=== PATIENT | male | born 1950 | race Caucasian/White ===

== ENCOUNTER 2024-01-30 08:16 | Outpatient (AMB) | payer MEDICARE, SELFPAY ==
--- NOTE | 2024-01-30 08:27 | MHC.PC.OV ---
Vital Signs 01/30/24 08:37 Height 5 ft 8.03 in Weight 187 lb BMI 28.4 BP 118/70 Blood Pressure Location Lt brachial Position Sitting Respiration 14 Pulse 83 Pulse Source Pulse Oximeter Temp 98.1 F Temp Source Oral Pulse Oximetry (%) 96 Oxygen Delivery Method Room Air Intake Visit Reasons: est care/ uti Intake Note: New patient visit, burning while urinating Allergies latex [LATEX] Allergy (Intermediate, Verified 01/30/24 08:28) RASH lisinopril [LISINOPRIL] Allergy (Intermediate, Verified 01/30/24 08:28) LEG CRAMPS NSAIDS (Non-Steroidal Anti-Inflamma [NSAIDS (NON-STEROIDAL ANTI-INFLAMMA] Allergy (Intermediate, Verified 01/30/24 08:28) LEG CRAMPS vardenafil [From LEVITRA] Allergy (Intermediate, Verified 01/30/24 08:28) HALLUCINATIONS hydromorphone [Dilaudid] Allergy (Unknown, Verified 01/30/24 08:28) clammy ibuprofen Allergy (Unknown, Verified 01/30/24 08:28) Unknown Latex Gloves Allergy (Unknown, Uncoded 01/30/24 08:28) Unknown Tobacco use date assessed: 01/30/24 Fall risk assessment: No Falls in past year (is unsteady on feet) Last assessed Fall Risk: 01/30/24 Dental Screening Dental Screen Date: 01/30/24 Did you have a dental visit in the last 12 months?: Yes Did you have a dental problem in the last 6 months where you did not have access to dental care?: No Was dental information given to patient?: Patient has dentist HPI HPI Comments History of Present Illness Details This is a 73-year-old male with a past medical history of chronic neutrophilia, hypercholesterolemia, hypertension, coronary artery disease, right lower lobe lung nodule, BPH, CONNER, palpitations, peripheral neuropathy, TIA x2, controlled type 2 diabetes and venous insufficiency presenting to [facility]. He was seen at his last practice only one time 6 months ago before his insurance changed. Prior to that he was followed at [facility] care for [address] Blood. Records transfer pending. He endorses UTI symptoms for 4 days. He complains of urinary frequency, urgency and a mild burning sensation with urination. He had 1 UTI previously. Denies blood in his urine, fevers, chills, back pain, nausea and vomiting. Cardiovascular- Released from routine follow up by Dr. Burgess 3 years ago. Patient says about 5 years ago he was hospitalized for angina at [facility]. He had a total occlusion of 1 of his coronary arteries. They planned on bypass, but it was not amenable to surgery, and they told him collateral veins would form. Patient has stable angina for years. It occurs sporadically with exertion. This has not happened recently. He takes nitroglycerin and symptoms resolve. He takes losartan, Zetia, carvedilol, atorvastatin and baby aspirin. He was also evaluated for palpitations by his technical account representative. Patient had 2 TIAs. The 1st was some 20 years ago, and the other TIA occurred years ago, but he does not remember exactly when. Right lower lobe pulmonary nodule-patient says he was followed with CT scans for many years, and it remained stable. No further imaging was recommended. Quit smoking in 1993. He has chronic neutrophilia, and he was followed by Dr. Rodrigez. He denies fevers, chills, night sweats or unexplained weight loss. He does not see Hematology routinely anymore, but they recommended continuing to check his blood count. Type 2 diabetes-he has peripheral neuropathy. Fasting sugars are 130-140. His last hemoglobin A1c was 6 months ago, and he says it was 6.2%. He has eye exams with Dr. Moran annually. Ocular migraines-evaluated by Dr. Moran. Reports he had a CT scan of the brain which was normal. CONNER-patient says he does not use a CPAP. He tried to use one, and he did not tolerate it. See below PHQ-9 regarding fatigue symptoms. BPH-previously followed by Dr. Yuen. He would like to see a new neurologist. He had symptoms still on tamsulosin. Endorses frequent urination and nocturia. ROS: Constitutional: No unexplained weight loss, fever, chills, fatigue or night sweats. Eyes: No vision changes, blurry vision, double vision, eye pain, eye redness, eye discharge. ENT: No hearing loss, sneezing, congestion, runny nose or sore throat. Respiratory: No shortness of breath, cough or sputum production. Cardiovascular: No chest pain. No palpitations or pedal edema. Gastrointestinal: No anorexia, nausea, vomiting or diarrhea. No abdominal pain or blood in stool. Genitourinary: See HPI Neurologic: No headache, dizziness, syncope Hematologic/Lymphatics: No bleeding or swollen glands. Physical exam: Constitutional: Alert, in no distress. Head: Normocephalic. Eyes: Pupils are equal, round and reactive to light. Extraocular muscles intact. Neck: Supple, Full range of motion. No lymphadenopathy. Respiratory: Clear to auscultation. Cardiovascular: S1 S2 regular. No murmurs. Gastrointestinal: Abdomen soft, non-tender, non-distended. Normal bowel sounds. No palpable masses. Genitourinary: No costovertebral angle tenderness. Neurologic: No focal neurological deficits. Extremities: Warm and well perfused. No clubbing, cyanosis or edema. Psychiatric: Normal mood and affect [facility] Medical History (Updated 01/30/24 @ 14:17 by ERIKA Warren) Ocular migraine Chronic neutrophilia Controlled type 2 diabetes with neuropathy UTI (urinary tract infection) BPH associated with nocturia Venous insufficiency Type 2 diabetes mellitus TIA (transient ischemic attack) Stable angina pectoris Peripheral neuropathy Palpitations Osteoarthritis, hand CONNER (obstructive sleep apnea) Nodule of lower lobe of right lung Murmur Lower urinary tract symptoms HTN (hypertension) Hypercholesteremia Chronic total occlusion of coronary artery Surgical History (Updated 01/30/24 @ 10:56 by ERIKA Warren) History of sinus surgery History of microdiscectomy Status post reverse total shoulder replacement History of colonoscopy Social History (Updated 01/30/24 @ 08:52 by Carole Joshua CMA) Housing: Other ([facility]) Cigarette Packs Per Day: 2 Years Smoked: 30 e-Cigarette/Vaping Use: Never Used service: Yes Current occupational status: retired Cognitive needs: No Hearing needs: No Vision needs: Yes (reading glasses) Questionnaire PHQ-9 Over the last 2 weeks, how often have you been bothered by any of the following problems? 1. Little interest or pleasure in doing things: not at all 2. Feeling down, depressed, or hopeless: not at all 3. Trouble falling or staying asleep, or sleeping too much: nearly every day 4. Feeling tired or having little energy: nearly every day 5. Poor appetite or overeating: not at all 6. Feeling bad about yourself - or that you are a failure or have let yourself or your family down: not at all 7. Trouble concentrating on things, such as reading the newspaper or watching television: not at all 8. Moving or speaking so slowly that other people could have noticed. Or the opposite - being so fidgety or restless that you have been moving around a lot more than usual: not at all 9. Thoughts that you would be better off or of hurting yourself in some way: not at all Total score: 6 Depression Screening Interpretation: Positive Depression Screening Done: Yes 63414 - PHQ-9 Billing: Yes Source: Developed by Drs. Deven Lincoln, Altagracia Quintanilla, Tee Canchola and colleagues, with an educational linus from [employer] Thrive Questionnaire Date Thrive assessed: 01/30/24 I am a: Patient What is your living situation today?: I have a steady place to live Within the past 12 months, did the food you bought not last and you didn't have the money to get more?: Never true Within the past 12 months, did you worry whether your food would run out before you got money to buy more?: Never true Do you have trouble paying for medicines?: No Do you have trouble getting transportation to medical appointments?: No Do you have trouble paying your heating and electricity bill?: No Do you have trouble taking care of your child, family member or friend?: No Do you have trouble with day-to-day activities such as bathing, preparing meals, shopping, managing finances, etc.?: No Are you currently unemployed and looking for a job?: Yes Are you interested in more education?: No Please select the resources that you would like help with: Job search/training Currently or been in a relationship where the following occur: No concerns reported THRIVE Score: 0 AUDIT C Alcohol Use Questionnaire (AUDIT-C) 1. How often do you have a drink containing alcohol?: Monthly or less 2. How many drinks containing alcohol do you have on a typical day when you are drinking?: 1 or 2 3. How often do you have six or more drinks on one occasion?: Never Total Score: 1 NICKI-7 AMB Questionnaire NICKI-7 Date NICKI - 7 assessed: 01/30/24 Feeling nervous, anxious, or on edge: 0 = Not at all Not being able to stop or control worryin = Not at all Worrying too much about different things: 0 = Not at all Trouble relaxin = Not at all Being so restless that it is hard to sit still: 0 = Not at all Becoming easily annoyed or irritable: 0 = Not at all Feeling afraid as if something awful might happen: 0 = Not at all Total NICKI-7 score (0-4 normal; 5-9 mild; 10-14 moderate; 15-21 severe): 0 Source: Developed by Drs. Deven Lincoln, Altagracia Quintanilla, Tee Canchola and colleagues, with an educational linus from [employer] NICKI-7 Assessment Billing NICKI-7 Assessment Tool: NICKI-7 Assessment 39268 Physical exam (Primary Care) Vital Signs: Last Vital Signs Temp 98.1 F 01/30/24 08:37 Pulse 83 01/30/24 08:37 Resp 14 01/30/24 08:37 BP 118/70 01/30/24 08:37 Pulse Ox 96 01/30/24 08:37 Oxygen Delivery Method Room Air 01/30/24 08:37 BMI result Body Mass Index 28.4 Tobacco/Smoking Status: Tobacco use Status Tobacco use date assessed 01/30/24 01/30/24 08:40 e-Cigarette/Vaping Use Never Used 01/30/24 08:52 PHQ-9: PHQ-9 Score PHQ-9: Total score 6 01/30/24 10:58 Depression Screening Interpretation: Positive Thrive Assessment: Date of Thrive Assessment Date Thrive assessed 01/30/24 01/30/24 09:26 Currently or been in a relationship where the following occur: No concerns reported Assessment and Plan Assessment & Plan (1) UTI (urinary tract infection): Code(s): N39.0 - Urinary tract infection, site not specified Qualifiers: Urinary tract infection type: acute cystitis Hematuria presence: without hematuria Qualified Code(s): N30.00 - Acute cystitis without hematuria Plan: Patient could not provide sample, but he will return to the lab and [facility] today to do so. Patient will start Macrobid 1 pill twice daily x7 days. Take with food and recommended yogurt and probiotics. Warning signs warranting ER evaluation reviewed. Given BPH and male with UTI we will refer to Urology for further follow up. (2) BPH associated with nocturia: Code(s): N40.1 - Benign prostatic hyperplasia with lower urinary tract symptoms; R35.1 - Nocturia Plan: Check PSA. Refer to Urology. (3) Controlled type 2 diabetes with neuropathy: Code(s): E11.40 - Type 2 diabetes mellitus with diabetic neuropathy, unspecified Plan: Controlled per patient history. Check labs. Continue current medications. (4) Chronic total occlusion of coronary artery: Code(s): I25.82 - Chronic total occlusion of coronary artery Plan: Records transfer pending. Continue baby aspirin, high-intensity statin therapy, beta blockade. He has good control of diabetes and hypertension. Check lipid profile. (5) Pure hypercholesterolemia: Code(s): E78.00 - Pure hypercholesterolemia, unspecified (6) Essential hypertension: Code(s): I10 - Essential (primary) hypertension (7) Chronic neutrophilia: Code(s): D72.828 - Other elevated white blood cell count Plan: Check CBC. Plan Follow up in 6 months for physical exam. Orders: Orders Comprehensive Met. Panel Today D70.9 - Neutropenia, unspecified, E11.9 - Type 2 diabetes mellitus without complications, E78.5 - Hyperlipidemia, unspecified, R39.15 - Urgency of urination Prostate Specific Antigen Scr Today D70.9 - Neutropenia, unspecified, E11.9 - Type 2 diabetes mellitus without complications, E78.5 - Hyperlipidemia, unspecified, R39.15 - Urgency of urination, Z12.5 - Encounter for screening for malignant neoplasm of prostate Complete Blood Count Auto Diff Today D70.9 - Neutropenia, unspecified, E11.9 - Type 2 diabetes mellitus without complications, E78.5 - Hyperlipidemia, unspecified, R39.15 - Urgency of urination UA w Microscopic Today D70.9 - Neutropenia, unspecified, E11.9 - Type 2 diabetes mellitus without complications, E78.5 - Hyperlipidemia, unspecified, R39.15 - Urgency of urination Lipid Panel Today D70.9 - Neutropenia, unspecified, E11.9 - Type 2 diabetes mellitus without complications, E78.5 - Hyperlipidemia, unspecified, R39.15 - Urgency of urination Hemoglobin A1c Today D70.9 - Neutropenia, unspecified, E11.9 - Type 2 diabetes mellitus without complications, E78.5 - Hyperlipidemia, unspecified, R39.15 - Urgency of urination Urine Culture Today D70.9 - Neutropenia, unspecified, E11.9 - Type 2 diabetes mellitus without complications, E78.5 - Hyperlipidemia, unspecified, R39.15 - Urgency of urination Referrals Urology Referral N39.0 - Urinary tract infection, site not specified, N40.1 - Benign prostatic hyperplasia with lower urinary tract symptoms, R35.1 - Nocturia Medications: New nitrofurantoin monohyd/m-cryst 100 mg (Macrobid) must administer with a meal/food 100 mg PO BID 7 days 14 caps 0RF Coding Level of Care Code New Pt Level 4 (32205) Complex EM visit Add On G2211 Diagnoses Acute cystitis without hematuria N30.00 Urinary tract infection type: acute cystitis Hematuria presence: without hematuria BPH associated with nocturia N40.1; R35.1 Controlled type 2 diabetes with neuropathy E11.40 Chronic total occlusion of coronary artery I25.82 Pure hypercholesterolemia E78.00 Essential hypertension I10 Chronic neutrophilia D72.828 Additional Codes NICKI-7 Assessment Billing - NICKI-7 Assessment Tool: NICKI-7 Assessment 42908 ([id number])
[2024-01-30 08:37] VITALS: BP 118/70; PULSE 83; RESP 14; TEMP 36.7; O2SAT 96; BMI 28.4
== END 2024-01-30 09:11 | disposition home or self-care (01) ==
PROVIDERS: PCP Physician Assistant Medical; Visit Provider Physician Assistant Medical
DX: E11.40 Type 2 diabetes mellitus with diabetic neuropathy, unspecified (principal); N30.00 Acute cystitis without hematuria; N40.1 Benign prostatic hyperplasia with lower urinary tract symptoms; R35.1 Nocturia; I25.82 Chronic total occlusion of coronary artery; E78.00 Pure hypercholesterolemia, unspecified; I10 Essential (primary) hypertension; D72.828 Other elevated white blood cell count
CPT/HCPCS: 99204; G2211

== ENCOUNTER 2024-01-30 09:42 | Outpatient (REF) | payer MEDICARE, SELFPAY ==
[2024-01-30 13:05] LABS: Appearance Urine Clear; Color Urine Yellow; Glucose Urine UA Negative (Negative); Leukocyte Esterase Urine Trace (Negative); Nitrite Urine Negative (Negative); PH 5.5 (5.0-9.0); Specific Gravity - Urine 1.025 (1.005-1.025); UMIC TRIGGER UA YES; Urine Blood Negative (Negative); Urine Ketones Negative (Negative); Urine Protein 30 (1+) mg/dL (Neg-Trace)
[2024-01-30 13:08] LABS: Bacteria Urine None Seen (None Seen); RBC Urine 0-2 /HPF (0-2); Squamous Epithelial Cell Urine 0-2 /HPF (0-2)
== END 2024-01-30 09:43 | disposition home or self-care (01) ==
LOC: HO.HMGCLDS 09:42
PROVIDERS: PCP Physician Assistant Medical; Visit Provider Physician Assistant Medical
DX: E11.9 Type 2 diabetes mellitus without complications (principal); R39.15 Urgency of urination; E78.5 Hyperlipidemia, unspecified; D70.9 Neutropenia, unspecified
CPT/HCPCS: 81001

== ENCOUNTER 2024-01-31 06:23 | Outpatient (REF) | payer MEDICARE, SELFPAY ==
[2024-01-31 10:21] LABS: MANUAL DIFF FLAG NO
[2024-01-31 10:36] LABS: Basophils Absolute Auto 0.1 X10*3/uL (0.0-0.2); Basophils Percent Auto 0.6 % (0-2); Eosinophils Absolute Auto 0.5 X10*3/uL (0.0-0.4); Eosinophils Percent Auto 5.3 % (0-4); Hematocrit 40.6 % (42.0-52.0); Hemoglobin 13.5 g/dl (14.0-18.0); Imm Gran Abs Auto 0.08 X10*3/uL (0.00-0.03); Imm Gran Pct Auto 0.8 % (0.0-0.4); Lymphocytes Absolute Auto 2.1 X10*3/uL (1.2-4.9); Lymphocytes Percent Auto 21.3 % (20-40); Mean Corpuscular HGB Conc 33.3 g/dl (31.0-36.0); Mean Corpuscular Hemoglobin 32.7 pg (27.0-33.0); Mean Corpuscular Volume 98.3 fL (80.0-98.0); Mean Platelet Volume 10.5 fL (9.4-12.4); Monocytes Absolute Auto 1.2 X10*3/uL (0.1-1.2); Monocytes Percent Auto 11.7 % (2-11); Neutrophils Percent Auto 60.3 % (45-73); Platelet Count 290 X10*3/uL (160-400); Red Blood Count 4.13 X10*6/uL (4.60-5.80); Red Cell Distribution Width 11.8 % (11.0-16.0); White Blood Count 9.9 X10*3/uL (4.8-10.8)
[2024-01-31 10:38] LABS: Alanine Aminotransferase 25 U/L (0-40); Albumin Level 3.8 g/dL (3.5-5.0); Alkaline Phosphatase 67 U/L (39-117); Anion Gap 13 (12-20); Aspartate Amino Transferase 21 U/L (5-37); Bilirubin Total 0.3 mg/dL (0.0-1.0); Blood Urea Nitrogen 13 mg/dL (9-16); Calcium 9.8 mg/dL (8.4-10.2); Carbon Dioxide 21 mmol/L (22-29); Chloride 108 mmol/L (96-108); Cholesterol 138 mg/dL (<200); Estimated Glomerular Filt Rate > 60; Glucose Random 157 mg/dL (60-115); HDL Cholesterol 52 mg/dL (>40); LDL Cholesterol Calculated 72 mg/dL (<100); Sodium 137 mmol/L (135-145); Total Protein 7.1 g/dL (6.5-8.0); Triglycerides 70 mg/dL (<150)
[2024-01-31 10:59] LABS: Estimated Average Glucose 120 mg/dL; Hemoglobin A1C 142.0757 umol/L; Hemoglobin A1c % 5.8 % (<6.0)
[2024-01-31 11:06] LABS: Prostate Specific Antigen Scr 14.05 ng/mL (<0.05-4.0)
== END 2024-01-31 06:24 | disposition home or self-care (01) ==
LOC: HO.HMGCLDS 06:23
PROVIDERS: PCP Physician Assistant Medical; Visit Provider Physician Assistant Medical
DX: Z12.5 Encounter for screening for malignant neoplasm of prostate (principal); E11.9 Type 2 diabetes mellitus without complications; R39.15 Urgency of urination; E78.5 Hyperlipidemia, unspecified; D70.9 Neutropenia, unspecified
CPT/HCPCS: 36415; 80053; 80061; 83036; 84153; 85025

== ENCOUNTER 2024-02-06 07:31 | Outpatient (REF) | payer MEDICARE, SELFPAY | END 2024-02-06 07:32 | disposition home or self-care (01) | LOC: HO.HMGCLDS 07:31 | PROVIDERS: PCP Physician Assistant Medical; Visit Provider Physician Assistant Medical | DX: E11.9 Type 2 diabetes mellitus without complications (principal); R39.15 Urgency of urination; E78.5 Hyperlipidemia, unspecified; D70.9 Neutropenia, unspecified | CPT/HCPCS: 87086 ==

== ENCOUNTER 2024-03-18 10:34 | Outpatient (REF) | payer MEDICARE, SELFPAY ==
[2024-03-18 13:22] LABS: MANUAL DIFF FLAG NO
[2024-03-18 13:32] LABS: Basophils Absolute Auto 0.1 X10*3/uL (0.0-0.2); Basophils Percent Auto 0.5 % (0-2); Eosinophils Absolute Auto 0.8 X10*3/uL (0.0-0.4); Eosinophils Percent Auto 7.5 % (0-4); Hemoglobin 13.4 g/dl (14.0-18.0); Imm Gran Abs Auto 0.03 X10*3/uL (0.00-0.03); Imm Gran Pct Auto 0.3 % (0.0-0.4); Lymphocytes Absolute Auto 1.9 X10*3/uL (1.2-4.9); Lymphocytes Percent Auto 16.9 % (20-40); Mean Corpuscular HGB Conc 32.7 g/dl (31.0-36.0); Mean Corpuscular Volume 97.9 fL (80.0-98.0); Mean Platelet Volume 10.4 fL (9.4-12.4); Monocytes Absolute Auto 1.1 X10*3/uL (0.1-1.2); Monocytes Percent Auto 9.9 % (2-11); Neutrophils Absolute Auto 7.2 x10*3/uL (2.0-8.3); Neutrophils Percent Auto 64.9 % (45-73); Platelet Count 290 X10*3/uL (160-400); Red Blood Count 4.19 X10*6/uL (4.60-5.80); Red Cell Distribution Width 12.7 % (11.0-16.0); White Blood Count 11.1 X10*3/uL (4.8-10.8)
[2024-03-18 14:12] LABS: Iron 102 mcg/dL (45-160); Percent Iron Saturation 46 % (15-50); Total Iron Binding Capacity 223 mcg/dL (228-428); Unsaturated Iron Binding 121 ug/dL
[2024-03-18 14:14] LABS: Ferritin 289 ng/mL (20-250)
[2024-03-18 14:23] LABS: Vitamin B12 806 pg/mL (200-900)
== END 2024-03-18 10:35 | disposition home or self-care (01) ==
LOC: HO.HMGCLDS 10:34
PROVIDERS: PCP Physician Assistant Medical; Visit Provider Physician Assistant Medical
DX: D64.9 Anemia, unspecified (principal)
CPT/HCPCS: 36415; 82607; 82728; 82746; 83540; 85025

== ENCOUNTER 2024-04-03 09:50 | Outpatient (REF) | payer MEDICARE, SELFPAY ==
[2024-04-03 14:53] LABS: PSA,Total (Free>4and<10) 1.31 ng/mL (0.00-4.00)
== END 2024-04-03 09:51 | disposition home or self-care (01) ==
LOC: HO.HMGCLDS 09:50
PROVIDERS: PCP Physician Assistant Medical; Visit Provider Urology
DX: R97.20 Elevated prostate specific antigen [PSA] (principal); Z12.5 Encounter for screening for malignant neoplasm of prostate
CPT/HCPCS: 36415; 84153

== ENCOUNTER 2024-05-11 09:40 | Outpatient (AMB) | payer MEDICARE, SELFPAY ==
--- NOTE | 2024-05-11 09:51 | MHC.PC.OV ---
Vital Signs 05/11/24 09:57 Height 5 ft 8.03 in Weight 172 lb 4 oz BMI 26.2 BP 136/78 Blood Pressure Location Rt brachial Position Sitting Pulse 82 Pulse Source Pulse Oximeter Pulse Oximetry (%) 99 Oxygen Delivery Method Room Air Intake Visit Reasons: medications Intake Note: Follow up medication Superintendent Sales Required: No Allergies latex [LATEX] Allergy (Intermediate, Verified 05/11/24 09:52) RASH lisinopril [LISINOPRIL] Allergy (Intermediate, Verified 05/11/24 09:52) LEG CRAMPS NSAIDS (Non-Steroidal Anti-Inflamma [NSAIDS (NON-STEROIDAL ANTI-INFLAMMA] Allergy (Intermediate, Verified 05/11/24 09:52) LEG CRAMPS vardenafil [From LEVITRA] Allergy (Intermediate, Verified 05/11/24 09:52) HALLUCINATIONS hydromorphone [Dilaudid] Allergy (Unknown, Verified 05/11/24 09:52) clammy ibuprofen Allergy (Unknown, Verified 05/11/24 09:52) Unknown Latex Gloves Allergy (Unknown, Uncoded 05/11/24 09:52) Unknown Tobacco use date assessed: 01/30/24 Dental Screening Dental Screen Date: 01/30/24 HPI HPI Comments History of Present Illness Details This is a 73-year-old male with a past medical history of chronic neutrophilia, hypercholesterolemia, hypertension, coronary artery disease, right lower lobe lung nodule, BPH, CONNER, palpitations, peripheral neuropathy, TIA x2, controlled type 2 diabetes and venous insufficiency presenting for follow up. Cardiovascular- Released from routine follow up by Dr. Burgess several years ago. Patient reported that about 5 years ago he was hospitalized for angina at [facility]. He had a total occlusion of 1 of his coronary arteries. They planned on bypass, but it was not amenable to surgery, and they told him collateral veins would form. Patient has stable angina for years. It occurs sporadically with exertion. This has not happened recently. He has a prescription for nitroglycerin, but he has not needed to use it. He takes losartan, Zetia, carvedilol, atorvastatin and baby aspirin. He was also evaluated for palpitations by his optical model maker and tester. Patient had 2 TIAs. The 1st was some 20 years ago, and the other TIA occurred years ago, but he does not remember exactly when. Right lower lobe pulmonary nodule-patient says he was followed with CT scans for many years, and it remained stable. No further imaging was recommended. Quit smoking in 1993. Since our last visit the patient saw Dr. Rodrigez for follow up regarding his abnormal blood count. He denies fevers, chills, night sweats or unexplained weight loss. He will see him again to follow up in 10/08/2024, but he says he was not concerned about the numbers since they were stable. Type 2 diabetes-he has peripheral neuropathy. His last hemoglobin A1c was 5.8%. He takes metformin 1000 mg twice daily. He has eye exams with Dr. Moran annually. BPH, elevated PSA-previously followed by Dr. Yuen. He saw Dr. Dash after a recent UTI. Patient reports that PSA normalized after UTI was treated. Tubular adenoma-he is due for colonoscopy. He has them every 5 years. ROS: Constitutional: No unexplained weight loss, fever, chills, fatigue or night sweats. Eyes: No vision changes, blurry vision, double vision, eye pain, eye redness, eye discharge. ENT: No hearing loss, sneezing, congestion, runny nose or sore throat. Respiratory: No shortness of breath, cough or sputum production. Cardiovascular: No chest pain. No palpitations or pedal edema. Gastrointestinal: No anorexia, nausea, vomiting or diarrhea. No abdominal pain or blood in stool. Genitourinary: No dysuria, hematuria, frequency. Neurologic: No headache, dizziness, syncope Hematologic/Lymphatics: No bleeding or swollen glands. Physical exam: Constitutional: Alert, in no distress. Head: Normocephalic. Eyes: Pupils are equal, round and reactive to light. Extraocular muscles intact. Neck: Supple, Full range of motion. No lymphadenopathy. Respiratory: Clear to auscultation. Cardiovascular: S1 S2 regular. No murmurs. Neurologic: No focal neurological deficits. Extremities: Warm and well perfused. No clubbing, cyanosis or edema. Psychiatric: Normal mood and affect [facility] Medical History (Updated 05/11/24 @ 13:51 by ERIKA Warren) Abnormal CBC Elevated ferritin Anemia Emphysema lung Cholelithiasis Asthma Tubular adenoma of colon Ocular migraine Chronic neutrophilia Controlled type 2 diabetes with neuropathy UTI (urinary tract infection) BPH associated with nocturia Venous insufficiency Type 2 diabetes mellitus TIA (transient ischemic attack) Stable angina pectoris Peripheral neuropathy Palpitations Osteoarthritis, hand CONNER (obstructive sleep apnea) Nodule of lower lobe of right lung Murmur Lower urinary tract symptoms HTN (hypertension) Hypercholesteremia Chronic total occlusion of coronary artery Surgical History (Updated 02/07/24 @ 09:02 by ERIKA Warren) History of bilateral cataract extraction History of sinus surgery History of microdiscectomy Status post reverse total shoulder replacement History of colonoscopy Social History (Updated 01/30/24 @ 08:52 by Carole Joshua CMA) Housing: Other ([place] [facility]) Patient Tobacco Use Status: Never used Tobacco Cigarette Packs Per Day: 2 Years Smoked: 30 e-Cigarette/Vaping Use: Never Used service: Yes Current occupational status: retired Cognitive needs: No Hearing needs: No Vision needs: Yes (reading glasses) Questionnaire PHQ-9 Over the last 2 weeks, how often have you been bothered by any of the following problems? 1. Little interest or pleasure in doing things: not at all 2. Feeling down, depressed, or hopeless: not at all 3. Trouble falling or staying asleep, or sleeping too much: not at all 4. Feeling tired or having little energy: not at all 5. Poor appetite or overeating: not at all 6. Feeling bad about yourself - or that you are a failure or have let yourself or your family down: not at all 7. Trouble concentrating on things, such as reading the newspaper or watching television: not at all 8. Moving or speaking so slowly that other people could have noticed. Or the opposite - being so fidgety or restless that you have been moving around a lot more than usual: not at all 9. Thoughts that you would be better off or of hurting yourself in some way: not at all Total score: 0 Source: Developed by Drs. Deven Lincoln, Altagracia Quintanilla, Tee Canchola and colleagues, with an educational linus from [employer]. Thrive Questionnaire Date Thrive assessed: 05/08/24 I am a: Patient What is your living situation today?: I have a steady place to live Within the past 12 months, did the food you bought not last and you didn't have the money to get more?: Never true Within the past 12 months, did you worry whether your food would run out before you got money to buy more?: Never true Do you have trouble paying for medicines?: No Do you have trouble getting transportation to medical appointments?: No Do you have trouble paying your heating and electricity bill?: No Do you have trouble taking care of your child, family member or friend?: No Do you have trouble with day-to-day activities such as bathing, preparing meals, shopping, managing finances, etc.?: No Are you currently unemployed and looking for a job?: No Are you interested in more education?: No Please select the resources that you would like help with: None Currently or been in a relationship where the following occur: No concerns reported THRIVE Score: 0 AUDIT C Alcohol Use Questionnaire (AUDIT-C) 2. How many drinks containing alcohol do you have on a typical day when you are drinking?: 1 or 2 3. How often do you have six or more drinks on one occasion?: Never Total Score: 0 NICKI-7 AMB Questionnaire NICKI-7 Date NICKI - 7 assessed: 01/30/24 Feeling nervous, anxious, or on edge: 0 = Not at all Not being able to stop or control worryin = Not at all Worrying too much about different things: 0 = Not at all Trouble relaxin = Not at all Being so restless that it is hard to sit still: 0 = Not at all Becoming easily annoyed or irritable: 0 = Not at all Feeling afraid as if something awful might happen: 0 = Not at all Total NICKI-7 score (0-4 normal; 5-9 mild; 10-14 moderate; 15-21 severe): 0 Source: Developed by Drs. Deven Lincoln, Altagracia Quintanilla, Tee Canchola and colleagues, with an educational linus from [employer]. Physical exam (Primary Care) Tobacco/Smoking Status: Tobacco use Status Tobacco use date assessed 01/30/24 05/11/24 09:55 Patient Tobacco Use Status Never used Tobacco 05/11/24 09:55 e-Cigarette/Vaping Use Never Used 05/11/24 09:55 PHQ-9: PHQ-9 Score PHQ-9: Total score 0 05/11/24 09:55 Thrive Assessment: Date of Thrive Assessment Date Thrive assessed 05/08/24 05/11/24 09:55 Currently or been in a relationship where the following occur: No concerns reported Coding Level of Care Code Est Pt Level 4 (97406) Complex EM visit Add On G2211 Diagnoses Abnormal CBC R79.89 Tubular adenoma of colon D12.6 Essential hypertension I10 Pure hypercholesterolemia E78.00 Chronic total occlusion of coronary artery I25.82 BPH associated with nocturia N40.1; R35.1 Assessment & Plan Assessment & Plan (1) Abnormal CBC: Code(s): R79.89 - Other specified abnormal findings of blood chemistry Category: Medical Plan: Patient was evaluated by Dr. Rodrigez , and he will see him back in 09/2024. (2) Tubular adenoma of colon: Comment: Colonoscopy 09/16/19 at [facility]: 2 polyps, repeat colonoscopy in 5 years advised Code(s): D12.6 - Benign neoplasm of colon, unspecified Category: Medical Plan: Refer to gastroenterology since he is due for repeat screening colonoscopy in 2019. (3) Essential hypertension: Code(s): I10 - Essential (primary) hypertension Category: Medical Plan: Patient's blood pressure is suboptimal today. There was an issue with his prescription refills which was bothering him. This was sorted out, and he will send me blood pressure readings in a few weeks. He monitors at home. (4) Pure hypercholesterolemia: Code(s): E78.00 - Pure hypercholesterolemia, unspecified Category: Medical Plan: Continue Zetia and atorvastatin. Recheck fasting lipid profile. Recommended Mediterranean diet. (5) Chronic total occlusion of coronary artery: Code(s): I25.82 - Chronic total occlusion of coronary artery Category: Medical (6) BPH associated with nocturia: Code(s): N40.1 - Benign prostatic hyperplasia with lower urinary tract symptoms; R35.1 - Nocturia Category: Medical Plan: Followed by urology. Plan Follow up in 4 months. Orders: Orders Hemoglobin A1c Today E11.40 - Type 2 diabetes mellitus with diabetic neuropathy, unspecified, E78.00 - Pure hypercholesterolemia, unspecified, I25.82 - Chronic total occlusion of coronary artery Microalbumin, Random (w Creat) Today E11.40 - Type 2 diabetes mellitus with diabetic neuropathy, unspecified, E78.00 - Pure hypercholesterolemia, unspecified Lipid Panel Today E11.40 - Type 2 diabetes mellitus with diabetic neuropathy, unspecified, E78.00 - Pure hypercholesterolemia, unspecified Basic Metabolic Panel Today E11.40 - Type 2 diabetes mellitus with diabetic neuropathy, unspecified, E78.00 - Pure hypercholesterolemia, unspecified Referrals Gastroenterology Referral D12.6 - Benign neoplasm of colon, unspecified Medications: New losartan 100 mg PO DAILY 30 tabs 11RF Changed From carvedilol must administer with a meal/food 25 mg PO BID 90 days 180 tabs 3RF To carvedilol must administer with a meal/food 25 mg PO BID 30 days 60 tabs 11RF
[2024-05-11 09:57] VITALS: BP 136/78; PULSE 82; O2SAT 99; BMI 26.2
== END 2024-05-11 10:24 | disposition home or self-care (01) ==
PROVIDERS: PCP Physician Assistant Medical; Visit Provider Physician Assistant Medical
DX: R79.89 Other specified abnormal findings of blood chemistry (principal); D12.6 Benign neoplasm of colon, unspecified; I10 Essential (primary) hypertension; E78.00 Pure hypercholesterolemia, unspecified; I25.82 Chronic total occlusion of coronary artery; N40.1 Benign prostatic hyperplasia with lower urinary tract symptoms; R35.1 Nocturia

== ENCOUNTER → 2024-05-11 09:40 | Outpatient (BNVA) | payer MEDICARE, SELFPAY | PROVIDERS: PCP Physician Assistant Medical; Visit Provider Physician Assistant Medical | DX: R79.89 Other specified abnormal findings of blood chemistry (principal); I10 Essential (primary) hypertension; E78.00 Pure hypercholesterolemia, unspecified; I25.82 Chronic total occlusion of coronary artery; N40.1 Benign prostatic hyperplasia with lower urinary tract symptoms; R35.1 Nocturia; E11.40 Type 2 diabetes mellitus with diabetic neuropathy, unspecified; I25.10 Atherosclerotic heart disease of native coronary artery without angina pectoris; R91.1 Solitary pulmonary nodule; N40.0 Benign prostatic hyperplasia without lower urinary tract symptoms; Z86.0101 Personal history of adenomatous and serrated colon polyps; Z86.73 Personal history of transient ischemic attack (TIA), and cerebral infarction without residual deficits | CPT/HCPCS: 96127; 99212 ==

== ENCOUNTER 2024-05-19 08:32 | Outpatient (REF) | payer MEDICARE, SELFPAY ==
[2024-05-19 12:15] LABS: Estimated Average Glucose 117 mg/dL; Hemoglobin A1c % 5.7 % (<6.0)
[2024-05-19 12:22] LABS: Anion Gap 13 (12-20); Blood Urea Nitrogen 20 mg/dL (9-16); Calcium 9.1 mg/dL (8.4-10.2); Carbon Dioxide 22 mmol/L (22-29); Chloride 107 mmol/L (96-108); Cholesterol 140 mg/dL (<200); Estimated Glomerular Filt Rate > 60; Glucose Random 130 mg/dL (60-115); HDL Cholesterol 59 mg/dL (>40); LDL Cholesterol Calculated 58 mg/dL (<100); Potassium 4.5 mmol/L (3.3-5.1); Sodium 137 mmol/L (135-145); Triglycerides 118 mg/dL (<150)
[2024-05-19 12:36] LABS: Prostate Specific Antigen Scr 1.17 ng/mL (<0.05-4.0)
[2024-05-19 12:57] LABS: Creatinine Urine 34.79 mg/dL; Microalbum/Creatinine Ratio Ur 25.8 ug/mg cr (<30)
== END 2024-05-19 08:33 | disposition home or self-care (01) ==
LOC: HO.WFDLDS 08:32
PROVIDERS: Visit Provider Physician Assistant Medical
DX: E78.00 Pure hypercholesterolemia, unspecified (principal); E11.40 Type 2 diabetes mellitus with diabetic neuropathy, unspecified; I25.82 Chronic total occlusion of coronary artery; R97.20 Elevated prostate specific antigen [PSA]; Z12.5 Encounter for screening for malignant neoplasm of prostate
CPT/HCPCS: 36415; 80048; 80061; 82043; 82570; 83036; 84153

== ENCOUNTER 2024-08-13 09:03 | Outpatient (REF) | payer MEDICARE, SELFPAY ==
[2024-08-13 10:06] LABS: MANUAL DIFF FLAG NO
[2024-08-13 10:22] LABS: Basophils Absolute Auto 0.1 X10*3/uL (0.0-0.2); Basophils Percent Auto 0.4 % (0-2); Eosinophils Absolute Auto 0.4 X10*3/uL (0.0-0.4); Eosinophils Percent Auto 3.4 % (0-4); Hematocrit 37.4 % (42.0-52.0); Hemoglobin 12.5 g/dl (14.0-18.0); Imm Gran Abs Auto 0.08 X10*3/uL (0.00-0.03); Imm Gran Pct Auto 0.7 % (0.0-0.4); Lymphocytes Absolute Auto 1.7 X10*3/uL (1.2-4.9); Mean Corpuscular HGB Conc 33.4 g/dl (31.0-36.0); Mean Corpuscular Hemoglobin 31.6 pg (27.0-33.0); Mean Corpuscular Volume 94.7 fL (80.0-98.0); Monocytes Absolute Auto 1.3 X10*3/uL (0.1-1.2); Monocytes Percent Auto 11.2 % (2-11); Neutrophils Absolute Auto 7.9 x10*3/uL (2.0-8.3); Neutrophils Percent Auto 69.3 % (45-73); Platelet Count 321 X10*3/uL (160-400); Red Blood Count 3.95 X10*6/uL (4.60-5.80); Red Cell Distribution Width 11.8 % (11.0-16.0); White Blood Count 11.3 X10*3/uL (4.8-10.8)
== END 2024-08-13 09:04 | disposition home or self-care (01) ==
LOC: HO.HMGCLDS 09:03
PROVIDERS: PCP Physician Assistant Medical; Visit Provider Internal Medicine Hematology & Oncology
DX: D72.9 Disorder of white blood cells, unspecified (principal)
CPT/HCPCS: 36415; 85025

== ENCOUNTER 2024-09-10 08:37 | Outpatient (AMB) | payer MEDICARE, SELFPAY ==
--- NOTE | 2024-09-10 08:59 | MHC.PC.OV ---
Vital Signs 09/10/24 09:06 Height 5 ft 8.03 in Weight 165 lb 2 oz BMI 25.1 BP 136/74 Blood Pressure Location Lt brachial Position Sitting Respiration 14 Pulse 86 Pulse Source Pulse Oximeter Pulse Oximetry (%) 99 Oxygen Delivery Method Room Air Intake Visit Reasons: Diabetes follow up Intake Note: Diabetes follow up. Glucose this morning was 112 fasting. Was sick mid- Janurary with a cold. Ended up having swelling in both legs, and body rash. Fell and hit left knee. 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 Allergies latex [LATEX] Allergy (Intermediate, Verified 09/10/24 09:04) RASH lisinopril [LISINOPRIL] Allergy (Intermediate, Verified 09/10/24 09:04) LEG CRAMPS NSAIDS (Non-Steroidal Anti-Inflamma [NSAIDS (NON-STEROIDAL ANTI-INFLAMMA] Allergy (Intermediate, Verified 09/10/24 09:04) LEG CRAMPS vardenafil [From LEVITRA] Allergy (Intermediate, Verified 09/10/24 09:04) HALLUCINATIONS hydromorphone [Dilaudid] Allergy (Unknown, Verified 09/10/24 09:04) clammy ibuprofen Allergy (Unknown, Verified 09/10/24 09:04) Unknown Latex Gloves Allergy (Unknown, Uncoded 09/10/24 09:04) Unknown Tobacco use date assessed: 01/30/24 Fall risk assessment: 1 Fall in past year Last assessed Fall Risk: 09/10/24 Dental Screening Dental Screen Date: 01/30/24 HPI HPI Comments History of Present Illness Details This is a 74-year-old male with a past medical history of chronic neutrophilia, hypercholesterolemia, hypertension, coronary artery disease, right lower lobe lung nodule, BPH, CONNER, palpitations, peripheral neuropathy, TIA x2, controlled type 2 diabetes and venous insufficiency presenting for follow up. Cardiovascular- Released from routine follow up by Dr. Burgess several years ago. Patient reported that about 5 years ago he was hospitalized for angina at [facility]. He had a total occlusion of 1 of his coronary arteries. They planned on bypass, but it was not amenable to surgery, and they told him collateral veins would form. Patient has stable angina for years. Denies recent episodes. He has a prescription for nitroglycerin, but he has not needed to use it. He takes losartan, Zetia, carvedilol, atorvastatin. 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 Patient had 2 TIAs. The 1st was some 20 years ago, and the other TIA occurred years ago, but he does not remember exactly when. Right lower lobe pulmonary nodule-he was followed with CT scans for many years, and it remained stable. No further imaging was recommended. Quit smoking in 1993. Abnormal CBC-followed by Dr. Rodrigez. He had a follow up recently, but Dr. Rodrigez did not have his lab results to review. This appointment has been rescheduled. He denies fevers, chills, night sweats or unexplained weight loss. Type 2 diabetes-he has peripheral neuropathy. He takes metformin 1000 mg twice daily. He has eye exams with Dr. Moran annually. 05/19/2024 hemoglobin A1c 5.7%. BPH, elevated PSA-previously followed by Dr. Yuen. He saw Dr. Dash after UTI last year. Last PSA in April normal. Tubular adenoma-he is due for colonoscopy. He has them every 5 years. This is scheduled on November 13. Patient reports that a month ago he had a presumed viral illness and was coughing. His was also sick at the same time. During the 2 weeks when he was sick both of his lower leg swelled up. Since then his illness resolved. He is no longer coughing. At no point did he have chest pain, shortness of breath or wheezing. His right leg does not appear anymore swollen to him than usual now, but his left leg is still more swollen, and it feels tight by the end of the day. It is better in the morning when he 1st wakes up. It feels tight behind the knee. He also notes that he fell a couple of weeks ago on his knee, but he did not have any head trauma or loss of consciousness, and the knee did not bruise. He has been taking ibuprofen at night which takes the edge off. Denies history of blood clots, recent travel, tobacco use. Denies family history of clotting disorder. Patient declines vaccinations. ROS: Constitutional: No unexplained weight loss, fever, chills, fatigue or night sweats. Eyes: No vision changes, blurry vision, double vision, eye pain, eye redness, eye discharge. ENT: No hearing loss, sneezing, congestion, runny nose or sore throat. Respiratory: No shortness of breath, cough or sputum production. Cardiovascular: No chest pain. No palpitations or pedal edema. Gastrointestinal: No anorexia, nausea, vomiting or diarrhea. No abdominal pain or blood in stool. Genitourinary: No dysuria, hematuria, frequency. Neurologic: No headache, dizziness, syncope Hematologic/Lymphatics: No bleeding or swollen glands. Physical exam: Constitutional: Alert, in no distress. Eyes: Pupils are equal, round and reactive to light. Extraocular muscles intact. Neck: Supple, Full range of motion. No lymphadenopathy. No palpable thyroid masses. Respiratory: Clear to auscultation. Cardiovascular: S1 S2 regular. No murmurs. No carotid bruits. Gastrointestinal: Abdomen soft, non-tender, non-distended. Normal bowel sounds. No palpable masses. Skin: No rashes Extremities: Warm and well perfused. No cyanosis, erythema or warmth of the lower extremities. Lower extremity pulses palpable. Lower extremity sensation intact bilaterally. There is 2+ edema of the left lower leg, and tenderness and fullness in the left medial popliteal space. There is 1+ edema of the right lower extremity. Patient has full range of motion of both knees, and there was no joint warmth or redness or bruising. His gait is mildly antalgic. [facility] Medical History (Updated 09/10/24 @ 09:36 by ERIKA Warren) CAD (coronary artery disease) Left leg swelling Left knee pain Abnormal CBC Elevated ferritin Anemia Emphysema lung Cholelithiasis Asthma Tubular adenoma of colon Ocular migraine Chronic neutrophilia Controlled type 2 diabetes with neuropathy UTI (urinary tract infection) BPH associated with nocturia Venous insufficiency Type 2 diabetes mellitus TIA (transient ischemic attack) Stable angina pectoris Peripheral neuropathy Palpitations Osteoarthritis, hand CONNER (obstructive sleep apnea) Nodule of lower lobe of right lung Murmur Lower urinary tract symptoms HTN (hypertension) Hypercholesteremia Chronic total occlusion of coronary artery Surgical History (Updated 02/07/24 @ 09:02 by ERIKA Warren) History of bilateral cataract extraction History of sinus surgery History of microdiscectomy Status post reverse total shoulder replacement History of colonoscopy Social History (Updated 01/30/24 @ 08:52 by Carole Joshua CMA) [facility]: [facility] Patient Tobacco Use Status: Never used Tobacco Cigarette Packs Per Day: 2 Years Smoked: 30 e-Cigarette/Vaping Use: Never Used service: Yes Current occupational status: retired Cognitive needs: No Hearing needs: No Vision needs: Yes (reading glasses) Questionnaire PHQ-9 Over the last 2 weeks, how often have you been bothered by any of the following problems? 1. Little interest or pleasure in doing things: not at all 2. Feeling down, depressed, or hopeless: not at all 3. Trouble falling or staying asleep, or sleeping too much: several days 4. Feeling tired or having little energy: several days 5. Poor appetite or overeating: not at all 6. Feeling bad about yourself - or that you are a failure or have let yourself or your family down: not at all 7. Trouble concentrating on things, such as reading the newspaper or watching television: not at all 8. Moving or speaking so slowly that other people could have noticed. Or the opposite - being so fidgety or restless that you have been moving around a lot more than usual: more than half the days 9. Thoughts that you would be better off or of hurting yourself in some way: not at all Total score: 4 Source: Developed by Drs. Deven Lincoln, Altagracia Quintanilla, Tee Canchola and colleagues, with an educational linus from [employer]. Thrive Questionnaire Date Thrive assessed: 09/04/24 I am a: Patient What is your living situation today?: I have a steady place to live Within the past 12 months, did the food you bought not last and you didn't have the money to get more?: Never true Within the past 12 months, did you worry whether your food would run out before you got money to buy more?: Never true Do you have trouble paying for medicines?: No Do you have trouble getting transportation to medical appointments?: No Do you have trouble paying your heating and electricity bill?: No Do you have trouble taking care of your child, family member or friend?: No Do you have trouble with day-to-day activities such as bathing, preparing meals, shopping, managing finances, etc.?: I choose not to answer this question Are you currently unemployed and looking for a job?: No Are you interested in more education?: No Please select the resources that you would like help with: None Currently or been in a relationship where the following occur: No concerns reported THRIVE Score: 0 AUDIT C Alcohol Use Questionnaire (AUDIT-C) 1. How often do you have a drink containing alcohol?: Never Total Score: 0 NICKI-7 AMB Questionnaire NICKI-7 Date NICKI - 7 assessed: 01/30/24 Feeling nervous, anxious, or on edge: 0 = Not at all Not being able to stop or control worryin = Not at all Worrying too much about different things: 0 = Not at all Trouble relaxin = Not at all Being so restless that it is hard to sit still: 0 = Not at all Becoming easily annoyed or irritable: 0 = Not at all Feeling afraid as if something awful might happen: 0 = Not at all Total NICKI-7 score (0-4 normal; 5-9 mild; 10-14 moderate; 15-21 severe): 0 Source: Developed by Drs. Deven Lincoln, Altagracia Quintanilla, Tee Canchola and colleagues, with an educational linus from [employer] / [employer]. Physical exam (Primary Care) Vital Signs: Last Vital Signs Pulse 86 09/10/24 09:06 Resp 14 09/10/24 09:06 BP 136/74 09/10/24 09:06 Pulse Ox 99 09/10/24 09:06 Oxygen Delivery Method Room Air 09/10/24 09:06 BMI result Body Mass Index 25.1 Tobacco/Smoking Status: Tobacco use Status Tobacco use date assessed 01/30/24 09/10/24 08:59 Patient Tobacco Use Status Never used Tobacco 09/10/24 08:59 e-Cigarette/Vaping Use Never Used 09/10/24 08:59 PHQ-9: PHQ-9 Score PHQ-9: Total score 4 09/10/24 09:32 Thrive Assessment: Date of Thrive Assessment Date Thrive assessed 09/04/24 09/10/24 08:59 Currently or been in a relationship where the following occur: No concerns reported Coding Level of Care Code Est Pt Level 4 (92025) Complex EM visit Add On G2211 Diagnoses Abnormal CBC R79.89 Tubular adenoma of colon D12.6 Essential hypertension I10 Pure hypercholesterolemia E78.00 Left leg swelling M79.89 Left knee pain M25.562 Controlled type 2 diabetes with neuropathy E11.40 Assessment & Plan Assessment & Plan (1) Abnormal CBC: Code(s): R79.89 - Other specified abnormal findings of blood chemistry Category: Medical Plan: Patient was evaluated by Dr. Rodrigez , and he will see him back to review lab results. (2) Tubular adenoma of colon: Comment: Colonoscopy 09/16/19 at [facility]: 2 polyps, repeat colonoscopy in 5 years advised Code(s): D12.6 - Benign neoplasm of colon, unspecified Category: Medical Plan: Colonoscopy scheduled in 11/08/2024. (3) Essential hypertension: Code(s): I10 - Essential (primary) hypertension Category: Medical Plan: Patient's blood pressure is suboptimal today. He monitors at home, and he will send home readings. (4) Pure hypercholesterolemia: Code(s): E78.00 - Pure hypercholesterolemia, unspecified Category: Medical Plan: Continue Zetia and atorvastatin. Cholesterol levels in 05/10/2024 normal. (5) Left leg swelling: Code(s): M79.89 - Other specified soft tissue disorders Category: Medical Plan: DVT less likely based on clinical history, but it is on the differential. Gomes's cyst also considered given posterior knee tightness and exam. Interestingly symptoms started when he had a viral illness in July. CHF could be exacerbated by viral illness. Lungs are clear today and there is no evidence of acute CHF exacerbation. We will proceed with ultrasound of the left lower extremity and labs and non urgent echocardiogram. Check liver function, renal function, thyroid function. Recommended elevation, low-sodium diet and he can try compression stockings. He has a history of venous insufficiency. (6) Left knee pain: Code(s): M25.562 - Pain in left knee Category: Medical Plan: Check x-ray and ultrasound as above. Follow up to be determined based on results. (7) Controlled type 2 diabetes with neuropathy: Code(s): E11.40 - Type 2 diabetes mellitus with diabetic neuropathy, unspecified Category: Medical Plan: Monitor hemoglobin A1c. Recommended low carb, low sugar diet. Continue metformin. Plan Routine follow up in 3 months. Orders: Orders TSH reflex Free T4 Today E11.40 - Type 2 diabetes mellitus with diabetic neuropathy, unspecified, E78.00 - Pure hypercholesterolemia, unspecified, I10 - Essential (primary) hypertension Complete Blood Count Auto Diff Today E11.40 - Type 2 diabetes mellitus with diabetic neuropathy, unspecified, E78.00 - Pure hypercholesterolemia, unspecified, I10 - Essential (primary) hypertension B Type Natriuretic Peptide Today E11.40 - Type 2 diabetes mellitus with diabetic neuropathy, unspecified, E11.9 - Type 2 diabetes mellitus without complications, E78.00 - Pure hypercholesterolemia, unspecified, I10 - Essential (primary) hypertension venous duplex LE LT Today E11.40 - Type 2 diabetes mellitus with diabetic neuropathy, unspecified, E78.00 - Pure hypercholesterolemia, unspecified, I10 - Essential (primary) hypertension, M79.89 - Other specified soft tissue disorders Comprehensive Met. Panel Today E11.40 - Type 2 diabetes mellitus with diabetic neuropathy, unspecified, E78.00 - Pure hypercholesterolemia, unspecified, I10 - Essential (primary) hypertension Hemoglobin A1c Today E11.40 - Type 2 diabetes mellitus with diabetic neuropathy, unspecified, E11.9 - Type 2 diabetes mellitus without complications, E78.00 - Pure hypercholesterolemia, unspecified, I10 - Essential (primary) hypertension XR knee LT 3V Today E11.40 - Type 2 diabetes mellitus with diabetic neuropathy, unspecified, E78.00 - Pure hypercholesterolemia, unspecified, I10 - Essential (primary) hypertension, M25.562 - Pain in left knee, M79.89 - Other specified soft tissue disorders CA echo transthoracic complete Today M79.89 - Other specified soft tissue disorders
--- OUTSIDE RECORDS SUMMARY | 2024-09-10 09:04 | XMS_ITS | Encounter Summary ---
Author Organization [facility] Address [address] [place] [address] Care Team Providers Care Diamond Mounter Name Role Phone Trista Masters Primary Care Provider Reason for Visit * Reason Comments Follow-up Encounter Details Date Type Department Care Team (Late st Contact Info) Description 08/31/2024 10:15 AM EST Office Visit [facility] Hematology Oncology [address] [place] [address] Fritz Rodrigez MD [address] [place] [phone] Neutrophilia (Primary Dx); Anemia, unspecified type Social History Tobacco Use Types Packs/Day Years Used Date Smoking Tobacco: Former Smokeless Tobacco: Never Tobacco Cessation:Counseling Given: Not Answered Alcohol Use Standard Drinks/Week Comments Yes 0 (1 standard drink = 0.6 oz pur e alcohol) Sex and Gender Information Value Date Recorded Sex Assigned at Not on file Legal Sex Male 12:30 AM EST Gender Identity Not on file Sexual Orientation Not on file documented as of this encounter Last Filed Vital Signs Vital Sign Reading Time Taken Comments Blood Pressure 129/64 08/31/2024 10:27 AM EST Pulse 77 08/31/2024 10:27 AM EST Temperature 36.7 ??C (98 ??F) 08/31/2024 10:27 AM EST Respiratory Rate - - Oxygen Saturation 99% 08/31/2024 10:27 AM EST Inhaled Oxygen Concentration - - Weight 77.6 kg (171 lb) 08/31/2024 10:27 AM EST Height 172.7 cm (5' 8 ) 08/31/2024 10:27 AM EST Body Mass Index 26 08/31/2024 10:27 AM EST documented in this encounter Progress Notes * Fritz Rodrigez MD - 08/31/2024 10:15 AM EST Diagnosis/treatment: Neutrophilia. Interval history: The patient is a 74-year-old former smoker who referred was referred for evaluation of leukocytosisand neutrophilia. A CBC on 11/10/2015 showed an elevated WBC at 12.6 with an elevated neutrophil count at 8.5. A lymphocyte count was normal at 2.9. The patient had pneumonia in early 10/2015 which prec eded the blood draw. He was treated antibiotics and the symptoms resolved. He denies signs or symptoms of infection. He denies fevers or chills. He has infrequent night sweats. He denies cough or sputum. He denies nausea, abdominal pain or diarrhea. He previously denied skin rash. He denies dental infections. He is not taking any recent prednisone on the steroids. The patient initially had weight loss. He lost 20 pounds in the spring of 2014 to the spring. His appetite has gradually declined over the last 2 years. He reports that he is somewhat more careful about his diet given his diabetes. His weight decreased slightly from 189 pounds on 11/28/2015 down to 184 pounds and 06/28/2016. His weight has been stable subsequently. The patient has had a cancer updated cancer screening. He had a colonoscopy in 12/2015 was reportedly unremarkable. PSA was 1.01 11/23/2015. There was an unremarkable urinalysis on 11/23/2015. A chest, abdominal, and pelvic CTs on 12/07/2015 revealed a 1.0 cm right lower lobe nodule. A follow-up chest CT without contrast 06/20/2016 showed stable findings. A follow-up chest CT without contrast on 06/21/2017 showed stable findings. A follow-up CBC on 06/27/2016 showed a WBC at 13.4 with a neutrophil count of 8.7. A follow-up CBC in 12/28/2016 showed a WBC of 12.4 with a neutrophil count of 8.1. A follow-up CBC on 06/27/2017 showed a WBC at 10.8 with a neutrophil count of 6.4. A follow-up CBC on 12/24/2017 showed a WBC at 14.6 with a neutrophil count of 9.6. A follow-up CBC on 12/25/2018 showed a WBC 10.5 with ANC 6.0. The hemoglobin and platelet count were normal. A follow-up CBC on 07/20/2019 showed showed a WBC 12.0 with ANC 7.8. The hemoglobin and platelet count were normal. A follow-up CBC on 01/27/2020 showed a WBC 12.0 with ANC 7.5. The hemoglobin was 13.5 with MCV 98. The platelet count was normal. A follow-up CBC on 07/27/2020 showed a WBC 13.9 with ANC 9.5. The hemoglobin was 12.3 with MCV 98. The platelet count was normal. A follow-up CBC on 01/25/2021 showed a WBC 12.0 with ANC 7.7. The hemoglobin was 14.4 with MCV 100. The platelet count was normal. A follow-up CBC on 09/11/2021 showed a WBC 12.0 with ANC 7.8. The hemoglobin was 14.0 with MCV 98. The platelet count was normal. A follow-up CBC on 03/23/2022 showed WBC 12.1 with ANC 7.9. The hemoglobin was 14.6 with MCV 98. The platelet count was normal. A follow-up CBC on 07/27/2022 showed WBC 14.2 with ANC 10.0. The hemoglobin was 13.6 with MCV 99. Theplatelet count was normal. A follow-up CBC on 08/29/2022 showed WBC 12.9. The hemoglobin was 14.1 with MCV 98. The platelet count was normal. A follow-up CBC on 11/12/2022 showed WBC 9.8 with ANC 6.2. The hemoglobin was 13.9 with MCV 97. The platelet count was normal. A follow-up chest CT without contrast on 06/10/2018 showed stable pulmonary nodules, now out 2 years. A follow-up CBC on 06/04/2023 showed WBC 13.1 with ANC 9.0. A hemoglobin was 13.9 with MCV 97. The platelet count was normal. He had a UTI in early 01/2024. A UA on 01/30/2024 showed 6-10 WBCs and 0-2 RBCs and 1+ protein.A PSA on 01/31/2024 was 14.1. A creatinine on 01/31/2024 was 0.8. A calcium was 9.8. LFTs were normal. A CBC on 03/18/2024 showed WBC 11.1 with ANC 7.2 and ALC 1.9, hemoglobin 13.4 with MCV 98, and platelet count 290,000. A percent transferrin saturation was 46. A ferritin was 289. B12 and folate levels were normal. A CBC on 08/13/2024 showed WBC 11.3 with ANC 7.9 and ALC 1.7, hemoglobin 12.5 with MCV 95, and platelet count 321,000. He reports a pruritic rash on his trunk which started in 03/2019. His PCP prescribed a steroid creamwhich provides partial relief. He is followed by his media intern. He denies signs or symptoms of infection. He denies fevers or chills. He reports continued infrequent night sweats. He reports a stable appetite and weight. Review of systems: The remainder of a 10 point review of systems was unremarkable. Physical examination: HEENT: Sclerae anicteric, normal oropharyngeal membrane. Neck: No lymphadenopathy. Lungs: Clear to auscultation. Heart: No murmurs. Abdomen: Soft, nontender, no organomegaly or masses. Extremities: No edema. Skin: Mildly erythematous, papular rash scattered over the trunk. Neurologic: Normal gait. Assessment/plan: The patient is 74-year-old former smoker who is followed for a neutrophilia since 2016. The neutrophil count has been in the range of high normal to mildly elevated and has not progressed over 9 years. Therefore, CML remains very unlikely. If the neutrophilia progresses, we will order a BCR-ABL PCR study. A CBC on 03/10/2024 showed a mild normocytic anemia. Iron studies and B12 and folate levels were normal. I ordered a broad anemia laboratory screening panel. We will continue to monitor CBCs. We monitored chest CTs over 2 years which showed stable pulmonary nodules. He will not require further CTs. He developed a pruritic papular rash scattered over his trunk in 03/2019. A steroid cream provides partial relief. He is followed by his media intern. A PSA on 01/31/2024 was elevated 14.1. He has follow-up with Urology. 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 A CBC in 02/2024 showed a mild normocytic anemia. Iron eddies and B12 and folate levels were normal. I ordered a broad anemia laboratory screening panel. We will monitor CBCs. documented in this encounter Plan of Treatment Upcoming Encounters Date Type Department Care Team (Late st Contact Info) Description 03/03/2025 9:00 AM EDT Office Visit [facility] Hematology Oncology [address] [place] [phone] Fritz Rodrigez MD [address] [place] [address] Scheduled Orders Name Type Priority Associated Diagnoses Orde r Schedule CBC and differential Lab Routine Neutrophilia Expected: 02/28/2025, Expires: 08/31/2025 Immunoglobulin IgM Lab Routine Anemia, unspecified type Expected: 02/28/2025 (Approximate), Expires: 08/31/2025 Iron and TIBC Lab Routine Anemia, unspecified type Expected: 02/28/2025 (Approximate), Expires: 08/31/2025 [place]-lambda free light chains, quantitative Lab Routine Anemia, unspecified type Expected: 02/28/2025 (Approximate), Expires: 08/31/2025 Lactate dehydrogenase Lab Routine Anemia, unspecified type Expected: 02/28/2025 (Approximate), Expires: 08/31/2025 Protein electrophoresis, serum Lab Routine Anemia, unspecified type Expected: 02/28/2025 (Approximate), Expires: 08/31/2025 Reticulocyte count Lab Routine Anemia, unspecified type Expected: 02/28/2025 (Approximate), Expires: 08/31/2025 Rheumatoid factor Lab Routine Anemia, unspecified type Expected: 02/28/2025 (Approximate), Expires: 08/31/2025 Sedimentation rate Lab Routine Anemia, unspecified type Expected: 02/28/2025 (Approximate), Expires: 08/31/2025 Thyroid stimulating hormone Lab Routine Anemia, unspecified type Expected: 02/28/2025 (Approximate), Expires: 08/31/2025 Vitamin B12 Lab Routine Anemia, unspecified type Expected: 02/28/2025 (Approximate), Expires: 08/31/2025 Comprehensive metabolic panel Lab Routine Anemia, unspecified type Expected: 02/28/2025 (Approximate), Expires: 08/31/2025 Ferritin Lab Routine Anemia, unspecified type Expected: 02/28/2025 (Approximate), Expires: 08/31/2025 Folate Lab Routine Anemia, unspecified type Expected: 02/28/2025 (Approximate), Expires: 08/31/2025 Haptoglobin Lab Routine Anemia, unspecified type Expected: 02/28/2025 (Approximate), Expires: 08/31/2025 Immunoglobulin IgA Lab Routine Anemia, unspecified type Expected: 02/28/2025 (Approximate), Expires: 08/31/2025 Immunoglobulin IgG Lab Routine Anemia, unspecified type Expected: 02/28/2025 (Approximate), Expires: 08/31/2025 ISAIAH IFA with titer and pattern Lab Routine Anemia, unspecified type Expected: 02/28/2025 (Approximate), Expires: 08/31/2025 Immunofixation electrophoresis, IGG, IGA, IGM Lab Routine Anemia, unspecified type Expected: 02/28/2025 (Approximate), Expires: 08/31/2025 documented as of this encounter Visit Diagnoses Diagnosis Neutrophilia- Primary Other specified disease of white blood cells Anemia, unspecified type documented in this encounter Care Teams Diamond Mounter Relationship Specialty Start Date End Date Trista Masters PA [address] [place] [address] PCP - General 04/10/24 documented as of this encounter
--- OUTSIDE RECORDS SUMMARY | 2024-09-10 09:04 | XMS_ITS | Clinical Summary ---
Author Organization [facility] Address [address] [place] [address] Care Team Providers Care Manager Strategic Name Role Phone Trista Masters PA-C Primary Care Provider [phone] Allergies Active Allergy Reactions Criticality Noted Date Comments Beeswax 04/10/2024 Hydromorphone 08/11/2019 Latex 08/11/2019 Vardenafil 08/11/2019 Lisinopril 08/11/2019 Nsaids 08/11/2019 Medications Medication Sig Dispensed Refills Start Date End Date Status tamsulosin (FLOMAX) 0.4 MG CAPS Take 1 capsule (0.4 mg total) by mouth daily. 0 Active carvedilol (COREG) 25 MG tablet Take 1 tablet (25 mg total) by mouth 2 (two) times a day with meals. 0 Active amLODIPine (NORVASC) tablet 10 mg Take 1 tablet (10 mg total) by mouth daily. 0 Active atorvastatin (LIPITOR) tablet 40 mg Take 1 tablet (40 mg total) by mouth daily. 0 Active losartan (COZAAR) 100 MG tablet Take 1 tablet (100 mg total) by mouth daily. 0 Active metFORMIN (GLUCOPHAGE) tablet 1000 mg Take 1 tablet (1,000 mg total) by mouth 2 (two) times a day with meals. 0 Active aspirin EC 81 MG tablet Take 1 tablet (81 mg total) by mouth daily. 0 Active gabapentin (NEURONTIN) 600 MG tablet Take 1 tablet (600 mg total) by mouth 3 (three) times a day. 0 Active nitroglycerin (NITROSTAT) 0.[address] 1 tablet (0.4 mg total) under the tongue every 5 (five) minutes as needed for chest pain. 0 Active ezetimibe (ZETIA) tablet 10 mg Take 1 tablet (10 mg total) by mouth daily. 0 Active vitamin B-12 (CYANOCOBALAMIN) 500 MCG tablet Take 1 tablet (500 mcg total) by mouth daily. 0 Active Active Problems Problem Noted Date Diagnosed Date Neutrophilia 08/12/2019 Social History Tobacco Use Types Packs/Day Years Used Date Smoking Tobacco: Former Smokeless Tobacco: Never Alcohol Use Standard Drinks/Week Comments Yes 0 (1 standard drink = 0.6 oz pur e alcohol) Sex and Gender Information Value Date Recorded Sex Assigned at Not on file Gender Identity Not on file Sexual Orientation Not on file Job Start Date Occupation Industry Not on file Not on file Not on file Last Filed Vital Signs Vital Sign Reading Time Taken Comments Blood Pressure 154/73 04/10/2024 9:34 AM EDT Pulse 68 04/10/2024 9:34 AM EDT Temperature 36.3 ??C (97.4 ??F) 04/10/2024 9:34 AM ED T Respiratory Rate - - Oxygen Saturation 100% 04/10/2024 9:34 AM EDT Inhaled Oxygen Concentration - - Weight 76.2 kg (168 lb) 04/10/2024 9:34 AM EDT Height 169.2 cm (5' 6.6 ) 11/26/2022 9:17 AM EDT Body Mass Index 26.63 11/26/2022 9:17 AM EDT Plan of Treatment Health Maintenance Due Date Last Done Comments Hepatitis C Screening 1950 COVID-19 Vaccine (#1) 1954 Pneumococcal Vaccine (1 of 2 - PCV) 1955 Depression Screening 1961 Preventative Health Evaluation 1967 Colon Cancer Screening (Colonoscopy) 1994 Fall Risk Assessment 2014 Shingrix-Zoster Vaccine (2 o f 2) 07/25/2018 05/30/2018 RSV Adult > 60+ Yrs or (1 - 1-dose 75+ series) 02/13/2024 Influenza Vaccine (#1) 2024 2, 04/14/2018 DTap / Tdap / Td (2 - Td or Tdap) 09/20/2032 09/20/2022 Hepatitis B Vaccines Aged Out No long er eligible based on patient's age to complete this topic RSV Ped < 20 months Aged Out No longe r eligible based on patient's age to complete this topic Care Teams Manager Strategic Relationship Specialty Start Date End Date Trista Masters PA-C PCP - General Medical Services 04/10/24
--- OUTSIDE RECORDS SUMMARY | 2024-09-10 09:04 | XMS_ITS | Clinical Summary ---
Author Organization [facility] Address [address] [place] [address] Phone Care Team Providers Care Mds Manager Name Role Phone Trista Masters Primary Care Provider [phone] Allergies Active Allergy Reactions Criticality Noted Date Comments Beeswax 04/10/2024 Not Specified Hydromorphone Nausea And Vomiting 11/29/2017 Latex 11/29/2017 No reaction documented in transfer records Lisinopril 11/29/2017 No reaction documented in transfer records Nsaids (Non-Steroidal Anti-Inflammatory Drug) 11/29/2017 No reaction documented in transfer records Vardenafil 11/29/2017 No reaction documented in transfer records Medications amLODIPine (NORVASC) 10 mg tablet Take 1 tablet (10 mg total) by mouth daily. 09/13/2023 Active aspirin 81 mg EC tablet Take 1 tablet (81 mg total) by mouth 1 (one) time each day. Active atorvastatin (LIPITOR) 40 mg tablet Take 1 tablet (40 mg total) by mouth daily. Active carvediloL (COREG) 25 mg tablet Take 1 tablet (25 mg total) by mouth 2 (two) times a day with meals. Active ezetimibe (ZETIA) 10 mg tablet Take 1 tablet (10 mg total) by mouth daily. 12/12/2023 Active gabapentin (NEURONTIN) 600 mg tablet Take 1 tablet (600 mg total) by mouth 3 (three) times a day. Active losartan (COZAAR) 100 mg tablet Take 1 tablet (100 mg total) by mouth 1 (one) time each day. Active metFORMIN (GLUCOPHAGE) 1,000 mg tablet Take 1 tablet (1,000 mg total) by mouth 2 (two) times a day with meals. Active nitroglycerin (NITROSTAT) 0.[address] 1 tablet (0.4 mg total) under the tongue every 5 (five) minutes as needed for chest pain. Active tamsulosin (FLOMAX) 0.4 mg 24 hr capsule Take 1 capsule (0.4 mg total) by mouth daily. Active Vitamin B-12 1,000 mcg tablet TAKE 1 TABLET BY MOUTH EVERY DAY 30 tablet 07/20/2024 Active Active Problems Problem Noted Date Diagnosed Date Neutrophilia 11/29/2017 Overview (04/14/2024): Relatively mild and stable over year and a half Encounters Date Type Department Care Team Description 08/31/2024 10:15 AM EST Office Visit [facility] Hematology Oncology [address] [place] [phone] Fritz Rodrigez MD Neutrophilia (Primary Dx); Anemia, unspecified type from Last 3 Months Social History Tobacco Use Types Packs/Day Years [...] on file Sexual Orientation Not on file Obstetrics History Last Filed Vital Signs Vital Sign Reading [...] Mass Index 26 08/31/2024 10:27 AM EST Plan of Treatment Upcoming Encounters Date Type Department Care Team (Late st Contact Info) Description 03/03/2025 9:00 AM EDT Office Visit [facility] Hematology Oncology [address] [place] [phone] Fritz Rodrigez MD [address] [place] [address] Health Maintenance Due Date Last Done Comments Diabetes: Annual GFR (Glomerular Filtration Rate) 1949 Diabetes: Annual Foot Exam 1959 Diabetes: Annual Retina Eye Exam 1959 Pneumococcal Vaccine: 50+ Years (1 of 2 - PCV) 02/13/1968 Zoster Vaccines (2 of 2) 07/25/2018 05/30/2018 Cholesterol Screening (Lipid Panel) 06/30/2022 Colorectal Cancer Screening: Stool Based Tests (FOBT/FIT) 06/30/2022 Depression Screening 06/30/2022 Falls Risk Assessment 06/30/2022 Hepatitis C Screening 06/30/2022 Medicare Annual Wellness Visit 06/30/2022 Social Influencers of Health Screening 06/30/2022 Hypertension/CHF/CAD Annual BMP Blood Test 08/25/2023 Diabetes: Annual Urine Albumin-Creatinine Ratio (uACR) 09/06/2023 Diabetes: Blood Sugar Control Test (HGBA1C) 09/06/2023 RSV Immunization Patients 60+ Years Old (1 - 1-dose 75+ series) 02/13/2024 COVID-19 Vaccine ( - season) 2024 02/08/2022, 08/11/2021, 08/25/2020, Additional history exists Influenza Vaccine (#1) 2024 , 04/14/2018, 04/30/2017 DTaP,Tdap,and Td Vaccines (2 - Td or Tdap) 09/20/2032 09/20/2022 Abdominal Aortic Aneurysm (AAA) Screen Completed 05/01/2023 HIB Vaccines Aged Out No longer eligi ble based on patient's age to complete this topic HPV Vaccines Aged Out No longer eligi ble based on patient's age to complete this topic Hepatitis A Vaccines Aged Out No long er eligible based on patient's age to complete this topic Hepatitis B Vaccines Aged Out No long er eligible based on patient's age to complete this topic IPV Vaccines Aged Out No longer eligi ble based on patient's age to complete this topic MMR Vaccines Aged Out No longer eligi ble based on patient's age to complete this topic Meningococcal ACWY Vaccine Aged Out N o longer eligible based on patient's age to complete this topic Meningococcal B Vacine Aged Out No lo nger eligible based on patient's age to complete this topic RSV Immunization Patients Under 20 months Aged Out No longer eligible based on patient's age to complete this topic Varicella Vaccines Aged Out No longer eligible based on patient's age to complete this topic Procedures Procedure Name Priority Date/Time Associated Diagnosis Comments US ABDOMINAL AORTA REAL TIME SCREEN STUDY AAA Routine 05/01/2023 8:04 AM EDT Type 2 diabetes mellitus without complications (CMS/HCC) Essential (primary) hypertension Other hyperlipidemia 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 History AAA screening. No prior studies are available for comparison. There is no aneurysm of the abdominal aorta. ??Proximal aorta measures 1.9 cm, mid aorta measures 1.7 cm, distal aorta measures 1.5 cm. ??Proximal right common iliac artery measures 0.9 cm. ??Proximal left common iliac artery measures 1 cm. CONCLUSIONS: No evidence of AAA. Procedure Note Marika Daniel MD - 08/27/2023 Ultrasound of the abdominal aorta. History AAA screening. No prior studies are available for comparison. There is no aneurysm of the abdominal aorta. Proximal aorta measures 1.9cm, mid aorta measures 1.7 cm, distal aorta measures 1.5 cm. Proximal right commoniliac artery measures 0.9 cm. Proximal left common iliac artery measures 1 cm. CONCLUSIONS: No evidence of AAA. Danny JAMES IMTerrence PROCEDURES Final R esult from Last 3 Months or Most Recently Relevant to Health Maintenance Insurance [employer] MEDICARE Care Teams Mds Manager Relationship Specialty Start Date End Date Trista Masters PA [address] [place] [address] [phone] PCP - General 04/10/24
[2024-09-10 09:06] VITALS: BP 136/74; PULSE 86; RESP 14; O2SAT 99; BMI 25.1
== END 2024-09-10 09:32 | disposition home or self-care (01) ==
PROVIDERS: PCP Physician Assistant Medical; Visit Provider Physician Assistant Medical
DX: R79.89 Other specified abnormal findings of blood chemistry (principal); D12.6 Benign neoplasm of colon, unspecified; I10 Essential (primary) hypertension; E78.00 Pure hypercholesterolemia, unspecified; M79.89 Other specified soft tissue disorders; M25.562 Pain in left knee; E11.40 Type 2 diabetes mellitus with diabetic neuropathy, unspecified

== ENCOUNTER 2024-09-10 09:35 | Outpatient (REF) | payer MEDICARE, SELFPAY ==
--- OUTSIDE RECORDS SUMMARY | 2024-09-10 10:23 | XMS_ITS | Encounter Summary ---
Author Organization [facility] Address [address] [place] [address] Care Team Providers Care Rabbit Fancier Name Role Phone Trista Masters Primary Care Provider [phone] Reason for Visit * Reason Comments Follow-up Encounter Details Date Type Department Care Team (Late st Contact Info) Description 08/31/2024 10:15 AM EST Office Visit [facility] Hematology Oncology [address] [place] [address] Fritz Rodrigez MD [address] [place] [phone] Neutrophilia (Primary Dx); Anemia, unspecified type Social [...] partial relief. He is followed by his piano instructor. He denies signs or symptoms of infection. [...] partial relief. He is followed by his piano instructor. A PSA on 01/31/2024 was elevated 14.1. [...] Description 03/03/2025 9:00 AM EDT Office Visit [facility] Hematology Oncology [address] [place] [phone] Fritz Rodrigez MD [address] [place] [address] Scheduled Orders Name Type Priority Associated Diagnoses Orde r Schedule CBC and differential Lab Routine Neutrophilia Expected: 02/28/2025, Expires: 08/31/2025 Immunoglobulin IgM Lab Routine Anemia, unspecified type Expected: 02/28/2025 (Approximate), Expires: 08/31/2025 Iron and TIBC Lab Routine Anemia, unspecified type Expected: 02/28/2025 (Approximate), Expires: 08/31/2025 [place]-lambda free light chains, quantitative Lab Routine Anemia, [...] type documented in this encounter Care Teams Rabbit Fancier Relationship Specialty Start Date End Date Trista Masters PA [address] [place] [address] PCP - General 04/10/24 documented as of this encounter
--- OUTSIDE RECORDS SUMMARY | 2024-09-10 10:23 | XMS_ITS | Clinical Summary ---
Author Organization [facility] Address [address] [place] [address] Phone Care Team Providers Care Credit Reference Clerk Name Role Phone Trista Masters Primary Care Provider [phone] Allergies Active Allergy Reactions Criticality Noted Date [...] Description 08/31/2024 10:15 AM EST Office Visit [facility] Hematology Oncology [address] [place] [phone] Fritz Rodrigez MD Neutrophilia (Primary Dx); [...] Description 03/03/2025 9:00 AM EDT Office Visit [facility] Hematology Oncology [address] [place] [phone] Fritz Rodrigez MD [address] [place] [address] Health Maintenance Due Date Last [...] 1 cm. CONCLUSIONS: No evidence of AAA. aDnny JAMES IMTerrence PROCEDURES Final R esult from Last 3 Months or Most Recently Relevant to Health Maintenance Insurance [employer] MED[employer]ARE Care Teams Credit Reference Clerk Relationship Specialty Start Date End Date Trista Masters PA [address] [place] [address] [phone] PCP - General 04/10/24
--- OUTSIDE RECORDS SUMMARY | 2024-09-10 10:24 | XMS_ITS | Clinical Summary ---
Author Organization [facility] Address [address] [place] [address] Care Team Providers Care Director Of Valuation Name Role Phone Trista Masters PA-C Primary Care Provider Allergies Active Allergy Reactions Criticality Noted Date [...] age to complete this topic Care Teams Director Of Valuation Relationship Specialty Start Date End Date Trista Masters PA-C PCP - General Medical Services 04/10/24
[2024-09-10 11:48] LABS: Basophils Absolute Auto 0.1 X10*3/uL (0.0-0.2); Basophils Percent Auto 0.5 % (0-2); Eosinophils Absolute Auto 0.6 X10*3/uL (0.0-0.4); Eosinophils Percent Auto 4.2 % (0-4); Hemoglobin 12.1 g/dl (14.0-18.0); Imm Gran Abs Auto 0.08 X10*3/uL (0.00-0.03); Imm Gran Pct Auto 0.6 % (0.0-0.4); Lymphocytes Absolute Auto 1.7 X10*3/uL (1.2-4.9); Lymphocytes Percent Auto 12.6 % (20-40); MANUAL DIFF FLAG SCAN; Mean Corpuscular HGB Conc 32.7 g/dl (31.0-36.0); Mean Corpuscular Volume 94.9 fL (80.0-98.0); Mean Platelet Volume 10.5 fL (9.4-12.4); Monocytes Absolute Auto 1.7 X10*3/uL (0.1-1.2); Monocytes Percent Auto 12.8 % (2-11); Neutrophils Absolute Auto 9.1 x10*3/uL (2.0-8.3); Neutrophils Percent Auto 69.3 % (45-73); Platelet Count 354 X10*3/uL (160-400); Red Cell Distribution Width 13.1 % (11.0-16.0); SCAN SMEAR FLAG 1; White Blood Count 13.1 X10*3/uL (4.8-10.8)
[2024-09-10 11:56] LABS: B Type Natriuretic Peptide 33 pg/mL (<100)
[2024-09-10 12:01] LABS: Estimated Average Glucose 120 mg/dL; Hemoglobin A1c % 5.8 % (<6.0)
[2024-09-10 12:12] LABS: SLIDE REVIEW VERIFIED
[2024-09-10 12:23] LABS: Alanine Aminotransferase 11 U/L (0-40); Albumin Level 3.6 g/dL (3.5-5.0); Alkaline Phosphatase 74 U/L (39-117); Anion Gap 12 (12-20); Aspartate Amino Transferase 19 U/L (5-37); Bilirubin Total 0.7 mg/dL (0.0-1.0); Blood Urea Nitrogen 15 mg/dL (9-16); Calcium 9.4 mg/dL (8.4-10.2); Carbon Dioxide 21 mmol/L (22-29); Chloride 107 mmol/L (96-108); Estimated Glomerular Filt Rate > 60; Glucose Random 152 mg/dL (60-115); Potassium 4.3 mmol/L (3.3-5.1); Sodium 136 mmol/L (135-145); TSH reflex Free T4 1.03 uIU/mL (0.32-4.0); Total Protein 8.3 g/dL (6.5-8.0)
== END 2024-09-10 09:36 | disposition home or self-care (01) ==
LOC: HO.WFDLDS 09:35
PROVIDERS: Visit Provider Physician Assistant Medical
DX: Z13.89 Encounter for screening for other disorder (principal)
CPT/HCPCS: 36415; 80053; 83036; 83880; 84443; 85025

== ENCOUNTER 2024-09-10 11:16 | Outpatient (REF) | payer MEDICARE, SELFPAY ==
--- NOTE | ~2024-09-10 | XR_ITS ---
EXAMINATION: XR KNEE, LEFT CLINICAL INFORMATION: M25.562 - Pain in left knee COMPARISON: None available. TECHNIQUE: Three views of the left knee. FINDINGS: There is joint space narrowing involving the medial and to a lesser extent lateral compartment. There is sclerosis of the articular surface in the medial tibial plateau and medial femoral condyle. There is chondrocalcinosis of the menisci. No acute cortical disruption or gross malalignment. There is a suprapatellar bursa joint effusion, small to moderate volume. There are vascular calcifications. There is a focal well-corticated calcification in the popliteal region. XR/XR knee LT 3V IMPRESSION: Bicompartmental osteoarthrosis involving mostly the medial compartment. Consider CPPD. Suprapatellar bursa joint effusion. Electronically signed by: Eldon Stoddard MD 09/11/2024 09:26 AM ROMY
--- NOTE | ~2024-09-10 | US_ITS ---
EXAMINATION: US TRIPLEX LOWER EXTREMITY, LEFT CLINICAL INFORMATION: Left leg swelling and pain. COMPARISON: None available. TECHNIQUE: Color-flow triplex imaging with spectral analysis and compression Doppler were performed on the left lower extremity. FINDINGS: Respiratory variation, normal compression and augmented flow are noted throughout the left lower extremity. The visualized common femoral vein, superficial femoral vein, profunda femoral vein, popliteal vein and midcalf peroneal and posterior tibial venous segments show no evidence of deep venous thrombosis. There is a complex appearing Gomes's cyst measuring 5.5 x 1.6 x 1.8 cm. US/US venous duplex LE IMPRESSION: 1. No evidence of deep venous thrombosis involving the left lower extremity. 2. Complex Gomes's cyst measuring 5.5 x 1 6 x 1.8 cm. Electronically signed by: Jarad Jonas MD 09/10/2024 12:44 PM [facility] [place]
--- OUTSIDE RECORDS SUMMARY | 2024-09-10 12:36 | XMS_ITS | Clinical Summary ---
Author Organization [facility] Address [address] [place] [address] Phone Care Team Providers Care Striker Out Name Role Phone Trista Masters Primary Care Provider [phone] Allergies Active Allergy Reactions Criticality Noted Date [...] Description 08/31/2024 10:15 AM EST Office Visit [facility] Hematology Oncology [address] [place] [address] Fritz Rodrigez MD Neutrophilia (Primary Dx); [...] Description 03/03/2025 9:00 AM EDT Office Visit [facility] Hematology Oncology [address] [place] [address] Fritz Rodrigez MD [address] [place] [address] Health Maintenance Due Date Last [...] Maintenance Insurance [employer] MED[employer]ARE Care Teams Striker Out Relationship Specialty Start Date End Date Trista Masters PA [address] [place] [address] [id number] PCP - General 04/10/24
--- OUTSIDE RECORDS SUMMARY | 2024-09-10 12:36 | XMS_ITS | Encounter Summary ---
Author Organization [facility] Address [address] [place] [address] Care Team Providers Care Actuarial Analyst Name Role Phone Trista Masters Primary Care Provider [phone] Reason for Visit * Reason Comments Follow-up Encounter Details Date Type Department Care Team (Late st Contact Info) Description 08/31/2024 10:15 AM EST Office Visit [facility] Hematology Oncology [address] [place] [address] Fritz Rodrigez MD [address] [place] [phone] Neutrophilia (Primary Dx); Anemia, unspecified type Social [...] partial relief. He is followed by his in flight technician. He denies signs or symptoms of infection. [...] partial relief. He is followed by his in flight technician. A PSA on 01/31/2024 was elevated 14.1. [...] Description 03/03/2025 9:00 AM EDT Office Visit [facility] Hematology Oncology [address] [place] [phone] Fritz Rodrigez MD [address] [place] [address] Scheduled Orders Name Type Priority Associated Diagnoses Orde r Schedule CBC and differential Lab Routine Neutrophilia Expected: 02/28/2025, Expires: 08/31/2025 Immunoglobulin IgM Lab Routine Anemia, unspecified type Expected: 02/28/2025 (Approximate), Expires: 08/31/2025 Iron and TIBC Lab Routine Anemia, unspecified type Expected: 02/28/2025 (Approximate), Expires: 08/31/2025 [place]-lambda free light chains, quantitative Lab Routine Anemia, [...] type documented in this encounter Care Teams Actuarial Analyst Relationship Specialty Start Date End Date Trista Masters PA [address] [place] [address] PCP - General 04/10/24 documented as of this encounter
--- OUTSIDE RECORDS SUMMARY | 2024-09-10 12:36 | XMS_ITS | Clinical Summary ---
Author Organization [facility] Address [address] [place] [address] Care Team Providers Care Electrical Maintenance Man Name Role Phone Trista Masters PA-C Primary Care Provider [phone] Allergies Active Allergy Reactions Criticality Noted Date [...] age to complete this topic Care Teams Electrical Maintenance Man Relationship Specialty Start Date End Date Trista Masters PA-C PCP - General Medical Services 04/10/24
== END 2024-09-10 11:17 | disposition home or self-care (01) ==
LOC: HO.US 11:16
PROVIDERS: PCP Physician Assistant Medical; Visit Provider Physician Assistant Medical
DX: M79.89 Other specified soft tissue disorders (principal); I10 Essential (primary) hypertension; E78.00 Pure hypercholesterolemia, unspecified; E11.40 Type 2 diabetes mellitus with diabetic neuropathy, unspecified; R79.89 Other specified abnormal findings of blood chemistry; M25.562 Pain in left knee; Z86.0101 Personal history of adenomatous and serrated colon polyps
CPT/HCPCS: 36415; 73562; 80053; 83036; 83880; 84443; 85025; 93971; 96127; 99212

== ENCOUNTER → 2024-09-10 11:17 | Outpatient (BNV) | payer MEDICARE, SELFPAY | PROVIDERS: PCP Physician Assistant Medical; Visit Provider Radiology Diagnostic Radiology | DX: M17.12 Unilateral primary osteoarthritis, left knee (principal); M25.462 Effusion, left knee | CPT/HCPCS: 73562; 93971 ==

== ENCOUNTER → 2024-09-22 08:40 | Outpatient (REF) | payer MEDICARE, SELFPAY ==
--- NOTE | 2024-09-22 08:44 | CA_ITS ---
Transthoracic Echocardiogram Patient (Last, First, Middle): Ricki Clemons L Gender: Male Date of : 1950 Age: 74 Procedure Date: 09/22/2024 Procedure Type: Transthoracic Echocardiogram Location: OP Height: 172.72 cm Weight: 74.84 kg BSA: 1.88 m2 Heart Rate: 70 bpm BP: 132 / 72 mmHg Patrol Police Sergeant: SB Referring MD: Trista JAMES Apartment Assistant Manager: Varun Sims MD Symptoms: M79.89 - Other specified soft tissue disorders. CAD, Angina, HTN, Leg swell Study Quality: Adequate ECG Rhythm: Sinus Conclusions: - 1. Normal LV ejection fraction 55-60% with impaired relaxation filling pattern with underlying regional wall motion abnormality consistent with coronary artery disease 2. Normal cardiac valvular Dopplers 3. Normal RV systolic pressure 4. No gross pericardial effusion Findings Left Ventricle Normal left ventricular size, thickness, and systolic function. The visually estimated ejection fraction is between 55-60%. Spectral Doppler is indicative of an impaired relaxation filling pattern. E/E prime ratio is between 8 and 15 consistent with indeterminate filling pressures. Wall Motion Rest Echo Findings The inferoseptal wall, the basal inferior, and mid inferior segments are hypokinetic. All other scored wall segments showed normal motion. Right Ventricle Normal right ventricular cavity size and systolic function. Atria Both atria are normal in size. There is no evidence of interatrial shunt. Aortic Valve There is mild calcification of the aortic valve. There is moderate thickening of the aortic valve. There is no aortic valve stenosis. There is no aortic valve regurgitation. Mitral Valve Normal mitral valve structure and function. There is mild mitral annular calcification. There is trace mitral valve regurgitation. There is no mitral valve stenosis. Pulmonic Valve The pulmonic valve was not well visualized. Tricuspid Valve Normal tricuspid valve structure. There is mild tricuspid valve regurgitation. The right ventricular systolic pressure is normal. The right ventricular systolic pressure is 26 mmHg. Normal right atrial pressure. There is no evidence of pulmonary hypertension. Great Vessels All visible segments of the aorta are normal in size. The pulmonary artery was not well visualized. There is no dilatation of the ascending aorta measuring 3.40 cm. Venous The inferior vena cava is normal in size and collapses greater than 50% with inspiration. Pericardium/Pleural There is no evidence of pericardial effusion. Prior Study Comparison No prior study available for comparison. Measurements 2D Linear Measurements IVSd: 1.02 0.6-0.9/0.6-1.0 cm LVIDd: 4.76 3.9-5.3/4.2-5.9 cm LVIDd Index: 2.53 2.4-3.2/2.2-3.1 cm/m2 LVIDs: 3.33 2.0-3.6 cm LVPWd: 0.98 0.7-1.1 cm Ao Root: 3.10 2.1-3.5 cm LA Diam: 3.50 2.7-3.8/3.0-4.0 cm LAIDs Index: 1.86 1.5-2.3 cm/m2 LV Mass: 208.40 67-162/88-224 g LV Mass Index: 110.85 43-95/49-115 g/m2 LVOT Diam: 2.20 3.0+(-)1.3 cm 2D Systolic Function EF 4C: 49.50 >55% EF 2C: 56.90 >55% EF BiP: 55.00 >55% Mitral Valve MV Pk E: 0.93 MV PK A: 0.93 MV Decel Time: 199.00 E/A: 1.00 E'Lateral: 8.27 E'Medial: 8.38 E/E' Med: 11.10 E/E' Lat: 11.30 PHT: 58.00 MVA PHT: 3.79 Decel Custer: 4.69 Aortic Valve AoV Pk Casey: 1.80 AoV Mn Casey: 1.12 AoV VTI: 0.31 AoV Pk Grad: 13.00 Aov Mn Grad: 6.00 YE Cont.VTI: 2.70 LVOT LVOT Pk Casey: 1.06 LVOT Mn Casey: 0.70 LVOT VTI: 0.22 LVOT Pk Grad: 4.00 LVOT Mn Grad: 2.00 LVOT Diam: 2.20 LVOT Area: 3.80 Diastolic Function MV Pk E: 0.93 MV Pk A: 0.93 E/A: 1.00 E'Medial: 8.38 E/E' Med: 11.10 E' Laterial: 8.27 E/E' Lat: 11.30 Right Ventricle TAPSE (mm): 22.30 TVS' Casey: 14.30 Tricuspid Valve TR Pk Casey: 2.38 TR Pk Grad: 23.00 RA Press: 3.00 RVSP: 26.00 Great Vessels Aorta Ao Root-2D: 3.10 2.0-3.7 cm Sinus of Valsalva: 3.10 2.0-3.5 cm Ao Asc: 3.40 2.1-3.4 cm Pulmonary Valve PV Pk Casey: 0.96 Peak PV Grad: 4.00 Updated in Other Vendor System with Status of Final Varun Sims MD electronically signed on 09/23/2024 11:36:25 AM with status of Final
--- OUTSIDE RECORDS SUMMARY | 2024-09-22 09:17 | XMS_ITS | Clinical Summary ---
Author Organization [facility] Address [address] [place] [address] Care Team Providers Care Child Development Specialist Name Role Phone Trista Masters PA-C Primary Care Provider [phone] Allergies Active Allergy Reactions Criticality Noted Date [...] age to complete this topic Care Teams Child Development Specialist Relationship Specialty Start Date End Date Trista Masters PA-C PCP - General Medical Services 04/10/24
--- OUTSIDE RECORDS SUMMARY | 2024-09-22 09:17 | XMS_ITS | Encounter Summary ---
Author Organization [facility] Address [address] [place] [address] Care Team Providers Care Edge Finisher Name Role Phone Trista Masters Primary Care Provider [phone] Reason for Visit * Reason Comments Follow-up Encounter Details Date Type Department Care Team (Late st Contact Info) Description 08/31/2024 10:15 AM EST Office Visit [facility] Hematology Oncology [address] [place] [address] Fritz Rodrigez MD [address] [place] [phone] Neutrophilia (Primary Dx); Anemia, unspecified type Social [...] partial relief. He is followed by his skilled nursing facilities professional. He denies signs or symptoms of infection. [...] partial relief. He is followed by his skilled nursing facilities professional. A PSA on 01/31/2024 was elevated 14.1. [...] Description 03/03/2025 9:00 AM EDT Office Visit [facility] Hematology Oncology [address] [place] [phone] Fritz Rodrigez MD [address] [place] [address] Scheduled Orders Name Type Priority Associated Diagnoses Orde r Schedule CBC and differential Lab Routine Neutrophilia Expected: 02/28/2025, Expires: 08/31/2025 Immunoglobulin IgM Lab Routine Anemia, unspecified type Expected: 02/28/2025 (Approximate), Expires: 08/31/2025 Iron and TIBC Lab Routine Anemia, unspecified type Expected: 02/28/2025 (Approximate), Expires: 08/31/2025 [place]-lambda free light chains, quantitative Lab Routine Anemia, [...] type documented in this encounter Care Teams Edge Finisher Relationship Specialty Start Date End Date Trista Masters PA [address] [place] [address] PCP - General 04/10/24 documented as of this encounter
--- OUTSIDE RECORDS SUMMARY | 2024-09-22 09:17 | XMS_ITS | Clinical Summary ---
Author Organization [facility] Address [address] [place] [address] Phone Care Team Providers Care Meat Team Lead Name Role Phone Trista Masters Primary Care Provider [phone] Allergies Active Allergy Reactions Criticality Noted Date [...] Visit [facility] Hematology Oncology [address] [place] [address] Fritz Rodrigez MD Neutrophilia (Primary Dx); [...] Visit [facility] Hematology Oncology [address] [place] [address] Fritz Rodrigez MD [address] [place] [address] Health Maintenance Due Date Last [...] history exists Influenza Vaccine (#1) 2024 , 03/30/2019, 04/14/2018, Additional history exists DTaP,Tdap,and Td Vaccines (2 - Td or [...] cm. CONCLUSIONS: No evidence of AAA. Danny YUAN PROCEDURES Final R esult from Last 3 Months or Most Recently Relevant to Health Maintenance Insurance [employer] MED[employer]ARE Care Teams Meat Team Lead Relationship Specialty Start Date End Date Trista Masters PA [address] [place] [id number] PCP - General 04/10/24
== END ==
LOC: HO.CARD 08:40
PROVIDERS: PCP Physician Assistant Medical; Visit Provider Physician Assistant Medical
DX: R60.0 Localized edema (principal)
CPT/HCPCS: 93306

== ENCOUNTER → 2024-09-22 08:44 | Outpatient (BNV) | payer MEDICARE, SELFPAY | PROVIDERS: PCP Physician Assistant Medical; Visit Provider Internal Medicine Cardiovascular Disease | DX: I25.10 Atherosclerotic heart disease of native coronary artery without angina pectoris (principal); I35.8 Other nonrheumatic aortic valve disorders; I36.1 Nonrheumatic tricuspid (valve) insufficiency | CPT/HCPCS: 93306 ==

== ENCOUNTER 2024-11-03 08:31 | Outpatient (AMB) | payer MEDICARE, SELFPAY ==
--- OUTSIDE RECORDS SUMMARY | 2024-11-03 08:47 | XMS_ITS | Clinical Summary ---
Author Organization [facility] Address [address] [place] [address] Phone Care Team Providers Care Sales Enablement Manager Name Role Phone Trista Masters Primary Care Provider [phone] Allergies Active Allergy Reactions Criticality Noted Date [...] Description 08/31/2024 10:15 AM EST Office Visit [facility] Hematology Oncology [address] [place] [phone] Fritz Rodrigez MD Neutrophilia (Primary Dx); [...] Description 03/03/2025 9:00 AM EDT Office Visit [facility] Hematology Oncology [address] [place] [phone] Fritz Rodrigez MD [address] [place] [address] Health Maintenance Due Date Last [...] Sugar Control Test (HGBA1C) 09/06/2023 RSV Immunization Adult Patients (1 - 1-dose 75+ series) 02/13/2024 COVID-19 Vaccine ( - season) 2024 02/08/2022, 08/11/2021, 08/25/2020, Additional history exists Influenza Vaccine (Season Ended) 2025 05/07/2022, 03/30/2019, 04/14/2018, Additional history exists DTaP,Tdap,and Td [...] age to complete this topic Meningococcal B Vaccine Aged Out No l onger eligible based on patient's age to complete [...] EDT Type 2 diabetes mellitus without complications (CMS/HCC V24, CMS/[facility] V28) Essential (primary) hypertension Other hyperlipidemia Type 2 diabetes mellitus with diabetic polyneuropathy (CMS/HCC V24, CMS/[facility] V28) Pain in left hip Personal history of [...] 1 cm. CONCLUSIONS: No evidence of AAA. us Danny YUAN PROCEDURES Final R esult from Last 3 Months or Most Recently Relevant to Health Maintenance Insurance [employer] MED[employer] Care Teams Sales Enablement Manager Relationship Specialty Start Date End Date Trista Masters PA [address] [place] [id number] PCP - General 04/10/24
--- OUTSIDE RECORDS SUMMARY | 2024-11-03 08:47 | XMS_ITS | Clinical Summary ---
Author Organization [facility] Address [address] [place] [address] Care Team Providers Care Lens Polisher Hand Name Role Phone Trista Masters PA-C Primary [...] age to complete this topic Care Teams Lens Polisher Hand Relationship Specialty Start Date End Date Trista Masters PA-C PCP - General Medical Services 04/10/24
--- NOTE | 2024-11-03 09:03 | MHC.OFFVIS ---
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 Patient reports he feel and hit his knee. He states that his pain gets worse at the end of the day and at night. His pain is through out the left knee and it goes to the back of his knee. Patient states his pain is worse when he is walking, bending, going up and down the stairs. He has tried icing, Ibuprofen, and topical creams with no relief. Allergies latex [LATEX] Allergy (Intermediate, Verified 11/03/24 09:07) RASH lisinopril [LISINOPRIL] Allergy (Intermediate, Verified 11/03/24 09:07) LEG CRAMPS NSAIDS (Non-Steroidal Anti-Inflamma [NSAIDS (NON-STEROIDAL ANTI-INFLAMMA] Allergy (Intermediate, Verified 11/03/24 09:07) LEG CRAMPS vardenafil [From LEVITRA] Allergy (Intermediate, Verified 11/03/24 09:07) HALLUCINATIONS hydromorphone [Dilaudid] Allergy (Unknown, Verified 11/03/24 09:07) clammy ibuprofen Allergy (Unknown, Verified 11/03/24 09:07) Unknown Latex Gloves Allergy (Unknown, Uncoded 09/10/24 09:04) Unknown bee products Allergy (Uncoded 11/03/24 09:07) Rash 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 Clemons is a 74 yo male who presents to the office toa for evaluation of left knee pain. He reports that he fell in August landing on the left knee. He uses a walker to assist with am ulation but occasionally develops bilateral lower leg edema from CHF thaqt makes it difficult to ambulate. This is what caused him to fall in August. HE reports that his knee pain was getting better but certain motions cause a significant increase in pain. He understands that he has arthritis in the knee and is looking to see what treatment opotions may be available to him. [facility] Medical History (Updated 11/03/24 @ 09:29 by Shawna Dorado PA-C) Abnormal echocardiogram Osteoarthritis of left knee Bursitis of left knee Synovial cyst of popliteal space [Gomes], left knee CAD (coronary artery disease) Left leg swelling Left knee pain Abnormal CBC Elevated ferritin Anemia Emphysema lung Cholelithiasis Asthma Tubular adenoma of colon Ocular migraine Chronic neutrophilia Controlled type 2 diabetes with neuropathy UTI (urinary tract infection) BPH associated with nocturia Venous insufficiency Type 2 diabetes mellitus TIA (transient ischemic attack) Stable angina pectoris Peripheral neuropathy Palpitations Osteoarthritis, hand CONNER (obstructive sleep apnea) Nodule of lower lobe of right lung Murmur Lower urinary tract symptoms HTN (hypertension) Hypercholesteremia Chronic total occlusion of coronary artery Surgical History (Updated 02/07/24 @ 09:02 by ERIKA Warren) History of bilateral cataract extraction History of sinus surgery History of microdiscectomy Status post reverse total shoulder replacement History of colonoscopy Social History (Updated 11/03/24 @ 09:09 by Kelvin Whipple) Housing: Other ([facility]) Alcohol intake: current Alcohol intake frequency: holidays/special occasions only Patient Tobacco Use Status: Never used Tobacco Cigarette Packs Per Day: 2 Years Smoked: 30 e-Cigarette/Vaping Use: Never Used service: Yes Current occupational status: retired Cognitive needs: No Hearing needs: No Vision needs: Yes (reading glasses) Review of Systems Const All systems reviewed & are unremarkable except as noted in HPI and below Physical Exam Vital Signs: BMI result Body Mass Index 24.5 Const General: cooperative, healthy appearing and no acute distress Resp Effort & Inspection: normal respiratory effort and able to speak in complete sentences Cardio Rate: regular rate Peripheral pulses: Peripheral pulses 2+ throughout Skin Lesions: no lesions Rashes: no rashes Extrem Other: Left knee ROM 0-110. Crepitus felt with ROM. NVI. Office Procedures AMB Joint Injection/Aspiration Joint Injection/Aspiration Primary Site: left knee Prep: site was prepped using aseptic technique, ethochloride spray was applied and injection warnings given Injected: 40 mg of, DepoMedrol, with 8 mL of (2% plain lido ) and in the joint Approach Used: anterolateral Procedure: The patient tolerated the procedure well, but had some pain with the injection and there was some relief with the local anesthesia Coding 97946 - Large joint Procedure code (CPT) selection complete Assessment & Plan Assessment & Plan (1) Osteoarthritis of left knee: Code(s): M17.12 - Unilateral primary osteoarthritis, left knee Category: Medical (2) Diabetes: Code(s): E11.9 - Type 2 diabetes mellitus without complications Category: Medical Plan Mr. Clemons is a 74 yo male who presents to the office toa for evaluation of left knee pain. He reports that he fell in August landing on the left knee. He uses a walker to assist with am ulation but occasionally develops bilateral lower leg edema from CHF thaqt makes it difficult to ambulate. This is what caused him to fall in August. HE reports that his knee pain was getting better but certain motions cause a significant increase in pain. He understands that he has arthritis in the knee and is looking to see what treatment opotions may be available to him. The patient was offered a cortisone injection in the left knee with 40 mg of DepoMedrol. The patient was explained the risks, benefits, and alternatives to receiving this injection. After receiving consent for the injection, the patient had the procedure done while in the office today. The patient tolerated the procedure well with no complications. Due to the patient?s history of diabetes, they were instructed to monitor their blood glucose level. The patient was informed that they could see a rise in their numbers and if the numbers became too high, they were instructed to call their PCP. The patient was also informed that they could have facial flushing as a side effect of the injection, but this will pass. Follow-up will be p.r.n., or sooner if needed X-rays of the left knee which were obtained while in the office today as well as additional views obtained prior to today's visit were reviewed by me, Shawna Dorado PA-C, revealed left knee osteoarthritis. Orders: Orders XR knee standing BI Today M25.569 - Pain in unspecified knee Coding Level of Care Code New Pt Level 4 (23654) Diagnoses Osteoarthritis of left knee M17.12 Diabetes E11.9 CPT Codes Coding - 89400 Large joint: 35860 - Large joint ([id number])
[2024-11-03 09:09] VITALS: BMI 24.5
== END 2024-11-03 09:33 | disposition home or self-care (01) ==
LOC: HO.HOS 08:32
PROVIDERS: PCP Physician Assistant Medical; Visit Provider Physician Assistant
DX: M17.12 Unilateral primary osteoarthritis, left knee (principal); E11.9 Type 2 diabetes mellitus without complications
CPT/HCPCS: 20610; 99204

== ENCOUNTER → 2024-11-03 08:37 | Outpatient (BNV) | payer MEDICARE, SELFPAY | PROVIDERS: Visit Provider Radiology Diagnostic Radiology | DX: M17.0 Bilateral primary osteoarthritis of knee (principal) | CPT/HCPCS: 73565 ==

== ENCOUNTER 2024-11-03 11:40 | Outpatient (REF) | payer MEDICARE, SELFPAY ==
--- NOTE | ~2024-11-03 | XR_ITS ---
CLINICAL HISTORY: M25.569 - Pain in unspecified knee Radiograph of the bilateral knees, single AP view Comparison: CR/ND/SR - XR KNEE LT 3V - 09/10/24 12:24 EST Findings: There is no fracture or dislocation. Moderate bilateral medial tibiofemoral compartment joint space narrowing. Mild bilateral lateral tibiofemoral compartment joint space narrowing. No osteophytosis. There is bilateral chondrocalcinosis. Bone mineralization is normal. Vascular calcifications. No soft tissue swelling. Impression: [id number] bilateral degenerative change. Chondrocalcinosis may indicate CPPD. This document has been electronically signed by: Peggy Welch MD on 11/04/2024 14:45:26
--- OUTSIDE RECORDS SUMMARY | 2024-11-04 14:10 | XMS_ITS | Clinical Summary ---
Author Organization [facility] Address [address] [place] [address] Phone Care Team Providers Care Mica Inspector Name Role Phone Trista Masters Primary Care Provider [phone] Allergies Active Allergy Reactions Criticality Noted Date [...] Description 08/31/2024 10:15 AM EST Office Visit [facility] Hematology Oncology [address] [place] [phone] Fritz Rodrigez MD Neutrophilia (Primary Dx); [...] Description 03/03/2025 9:00 AM EDT Office Visit [facility] Hematology Oncology [address] [place] [phone] Fritz Rodrigez MD [address] [place] [address] Health Maintenance Due Date Last [...] 2 diabetes mellitus without complications (CMS/HCC V24, CMS/[facility] V28) Essential (primary) hypertension Other hyperlipidemia Type 2 diabetes mellitus with diabetic polyneuropathy (CMS/HCC V24, CMS/[facility] V28) Pain in left hip Personal history [...] Maintenance Insurance [employer] MED[employer] Care Teams Mica Inspector Relationship Specialty Start Date End Date Trista Masters PA [address] [place] [id number] PCP - General 04/10/24
--- OUTSIDE RECORDS SUMMARY | 2024-11-04 14:10 | XMS_ITS | Clinical Summary ---
Author Organization [facility] Address [address] [place] [address] Care Team Providers Care Contact Center Professional Name Role Phone Trista Masters PA-C Primary [...] age to complete this topic Care Teams Contact Center Professional Relationship Specialty Start Date End Date Trista Masters PA-C PCP - General Medical Services 04/10/24
== END 2024-11-03 11:41 | disposition home or self-care (01) ==
LOC: HO.HOSX 11:40
PROVIDERS: Visit Provider Physician Assistant
DX: M25.562 Pain in left knee (principal); M17.0 Bilateral primary osteoarthritis of knee; M11.262 Other chondrocalcinosis, left knee; M11.261 Other chondrocalcinosis, right knee; E11.9 Type 2 diabetes mellitus without complications; R60.0 Localized edema; I50.9 Heart failure, unspecified
CPT/HCPCS: 20610; 73565; 99202; J1010; J2003

== ENCOUNTER 2024-11-13 08:48 | Outpatient (AMB) | payer MEDICARE, SELFPAY ==
[2024-11-13 08:51] VITALS: BP 126/60; PULSE 80; O2SAT 100; BMI 24.5
--- NOTE | 2024-11-13 08:51 | MHC.OFFVIS ---
Vital Signs 11/13/24 08:51 Height 5 ft 8 in Weight 161 lb BMI 24.5 BP 126/60 Blood Pressure Location Rt brachial Position Sitting Pulse 80 Pulse Source Pulse Oximeter Pulse Oximetry (%) 100 Oxygen Delivery Method Room Air Intake Visit Reasons: Colonoscopy screening Intake Note: NEW PATIENT for recall screening (2019 LC). Hx of polypectomy Chief Complaint; Pt denies any GI sx at this time. Pt due to have initial visit with [facility] (Ramana) in December 2024 for clearance prior to colo. Optical Instrument Repairer Required: No Accompanied by: Self / Same As Patient Allergies latex [LATEX] Allergy (Intermediate, Verified 11/13/24 08:51) RASH lisinopril [LISINOPRIL] Allergy (Intermediate, Verified 11/13/24 08:51) LEG CRAMPS NSAIDS (Non-Steroidal Anti-Inflamma [NSAIDS (NON-STEROIDAL ANTI-INFLAMMA] Allergy (Intermediate, Verified 11/13/24 08:51) LEG CRAMPS vardenafil [From LEVITRA] Allergy (Intermediate, Verified 11/13/24 08:51) HALLUCINATIONS hydromorphone [Dilaudid] Allergy (Unknown, Verified 11/13/24 08:51) clammy ibuprofen Allergy (Unknown, Verified 11/13/24 08:51) Unknown Latex Gloves Allergy (Unknown, Uncoded 11/13/24 08:51) Unknown bee products Allergy (Uncoded 11/13/24 08:51) Rash HPI HPI Colonoscopy screening: Details: 74 year old? male with past medical history of hypercholesteremia, hypertension, CAD, right lower lobe lung nodule BPH, CONNER, palpitation, peripheral neuropathy, chronic neutrophilia, TIA x2, diabetes, venous insufficiency is here today for pre colonoscopy screening.? Patient was sent to us by his PCP.? Last colonoscopy was in 2019, tubular adenoma found, 5 year follow-up recommended.? Patient denies any gastrointestinal symptoms in the past or at present.? Denies family history CRC.? Denies history of difficulty with sedation or anesthesia in the past.? Negative for history of sleep apnea.? Patient reports he has had extensive cardiac history and has been under care of stamping die maker [facility].? No longer is following up with them. Has a new appointment for consultation with Dr. Boles on December 23. Patient reports occasional shortness of breath with or without exertion as well as bilateral lower extremity swelling R>L. No history of infectious? diseases like hepatitis A, B, C, HIV or tuberculosis.? Patient is on low-dose aspirin [facility] Medical History Abnormal echocardiogram Osteoarthritis of left knee Bursitis of left knee Synovial cyst of popliteal space [Gomes], left knee CAD (coronary artery disease) Left leg swelling Left knee pain Abnormal CBC Elevated ferritin Anemia Emphysema lung Cholelithiasis Asthma Tubular adenoma of colon Ocular migraine Chronic neutrophilia Controlled type 2 diabetes with neuropathy UTI (urinary tract infection) BPH associated with nocturia Venous insufficiency Type 2 diabetes mellitus TIA (transient ischemic attack) Stable angina pectoris Peripheral neuropathy Palpitations Osteoarthritis, hand CONNER (obstructive sleep apnea) Nodule of lower lobe of right lung Murmur Lower urinary tract symptoms HTN (hypertension) Hypercholesteremia Chronic total occlusion of coronary artery Surgical History History of bilateral cataract extraction History of sinus surgery History of microdiscectomy Status post reverse total shoulder replacement History of colonoscopy Social History Housing: Other (mobile home [facility] community) Alcohol intake: current Alcohol intake frequency: holidays/special occasions only Patient Tobacco Use Status: Never used Tobacco Cigarette Packs Per Day: 2 Years Smoked: 30 e-Cigarette/Vaping Use: Never Used service: Yes Current occupational status: retired Cognitive needs: No Hearing needs: No Vision needs: Yes (reading glasses) Review of Systems Const Denies weight gain and Denies weight loss ENT Reports no additional complaints, Denies dysphagia and Denies odynophagia Card Reports no additional complaints Resp Reports no additional complaints GI Denies abdominal pain, Denies belching, Denies melena, Denies bloating, Denies change in bowel habits, Denies dysphagia, Denies excessive flatus, Denies dyspepsia, Denies heartburn, Denies diarrhea, Denies loose stools, Denies nausea, Denies odynophagia and Denies vomiting Reports no additional complaints Musc Reports no additional complaints Neuro Reports no additional complaints Psych Reports no additional complaints Endo Reports no additional complaints Physical Exam Const General: healthy appearing, no acute distress and well developed Nutritional Appearance: well nourished Orientation/consciousness: patient oriented x3 Resp Effort & Inspection: normal respiratory effort, able to speak in complete sentences, no tracheal deviation and symmetric chest movement Auscultation: clear to auscultation bilaterally Cardio Rate: regular rate GI Inspection: Yes normal to inspection and No distended Palpation (GI): Soft to palpation, not firm, nontender and No hepatosplenomegaly present Auscultation: normal bowel sounds General: Yes no CVA tenderness Back/Spine/Pelvis Back: no CVA tenderness Skin General skin exam: elasticity normal, turgor normal and dry skin Neuro General: patient oriented x3 Psych Appearance: grossly normal Mental Status: mental status grossly normal Assessment & Plan Assessment & Plan (1) Screen for colon cancer: Code(s): Z12.11 - Encounter for screening for malignant neoplasm of colon Plan Patient denies any GI. Reports occasional shortness of breath with or without exertion, denies any chest pain. Reports leg swelling R>L. Patient has appointment with Dr. Boles on December 23. Message sent to railroad police officer to add clearance to his appointment. ? Denies any issues with anesthesia in the past.? Denies any history of sleep apnea.? No history infectious diseases in the past or present.? Patient is on low-dose aspirin.? No family history of colon cancer.? Patient denies melena, hematochezia, unintentional weight loss or ribbon like stools.? Discussed at length the pre-procedure,? prep, diet & medications as well as what to expect prior, during and after the procedure.?? Stressed the importance of good bowel prep.? Recommended the use of Vaseline or Calmoseptine OTC & baby wipes with bowel movements to promote comfort.? ?Patient verbalizes understanding and agrees to plan of care.? He was given the opportunity to ask questions and all questions answered.? We will see him after the procedure.? Medications: New bisacodyl (Dulcolax (bisacodyl)) take 4 tabs at noon the day before your colonoscopy 20 mg (4 x 5 mg) PO ONCE 1 day 4 tabs 0RF Z12.11 - Encounter for screening for malignant neoplasm of colon polyethylene glycol 3350 (Miralax) As directed by gastroenterology department at [facility] 238 grams PO ONCE 238 grams 0RF Z12.11 - Encounter for screening for malignant neoplasm of colon Coding Level of Care Code New Pt Level 3 (32422) Diagnoses Screen for colon cancer Z12.11 Time Spent (min) 40 Comment 30 minutes spent with patient and additional 10 minutes spent reviewing his records
--- OUTSIDE RECORDS SUMMARY | 2024-11-13 08:54 | XMS_ITS | Clinical Summary ---
Author Organization [facility] Address [address] [place] [address] Care Team Providers Care Full Stack Net Developer Name Role Phone Trista Masters PA-C Primary [...] age to complete this topic Care Teams Full Stack Net Developer Relationship Specialty Start Date End Date Trista Masters PA-C PCP - General Medical Services 04/10/24
--- OUTSIDE RECORDS SUMMARY | 2024-11-13 08:54 | XMS_ITS | Clinical Summary ---
Author Organization [facility] Address [address] [place] [address] Phone Care Team Providers Care Diagnostic Imaging Manager Name Role Phone Trista Masters Primary Care Provider [phone] Allergies Active Allergy Reactions Criticality Noted Date [...] Description 08/31/2024 10:15 AM EST Office Visit [facility] Hematology Oncology [address] [place] [id number] Fritz Rodrigez MD Neutrophilia (Primary Dx); [...] Description 03/03/2025 9:00 AM EDT Office Visit [facility] Hematology Oncology [address] [place] [phone] Fritz Rodrigez MD [address] [place] [phone] Health Maintenance Due Date Last [...] 2 diabetes mellitus without complications (CMS/HCC V24, CMS/[facility] V28) Essential (primary) hypertension Other hyperlipidemia Type 2 diabetes mellitus with diabetic polyneuropathy (CMS/HCC V24, CMS/[facility] V28) Pain in left hip Personal history [...] Maintenance Insurance [employer] Care Teams Diagnostic Imaging Manager Relationship Specialty Start Date End Date Trista Masters PA [address] [place] [id number] PCP - General 04/10/24
== END 2024-11-13 09:20 | disposition home or self-care (01) ==
LOC: HO.HGI 08:49
PROVIDERS: PCP Physician Assistant Medical; Visit Provider Nurse Practitioner Family
DX: Z01.818 Encounter for other preprocedural examination (principal); Z12.11 Encounter for screening for malignant neoplasm of colon; Z86.0101 Personal history of adenomatous and serrated colon polyps
CPT/HCPCS: 99024

== ENCOUNTER → 2024-11-13 08:48 | Outpatient (BNVA) | payer MEDICARE, SELFPAY | PROVIDERS: PCP Physician Assistant Medical; Visit Provider Nurse Practitioner Family | DX: Z01.818 Encounter for other preprocedural examination (principal) | CPT/HCPCS: 99212 ==

== ENCOUNTER 2024-11-19 14:29 | Outpatient (AMB) | payer MEDICARE, SELFPAY ==
--- NOTE | 2024-11-19 14:58 | MHC.PC.OV ---
Vital Signs 11/19/24 15:04 Height 5 ft 8 in Weight 156 lb 8 oz BMI 23.8 BP 138/68 Blood Pressure Location Rt brachial Position Sitting Respiration 14 Pulse 76 Pulse Source Pulse Oximeter Temp 98.6 F Temp Source Temporal Artery Scan Pulse Oximetry (%) 97 Oxygen Delivery Method Room Air Intake Visit Reasons: Annual PE/ Concerns - see comments Intake Note: Ricki presents in the office today for his annual physical. Allergies latex [LATEX] Allergy (Intermediate, Verified 11/19/24 15:00) RASH lisinopril [LISINOPRIL] Allergy (Intermediate, Verified 11/19/24 15:00) LEG CRAMPS NSAIDS (Non-Steroidal Anti-Inflamma [NSAIDS (NON-STEROIDAL ANTI-INFLAMMA] Allergy (Intermediate, Verified 11/19/24 15:00) LEG CRAMPS vardenafil [From LEVITRA] Allergy (Intermediate, Verified 11/19/24 15:00) HALLUCINATIONS hydromorphone [Dilaudid] Allergy (Unknown, Verified 11/19/24 15:00) clammy ibuprofen Allergy (Unknown, Verified 11/19/24 15:00) Unknown Latex Gloves Allergy (Unknown, Uncoded 11/13/24 08:51) Unknown bee products Allergy (Uncoded 11/13/24 08:51) Rash Tobacco use date assessed: 11/19/24 Fall risk assessment: No Falls in past year Last assessed Fall Risk: 11/19/24 Dental Screening Dental Screen Date: 11/19/24 Did you have a dental visit in the last 12 months?: Yes Did you have a dental problem in the last 6 months where you did not have access to dental care?: No Was dental information given to patient?: Patient has dentist HPI HPI Comments History of Present Illness Details This is a 74-year-old male with a past medical history of chronic neutrophilia, hypercholesterolemia, hypertension, coronary artery disease, right lower lobe lung nodule, BPH, CONNER, palpitations, peripheral neuropathy, TIA x2, controlled type 2 diabetes and venous insufficiency presenting for a physical. Cardiovascular- Released from routine follow up by Dr. Burgess several years ago. Patient reported that about 5 years ago he was hospitalized for angina at [facility]. He had a total occlusion of 1 of his coronary arteries. They planned on bypass, but it was not amenable to surgery, and they told him collateral veins would form. Patient has stable angina for years in continually denies recent episodes. He has a prescription for nitroglycerin, but he has not needed to use it. He takes losartan, Zetia, carvedilol, atorvastatin and baby aspirin. He was also evaluated for palpitations by his retread mold operator. Patient had 2 TIAs. The 1st was some 20 years ago, and the other TIA occurred years ago, but he does not remember exactly when. The patient endorses episodes of dizziness associated with shortness of breath when he is exerting himself for the last few months. This happens when he is working around his house and lifting a lot of things and moving around. When he sits down the symptoms resolve. He has an appointment scheduled with Cardiology at [facility] because his retread mold operator at [facility] no longer accept his insurance. The appointment is on December 23. Patient denies chest pain or palpitations or chest heaviness associated with the symptoms. The patient had an echocardiogram on 09/22/2024 which showed LVEF of 55-60% with impaired relaxation filling pattern with regional wall motion abnormalities consistent with coronary artery disease and moderate thickening of the aortic valve with no stenosis or regurgitation. There was mild tricuspid regurgitation. Patient underwent venous duplex ultrasound of the left lower extremity in August of 2024 when he reported left leg swelling and pain. There was no DVT but he did have a complex Gomes's cyst. Subsequently saw orthopedics and was diagnosed with a left knee mild meniscal tear. He had a cortisone injection a few weeks ago and the swelling in the left leg went down and his knee pain is much better. He is concerned because his right lower leg has been swollen for the last few months at least. There is no redness or pain associated with it. He was concerned this is related to the echocardiogram findings. Patient has venous insufficiency but does not see vascular. The swelling improves when he sleeps at night and worsens over the course of the day. Right lower lobe pulmonary nodule-he was followed with CT scans for many years, and it remained stable. No further imaging was recommended. Quit smoking in 1993. Abnormal CBC-He has a follow up scheduled with his telecom assistant Dr. Rodrigez. He had a CBC drawn 09/10/2024 which showed leukocytosis and mild anemia which had worsened a little since July of this year. His lymphocyte count was normal. Platelet count also normal. Patient endorses unintentional weight loss over the past few months of 10 lb. Type 2 diabetes-he has peripheral neuropathy. He takes metformin 1000 mg twice daily. He has eye exams with Dr. Moran annually. Hemoglobin A1c 5.8%. BPH, elevated PSA-previously followed by Dr. Yuen. He saw Dr. Dash after UTI last year. Last PSA in April normal. Tubular adenoma-he was referred for colonoscopy, and it was scheduled in October, but he is rescheduling it. Patient declines vaccinations. ROS: Constitutional: +unintentional weight loss, no fever, chills, fatigue or night sweats. Eyes: No vision changes, blurry vision, double vision, eye pain, eye redness, eye discharge. ENT: No hearing loss, sneezing, congestion, runny nose or sore throat. Respiratory: No cough, wheezing, hemoptysis. +dyspnea on exertion. Cardiovascular: No chest pain, chest pressure or chest discomfort. No palpitations. Gastrointestinal: No anorexia, nausea, vomiting or diarrhea. No abdominal pain or blood in stool. Genitourinary: No dysuria, hematuria, urinary frequency. Neurologic: No headache, syncope, unilateral weakness, ataxia, numbness or tingling in the extremities. Musculoskeletal: See HPI Hematologic/Lymphatics: No bleeding or bruising. No painful lymph nodes. Skin: No rash or itching. Endocrine: No cold or heat intolerance. No polyuria or polydipsia. Psychiatric: No depression or anxiety. No SI/HI. Physical exam: Constitutional: Alert, in no distress. Head: Normocephalic. Eyes: Pupils are equal, round and reactive to light. Extraocular muscles intact. Ear, Nose and Throat: Canals clear. TMs normal. Normal nasal mucosa. No nasal discharge. No oral lesions. Neck: Supple, Full range of motion. No lymphadenopathy. No palpable thyroid masses. Respiratory: Clear to auscultation. Cardiovascular: S1 S2 regular. No murmurs. No carotid bruits. Gastrointestinal: Abdomen soft, non-tender, non-distended. Normal bowel sounds. No palpable masses. Neurologic: No focal neurological deficits. Symmetric patellar reflexes. Moves all extremities spontaneously. Sensation intact bilaterally. Skin: No rashes Musculoskeletal: No gross deformities. Extremities: Warm and well perfused. No clubbing or cyanosis. No erythema. Intact peripheral pulses of the upper and lower extremities. Calves nontender. Patient has 1+ edema of bilateral lower extremities, but the right calf circumference is enlarged compared to the left. Psychiatric: Normal mood and affect [facility] Medical History (Updated 11/19/24 @ 16:35 by ERIKA Warren) Routine physical examination Right leg swelling PARIS (dyspnea on exertion) Abnormal echocardiogram Osteoarthritis of left knee Bursitis of left knee Synovial cyst of popliteal space [Gomes], left knee CAD (coronary artery disease) Left leg swelling Left knee pain Abnormal CBC Elevated ferritin Anemia Emphysema lung Cholelithiasis Asthma Tubular adenoma of colon Ocular migraine Chronic neutrophilia Controlled type 2 diabetes with neuropathy UTI (urinary tract infection) BPH associated with nocturia Venous insufficiency Type 2 diabetes mellitus TIA (transient ischemic attack) Stable angina pectoris Peripheral neuropathy Palpitations Osteoarthritis, hand CONNER (obstructive sleep apnea) Nodule of lower lobe of right lung Murmur Lower urinary tract symptoms HTN (hypertension) Hypercholesteremia Chronic total occlusion of coronary artery Surgical History History of bilateral cataract extraction History of sinus surgery History of microdiscectomy Status post reverse total shoulder replacement History of colonoscopy Social History (Updated 11/19/24 @ 15:02 by Alise Almeida MA) Housing: Other (mobile [facility]) Alcohol intake: current Alcohol intake frequency: holidays/special occasions only Comment: Socially Patient Tobacco Use Status: Former Tobacco user Cigarette Packs Per Day: 2 Years Smoked: 30 e-Cigarette/Vaping Use: Never Used Second Hand Smoke Exposure: No service: Yes Current occupational status: retired Current occupational exposures/hazards: No Cognitive needs: No Hearing needs: No Vision needs: Yes (reading glasses) Questionnaire Thrive Questionnaire Date Thrive assessed: 11/19/24 I am a: Patient What is your living situation today?: I have a steady place to live Within the past 12 months, did the food you bought not last and you didn't have the money to get more?: Never true Within the past 12 months, did you worry whether your food would run out before you got money to buy more?: Never true Do you have trouble paying for medicines?: No Do you have trouble getting transportation to medical appointments?: No Do you have trouble paying your heating and electricity bill?: No Do you have trouble taking care of your child, family member or friend?: No Do you have trouble with day-to-day activities such as bathing, preparing meals, shopping, managing finances, etc.?: I choose not to answer this question Are you currently unemployed and looking for a job?: No Are you interested in more education?: No Please select the resources that you would like help with: None Currently or been in a relationship where the following occur: No concerns reported THRIVE Score: 0 AUDIT C Alcohol Use Questionnaire (AUDIT-C) 1. How often do you have a drink containing alcohol?: Monthly or less 2. How many drinks containing alcohol do you have on a typical day when you are drinking?: 1 or 2 3. How often do you have six or more drinks on one occasion?: Never Total Score: 1 Score Reviewed/Action Taken: No NICKI-7 AMB Questionnaire NICKI-7 Date NICKI - 7 assessed: 01/30/24 Source: Developed by Drs. Deven Lincoln, Altagracia Quintanilla, Tee Canchola and colleagues, with an educational linus from [email or web address]. Physical exam (Primary Care) Vital Signs: Last Vital Signs Temp 98.6 F 11/19/24 15:04 Pulse 76 11/19/24 15:04 Resp 14 11/19/24 15:04 BP 138/68 11/19/24 15:04 Pulse Ox 97 11/19/24 15:04 Oxygen Delivery Method Room Air 11/19/24 15:04 BMI result Body Mass Index 23.8 Tobacco/Smoking Status: Tobacco use Status Tobacco use date assessed 11/19/24 11/19/24 15:04 Patient Tobacco Use Status Former Tobacco user 11/19/24 15:04 e-Cigarette/Vaping Use Never Used 11/19/24 15:04 Thrive Assessment: Date of Thrive Assessment Date Thrive assessed 11/19/24 11/19/24 15:04 Currently or been in a relationship where the following occur: No concerns reported Office Procedures EKG Details: EKG shows normal sinus rhythm with a ventricular rate of 65 beats per minute [id number], Complete Coding Level of Care Code Est Pt Level 4 (28559) Est Pt Prev Care >65y(36912) Diagnoses Right leg swelling M79.89 Controlled type 2 diabetes with neuropathy E11.40 Pure hypercholesterolemia E78.00 Essential hypertension I10 CAD (coronary artery disease) I25.10 Routine physical examination Z00.00 CPT Codes EKG - CPT: 16677-[id number], Complete ([id number]) Assessment & Plan Assessment & Plan (1) Right leg swelling: Code(s): M79.89 - Other specified soft tissue disorders Category: Medical (2) Controlled type 2 diabetes with neuropathy: Code(s): E11.40 - Type 2 diabetes mellitus with diabetic neuropathy, unspecified Category: Medical (3) Pure hypercholesterolemia: Code(s): E78.00 - Pure hypercholesterolemia, unspecified Category: Medical (4) Essential hypertension: Code(s): I10 - Essential (primary) hypertension Category: Medical (5) CAD (coronary artery disease): Code(s): I25.10 - Atherosclerotic heart disease of beaver coronary artery without angina pectoris Category: Medical (6) Routine physical examination: Code(s): Z00.00 - Encounter for general adult medical examination without abnormal findings Category: Medical Plan: Patient is seen today for a routine physical. As part of this visit we reviewed the following issues, which are considered and essential part of preventative health in this age group: - Screening for colon cancer - Discussed Prostate cancer screening - Blood pressure screening - Cholesterol screening - Nutritional and exercise counseling - Counseling of injury prevention including fire prevention, smoke alarms and seat belt usage - Screening for depression - Education about skin cancer - Recommendations about immunizations -declines - Recommendation of an eye exam Plan Patient will be scheduled for a stat venous duplex ultrasound of the right lower extremity to rule out DVT. Symptoms could be due to Gomes's cyst or venous insufficiency. I will refer to vascular surgery if ultrasound is negative. Continue to elevate the leg. Warning signs warranting ER evaluation reviewed. Patient has dizziness and dyspnea on exertion for the last few months. He is not hypoxic. He has no chest pain. PE less likely at this time. EKG is normal but he has a known history of coronary artery disease an upcoming appointment with Cardiology in a month. Patient had recent echocardiogram with wall motion abnormalities consistent with coronary artery disease. He will proceed with pharmacologic stress test as he can not exercise on a treadmill due to his knee. Advised patient to go to the emergency room if he develops chest pain, worsening symptoms or dizziness or PARIS that does not resolve at rest. He also has a history of anemia and leukocytosis. Worsening anemia may also cause dyspnea on exertion and dizziness. Check labs today. He has a history of smoking. Chest x-ray ordered for evaluation of PARIS. Consider PFTs if above workup is negative. Follow up scheduled which may be changed depending on test results. Orders: Orders AMB EKG-In Office Today R06.09 - Other forms of dyspnea Complete Blood Count Auto Diff Today R06.09 - Other forms of dyspnea CA stress test Today R94.31 - Abnormal electrocardiogram [ECG] [EKG] NM cardiolite stress test Today I25.10 - Atherosclerotic heart disease of beaver coronary artery without angina pectoris, R06.09 - Other forms of dyspnea US venous duplex LE RT Today M79.89 - Other specified soft tissue disorders XR chest 2V Today R06.09 - Other forms of dyspnea TSH reflex Free T4 Today R06.09 - Other forms of dyspnea Comprehensive Met. Panel Today R06.09 - Other forms of dyspnea IRON PROFILE Today R06.09 - Other forms of dyspnea Ferritin Today R06.09 - Other forms of dyspnea
[2024-11-19 15:04] VITALS: BP 138/68; PULSE 76; RESP 14; TEMP 37; O2SAT 97; BMI 23.8
--- OUTSIDE RECORDS SUMMARY | 2024-11-19 16:35 | XMS_ITS | Clinical Summary ---
Author Organization [facility] Address [address] [place] [address] Phone Care Team Providers Care Drying Room Supervisor Name Role Phone Trista Masters Primary Care Provider [phone] Allergies Active Allergy Reactions Criticality Noted Date [...] Description 08/31/2024 10:15 AM EST Office Visit [facility] Hematology Oncology [address] [place] [phone] Fritz Rodrigez MD Neutrophilia (Primary Dx); [...] Description 03/03/2025 9:00 AM EDT Office Visit [facility] Hematology Oncology [address] [place] [phone] Fritz Rodrigez MD [address] [place] [address] Health Maintenance Due Date Last [...] 2 diabetes mellitus without complications (CMS/HCC V24, CMS/[facility] V28) Essential (primary) hypertension Other hyperlipidemia Type 2 diabetes mellitus with diabetic polyneuropathy (CMS/HCC V24, CMS/[facility] V28) Pain in left hip Personal [...] Maintenance Insurance [employer] MEDICARE Care Teams Drying Room Supervisor Relationship Specialty Start Date End Date Trista Masters PA [address] [place] [address] PCP - General 04/10/24
--- OUTSIDE RECORDS SUMMARY | 2024-11-19 16:35 | XMS_ITS | Clinical Summary ---
Author Organization [facility] Address [address] [place] [address] Care Team Providers Care Forge Press Operator Name Role Phone Trista Masters PA-C Primary [...] age to complete this topic Care Teams Forge Press Operator Relationship Specialty Start Date End Date Trista Masters PA-C PCP - General Medical Services 04/10/24
== END 2024-11-19 16:08 | disposition home or self-care (01) ==
LOC: HO.HMCFM 14:29
PROVIDERS: PCP Physician Assistant Medical; Visit Provider Physician Assistant Medical
DX: M79.89 Other specified soft tissue disorders (principal); E11.40 Type 2 diabetes mellitus with diabetic neuropathy, unspecified; E78.00 Pure hypercholesterolemia, unspecified; I10 Essential (primary) hypertension; I25.10 Atherosclerotic heart disease of native coronary artery without angina pectoris; Z00.00 Encounter for general adult medical examination without abnormal findings

== ENCOUNTER → 2024-11-19 14:29 | Outpatient (BNVA) | payer MEDICARE, SELFPAY | PROVIDERS: PCP Physician Assistant Medical; Visit Provider Physician Assistant Medical | DX: Z00.01 Encounter for general adult medical examination with abnormal findings (principal); M79.89 Other specified soft tissue disorders; E11.40 Type 2 diabetes mellitus with diabetic neuropathy, unspecified; E78.00 Pure hypercholesterolemia, unspecified; I10 Essential (primary) hypertension; I25.10 Atherosclerotic heart disease of native coronary artery without angina pectoris; R06.09 Other forms of dyspnea | CPT/HCPCS: 93005; 99212; 99397 ==

== ENCOUNTER 2024-11-20 08:09 | Outpatient (REF) | payer MEDICARE, SELFPAY ==
--- NOTE | ~2024-11-20 | XR_ITS ---
EXAMINATION: XR CHEST CLINICAL INFORMATION: R06.09 - Other forms of dyspnea COMPARISON: None available. TECHNIQUE: 2 views of the chest were obtained. FINDINGS: Mild prominence of the interstitial markings in the right and to a lesser extent left pulmonary perihilum. No pleural effusion. No pneumothorax. No hyperinflation. Cardiomediastinal silhouette size is normal. Calcified plaque thoracic aortic arch. Multilevel syndesmophyte formation and marginal osteophyte formation with endplate sclerosis and preservation of the intervertebral disc height, thoracolumbar spine. Metallic prosthesis with a glenoid and humeral component right shoulder. XR/XR chest 2V IMPRESSION: Mild interstitial lung edema in the correct clinical settings. Superimposed acute small airway inflammatory process cannot be excluded. Electronically signed by: Eldon Stoddard MD 11/20/2024 10:10 AM EDT
--- OUTSIDE RECORDS SUMMARY | 2024-11-20 08:16 | XMS_ITS | Clinical Summary ---
Author Organization [facility] Address [address] [place] [address] Phone Care Team Providers Care Acting Teacher Name Role Phone Trista Masters Primary Care Provider [phone] Allergies Active Allergy Reactions Criticality Noted Date [...] Description 08/31/2024 10:15 AM EST Office Visit [facility] Hematology Oncology [address] [place] [phone] Fritz Rodrigez MD Neutrophilia (Primary Dx); [...] Description 03/03/2025 9:00 AM EDT Office Visit [facility] Hematology Oncology [address] [place] [phone] Fritz Rodrigez MD [address] [place] [address] Health Maintenance Due Date Last [...] 2 diabetes mellitus without complications (CMS/HCC V24, CMS/[facility] V28) Essential (primary) hypertension Other hyperlipidemia Type 2 diabetes mellitus with diabetic polyneuropathy (CMS/HCC V24, [facility] V28) Pain in left hip [...] Maintenance Insurance [employer] MED[employer]ARE Care Teams Acting Teacher Relationship Specialty Start Date End Date Trista Masters PA [address] [place] [id number] PCP - General 04/10/24
--- OUTSIDE RECORDS SUMMARY | 2024-11-20 08:16 | XMS_ITS | Clinical Summary ---
Author Organization [facility] Address [address] [place] [address] Care Team Providers Care Bridge Manager Name Role Phone Trista Masters PA-C Primary Care Provider [phone] Allergies Active Allergy Reactions Criticality Noted Date [...] age to complete this topic Care Teams Bridge Manager Relationship Specialty Start Date End Date Trista Masters PA-C PCP - General Medical Services 04/10/24
[2024-11-20 10:08] LABS: MANUAL DIFF FLAG NO
[2024-11-20 10:12] LABS: Basophils Absolute Auto 0.1 X10*3/uL (0.0-0.2); Basophils Percent Auto 0.5 % (0-2); Eosinophils Absolute Auto 0.4 X10*3/uL (0.0-0.4); Eosinophils Percent Auto 3.7 % (0-4); Hematocrit 31.6 % (42.0-52.0); Hemoglobin 9.8 g/dl (14.0-18.0); Imm Gran Abs Auto 0.05 X10*3/uL (0.00-0.03); Imm Gran Pct Auto 0.5 % (0.0-0.4); Lymphocytes Absolute Auto 1.7 X10*3/uL (1.2-4.9); Lymphocytes Percent Auto 16.4 % (20-40); Mean Corpuscular Hemoglobin 28.8 pg (27.0-33.0); Mean Corpuscular Volume 92.9 fL (80.0-98.0); Mean Platelet Volume 9.6 fL (9.4-12.4); Monocytes Absolute Auto 0.9 X10*3/uL (0.1-1.2); Monocytes Percent Auto 8.9 % (2-11); Neutrophils Absolute Auto 7.1 x10*3/uL (2.0-8.3); Platelet Count 424 X10*3/uL (160-400); Red Cell Distribution Width 14.1 % (11.0-16.0); White Blood Count 10.2 X10*3/uL (4.8-10.8)
[2024-11-20 10:57] LABS: Alanine Aminotransferase < 6 U/L (0-40); Albumin Level 3.4 g/dL (3.5-5.0); Alkaline Phosphatase 67 U/L (39-117); Anion Gap 13 (12-20); Aspartate Amino Transferase 21 U/L (5-37); Bilirubin Total 0.3 mg/dL (0.0-1.0); Blood Urea Nitrogen 12 mg/dL (9-16); Calcium 8.8 mg/dL (8.4-10.2); Carbon Dioxide 21 mmol/L (22-29); Chloride 109 mmol/L (96-108); Estimated Glomerular Filt Rate > 60; Ferritin 543 ng/mL (20-250); Glucose Random 124 mg/dL (60-115); Iron 33 mcg/dL (45-160); Percent Iron Saturation 20 % (15-50); Potassium 4.2 mmol/L (3.3-5.1); Sodium 139 mmol/L (135-145); TSH reflex Free T4 1.24 uIU/mL (0.32-4.0); Total Iron Binding Capacity 166 mcg/dL (228-428); Total Protein 7.3 g/dL (6.5-8.0); Unsaturated Iron Binding 133 ug/dL
== END 2024-11-20 08:10 | disposition home or self-care (01) ==
LOC: HO.HMGCX 08:09
PROVIDERS: PCP Physician Assistant Medical; Visit Provider Physician Assistant Medical
DX: Z13.89 Encounter for screening for other disorder (principal)
CPT/HCPCS: 36415; 71046; 80053; 82728; 83540; 84443; 85025

== ENCOUNTER → 2024-11-20 08:41 | Outpatient (BNV) | payer MEDICARE, SELFPAY | PROVIDERS: PCP Physician Assistant Medical; Visit Provider Radiology Diagnostic Radiology | DX: R22.41 Localized swelling, mass and lump, right lower limb (principal); R06.09 Other forms of dyspnea | CPT/HCPCS: 71046; 93971 ==

== ENCOUNTER 2024-11-20 12:52 | Outpatient (REF) | payer MEDICARE, SELFPAY ==
--- NOTE | ~2024-11-20 | US_ITS ---
EXAMINATION: US TRIPLEX LOWER EXTREMITY, RIGHT CLINICAL INFORMATION: Swelling, right lower extremity. COMPARISON: None available. TECHNIQUE: Color-flow triplex imaging with spectral analysis and compression Doppler were performed on the right lower extremity. FINDINGS: Respiratory variation, normal compression and augmented flow are noted throughout the interrogated common femoral vein, superficial femoral vein, profunda femoral vein, popliteal vein and midcalf peroneal and posterior tibial venous segments . There is no Gomes's cyst. US/US venous duplex LE RT IMPRESSION: No acute deep venous thrombosis involving the right lower extremity. Negative for DVT. Electronically signed by: Eldon Stoddard MD 11/20/2024 02:02 PM EDT
--- OUTSIDE RECORDS SUMMARY | 2024-11-20 13:15 | XMS_ITS | Clinical Summary ---
Author Organization [facility] Address [address] [place] [address] Phone Care Team Providers Care Banking Services Officer Name Role Phone Trista Masters Primary Care Provider [phone] Allergies Active Allergy Reactions Criticality Noted Date [...] Description 08/31/2024 10:15 AM EST Office Visit [facility] Hematology Oncology [address] [place] [phone] Fritz Rodrigez MD Neutrophilia (Primary Dx); [...] Description 03/03/2025 9:00 AM EDT Office Visit [facility] Hematology Oncology [address] [place] [phone] Fritz Rodrigez MD [address] [place] [phone] Health Maintenance Due Date Last [...] 2 diabetes mellitus without complications (CMS/HCC V24, CMS/[facility] V28) Essential (primary) hypertension Other hyperlipidemia Type 2 diabetes mellitus with diabetic polyneuropathy (CMS/HCC V24, CMS/[facility] V28) Pain in left hip Personal history [...] Maintenance Insurance [employer] MED[employer] Care Teams Banking Services Officer Relationship Specialty Start Date End Date Trista Masters PA [address] [place] [id number] PCP - General 04/10/24
--- OUTSIDE RECORDS SUMMARY | 2024-11-20 13:15 | XMS_ITS | Clinical Summary ---
Author Organization [facility] Address [address] [place] [address] Care Team Providers Care Jet Operator Name Role Phone Trista Masters PA-C Primary Care Provider [phone] Allergies Active Allergy Reactions Criticality Noted Date [...] age to complete this topic Care Teams Jet Operator Relationship Specialty Start Date End Date Trista Masters PA-C PCP - General Medical Services 04/10/24
== END 2024-11-20 12:53 | disposition home or self-care (01) ==
LOC: HO.US 12:52
PROVIDERS: PCP Physician Assistant Medical; Visit Provider Physician Assistant Medical
DX: R60.0 Localized edema (principal)
CPT/HCPCS: 36415; 71046; 80053; 82728; 83540; 84443; 85025; 93971

== ENCOUNTER → 2024-12-08 08:14 | Outpatient (REF) | payer MEDICARE, SELFPAY ==
--- NOTE | ~2024-12-08 | NM_ITS ---
Lexiscan Myocardial perfusion study Indication: Coronary artery disease Technique: The patient was brought in for a Lexiscan perfusion study on 12/08/2024 and was injected 0.4 mg of Lexiscan intravenously. Within a minute of this injection 25 mCi of sestamibi was given intravenously. Images were obtained using the SPECT gamma camera interlaced with the gating device. Images were obtained in supine position. Resting perfusion study was performed on 12/09/2024. Patient was administered 25 mCi of sestamibi intravenously at rest. Images were then obtained in supine position. Total DLP 102 mGy-cm. Images were processed with the software and compared side to side in short axis, horizontal long axis and vertical long axis views. Findings: Raw aquisition reviewed. Arms by the patient's side. The stress perfusion study showed diminished tracer uptake in the basal part of inferior and inferolateral wall. There is improvement with CT attenuation correction suggestive of diaphragmatic attenuation artifact. The gated study shows normal LV systolic function with calculated LVEF of 63%. LV cavity is normal in size. The gated study shows normal wall thickening and contraction of segments. Resting study shows diminished tracer uptake in the basal part of inferior wall. There is improvement with CT attenuation correction suggestive of diaphragmatic attenuation artifact. Gating at rest reveals normal wall motion with ejection fraction at 70%. The findings are consistent with fixed basal inferior defect could be from diaphragmatic attenuation artifact. NM/NM cardiolite stress test Impression: 1. Myocardial perfusion imaging study shows fixed basal inferior defect could be related to diaphragmatic attenuation artifact. No clear evidence of ischemia. 2. Gated LVEF is 63% during stress and 70% during rest. 3. Transient ischemic dilatation not present. EKG component of the test reported separately. Electronically signed by: Handy Echavarria MD 12/09/2024 12:18 PM EDT
--- NOTE | 2024-12-08 08:16 | CA_ITS ---
Acquisition Time: 2024-12-08 08:27:54 Total Exercise Time: 00:02:00 Test Indications: ABN EKG Medications: SEE H&P Protocol: LEXISCAN Max HR: 126 BPM 86% of Pred: 145 BPM Max BP: 136/62 mmHG Max Work Load: 1.0 METS Pharmacological stress test with Lexiscan while pt marches in the chair, with reports of palpitations, nausea and abdominal discomfort, with isolated PVCs, with normotensive response to injection. Nondiagnostic EKG for ischemia. In recovery, pt treated with IVP Aminophylline 75 mg to reverse Lexiscan after which pt feeling back to baseline. Nuclear images pending. Test reviewed with Dr. Boles. Referred By: Trista Masters Electronically Signed By: Ranjit Ortega
--- OUTSIDE RECORDS SUMMARY | 2024-12-08 08:21 | XMS_ITS | Clinical Summary ---
Author Organization [facility] Address [address] [place] [address] Phone Care Team Providers Care Railway Signal Technician Name Role Phone Trista Masters Primary Care Provider [phone] Allergies Active Allergy Reactions Criticality Noted Date [...] and stable over year and a half Social History Tobacco Use Types Packs/Day Years [...] 03/03/2025 9:00 AM EDT Office Visit [facility] Hematology Oncology [address] [place] [address] Fritz Rodrigez MD [address] [place] [address] Health Maintenance Due Date Last [...] 1-dose 75+ series) 02/13/2024 COVID-19 Vaccine ( season) 2024 02/08/2022, 08/11/2021, 08/25/2020, Additional history [...] EDT Type 2 diabetes mellitus without complications ([facility] V24, [facility] V28) Essential (primary) hypertension Other hyperlipidemia Type 2 diabetes mellitus with diabetic polyneuropathy (CMS/[facility] V24, [facility] V28) Pain in left hip Personal [...] CONCLUSIONS: No evidence of AAA. Danny JAMES IMG US PROCEDURES Final R esult from Last 3 Months or Most Recently Relevant to Health Maintenance Insurance [employer] MED[employer]ARE Care Teams Railway Signal Technician Relationship Specialty Start Date End Date Trista Masters PA [address] [place] [address] [place] [id number] PCP - General 04/10/24
--- OUTSIDE RECORDS SUMMARY | 2024-12-08 08:21 | XMS_ITS | Clinical Summary ---
Author Organization [facility] Address [address] [place] [address] Care Team Providers Care Bar Catcher Name Role Phone Trista Masters PA-C Primary [...] age to complete this topic Care Teams Bar Catcher Relationship Specialty Start Date End Date Trista Masters PA-C PCP - General Medical Services 04/10/24
== END ==
LOC: HO.CARD 08:14
PROVIDERS: PCP Physician Assistant Medical; Visit Provider Physician Assistant Medical
DX: R06.09 Other forms of dyspnea (principal); I25.10 Atherosclerotic heart disease of native coronary artery without angina pectoris; R94.31 Abnormal electrocardiogram [ECG] [EKG]
CPT/HCPCS: 78452; 93017; A9500; J0280; J2785

== ENCOUNTER → 2024-12-08 08:16 | Outpatient (BNV) | payer MEDICARE, SELFPAY | PROVIDERS: PCP Physician Assistant Medical | DX: I49.3 Ventricular premature depolarization (principal) | CPT/HCPCS: 78452; 93016; 93018 ==

== ENCOUNTER 2024-12-23 13:23 | Outpatient (AMB) | payer MEDICARE, SELFPAY ==
--- NOTE | 2024-12-23 13:30 | MHC.OFFVIS ---
Vital Signs 12/23/24 13:34 Height 5 ft 8 in Weight 149 lb 7.574 oz BMI 22.7 BP 100/66 Blood Pressure Location Lt brachial Position Sitting Pulse 80 Pulse Source Monitor Intake Visit Reasons: IMMUNOLOGY SPECIALIST/ Trista Kelleye/abn finding echo/ preop colon Intake Note: Bladder Trimmer/ABN echo/ preop colonoscopy Cover Inspector Required: No Accompanied by: Self / Same As Patient Allergies latex [LATEX] Allergy (Intermediate, Verified 11/19/24 15:00) RASH lisinopril [LISINOPRIL] Allergy (Intermediate, Verified 11/19/24 15:00) LEG CRAMPS NSAIDS (Non-Steroidal Anti-Inflamma [NSAIDS (NON-STEROIDAL ANTI-INFLAMMA] Allergy (Intermediate, Verified 11/19/24 15:00) LEG CRAMPS vardenafil [From LEVITRA] Allergy (Intermediate, Verified 11/19/24 15:00) HALLUCINATIONS hydromorphone [Dilaudid] Allergy (Unknown, Verified 11/19/24 15:00) clammy ibuprofen Allergy (Unknown, Verified 11/19/24 15:00) Unknown Latex Gloves Allergy (Unknown, Uncoded 11/13/24 08:51) Unknown bee products Allergy (Uncoded 11/13/24 08:51) Rash Medication List - Last Reconciled 12/23/24 by Gadiel Boles MD amlodipine 10 mg PO DAILY aspirin (Adult Low Dose Aspirin) 81 mg PO DAILY atorvastatin 40 mg PO DAILY bisacodyl (Dulcolax (bisacodyl)) 20 mg (4 x 5 mg) PO ONCE 1 day carvedilol 25 mg PO BID 30 days cyanocobalamin (vitamin B-12) (Vitamin B-12) 1,000 mcg PO DAILY ezetimibe 10 mg PO DAILY ferrous sulfate 325 mg PO DAILY furosemide 20 mg PO QAM lorazepam 1 mg PO DAILY PRN losartan 100 mg PO DAILY metformin 1,000 mg PO BID nitroglycerin 0.4 mg sublingual Q5M PRN polyethylene glycol 3350 (Miralax) 238 grams PO ONCE HPI Comments Details: Pleasant 74 year gentleman with history of coronary artery disease, diabetes, history of leukocytosis, peripheral neuropathy and hypertension who is referred to us for abnormal stress test. It appears since July 2024 he has been losing weight and getting weak. He said he had a fall and had a meniscal tear on the left side. He also had lower extremity edema for which he was started on diuretics by his primary care physician. He is saying that he gets short of breath and sweaty at times. He was due to get a colonoscopy because he previously had polyps removed. He follows with hematology at [facility] and is due to see them in 1 month. I reviewed his angiogram done on 09/21/2005 at [facility]. He did not have any significant left main disease and had mild left circumflex and LAD stenosis. 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 It appears he went to lay he clinic where by his recollection again no one could engage this right coronary artery and he had a coronary CTA performed in 2005. He brought the report with him and coronary CTA report showed diffuse disease in the right coronary artery with severe stenosis. There was discussion about coronary artery bypass surgery but after coronary CTA report it was decided to medically manage him. He is also noticed to be anemic and is denying any blood loss. He has been feeling weak and his blood pressure is low. He is on multiple medications currently. [facility] Medical History (Updated 11/19/24 @ 16:35 by ERIKA Warren) Routine physical examination Right leg swelling PARIS (dyspnea on exertion) Abnormal echocardiogram Osteoarthritis of left knee Bursitis of left knee Synovial cyst of popliteal space [Gomes], left knee CAD (coronary artery disease) Left leg swelling Left knee pain Abnormal CBC Elevated ferritin Anemia Emphysema lung Cholelithiasis Asthma Tubular adenoma of colon Ocular migraine Chronic neutrophilia Controlled type 2 diabetes with neuropathy UTI (urinary tract infection) BPH associated with nocturia Venous insufficiency Type 2 diabetes mellitus TIA (transient ischemic attack) Stable angina pectoris Peripheral neuropathy Palpitations Osteoarthritis, hand CONNER (obstructive sleep apnea) Nodule of lower lobe of right lung Murmur Lower urinary tract symptoms HTN (hypertension) Hypercholesteremia Chronic total occlusion of coronary artery Surgical History History of bilateral cataract extraction History of sinus surgery History of microdiscectomy Status post reverse total shoulder replacement History of colonoscopy Social History Housing: Other (mobile home detention community) Alcohol intake: current Alcohol intake frequency: holidays/special occasions only Comment: Socially Patient Tobacco Use Status: Former Tobacco user Cigarette Packs Per Day: 2 Years Smoked: 30 e-Cigarette/Vaping Use: Never Used Second Hand Smoke Exposure: No service: Yes Current occupational status: retired Current occupational exposures/hazards: No Cognitive needs: No Hearing needs: No Vision needs: Yes (reading glasses) Review of Systems Const Denies chills, Denies fatigue, Denies fever(s), Denies frequent falls, Denies weakness, Denies weight gain and Denies weight loss ENT Denies dizziness Card Denies chest pain, Denies leg edema, Denies lightheadedness, Denies palpitations, Denies dyspnea, Denies dyspnea on exertion and Denies orthopnea Resp Denies cough, Denies dyspnea and Denies dyspnea on exertion GI Denies bloating and Denies change in bowel habits Musc Denies muscle weakness, Denies numbness and Denies tingling Neuro Denies dizziness, Denies frequent falls, Denies numbness, Denies tingling and Denies weakness Endo Denies fatigue and Denies palpitations Physical Exam Vital Signs: Last Vital Signs Pulse 80 12/23/24 13:34 BP 100/66 12/23/24 13:34 BMI result Body Mass Index 22.7 GENERAL APPEARANCE: in no acute distress, pleasant. NECK: no carotid bruit, no jugular venous distention. SKIN: no suspicious lesions, warm and dry. HEART: no murmurs, regular rate and rhythm. LUNGS: clear to auscultation bilaterally. ABDOMEN: soft, nontender. EXTREMITIES: no edema lower extremities. Left hand is mildly edematous. PERIPHERAL PULSES: equal. NEUROLOGIC: No gross deficits, AAO X 3 Office Procedures EKG Details: Sinus rhythm 80 beats per minute, normal axis, inferior T-wave inversions, premature ventricular complexes, QTC 426 milliseconds. [id number], Complete Assessment & Plan Assessment & Plan (1) PARIS (dyspnea on exertion): Code(s): R06.09 - Other forms of dyspnea Category: Medical (2) Abnormal echocardiogram: Code(s): R93.1 - Abnormal findings on diagnostic imaging of heart and coronary circulation Category: Medical Plan Very pleasant 74 year gentleman who is here for 1st office visit. He has known history of coronary disease and in 2005 he underwent angiography because he was getting anginal symptoms. At that time right coronary artery could not be engaged due to anomalous origin. He subsequently had assessment done at [facility] where again angiography was tried but vessel could not be engaged. A decision was made to do surgery on him and he underwent coronary CTA which revealed diffuse severe disease in run coronary artery and he was advised that he should just be medically treated. He had workup done recently because he has been getting dizziness, shortness of breath, sweating, weight loss which is unintentional and significant weakness. He has fallen a few times and also had a meniscal tear in the left leg. He was also developing lower extremity edema and was on diuretics. Echocardiography has shown inferior wall motion abnormality and nuclear perfusion imaging is showing inferior perfusion defect. He is in need of colonoscopy and I think he can proceed with intermediate risk for colonoscopy. I have explained to him that his symptoms are quite concerning especially weight loss and sweats. I have advised him to see his oncologist at [facility]. I think we need more information before we proceed with any ischemic assessment. Thank you for allowing me to participate in the care of your patient. Please feel free to contact me if you have any questions. Coding Level of Care Code New Pt Level 5 (47831) Diagnoses PARIS (dyspnea on exertion) R06.09 Abnormal echocardiogram R93.1 CPT Codes EKG - CPT: 79533-[id number], Complete ([id number])
[2024-12-23 13:34] VITALS: BP 100/66; PULSE 80; BMI 22.7
--- OUTSIDE RECORDS SUMMARY | 2024-12-23 13:37 | XMS_ITS | Encounter Summary ---
Author Organization [facility] Address [address] [place] [address] Care Team Providers Care Maintenance Analyst Name Role Phone Jaylen Blood Primary Care Provider Mejia Palmer MD Primary Care Provider Encounter Details Date Type Department Care Team Description 06/27/2018 [facility]AN Medical Records [address] [place] [address] Abstract, Provider Social History Tobacco Use Types Packs/Day Years Used Date Smoking Tobacco: Former Cigarettes 30 Smokeless Tobacco: Never Alcohol Use Standard Drinks/Week Comments Yes 0 (1 standard drink = 0.6 oz pur e alcohol) occasional wine Sex Assigned at Date Recorded Not on file Job Start Date Occupation Industry Not on file Not on file Not on file documented as of this encounter Plan of Treatment Not on file documented as of this encounter Visit Diagnoses Not on filedocumented in this encounter Care Teams Maintenance Analyst Relationship Specialty Start Date End Date Jaylen Blood PCP - General Internal Medicine 11/06/17 11/27/22 Mejia Armas MD [address] [place] [id number] PCP - General Internal Medicine 11/28/22 documented as of this encounter
== END 2024-12-23 14:38 | disposition home or self-care (01) ==
PROVIDERS: PCP Physician Assistant Medical; Visit Provider Internal Medicine Cardiovascular Disease
DX: R06.09 Other forms of dyspnea (principal); R94.39 Abnormal result of other cardiovascular function study; I49.3 Ventricular premature depolarization
CPT/HCPCS: 93010; 99204

== ENCOUNTER → 2024-12-23 13:23 | Outpatient (BNVA) | payer MEDICARE, SELFPAY | PROVIDERS: PCP Physician Assistant Medical; Visit Provider Internal Medicine Cardiovascular Disease | DX: R06.09 Other forms of dyspnea (principal); R93.1 Abnormal findings on diagnostic imaging of heart and coronary circulation; R94.31 Abnormal electrocardiogram [ECG] [EKG]; I51.7 Cardiomegaly; I49.3 Ventricular premature depolarization | CPT/HCPCS: 93005; 99202 ==

== ENCOUNTER 2024-12-24 08:42 | Outpatient (AMB) | payer MEDICARE, SELFPAY ==
--- NOTE | 2024-12-24 08:52 | A.OFFPC_ITS ---
Vital Signs 12/24/24 08:59 Height 5 ft 8 in Weight 150 lb BMI 22.8 BP 114/58 L Blood Pressure Location Lt brachial Position Sitting Pulse 98 Pulse Source Pulse Oximeter Temp 98.2 F Temp Source Temporal Artery Scan Pulse Oximetry (%) 98 Oxygen Delivery Method Room Air Intake Visit Reasons: [place] - see comments Intake Note: Ricki presents in the office today for a follow up to his [facility]. Allergies latex [LATEX] Allergy (Intermediate, Verified 12/24/24 08:55) RASH lisinopril [LISINOPRIL] Allergy (Intermediate, Verified 12/24/24 08:55) LEG CRAMPS NSAIDS (Non-Steroidal Anti-Inflamma [NSAIDS (NON-STEROIDAL ANTI-INFLAMMA] Allergy (Intermediate, Verified 12/24/24 08:55) LEG CRAMPS vardenafil [From LEVITRA] Allergy (Intermediate, Verified 12/24/24 08:55) HALLUCINATIONS hydromorphone [Dilaudid] Allergy (Unknown, Verified 12/24/24 08:55) clammy ibuprofen Allergy (Unknown, Verified 12/24/24 08:55) Unknown Latex Gloves Allergy (Unknown, Uncoded 12/24/24 08:55) Unknown bee products Allergy (Uncoded 12/24/24 08:55) Rash Tobacco use date assessed: 12/24/24 Dental Screening Dental Screen Date: 12/24/24 Did you have a dental visit in the last 12 months?: Yes Did you have a dental problem in the last 6 months where you did not have access to dental care?: No Was dental information given to patient?: Patient has dentist HPI HPI Comments History of Present Illness Details This is a 74-year-old male with a past medical history of chronic neutrophilia, hypercholesterolemia, hypertension, coronary artery disease, right lower lobe lung nodule, BPH, CONNER, palpitations, peripheral neuropathy, TIA x2, controlled type 2 diabetes and venous insufficiency presenting for follow up. Cardiovascular- Seen by Dr. Boles yesterday and per notes can proceed with colonoscopy with intermediate risk. Patient has known coronary artery disease in 2005 underwent angiography due to anginal symptoms. He underwent coronary CTA in the past which revealed diffuse severe disease in the right coronary artery, and medical treatment was advised. Echocardiogram recently showed inferior wall motion abnormality and nuclear perfusion imaging showed inferior perfusion defect. Further evaluation with Gastroenterology and Oncology due to anemia, weight loss, fatigue and night sweats was recommended prior to further ischemic assessment. Patient reports that he was instructed to hold amlodipine for 2 days and then started at 5 mg. His blood pressures have been running low as he has lost weight. Some blood pressures in the 80s over 40s. Feels fatigued and lightheaded. He did not take amlodipine today, and blood pressure is 114/58. Patient had 2 TIAs. The 1st was some 20 years ago, and the other TIA occurred years ago, but he does not remember exactly when. I saw the patient for a physical exam 4 weeks ago. He reported episodes of dizziness and shortness of breath with exertion during the last few months. CBC drawn 09/10/2024 showed leukocytosis and mild anemia which had worsened since July of 2024. Lymphocyte count and platelets were normal. He also reported unintentional weight loss of about 10 lb. He is followed by Dr. Rodrigez at [facility] for history of abnormal CBC these. Patient reports his normal rate is around 170-175 lb, and he has 150 lb now. Patient says his appetite is normal and he is eating the same way he always has. He endorses fatigue as well as the aforementioned symptoms. He denies any blood loss. CBC was repeated on 11/20/2024 which showed no leukocytosis, worsening of anemia with hemoglobin 9.8 and hematocrit 31.6, elevated platelets at 424,000. Patient's ferritin was also elevated at 543. Iron low at 33. He was started on ferrous sulfate 325 mg daily. He is taking this. He has had swelling in his lower legs. Ultrasounds negative for DVT. He had fallen a few times and saw orthopedics and had a left mild meniscal tear treated with cortisone injection. He has a history of venous insufficiency. He reports swelling improves over the course of the night and worsens during the day. As part of his workup he had a chest x-ray on 11/20/2024 which demonstrated mild interstitial lung edema. He was then started on furosemide 20 mg a day. Right lower lobe pulmonary nodule-he was followed with CT scans for many years, and it remained stable. No further imaging was recommended. Quit smoking in 1993. Type 2 diabetes-he has peripheral neuropathy. He takes metformin 1000 mg twice daily. He has eye exams with Dr. Dean annually. Hemoglobin A1c 5.8%. BPH, elevated PSA-previously followed by Dr. Yuen. He saw Dr. Dash after UTI last year. Last PSA in April normal. Tubular adenoma-he saw Gastroenterology in October, and colonoscopy is ordered, but patient wants to see Oncology 1st before scheduling this test. Patient declines vaccinations. ROS: Constitutional: +unintentional weight loss, , +fatigue, +night sweats. No fever or chills. Eyes: No vision changes, blurry vision, double vision, eye pain, eye redness, eye discharge. ENT: No hearing loss, sneezing, congestion, runny nose or sore throat. Respiratory: No cough, wheezing, hemoptysis. +dyspnea on exertion. Cardiovascular: No chest pain, chest pressure or chest discomfort. No palpitations. Gastrointestinal: No anorexia, nausea, vomiting or diarrhea. No abdominal pain or blood in stool. Denies early satiety. Genitourinary: No dysuria, hematuria, urinary frequency. Neurologic: No headache, syncope, unilateral weakness, ataxia, numbness or tingling in the extremities. Hematologic/Lymphatics: No bleeding or bruising. No painful lymph nodes. Skin: No rash or itching. Endocrine: No cold or heat intolerance. No polyuria or polydipsia. Psychiatric: Denies depression. +anxiety about his thumbs. Physical exam: Constitutional: Alert, in no distress. Eyes: Pupils are equal, round and reactive to light. Extraocular muscles intact. Neck: Supple, Full range of motion. No lymphadenopathy. No palpable thyroid masses. Respiratory: Clear to auscultation. Cardiovascular: S1 S2 regular. No murmurs. Gastrointestinal: Abdomen soft, non-tender, non-distended. Normal bowel sounds. No palpable masses. Neurologic: No focal neurological deficits. Lymph nodes: No cervical, supraclavicular or axillary adenopathy detected on exam. Skin: No rashes Extremities: Warm and well perfused. No clubbing or cyanosis. Intact peripheral pulses. Mild edema of the left hand and the lower extremities. Psychiatric: Normal mood and affect [facility] Medical History (Updated 12/25/24 @ 14:42 by ERIKA Warren) Abnormal CBC Extremity edema Night sweats Weight loss Routine physical examination Right leg swelling [place] (dyspnea on exertion) Abnormal echocardiogram Osteoarthritis of left knee Bursitis of left knee Synovial cyst of popliteal space [Gomes], left knee CAD (coronary artery disease) Left leg swelling Left knee pain Abnormal CBC Elevated ferritin Anemia Emphysema lung Cholelithiasis Asthma Tubular adenoma of colon Ocular migraine Chronic neutrophilia Controlled type 2 diabetes with neuropathy UTI (urinary tract infection) BPH associated with nocturia Venous insufficiency Type 2 diabetes mellitus TIA (transient ischemic attack) Stable angina pectoris Peripheral neuropathy Palpitations Osteoarthritis, hand CONNER (obstructive sleep apnea) Nodule of lower lobe of right lung Murmur Lower urinary tract symptoms HTN (hypertension) Hypercholesteremia Chronic total occlusion of coronary artery Surgical History History of bilateral cataract extraction History of sinus surgery History of microdiscectomy Status post reverse total shoulder replacement History of colonoscopy Social History (Updated 12/24/24 @ 08:59 by Alise Almeida MA) Housing: [facility] ([facility]) Alcohol intake: current Alcohol intake frequency: holidays/special occasions only Comment: Socially Patient Tobacco Use Status: Former Tobacco user Cigarette Packs Per Day: 2 Years Smoked: 30 e-Cigarette/Vaping Use: Never Used Second Hand Smoke Exposure: No service: Yes Current occupational status: retired Current occupational exposures/hazards: No Cognitive needs: No Hearing needs: No Vision needs: Yes (reading glasses) Questionnaire Thrive Questionnaire Date Thrive assessed: 09/04/24 I am a: Patient What is your living situation today?: I have a steady place to live Within the past 12 months, did the food you bought not last and you didn't have the money to get more?: Never true Within the past 12 months, did you worry whether your food would run out before you got money to buy more?: Never true Do you have trouble paying for medicines?: No Do you have trouble getting transportation to medical appointments?: No Do you have trouble paying your heating and electricity bill?: No Do you have trouble taking care of your child, family member or friend?: No Do you have trouble with day-to-day activities such as bathing, preparing meals, shopping, managing finances, etc.?: I choose not to answer this question Are you currently unemployed and looking for a job?: No Are you interested in more education?: No Please select the resources that you would like help with: None Currently or been in a relationship where the following occur: No concerns reported THRIVE Score: 0 NICKI-7 AMB Questionnaire NICKI-7 Date NICKI - 7 assessed: 01/30/24 Source: Developed by Drs. Deven Lincoln, Altagracia Quintanilla, Tee Canchola and colleagues, with an educational linus from [employer]. Physical exam (Primary Care) Vital Signs: Last Vital Signs Temp 98.2 F 12/24/24 08:59 Pulse 98 12/24/24 08:59 BP 114/58 L 12/24/24 08:59 Pulse Ox 98 12/24/24 08:59 Oxygen Delivery Method Room Air 12/24/24 08:59 BMI result Body Mass Index 22.8 Tobacco/Smoking Status: Tobacco use Status Tobacco use date assessed 12/24/24 12/24/24 09:01 Patient Tobacco Use Status Former Tobacco user 12/24/24 08:59 e-Cigarette/Vaping Use Never Used 12/24/24 08:59 Thrive Assessment: Date of Thrive Assessment Date Thrive assessed 09/04/24 12/24/24 08:53 Currently or been in a relationship where the following occur: No concerns reported Coding Level of Care Code Est Pt Level 5 (67179) Complex EM visit Add On G2211 Diagnoses Weight loss R63.4 Night sweats R61 Extremity edema R60.0 Abnormal CBC R79.89 CAD (coronary artery disease) I25.10 Elevated ferritin R79.89 Anemia D64.9 Tubular adenoma of colon D12.6 Controlled type 2 diabetes with neuropathy E11.40 Essential hypertension I10 Time Spent (min) 47 Comment Direct patient care, chart review, care coordination, completing documentation Assessment & Plan Assessment & Plan (1) Weight loss: Code(s): R63.4 - Abnormal weight loss Category: Medical (2) Night sweats: Code(s): R61 - Generalized hyperhidrosis Category: Medical (3) Extremity edema: Code(s): R60.0 - Localized edema Category: Medical (4) Abnormal CBC: Code(s): R79.89 - Other specified abnormal findings of blood chemistry Category: Medical (5) CAD (coronary artery disease): Code(s): I25.10 - Atherosclerotic heart disease of [place] coronary artery without angina pectoris Category: Medical (6) Elevated ferritin: Code(s): R79.89 - Other specified abnormal findings of blood chemistry Category: Medical (7) Anemia: Code(s): D64.9 - Anemia, unspecified Category: Medical (8) Tubular adenoma of colon: Comment: Colonoscopy 09/16/19 at [facility]: 2 polyps, repeat colonoscopy in 5 years advised Code(s): D12.6 - Benign neoplasm of colon, unspecified Category: Medical (9) Controlled type 2 diabetes with neuropathy: Code(s): E11.40 - Type 2 diabetes mellitus with diabetic neuropathy, unspecified Category: Medical (10) Essential hypertension: Code(s): I10 - Essential (primary) hypertension Category: Medical Plan In summary this is a 74-year-old male with a past medical history of abnormal CBC is, known coronary artery disease, controlled type 2 diabetes, hyperlipidemia, hypertension, tubular adenoma of the colon with concerning sympt oms including weight loss, night sweats, fatigue, extremity edema. I contacted Dr. Rodrigez's office today, and they are going to contact the patient directly to schedule an urgent appointment. His symptoms are concerning for underlying malignancy. Also advised patient he needs to have the colonoscopy done due to anemia, and he is overdue to his history of polyps. Patient says he will follow up with Gastroenterology to schedule this once he speaks with Dr. Rodrigez. We will recheck labs today since starting ferrous sulfate. Continue supplement. Diabetes is well-controlled. Remain off amlodipine. If blood pressure is greater than 130/80 at home he will restart amlodipine at 5 mg daily. Schedule follow up in 4-6 weeks here. Orders: Orders Vitamin B12 and Folate 12/24/24 D64.9 - Anemia, unspecified Complete Blood Count Auto Diff 12/24/24 D64.9 - Anemia, unspecified Ferritin 12/24/24 D64.9 - Anemia, unspecified IRON PROFILE 12/24/24 D64.9 - Anemia, unspecified Pathologist Review - CBC 12/24/24 D64.9 - Anemia, unspecified
[2024-12-24 08:59] VITALS: BP 114/58; PULSE 98; TEMP 36.8; O2SAT 98; BMI 22.8
== END 2024-12-24 09:29 | disposition home or self-care (01) ==
LOC: HO.HMCFM 08:43
PROVIDERS: PCP Physician Assistant Medical; Visit Provider Physician Assistant Medical
DX: R63.4 Abnormal weight loss (principal); R61 Generalized hyperhidrosis; R60.0 Localized edema; R79.89 Other specified abnormal findings of blood chemistry; I25.10 Atherosclerotic heart disease of native coronary artery without angina pectoris; D64.9 Anemia, unspecified; D12.6 Benign neoplasm of colon, unspecified; E11.40 Type 2 diabetes mellitus with diabetic neuropathy, unspecified; I10 Essential (primary) hypertension

== ENCOUNTER → 2024-12-24 08:42 | Outpatient (BNVA) | payer MEDICARE, SELFPAY | PROVIDERS: PCP Physician Assistant Medical; Visit Provider Physician Assistant Medical | DX: Z13.89 Encounter for screening for other disorder (principal) | CPT/HCPCS: 99212 ==

== ENCOUNTER 2024-12-24 09:33 | Outpatient (REF) | payer MEDICARE, SELFPAY ==
[2024-12-24 11:28] LABS: MANUAL DIFF FLAG NO
[2024-12-24 11:51] LABS: Basophils Absolute Auto 0.1 X10*3/uL (0.0-0.2); Basophils Percent Auto 0.6 % (0-2); Eosinophils Absolute Auto 0.4 X10*3/uL (0.0-0.4); Eosinophils Percent Auto 3.3 % (0-4); Hematocrit 31.2 % (42.0-52.0); Imm Gran Abs Auto 0.06 X10*3/uL (0.00-0.03); Imm Gran Pct Auto 0.5 % (0.0-0.4); Lymphocytes Absolute Auto 1.6 X10*3/uL (1.2-4.9); Lymphocytes Percent Auto 14.3 % (20-40); Mean Corpuscular HGB Conc 32.1 g/dl (31.0-36.0); Mean Corpuscular Hemoglobin 28.7 pg (27.0-33.0); Mean Corpuscular Volume 89.4 fL (80.0-98.0); Mean Platelet Volume 10.2 fL (9.4-12.4); Monocytes Percent Auto 9.2 % (2-11); Neutrophils Percent Auto 72.1 % (45-73); Platelet Count 442 X10*3/uL (160-400); Red Blood Count 3.49 X10*6/uL (4.60-5.80); Red Cell Distribution Width 14.6 % (11.0-16.0)
[2024-12-24 12:22] LABS: Iron 58 mcg/dL (45-160); Percent Iron Saturation 36 % (15-50); Total Iron Binding Capacity 163 mcg/dL (228-428); Unsaturated Iron Binding 105 ug/dL
[2024-12-24 12:38] LABS: Ferritin 1026 ng/mL (20-250)
[2024-12-24 12:46] LABS: Folate 4.6 ng/mL (> or = 4.0); Vitamin B12 689 pg/mL (200-900)
== END 2024-12-24 09:34 | disposition home or self-care (01) ==
LOC: HO.WFDLDS 09:33
PROVIDERS: Visit Provider Physician Assistant Medical
DX: D64.9 Anemia, unspecified (principal); E78.00 Pure hypercholesterolemia, unspecified; I10 Essential (primary) hypertension; I25.10 Atherosclerotic heart disease of native coronary artery without angina pectoris; R91.1 Solitary pulmonary nodule; N40.0 Benign prostatic hyperplasia without lower urinary tract symptoms; G47.33 Obstructive sleep apnea (adult) (pediatric); E11.40 Type 2 diabetes mellitus with diabetic neuropathy, unspecified; R63.4 Abnormal weight loss; R61 Generalized hyperhidrosis; R60.0 Localized edema; R79.89 Other specified abnormal findings of blood chemistry; D12.6 Benign neoplasm of colon, unspecified; Z86.73 Personal history of transient ischemic attack (TIA), and cerebral infarction without residual deficits
CPT/HCPCS: 82607; 82728; 82746; 83540; 85025; 99212

== ENCOUNTER 2025-02-01 10:13 | Outpatient (AMB) | payer MEDICARE, SELFPAY ==
--- NOTE | 2025-02-01 10:26 | MHC.PC.OV ---
Vital Signs 02/01/25 10:31 Height 5 ft 8 in Weight 148 lb 8 oz BMI 22.6 BP 116/60 Blood Pressure Location Rt brachial Position Sitting Pulse 81 Pulse Source Pulse Oximeter Temp 97.2 F Pulse Oximetry (%) 98 Oxygen Delivery Method Room Air Intake Visit Reasons: anemia and weight loss Intake Note: Ricki presents in the office today to follow up to his weight loss and anemia. Patient needs refill of nitroglycerine. Allergies latex (LATEX) Allergy (Intermediate, Verified 02/01/25 10:28) RASH lisinopril (LISINOPRIL) Allergy (Intermediate, Verified 02/01/25 10:28) LEG CRAMPS NSAIDS (Non-Steroidal Anti-Inflamma (NSAIDS (NON-STEROIDAL ANTI-INFLAMMA) Allergy (Intermediate, Verified 02/01/25 10:28) LEG CRAMPS vardenafil (From LEVITRA) Allergy (Intermediate, Verified 02/01/25 10:28) HALLUCINATIONS hydromorphone (Dilaudid) Allergy (Unknown, Verified 02/01/25 10:28) clammy ibuprofen Allergy (Unknown, Verified 02/01/25 10:28) Unknown Latex Gloves Allergy (Unknown, Uncoded 02/01/25 10:28) Unknown bee products Allergy (Uncoded 02/01/25 10:28) Rash Medication List - Last Reconciled 02/01/25 by ERIKA Warren amlodipine 2.5 mg PO DAILY aspirin (Adult Low Dose Aspirin) 81 mg PO DAILY atorvastatin 40 mg PO DAILY bisacodyl (Dulcolax (bisacodyl)) 20 mg (4 x 5 mg) PO ONCE 1 day carvedilol 25 mg PO BID 30 days cyanocobalamin (vitamin B-12) (Vitamin B-12) 1,000 mcg PO DAILY ezetimibe 10 mg PO DAILY ferrous sulfate 325 mg PO DAILY losartan 100 mg PO DAILY metformin 1,000 mg PO .once daily nitroglycerin 0.4 mg sublingual Q5M PRN polyethylene glycol 3350 (Miralax) 238 grams PO ONCE Tobacco use date assessed: 02/01/25 Dental Screening Dental Screen Date: 02/01/25 Did you have a dental visit in the last 12 months?: Yes Did you have a dental problem in the last 6 months where you did not have access to dental care?: No Was dental information given to patient?: Patient has dentist HPI HPI Comments History of Present Illness Details This is a 74-year-old male with a past medical history of chronic neutrophilia, anemia, weight loss, hypercholesterolemia, hypertension, coronary artery disease, right lower lobe lung nodule, BPH, CONNER, palpitations, peripheral neuropathy, TIA x2, controlled type 2 diabetes and venous insufficiency presenting for follow up. Cardiovascular- Seen by Dr. Boles in December and per notes can proceed with colonoscopy with intermediate risk, but the patient has not reached out to gastroenterology yet. Patient has known coronary artery disease in 2005 underwent angiography due to anginal symptoms. He underwent coronary CTA in the past which revealed diffuse severe disease in the right coronary artery, and medical treatment was advised. Echocardiogram recently showed inferior wall motion abnormality and nuclear perfusion imaging showed inferior perfusion defect. Further evaluation with Gastroenterology and Oncology due to anemia, weight loss, fatigue and night sweats was recommended prior to further ischemic assessment. Hypotension and lightheadedness resolved since decreasing his dose of amlodipine. Lower extremity edema has been a little better in the mornings but worsens over the course of the day. Patient had 2 TIAs. The 1st was some 20 years ago, and the other TIA occurred years ago, but he does not remember exactly when. I saw him for a physical exam in November. He reported episodes of dizziness and shortness of breath with exertion during the last few months. CBC drawn 09/10/2024 showed leukocytosis and mild anemia which had worsened since July of 2024. Lymphocyte count and platelets were normal. He also reported unintentional weight loss of about 10 lb. He is followed by Dr. Rodrigez at [facility] for history of abnormal CBC. Patient reports his normal rate is around 170-175 lb. He went as low as 144 lb, and today he has 148 lb. Patient says his appetite is normal and he is eating the same way he always has. He denies blood loss. CBC was repeated on 11/20/2024 which showed no leukocytosis, worsening of anemia with hemoglobin 9.8 and hematocrit 31.6, elevated platelets at 424,000. Patient's ferritin was also elevated at 543. Iron low at 33. He has had swelling in his lower legs. Ultrasounds negative for DVT. He had fallen a few times and saw orthopedics and had a left mild meniscal tear treated with cortisone injection. He has a history of venous insufficiency. As part of his workup he had a chest x-ray on 11/20/2024 which demonstrated mild interstitial lung edema. He was on furosemide 20 mg, and he completed the course of the medication. Right lower lobe pulmonary nodule-he was followed with CT scans for many years, and it remained stable. No further imaging was recommended. Quit smoking in 1993. Type 2 diabetes-he has peripheral neuropathy. He takes metformin 1000 mg twice daily. He has eye exams with Dr. Moran annually. Hemoglobin A1c 5.8%. His blood sugars have been in the 80s and 90s, and he wonders if he can decrease the dose of metformin. BPH, elevated PSA-previously followed by Dr. Yuen. He saw Dr. Dash after UTI last year. Last PSA in April normal. Tubular adenoma-he saw Gastroenterology in October, and colonoscopy is ordered. He was referred urgently back to Heme-Onc, and he was seen at [facility] and had a negative bone marrow biopsy. He also had a CT of the chest/abdomen/pelvis which demonstrated an 8 mm right lower lobe lung nodule as well as other smaller lung nodules, fatty liver disease and gallstones. He denies postprandial nausea, vomiting or abdominal pain. He denies blood in his stools. He has a list of some of his leak recent labs done by Hematology Sed rate 75 Albumin 2.6 Glucose 123 Ferritin 554 Haptoglobin 358 IgA 491 He continues to have swelling in his left hand and wrist. He says this is a recurrent issue that he saw orthopedics for 5 years ago. He was placed on a course of prednisone when he saw Hematology recently, and it temporarily completely alleviated the hand swelling. His daughter has lupus. No other known family history of autoimmune disease. He has an appointment tomorrow and in 1 week with Heme-Onc. ROS: Constitutional: +unintentional weight loss, + fatigue, denies night sweats. No fever or chills. Eyes: No vision changes, blurry vision, double vision, eye pain, eye redness, eye discharge. ENT: No hearing loss, sneezing, congestion, runny nose or sore throat. Respiratory: No cough, wheezing, hemoptysis. +dyspnea on exertion. Cardiovascular: No chest pain, chest pressure or chest discomfort. No palpitations. Gastrointestinal: No anorexia, nausea, vomiting or diarrhea. No abdominal pain or blood in stool. Denies early satiety. Genitourinary: No dysuria, hematuria, urinary frequency. Neurologic: No headache, syncope, unilateral weakness, ataxia, numbness or tingling in the extremities. Hematologic/Lymphatics: No bleeding or bruising. No painful lymph nodes. Skin: No rash or itching. Endocrine: No cold or heat intolerance. No polyuria or polydipsia. Psychiatric: Denies depression. +anxiety Physical exam: Constitutional: Alert, in no distress. Eyes: Pupils are equal, round and reactive to light. Extraocular muscles intact. Neck: Supple, Full range of motion. No lymphadenopathy. No palpable thyroid masses. Respiratory: Clear to auscultation. Cardiovascular: S1 S2 regular. No murmurs. Gastrointestinal: Abdomen soft, non-tender, non-distended. Normal bowel sounds. No palpable masses. Neurologic: No focal neurological deficits. Lymph nodes: No cervical, supraclavicular or axillary adenopathy detected on exam. Skin: No rashes Musculoskeletal: Tenderness and swelling of the left 1st carpometacarpal joint and wrist and back of the hand Extremities: Warm and well perfused. No clubbing or cyanosis. Intact peripheral pulses. 1+ edema of the bilateral lower extremities. Psychiatric: Normal mood and affect [facility] Medical History (Updated 02/01/25 @ 17:27 by ERIKA Warren) Multiple lung nodules Left hand pain Left wrist pain Swelling of left hand Abnormal CBC Extremity edema Night sweats Weight loss Routine physical examination Right leg swelling [place]IS (dyspnea on exertion) Abnormal echocardiogram Osteoarthritis of left knee Bursitis of left knee Synovial cyst of popliteal space [Gomes], left knee CAD (coronary artery disease) Left leg swelling Left knee pain Abnormal CBC Elevated ferritin Anemia Emphysema lung Cholelithiasis Asthma Tubular adenoma of colon Ocular migraine Chronic neutrophilia Controlled type 2 diabetes with neuropathy UTI (urinary tract infection) BPH associated with nocturia Venous insufficiency Type 2 diabetes mellitus TIA (transient ischemic attack) Stable angina pectoris Peripheral neuropathy Palpitations Osteoarthritis, hand CONNER (obstructive sleep apnea) Nodule of lower lobe of right lung Murmur Lower urinary tract symptoms HTN (hypertension) Hypercholesteremia Chronic total occlusion of coronary artery Surgical History History of bilateral cataract extraction History of sinus surgery History of microdiscectomy Status post reverse total shoulder replacement History of colonoscopy Social History (Updated 02/01/25 @ 10:31 by Alise Almeida MA) Housing: Other (mobile home [facility]) Alcohol intake: current Alcohol intake frequency: holidays/special occasions only Comment: Socially Patient Tobacco Use Status: Former Tobacco user Cigarette Packs Per Day: 2 Years Smoked: 30 e-Cigarette/Vaping Use: Never Used Second Hand Smoke Exposure: No service: Yes Current occupational status: retired Current occupational exposures/hazards: No Cognitive needs: No Hearing needs: No Vision needs: Yes (reading glasses) Questionnaire Thrive Questionnaire Date Thrive assessed: 09/04/24 I am a: Patient What is your living situation today?: I have a steady place to live Within the past 12 months, did the food you bought not last and you didn't have the money to get more?: Never true Within the past 12 months, did you worry whether your food would run out before you got money to buy more?: Never true Do you have trouble paying for medicines?: No Do you have trouble getting transportation to medical appointments?: No Do you have trouble paying your heating and electricity bill?: No Do you have trouble taking care of your child, family member or friend?: No Do you have trouble with day-to-day activities such as bathing, preparing meals, shopping, managing finances, etc.?: I choose not to answer this question Are you currently unemployed and looking for a job?: No Are you interested in more education?: No Please select the resources that you would like help with: None Currently or been in a relationship where the following occur: No concerns reported THRIVE Score: 0 NICKI-7 AMB Questionnaire NICKI-7 Date NICKI - 7 assessed: 01/30/24 Source: Developed by Drs. Deven Lincoln, Altagracia Quintanilla, Tee Canchola and colleagues, with an educational linus from [employer]. Physical exam (Primary Care) Vital Signs: Last Vital Signs Temp 97.2 F 02/01/25 10:31 Pulse 81 02/01/25 10:31 BP 116/60 02/01/25 10:31 Pulse Ox 98 02/01/25 10:31 Oxygen Delivery Method Room Air 02/01/25 10:31 BMI result Body Mass Index 22.6 Tobacco/Smoking Status: Tobacco use Status Tobacco use date assessed 02/01/25 02/01/25 10:36 Patient Tobacco Use Status Former Tobacco user 02/01/25 10:31 e-Cigarette/Vaping Use Never Used 02/01/25 10:31 Thrive Assessment: Date of Thrive Assessment Date Thrive assessed 09/04/24 02/01/25 10:28 Currently or been in a relationship where the following occur: No concerns reported Coding Level of Care Code Est Pt Level 5 (13111) Complex EM visit Add On G2211 Diagnoses Weight loss R63.4 Extremity edema R60.0 Abnormal CBC R79.89 CAD (coronary artery disease) I25.10 Elevated ferritin R79.89 Anemia D64.9 Tubular adenoma of colon D12.6 Controlled type 2 diabetes with neuropathy E11.40 Essential hypertension I10 Left wrist pain M25.532 Left hand pain M79.642 Time Spent (min) 46 Comment Chart review, direct patient care, completing documentation Assessment & Plan Assessment & Plan (1) Weight loss: Code(s): R63.4 - Abnormal weight loss Category: Medical (2) Extremity edema: Code(s): R60.0 - Localized edema Category: Medical (3) Abnormal CBC: Code(s): R79.89 - Other specified abnormal findings of blood chemistry Category: Medical (4) CAD (coronary artery disease): Code(s): I25.10 - Atherosclerotic heart disease of [place] coronary artery without angina pectoris Category: Medical (5) Elevated ferritin: Code(s): R79.89 - Other specified abnormal findings of blood chemistry Category: Medical (6) Anemia: Code(s): D64.9 - Anemia, unspecified Category: Medical (7) Tubular adenoma of colon: Comment: Colonoscopy 09/16/19 at [facility]: 2 polyps, repeat colonoscopy in 5 years advised Code(s): D12.6 - Benign neoplasm of colon, unspecified Category: Medical (8) Controlled type 2 diabetes with neuropathy: Code(s): E11.40 - Type 2 diabetes mellitus with diabetic neuropathy, unspecified Category: Medical (9) Essential hypertension: Code(s): I10 - Essential (primary) hypertension Category: Medical (10) Left wrist pain: Code(s): M25.532 - Pain in left wrist Category: Medical (11) Left hand pain: Code(s): M79.642 - Pain in left hand Category: Medical Plan In summary this is a 74-year-old male with a past medical history of abnormal CBC, known coronary artery disease, controlled type 2 diabetes, hyperlipidemia, hypertension, tubular adenoma of the colon with concerning symptoms including weight loss, fatigue and anemia as well as extremity edema. He underwent bone marrow biopsy and CT of the chest/abdomen and pelvis with no findings to explain his symptoms. He has gallstones, but he is not symptomatic. He defers referral to General surgery at this time given his other medical issues currently. We reviewed risk of cholecystitis. Patient recalls his pulmonary nodule was 7 mm in the past, and it was [address] scan. I will refer him to pulmonology for further management. I will reach out to his contract agent about scheduling the colonoscopy. He has a follow up with Heme-Onc tomorrow. Prednisone alleviated the symptoms in his left hand and wrist. He said energy was also improved with the medicine. He may have an underlying autoimmune disorder. Check x-rays and labs and refer to Rheumatology pending results. I will also order testing for tick-borne illnesses given the constellation of symptoms. Type 2 diabetes-he can reduce the dose of metformin to a 1000 mg once daily. Continue current medications for hypertension. Follow up in 6 weeks. Orders: Orders ISAIAH Reflex Titer and Pattern Today M79.89 - Other specified soft tissue disorders, R63.4 - Abnormal weight loss Rheumatoid Factor Today M79.89 - Other specified soft tissue disorders, R63.4 - Abnormal weight loss C Reactive Protein Today M79.89 - Other specified soft tissue disorders, R63.4 - Abnormal weight loss Tick-borne Disease Molecular Today M79.89 - Other specified soft tissue disorders, R63.4 - Abnormal weight loss XR wrist LT min 3V 02/01/25 M25.532 - Pain in left wrist, M79.642 - Pain in left hand XR hand LT min 3V Today M79.642 - Pain in left hand Erythrocyte Sedimentation Rate Today M79.89 - Other specified soft tissue disorders, R63.4 - Abnormal weight loss Lyme IgG/IgM w/reflex to WB Today M79.89 - Other specified soft tissue disorders, R63.4 - Abnormal weight loss Referrals Pulmonology Referral R91.8 - Other nonspecific abnormal finding of lung field
[2025-02-01 10:31] VITALS: BP 116/60; PULSE 81; TEMP 36.2; O2SAT 98; BMI 22.6
--- OUTSIDE RECORDS SUMMARY | 2025-02-01 10:58 | XMS_ITS | Clinical Summary ---
Author Organization [facility] Address [address] [place] [address] Care Team Providers Care Barrow Worker Name Role Phone Trista Masters PA-C Primary [...] 68 04/10/2024 9:34 AM EDT Temperature 36.3 C (97.4 F) 04/10/2024 9:34 AM EDT Respiratory Rate - - Oxygen Saturation 100% [...] 1-dose 75+ series) 02/13/2024 Influenza Vaccine (#1) 2025 2, 04/14/2018 DTap / Tdap / Td (2 - Td or Tdap) 09/20/2032 09/20/2022 Hepatitis B Vaccines Aged Out No long er eligible based on patient's age to complete this topic RSV Ped < 20 months Aged Out No longe r eligible based on patient's age to complete this topic Care Teams Barrow Worker Relationship Specialty Start Date End Date Trista Masters PA-C PCP - General Medical Services 04/10/24
== END 2025-02-01 11:09 | disposition home or self-care (01) ==
LOC: HO.HMCFM 10:15
PROVIDERS: PCP Physician Assistant Medical; Visit Provider Physician Assistant Medical
DX: E11.40 Type 2 diabetes mellitus with diabetic neuropathy, unspecified (principal); R63.4 Abnormal weight loss; R60.0 Localized edema; R79.89 Other specified abnormal findings of blood chemistry; I25.10 Atherosclerotic heart disease of native coronary artery without angina pectoris; D64.9 Anemia, unspecified; D12.6 Benign neoplasm of colon, unspecified; I10 Essential (primary) hypertension; M25.532 Pain in left wrist; M79.642 Pain in left hand

== ENCOUNTER → 2025-02-01 10:13 | Outpatient (BNVA) | payer MEDICARE, SELFPAY | PROVIDERS: PCP Physician Assistant Medical; Visit Provider Physician Assistant Medical | DX: R63.4 Abnormal weight loss (principal); Z68.22 Body mass index [BMI] 22.0-22.9, adult; R60.0 Localized edema; R79.89 Other specified abnormal findings of blood chemistry; I25.10 Atherosclerotic heart disease of native coronary artery without angina pectoris; D64.9 Anemia, unspecified; E11.40 Type 2 diabetes mellitus with diabetic neuropathy, unspecified; I10 Essential (primary) hypertension; M25.532 Pain in left wrist; M79.642 Pain in left hand; Z86.73 Personal history of transient ischemic attack (TIA), and cerebral infarction without residual deficits; Z86.0101 Personal history of adenomatous and serrated colon polyps | CPT/HCPCS: 99212 ==

== ENCOUNTER 2025-02-02 10:32 | Outpatient (REF) | payer MEDICARE, SELFPAY ==
--- NOTE | ~2025-02-02 | XR_ITS ---
EXAMINATION: XR HAND, LEFT CLINICAL INFORMATION: M79.642 - Pain in left hand COMPARISON: None available. TECHNIQUE: PA, lateral, and oblique views of the left hand. FINDINGS: Joint space narrowing with associated minimal subchondral cyst formation involving the proximal and distal interphalangeal joints of the digits. Sclerosis along the articular surface and subchondral cyst formation with the marginal osteophyte formation at the first carpal metacarpal joint. Osteopenia versus osteoporosis. No acute fracture or dislocation XR/XR hand LT min 3V IMPRESSION: Osteoarthrosis, left hand. Electronically signed by: Eldon Stoddard MD 02/02/2025 10:56 AM EDT
--- OUTSIDE RECORDS SUMMARY | 2025-02-02 11:47 | XMS_ITS | Encounter Summary ---
Author Organization [facility] Address [address] [place] [address] Care Team Providers Care Camera Engineer Name Role Phone Jaylen Blood Primary Care Provider Mejia Palmer MD Primary Care Provider Encounter Details Date Type Department Care Team Description 06/27/2018 [facility] Medical Records [address] [place] [address] Abstract, Provider Social History Tobacco Use Types [...] on filedocumented in this encounter Care Teams Camera Engineer Relationship Specialty Start Date End Date Jaylen Blood PCP - General Internal Medicine 11/06/17 11/27/22 Mejia Armas MD [address] [place] [id number] PCP - General Internal Medicine 11/28/22 documented as of this encounter
--- OUTSIDE RECORDS SUMMARY | 2025-02-02 11:47 | XMS_ITS | Clinical Summary ---
Author Organization [facility] Address [address] [place] [address] Care Team Providers Care Teradata Developer Name Role Phone Trista Masters PA-C Primary Care Provider [phone] Allergies Active Allergy Reactions Criticality Noted Date [...] age to complete this topic Care Teams Teradata Developer Relationship Specialty Start Date End Date Trista Masters PA-C PCP - General Medical Services 04/10/24
[2025-02-03 21:23] LABS: A. Phagocytphilium DNA,RT-PCR NOT DETECTED (NOT DETECTED); Babesia Microti DNA, RT-PCR NOT DETECTED (NOT DETECTED); Borrelia Miyamotoi,DNA RT-PCR NOT DETECTED (NOT DETECTED); E.Chaffeensis DNA RT-PCR NOT DETECTED (NOT DETECTED); Lyme(Borrelia ssp)DNA RT-PCR NOT DETECTED (NOT DETECTED)
[2025-02-04 18:28] LABS: Lyme Abs Screen <0.90 index
[2025-02-04 20:59] LABS: Anti Nuclear Antibody Screen NEGATIVE (NEGATIVE)
== END 2025-02-02 10:33 | disposition home or self-care (01) ==
LOC: HO.HMGCX 10:32
PROVIDERS: PCP Physician Assistant Medical; Visit Provider Physician Assistant Medical
DX: R63.4 Abnormal weight loss (principal); M79.89 Other specified soft tissue disorders; M79.642 Pain in left hand
CPT/HCPCS: 36415; 73130; 85652; 86038; 86140; 86431; 86617; 86618; 87468; 87469; 87478; 87484; 87798

== ENCOUNTER → 2025-02-02 10:36 | Outpatient (BNV) | payer MEDICARE, SELFPAY | PROVIDERS: PCP Physician Assistant Medical; Visit Provider Radiology Diagnostic Radiology | DX: M19.042 Primary osteoarthritis, left hand (principal) | CPT/HCPCS: 73130 ==

== ENCOUNTER 2025-02-12 13:18 | Outpatient (AMB) | payer MEDICARE, SELFPAY ==
--- NOTE | 2025-02-12 13:20 | A.OFFVIS_ITS ---
Vital Signs 02/12/25 13:29 Height 5 ft 8 in Weight 150 lb BMI 22.8 BP 156/74 H Blood Pressure Location Rt brachial Position Sitting Pulse 76 Pulse Source Pulse Oximeter Pulse Oximetry (%) 97 Oxygen Delivery Method Room Air Intake Visit Reasons: Pt wt loss, abnormal levels Intake Note: Est pt for mgmt of abn labs. Rediscuss colo. CC; Pt denies any changes since last visit. Weight has been stable / slightly improved since last visit. Security Systems Engineer Required: No Accompanied by: Self / Same As Patient Allergies latex (LATEX) Allergy (Intermediate, Verified 02/12/25 13:20) RASH lisinopril (LISINOPRIL) Allergy (Intermediate, Verified 02/12/25 13:20) LEG CRAMPS NSAIDS (Non-Steroidal Anti-Inflamma (NSAIDS (NON-STEROIDAL ANTI-INFLAMMA) Allergy (Intermediate, Verified 02/12/25 13:20) LEG CRAMPS vardenafil (From LEVITRA) Allergy (Intermediate, Verified 02/12/25 13:20) HALLUCINATIONS hydromorphone (Dilaudid) Allergy (Unknown, Verified 02/12/25 13:20) clammy ibuprofen Allergy (Unknown, Verified 02/12/25 13:20) Unknown Latex Gloves Allergy (Unknown, Uncoded 02/12/25 13:20) Unknown bee products Allergy (Uncoded 02/12/25 13:20) Rash HPI HPI Pt wt loss, abnormal levels: Details: LAST VISIT: Screen for colon cancer Plan Patient denies any GI. Reports occasional shortness of breath with or without exertion, denies any chest pain. Reports leg swelling R>L. Patient has appointment with Dr. Boles on December 23. Message sent to chief marketing officer to add clearance to his appointment. ? Denies any issues with anesthesia in the past.? Denies any history of sleep apnea.? No history infectious diseases in the past or present.? Patient is on low-dose aspirin.? No family history of colon cancer.? Patient denies melena, hematochezia, unintentional weight loss or ribbon like stools.? Discussed at length the pre-procedure,? prep, diet & medications as well as what to expect prior, during and after the procedure.?? Stressed the importance of good bowel prep.? Recommended the use of Vaseline or Calmoseptine OTC & baby wipes with bowel movements to promote comfort.? ?Patient verbalizes understanding and agrees to plan of care.? He was given the opportunity to ask questions and all questions answered.? We will see him after the procedure.? New bisacodyl (Dulcolax (bisacodyl)) take 4 tabs at noon the day before your colonoscopy 20 mg (4 x 5 mg) PO ONCE 1 day 4 tabs 0RF Z12.11 polyethylene glycol 3350 (Miralax) As directed by gastroenterology department at [facility] 238 grams PO ONCE 238 grams 0RF Z12.11 TODAY'S VISIT Patient is here today for follow-up. Patient will be scheduled for colonoscopy. Message sent to Surgical schedules to bulk procedure per patient. Patient reports weight loss for about couple months. Currently patient is starting to gain his weight back. Seen lease administration supervisor in December and okay for patient to proceed with colonoscopy. Patient denies any GI concerning symptoms. Denies any change since last visit in October. See above HPI note. [facility] Medical History (Updated 02/12/25 @ 20:28 by Pauly Ellis, [facility]) Elevated sed rate Elevated C-reactive protein (CRP) Multiple lung nodules Left hand pain Left wrist pain Swelling of left hand Abnormal CBC Extremity edema Night sweats Weight loss Routine physical examination Right leg swelling [place] (dyspnea on exertion) Abnormal echocardiogram Osteoarthritis of left knee Bursitis of left knee Synovial cyst of popliteal space [Gomes], left knee CAD (coronary artery disease) Left leg swelling Left knee pain Abnormal CBC Elevated ferritin Anemia Emphysema lung Cholelithiasis Asthma Tubular adenoma of colon Ocular migraine Chronic neutrophilia Controlled type 2 diabetes with neuropathy UTI (urinary tract infection) BPH associated with nocturia Venous insufficiency Type 2 diabetes mellitus TIA (transient ischemic attack) Stable angina pectoris Peripheral neuropathy Palpitations Osteoarthritis, hand [place] (obstructive sleep apnea) Nodule of lower lobe of right lung Murmur Lower urinary tract symptoms HTN (hypertension) Hypercholesteremia Chronic total occlusion of coronary artery Surgical History (Updated 02/12/25 @ 13:25 by YARA Rosario) History of bone marrow biopsy History of bilateral cataract extraction History of sinus surgery History of microdiscectomy Status post reverse total shoulder replacement History of colonoscopy Social History Housing: Other (mobile home [facility]) Alcohol intake: current Alcohol intake frequency: holidays/special occasions only Comment: Socially Patient Tobacco Use Status: Former Tobacco user Cigarette Packs Per Day: 2 Years Smoked: 30 e-Cigarette/Vaping Use: Never Used Second Hand Smoke Exposure: No service: Yes Current occupational status: retired Current occupational exposures/hazards: No Cognitive needs: No Hearing needs: No Vision needs: Yes (reading glasses) Review of Systems Const Denies weight gain and Denies weight loss ENT Reports no additional complaints, Denies dysphagia and Denies odynophagia Card Reports no additional complaints Resp Reports no additional complaints GI Denies abdominal pain, Denies belching, Denies melena, Denies bloating, Denies change in bowel habits, Denies dysphagia, Denies excessive flatus, Denies dyspepsia, Denies heartburn, Denies diarrhea, Denies loose stools, Denies nausea, Denies odynophagia and Denies vomiting Reports no additional complaints Musc Reports no additional complaints Neuro Reports no additional complaints Psych Reports no additional complaints Endo Reports no additional complaints Physical Exam Vital Signs: Last Vital Signs Pulse 76 02/12/25 13:29 BP 156/74 H 02/12/25 13:29 Pulse Ox 97 02/12/25 13:29 Oxygen Delivery Method Room Air 02/12/25 13:29 BMI result Body Mass Index 22.8 Const General: healthy appearing, no acute distress and well developed Nutritional Appearance: well nourished Orientation/consciousness: patient oriented x3 Resp Effort & Inspection: normal respiratory effort, able to speak in complete sentences, no tracheal deviation and symmetric chest movement Auscultation: clear to auscultation bilaterally Cardio Rate: regular rate GI Inspection: Yes normal to inspection and No distended Palpation (GI): Soft to palpation, not firm, nontender and No hepatosplenomegaly present Auscultation: normal bowel sounds General: Yes no CVA tenderness Back/Spine/Pelvis Back: no CVA tenderness Skin General skin exam: elasticity normal, turgor normal and dry skin Neuro General: patient oriented x3 Psych Appearance: grossly normal Mental Status: mental status grossly normal Assessment & Plan Assessment & Plan (1) Tubular adenoma of colon: Code(s): D12.6 - Benign neoplasm of colon, unspecified Category: Medical (2) Encounter for screening for malignant neoplasm of colon: Code(s): Z12.11 - Encounter for screening for malignant neoplasm of colon Plan Message sent to outpatient scheduler to book colonoscopy for him. What to expect before, during and after procedure discussed with patient. Stressed the importance of good bowel prep and clear liquid diet day before procedure. Patient denies any cardiac or respiratory symptoms. I will see patient after the procedure. He will call us if he will have any GI concerning symptoms. He is agreeable to plan of care and verbalizes understanding of instructions. He was given the opportunity to ask questions and all questions answered. Thank you for allowing me to participate in his care Coding Level of Care Code Est Pt Level 3 (74135) Diagnoses Tubular adenoma of colon D12.6 Encounter for screening for malignant neoplasm of colon Z12.11 Time Spent (min) 25 Comment 15 minutes spent with patient and additional 10 minutes spent reviewing his records
--- OUTSIDE RECORDS SUMMARY | 2025-02-12 13:20 | XMS_ITS | Clinical Summary ---
Author Organization [facility] Address [address] [place] [address] Phone Care Team Providers Care Compugraph Operator Name Role Phone Trista Masters Primary Care Provider [phone] Allergies Active Allergy Reactions Criticality Noted Date Comments Beeswax 04/10/2024 Not Specified Hydromorphone Nausea And Vomiting 11/29/2017 Latex 11/29/2017 No reaction documented in transfer records Lisinopril 11/29/2017 No reaction documented in transfer records Nsaids (Non-Steroidal Anti-Inflammatory Drug) 11/29/2017 No reaction documented in transfer records Vardenafil 11/29/2017 No reaction documented in transfer records Medications amLODIPine (NORVASC) 10 mg tablet 5 mg. Take 1 tablet (10 mg total) by mouth daily. 4 Active aspirin 81 mg EC tablet Take [...] tablet (10 mg total) by mouth daily. 4 Active gabapentin (NEURONTIN) 600 mg tablet Take 1 tablet (600 mg total) by mouth 3 (three) times a day. Active losartan (COZAAR) 100 mg tablet Take 1 tablet (100 mg total) by mouth 1 (one) time each day. Active metFORMIN (GLUCOPHAGE) 1,000 mg tablet Take 0.5 tablets (500 mg total) by mouth 2 (two) times [...] TABLET BY MOUTH EVERY DAY 30 tablet 4 Active furosemide (LASIX) 20 mg tablet Take 1 tablet (20 mg total) by mouth 1 (one) time each day in the morning. 5 Active ferrous sulfate 325 mg (65 mg elemental iron) tablet Take 1 tablet (325 mg total) by mouth 1 (one) time each day. 5 Active LORazepam (ATIVAN) 1 mg tablet TAKE 1 TABLET BY MOUTH DAILY NEEDED FOR CLAUSTROPHOBIA 5 Active folic acid (FOLVITE) 1 mg tablet Take 1 tablet (1 mg total) by mouth 1 (one) time each day. 90 each 5 026 Active Active Problems Problem Noted Date Diagnosed Date Neutrophilia 11/29/2017 Overview (04/14/2024): Relatively mild and stable over year and a half Encounters Date Type Department Care Team Description 02/02/2025 9:30 AM EDT Office Visit [facility] Hematology Oncology [address] [place] [address] Marika Hargrove PA Anemia, unspecified type (Primary Dx); Fatigue, unspecified type; Neutrophilia; Elevated erythrocyte sedimentation rate; Edema of left upper arm 01/21/2025 8:34 AM EDT - 01/21/2025 11:59 PM EDT Hospital Encounter [facility] CT Scan [address] [place] [address] Anemia, unspecified type; Fatigue, unspecified type; Weight loss Discharge Disposition: Home or Self Care 01/18/2025 8:51 AM EDT - 01/18/2025 11:59 PM EDT Hospital Encounter [facility] Interventional Radiology [address] [place] [address] Anemia, unspecified type; Fatigue, unspecified type; Weight loss Discharge Disposition: Home or Self Care 12/29/2024 Telephone [facility] Hematology Oncology [address] [place] [address] [place] [address] CAP/ Bone marrow biopsy appt 12/28/2024 12:40 PM EDT - 12/28/2024 11:59 PM EDT Hospital Encounter [facility] Ultrasound [address] [place] [address] Edema of left upper arm; Wrist pain, acute, left Discharge Disposition: Home or Self Care 12/28/2024 9:00 AM EDT Office Visit [facility] Hematology Oncology [address] [place] [phone] Marika Hargrove PA Anemia, unspecified type (Primary Dx); Fatigue, unspecified type; Weight loss; Edema of left upper arm; Wrist pain, acute, left 12/24/2024 Telephone [facility] Hematology Oncology [address] [place] [phone] Fritz Rodrigez MD from Last 3 Months Social History Tobacco [...] Sign Reading Time Taken Comments Blood Pressure 124/74 02/02/2025 9:23 AM EDT Pulse 91 02/02/2025 9:23 AM EDT Temperature 36.9 C (98.5 F) 02/02/2025 9:23 AM EDT Respiratory Rate 13 01/18/2025 11:04 AM EDT Oxygen Saturation 100% 02/02/2025 9:23 AM EDT Inhaled Oxygen Concentration - - Weight 67.6 kg (149 lb) 02/02/2025 9:23 AM EDT Height 172.7 cm (5' 8 ) 01/18/2025 9:02 AM EDT Body Mass Index 22.66 01/18/2025 9:02 AM EDT Plan of Treatment Upcoming Encounters Date Type Department Care Team (Late st Contact Info) Description 05/03/2025 9:15 AM EDT Office Visit [facility] Hematology Oncology [address] [place] [address] Fritz Rodrigez MD [address] [place] [address] Health Maintenance Due Date Last Done Comments Diabetes: Annual Foot Exam 1959 Diabetes: Annual Retina Eye Exam 1960 Pneumococcal Vaccine: 50+ Years (1 of 2 - PCV) 02/13/1968 Zoster Vaccines (2 of 2) 07/25/2018 05/30/2018 Cholesterol Screening (Lipid Panel) 06/30/2022 Colorectal Cancer Screening: Stool Based Tests (FOBT/FIT) 06/30/2022 Falls Risk Assessment 06/30/2022 Hepatitis C Screening 06/30/2022 Medicare Annual Wellness Visit 06/30/2022 Social Influencers of Health Screening 06/30/2022 Diabetes: Annual Urine Albumin-Creatinine Ratio (uACR) 09/06/2023 Diabetes: Blood Sugar Control Test (HGBA1C) 09/06/2023 RSV Immunization Adult Patients (1 - 1-dose 75+ series) 02/13/2024 COVID-19 Vaccine ( - season) 2024 02/08/2022, 08/11/2021, 08/25/2020, Additional history exists Depression Screening 07/22/2024 Influenza Vaccine (#1) 2025 2, 03/30/2019, 04/14/2018, Additional history exists Diabetes: Annual GFR (Glomerular Filtration Rate) 12/25/2025 12/25/2024 Hypertension/CHF/CAD Annual BMP Blood Test 12/25/2025 12/25/2024 DTaP,Tdap,and Td Vaccines (2 - Td or [...] Procedure Name Priority Date/Time Associated Diagnosis Comments CT CHEST/ABDOMEN/PELVIS W CONTRAST Routine 01/21/2025 8:49 AM EDT Anemia, unspecified type Fatigue, unspecified type Weight loss IR BX AND ASP BONE MARROW Routine 01/18/2025 11:05 AM EDT Anemia, unspecified type Fatigue, unspecified type Weight loss BONE MARROW EXAM Routine 01/18/2025 11:0 0 AM EDT Anemia, unspecified type Fatigue, unspecified type Weight loss FLOW CYTOMETRY Routine 01/18/2025 11:00 AM EDT Anemia, unspecified type Fatigue, unspecified type Weight loss CYTOGENETICS MISCELLANEOUS Routine 01/18/2025 11:00 AM EDT Anemia, unspecified type Fatigue, unspecified type Weight loss VAS US DUPLEX UPPER EXT VENOUS LEFT STAT 12/28/2024 1:29 PM EDT Edema of left upper arm Wrist pain, acute, left IA PROTEIN ELECTROPHORETIC FRACTIONATION & QUANTITATION SERUM Routine 12/25/2024 8:31 AM EDT Anemia, unspecified type IA IMMUNOFIXATION ELECTROPHORESIS SERUM Routine 12/25/2024 8:31 AM EDT Anemia, unspecified type PROTEIN, TOTAL Routine 12/25/2024 8:31 AM EDT Anemia, unspecified type IMMUNOGLOBULINS IGG, IGA, IGM Routine 12/25/2024 8:31 AM EDT Anemia, unspecified type IMMUNOFIXATION ELECTROPHORESIS Routine 12/25/2024 8:31 AM EDT Anemia, unspecified type CBC WITH AUTO DIFFERENTIAL Routine 12/25/2024 8:31 AM EDT Neutrophilia IMMUNOFIXATION ELECTROPHORESIS Routine 12/25/2024 8:31 AM EDT Anemia, unspecified type ISAIAH IFA WITH TITER AND PATTERN Routine 12/25/2024 8:31 AM EDT Anemia, unspecified type HAPTOGLOBIN Routine 12/25/2024 8:31 AM EDT Anemia, unspecified type FOLATE Routine 12/25/2024 8:31 AM EDT Anemia, unspecified type FERRITIN Routine 12/25/2024 8:31 AM EDT Anemia, unspecified type COMPREHENSIVE METABOLIC PANEL Routine 12/25/2024 8:31 AM EDT Anemia, unspecified type VITAMIN B12 Routine 12/25/2024 8:31 AM EDT Anemia, unspecified type THYROID STIMULATING HORMONE Routine 12/25/2024 8:31 AM EDT Anemia, unspecified type SEDIMENTATION RATE Routine 12/25/2024 8: 31 AM EDT Anemia, unspecified type RHEUMATOID FACTOR Routine 12/25/2024 8:3 1 AM EDT Anemia, unspecified type RETICULOCYTE COUNT Routine 12/25/2024 8: 31 AM EDT Anemia, unspecified type PROTEIN ELECTROPHORESIS, SERUM Routine 12/25/2024 8:31 AM EDT Anemia, unspecified type LACTATE DEHYDROGENASE Routine 12/25/2024 8:31 AM EDT Anemia, unspecified type KAPPA-LAMBDA QUANTITATIVE FREE LIGHT CHAINS Routine 12/25/2024 8:31 AM EDT Anemia, unspecified type IRON AND TIBC Routine 12/25/2024 8:31 AM EDT Anemia, unspecified type CBC AND DIFFERENTIAL Routine 12/25/2024 8:31 AM EDT Neutrophilia US ABDOMINAL AORTA REAL TIME SCREEN STUDY AAA Routine 05/01/2023 8:04 AM EDT Type 2 diabetes mellitus without complications (CMS/HCC V24, CMS/HCC V28) Essential (primary) hypertension Other hyperlipidemia Type 2 diabetes mellitus with diabetic polyneuropathy (CMS/HCC V24, CMS/HCC V28) Pain in left hip Personal history of transient ischemic attack (TIA), 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 Mild centrilobular emphysema. Numerous small upper lung zone predominant pulmonary nodules. The largest is an 8 mm right lower lobe nodule which should be followed. 2. Mild hepatic steatosis. 3. Cholelithiasis. -------- FINAL REPORT -------- Dictated By: Leonardo Smith Dictated Date: 01/21/2025 12:42 ET Assigned Physician: Leonardo Smith Reviewed and Electronically Signed By: Leonardo Smith Signed Date: 01/21/2025 14:03 ET Workstation ID: [id number] Transcribed By: Self Edit Transcribed Date: 01/21/2025 13:51 ET Narrative 01/21/2025 2:03 PM EDT PROCEDURE: CT of the chest, abdomen, and pelvis with intravenous contrast. HISTORY: fatigue, weight loss, worsening anemia. COMPARISON: None. TECHNIQUE: Contrast-enhanced CT of the chest, abdomen, and pelvis with coronal and sagittal reformats. IV contrast dose: 90 mL ISOVUE-370. Dose length product: 772 mGy-cm. FINDINGS: Lungs/pleura: Airways are clear and normal in caliber. Mild centrilobular emphysema. Irregular 8 mm nodule in the lateral right lower lobe, series 3 image 131. There are numerous additional small bilateral pulmonary nodules measuring 2 mm or less, within upper lung zone predominance. No pleural effusion or pneumothorax. Mediastinum/lizzy: No mass or adenopathy. Thoracic vasculature: Moderate atherosclerotic calcifications of the great vessels. Normal caliber pulmonary arteries. No central pulmonary embolism. Cardiac: Severe coronary artery calcification. Chest wall: No mass or adenopathy. Liver: Mild steatosis. No focal lesion. Portal veins are patent. Biliary: Several calcified stones in the gallbladder neck. No biliary ductal dilatation. Pancreas: Normal. Spleen: Normal. Adrenal glands: Normal. Kidneys: Small low-attenuation cortical lesions, probably cysts, some too small for definitive characterization. Small areas of bilateral cortical scarring. Normal appearance of the ureters. Retroperitoneum: No mass or adenopathy. Abdominal vasculature: Extensive atherosclerotic calcifications. Bowel/mesentery: No obstruction or adenopathy. No mass or ascites. Mild sigmoid diverticulosis. Normal appendix. Abdominal wall: Normal. Pelvic nodes: There is a mildly prominent but not pathologically enlarged node along the anterior right external iliac chain (series 4, image 224), measuring 9 mm short axis. Pelvic organs: The urinary bladder is not well evaluated secondary to underdistention. Moderately enlarged prostate gland. Bones: Moderate degenerative changes left shoulder. Right glenohumeral arthroplasty. Multilevel degenerative changes of the spine. 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 Fusion of the L5-S1 endplates. Procedure Note Leonardo Smith MD - 01/21/2025 PROCEDURE: CT of the chest, abdomen, and pelvis with intravenouscontrast. HISTORY: fatigue, weight loss, worsening anemia. COMPARISON: None. TECHNIQUE: Contrast-enhanced CT of the chest, abdomen, and pelvis withcoronal and sagittal reformats. IV contrast dose: 90 mL ISOVUE-370. Dose length product: 772 mGy-cm. FINDINGS: Lungs/pleura: Airways are clear and normal in caliber. Mild centrilobularemphysema. Irregular 8 mm nodule in the lateral right lower lobe, series3 image 131. There are numerous additional small bilateral pulmonarynodules measuring 2 mm or less, within upper lung zone predominance. Nopleural effusion or pneumothorax. Mediastinum/lizzy: No mass or adenopathy. Thoracic vasculature: Moderate atherosclerotic calcifications of the greatvessels. Normal caliber pulmonary arteries. No central pulmonaryembolism. Cardiac: Severe coronary artery calcification. Chest wall: No mass or adenopathy. Liver: Mild steatosis. No focal lesion. Portal veins are patent. Biliary: Several calcified stones in the gallbladder neck. No biliaryductal dilatation. Pancreas: Normal. Spleen: Normal. Adrenal glands: Normal. Kidneys: Small low-attenuation cortical lesions, probably cysts, some toosmall for definitive characterization. Small areas of bilateral corticalscarring. Normal appearance of the ureters. Retroperitoneum: No mass or adenopathy. Abdominal vasculature: Extensive atherosclerotic calcifications. Bowel/mesentery: No obstruction or adenopathy. No mass or ascites. Mildsigmoid diverticulosis. Normal appendix. Abdominal wall: Normal. Pelvic nodes: There is a mildly prominent but not pathologically enlargednode along the anterior right external iliac chain (series 4, image 224),measuring 9 mm short axis. Pelvic organs: The urinary bladder is not well evaluated secondary tounderdistention. Moderately enlarged prostate gland. Bones: Moderate degenerative changes left shoulder. Right glenohumeralarthroplasty. Multilevel degenerative changes of the spine. Findings ofDISH in the thoracic region. Fusion of the L5-S1 endplates. IMPRESSION: 1. Mild centrilobular emphysema. Numerous small upper lung zonepredominant pulmonary nodules. The largest is an 8 mm right lower lobenodule which should be followed. 2. Mild hepatic steatosis. 3. Cholelithiasis. -------- FINAL REPORT -------- Dictated By: Leonardo Smith Dictated Date: 01/21/2025 12:42 ET Assigned Physician: Leonardo Smith Reviewed and Electronically Signed By: Leonardo Smith Signed Date: 01/21/2025 14:03 ET Workstation ID: [id number] Transcribed By: Self Edit Transcribed Date: 01/21/2025 13:51 ET Marika JAMES IM CT PROCEDURES Final Resul t * IR Bx and Asp Bone Marrow (01/18/2025 11:05 AM EDT) Anatomical Region Laterality Modality Interventional R adiology 01/18/2025 12:2 5 PM EDT Impressions 01/18/2025 12:[address]-guided bone marrow core biopsy as well as bone marrow aspiration biopsy. -------- FINAL REPORT -------- Dictated By: Liban Nelson Dictated Date: 01/18/2025 12:25 ET Assigned Physician: Liban Nelson Reviewed and Electronically Signed By: Liban Nelson Signed Date: 01/18/2025 12:30 ET Workstation ID: [id number] Transcribed By: Self Edit Transcribed Date: 01/18/2025 12:27 ET Narrative 01/18/2025 12:30 PM EDT INDICATION: Neutrophilia, anemia PROCEDURE: Consent obtained for CT guided bone marrow biopsy under conscious sedation. prior relevant studies: none MEDICATIONS: Local anesthesia: 5 cc of 1% buffered lidocaine administered subcutaneously. 5 cc of 0.25% bupivacaine administered along the periosteum. Sedation: Moderate intravenous sedation was initiated and maintained for 30 minutes while the patient was independently monitored by the radiology nurse under the supervision of the interventional radiologist. A total of 2 mg of Versed and 75 mcg of fentanyl administered during the procedure. Scanner: Parature [address] Dose reduction technique: AEC (automated exposure control) Dose: total exam DLP 160 mGY per cm TECHNIQUE: Patient placed prone on the CT table and multiple axial images obtained through the pelvis. Appropriate area of the skin was marked, draped and prepped using maximum sterile barrier. Moderate sedation initiated followed by administration of local anesthetic. Under CT fluoroscopic guidance a 11-gauge coaxial needle was advanced into the posterior iliac bone. Bone marrow core biopsy performed followed by bone marrow aspiration. FINDINGS: Initial limited CT images of the pelvis demonstrate adequate percutaneous access into the posterior right iliac bone. Images obtained during localization and needle positioning demonstrate coaxial needle positioned within the posterior iliac bone. SPECIMENS: Core sample placed within formalin. Bone marrow aspirate samples placed while within green and purple top tubes. Procedure Note Liban Nelson MD - 01/18/2025 INDICATION: Neutrophilia, anemia PROCEDURE: Consent obtained for CT guided bone marrow biopsy underconscious sedation. prior relevant studies: none MEDICATIONS: Local anesthesia: 5 cc of 1% buffered lidocaine administeredsubcutaneously. 5 cc of 0.25% bupivacaine administered along theperiosteum. Sedation: Moderate intravenous sedation was initiated and maintained for30 minutes while the patient was independently monitored by the radiologynurse under the supervision of the interventional radiologist. A total of2 mg of Versed and 75 mcg of fentanyl administered during the procedure. Scanner: Parature [address] Dose reduction technique: AEC (automated exposure control) Dose: total exam DLP 160 mGY per cm TECHNIQUE: Patient placed prone on the CT table and multiple axial imagesobtained through the pelvis. Appropriate area of the skin was marked,draped and prepped using maximum sterile barrier. Moderate sedationinitiated followed by administration of local anesthetic. Under CTfluoroscopic guidance a 11-gauge coaxial needle was advanced into theposterior iliac bone. Bone marrow core biopsy performed followed by bonemarrow aspiration. FINDINGS: Initial limited CT images of the pelvis demonstrate adequatepercutaneous access into the posterior right iliac bone. Images obtained during localization and needle positioning demonstratecoaxial needle positioned within the posterior iliac bone. SPECIMENS: Core sample placed within formalin. Bone marrow aspiratesamples placed while within green and purple top tubes. IMPRESSION: CT-guided bone marrow core biopsy as well as bone marrow aspirationbiopsy. -------- FINAL REPORT -------- Dictated By: Liban Nelson Dictated Date: 01/18/2025 12:25 ET Assigned Physician: Liban Nelson Reviewed and Electronically Signed By: Liban Nelson Signed Date: 01/18/2025 12:30 ET Workstation ID: [id number] Transcribed By: Self Edit Transcribed Date: 01/18/2025 12:27 ET us Marika JAMES IMG IR PROCEDURES Final Resul t * Cytogentic Miscellaneous (01/18/2025 11:00 AM EDT) Scan Result See Scanned Result 01/28/2025 11:16 AM EDT EXTERNAL LAB (NON-INTERFAC ED) Bone Marrow Specimen from bone marrow obtained by aspiration / Unknown 01/18/2025 11:00 AM EDT 01/18/2025 11:31 AM EDT Liban Nelson MD LAB CYTOGENETICS ORDERABLES Fin al Result EXTERNAL LAB (NON-INTERFACED) * Flow cytometry (01/18/2025 11:00 AM EDT) Flow Cytometry Interpretation Bone marrow, Flow cytometry: - No monotypic B cell population identified. - Most of the lymphocytes are CD3-positive T cells including CD4-positive and CD8-positive subsets without diagnostic phenotypic aberrancy. - There is no increase in the proportion of PN79-ubsmzmnz blasts (1.4%). Note: The flow cytometry findings do not support a diagnosis of a B-cell or a T-cell lymphoproliferative disorder. CD34 positive blasts are not increased. Correlation with morphologic findings in the accompanying bone marrow aspirate and biopsy specimen ([id number]) is recommended. Please note that myeloid disorders cannot be reliably excluded by flow cytometry. SPECIMEN: Bone Marrow VIABILITY: 97.3 TOTAL CELL YIELD: 79.9 x106/mL IMMUNOPHENOTYPIC FINDINGS: Lymphocytes are 14.0% of total. - T cells are 10.6% of total (75.9% of cells in lymphocyte gate) with no aberrant phenotype, CD4:CD8= 4.0. - B cells are 2.0% of total (14.1% of cells in lymphocyte gate) and are polytypic (kappa:lambda ratio = 1 point yeah I think it is just are). The B cells show no significant expression of CD5, CD10, or CD38 and show no overexpression of CD200. - Plasma cells are 0.3 of total and are phenotypically unremarkable. - Granulocytes are 76.1% of total and show generally soap tender immunophenotypic maturation. - Monocytic cells are 6.9% of total and show generally soap tender immunophenotypic maturation. - CD45 dim cells are 2.3% of total. CD34+ Blasts are not increased (1.4%). The blasts show expression of myeloid-associated antigens CD33 (variable) and CD117 along with CD38, CD45 (moderate), and HLA-DR. The blasts appear to show partial weak expression of CD13, but no significant expression of CD7, CD14, CD15, CD16, CD56 or CD123. A minute population of OH32-yikgnegl cells with expression of CD10 and CD19 along with light scatter properties suggestive of hematogones is also noted. Antibodies (27 markers): CD2, CD3, CD4, CD5, CD7, CD8, CD10, CD11b, CD13, CD14, CD15, CD16, CD19, CD20, CD33, CD34, CD38, CD45, CD56, CD64, CD117, CD123, CD200, HLA-DR, [place], Lambda, TCR??. 01/21/2025 11:44 AM T [facility] Disclaimer This test was developed and its performance characteristics determined by [facility]. It has not been cleared or approved by U.S. Food and Drug Administration. The FDA does not require this test to go through premarket FDA review. This test is used for clinical purposes. It should not be regarded as investigational or for research. This laboratory is certified under Clinical Laboratory Improvement Amendments of 1988 (CLIA) as qualified to perform high complexity clinical laboratory testing. 01/21/2025 11:44 AM T [facility] Bone Marrow Specimen from bone marrow obtained by aspiration / Unknown 01/18/2025 11:00 AM EDT 01/18/2025 12:52 PM EDT us Liban Nelson MD LAB BLOOD ORDERABLES Final Resu lt [facility] [address] [place] [address], [place] [phone] * Bone marrow exam (01/18/2025 11:00 AM EDT) Addendum This case was [place] t o [facility], [address] [place], (CLIA #[id number]) for Oncology Chromosome Analysis studies. Their diagnosis is as follows: Cytogenetics Oncology Chromosome Analysis Karyotype: 46,XY[20] Interpretation: NORMAL MALE KARYOTYPE Cytogenetic analysis shows a normal male karyotype in all cells analyzed. Comments: Standard cytogenetic analysis may not detect subtle submicroscopic rearrangements and may not include metaphases from abnormal cell populations with low mitotic rates or present in low levels. Test Detail: Metaphases Counted: 20 Metaphases Analyzed: 20 Metaphases Karyotyped: 2 Culture Type: 24EB, 48EB Banding Technique: GTG Banding Resolution: 400 Electronic Signature BRIANDA Miller (CC), [facility] Electronic Signature Michell Philip M.D., Pathologist Report Date: 01/26/2025 11:36:58 AM ET (Full report on file) 9:31 AM EDT [facility] Addendum electronically signed by Anthony Hernández MD on 01/27/2025 at 9:31 AM Final Diagnosis Bone Marrow, aspiration, core biopsy, and clot: - Normocellular bone marrow for patient age (estimated at 40% overall cellularity) with maturing myeloid and erythroid precursors, a normal myeloid:erythroid ratio, occasional abnormal megakaryocytes and 1.4% blasts in a 500-cell aspirate differential. - No marrow infiltrative process is identified. Note: This is an essentially normocellular bone marrow with trilineage hematopoiesis that includes occasional abnormal megakaryocytes (estimated to account for less than 10% of the megakaryocytes). Flow cytometry shows no monotypic B cell population, no aberrant T cell population and no increase in KK25-oqtwnofh blasts. Reticulin staining shows scant reticulin-stained fibers (MF0-MF1). A definitive morphologic cause for this patient's normocytic anemia and mild thrombocytosis is not identified. Although occasional abnormal megakaryocytes are noted, the morphologic findings are not considered diagnostic of a myelodysplastic or myeloproliferative neoplasm. Other possible causes of anemia (medication/toxin effects, infection (not identified in this specimen), immune-mediated causes, or other etiologies) and thrombocytosis should be considered. Karyotype is pending, addendum to follow. CBC (12/25/2024): WBC 8.7 k/uL, Hemoglobin 9.4 g/dL, Hematocrit 29.9%, MCV 91.4 fL, RDW 14.4%, Platelets 408 k/uL. Differential: Neutrophils: 70.0%, Lymphs: 16.7%, Monos: 9.8%, Eos: 2.9%, Basos: 0.3%, Immature granulocytes: 0.3%. Bone marrow aspirate smear (Dent stain): Specimen quality: Adequate for evaluation (scattered cellular marrow particles with adequate staining) Myeloid:Erythroid ratio: 2.1 (normal). Myeloid maturation: A complete range of myeloid maturation is present. Erythroid maturation: A complete range of generally soap tender erythroid maturation is present. Rare binucleated erythroid precursors are noted. Megakaryocyte number and morphology: Megakaryocytes appear adequate in number. Occasional micromegakaryocytes and rare multinucleated megakaryocytes are present. Iron stain: Abundant storage iron is present (5+/6). Pathologic ring sideroblasts are not identified. 500 cell Differential count of aspirate: 1.4% Blasts 0.6% Promyelocytes 15.6% Myelocytes/metamyeloc ytes 36.4% Neutrophils/bands 2.2% Monocytes 3.8% Eosinophils 0.0% Basophils 10.6% Lymphocytes 2.0% Plasma cells 27.2% Erythroid precursors Microscopic finding of bone marrow biopsy and clot (H and E, PAS): Specimen quality: -Core: Adequate for evaluation (17 mm of intact marrow space present for evaluation). -Clot: Not received. Cellularity: Approximately 40% cellular (normocellular for patient age). Myeloid maturation: A complete range of myeloid maturation is present. No aggregates of immature-appearing mononuclear cells identified. Erythroid maturation: Maturing erythroid precursors are present, including few small erythroid islands. Megakaryocyte number and maturation: Megakaryocytes are present in adequate numbers. Rare small clusters of megakaryocytes are present. Occasional small megakaryocytes are noted. Plasma cells: Plasma cells are present but no expansile aggregates of plasma cells are seen. Lymphocytes: No discrete lymphoid aggregates are identified. Reticulin stain: Scant reticulin-stained fibers are present (MF0-MF1). Other findings: PAS Stain highlights megakaryocytes. Flow Cytometry - No monotypic B cell population identified. - Most of the lymphocytes are CD3-positive T cells including CD4-positive and CD8-positive subsets without diagnostic phenotypic aberrancy. - There is no increase in the proportion of DK38-fjiitaxy blasts (1.4%). Note: The flow cytometry findings do not support a diagnosis of a B-cell or a T-cell lymphoproliferative disorder. CD34 positive blasts are not increased. Please note that myeloid disorders cannot be reliably excluded by flow cytometry. SPECIMEN: Bone Marrow VIABILITY: 97.3 TOTAL CELL YIELD: 79.9 x106/mL IMMUNOPHENOTYPIC FINDINGS: Lymphocytes are 14.0% of total. - T cells are 10.6% of total (75.9% of cells in lymphocyte gate) with no aberrant phenotype, CD4:CD8= 4.0. - B cells are 2.0% of total (14.1% of cells in lymphocyte gate) and are polytypic (kappa:lambda ratio = 1 point yeah I think it is just are). The B cells show no significant expression of CD5, CD10, or CD38 and show no overexpression of CD200. - Plasma cells are 0.3 of total and are phenotypically unremarkable. - Granulocytes are 76.1% of total and show generally soap tender immunophenotypic maturation. - Monocytic cells are 6.9% of total and show generally soap tender immunophenotypic maturation. - CD45 dim cells are 2.3% of total. CD34+ Blasts are not increased (1.4%). The blasts show expression of myeloid-associated antigens CD33 (variable) and CD117 along with CD38, CD45 (moderate), and HLA-DR. The blasts appear to show partial weak expression of CD13, but no significant expression of CD7, CD14, CD15, CD16, CD56 or CD123. A minute population of PV16-upehgpqc cells with expression of CD10 and CD19 along with light scatter properties suggestive of hematogones is also noted. Antibodies (27 markers): CD2, CD3, CD4, CD5, CD7, CD8, CD10, CD11b, CD13, CD14, CD15, CD16, CD19, CD20, CD33, CD34, CD38, CD45, CD56, CD64, CD117, CD123, CD200, HLA-DR, [place], Lambda, TCR??. This test was developed and its performance characteristics determined by [facility]. It has not been cleared or approved by U.S. Food and Drug Administration. The FDA does not require this test to go through premarket FDA review. This test is used for clinical purposes. It should not be regarded as investigational or for research. This laboratory is certified under the Clinical Laboratory Improvement Amendments of 1988 (CLIA) as qualified to perform high complexity clinical laboratory testing. Additional Testing (Addendum to follow): Conventional karyotype All special stains were performed with appropriate controls. 9:31 AM [facility] Comment The findings were discussed with ERIKA Castro by Christianne Hernández MD on 01/21/2025. 9:31 AM [facility] Gross Description A. Bone Marrow Aspirate, : Labeled with the patient's name and information are two green top tubes and two purple top tubes. Eight slides are prepared. One slide subsequently is stained for iron. Two slides are stained with Dent's giemsa. One of the purple top tubes, containing 3 mL of bone marrow aspirate, is submitted in toto to [facility] in [place], [place], for flow cytometric studies. The remaining purple top tube and both green top tubes, containing 2.5 mL and 6.5 ml of bone marrow aspirate, respectively, are submitted to [facility], [place], [place], for cytogenetic studies. B. Bone Marrow Biopsy, : Labeled bone marrow biopsy . Received in formalin is a 1.3 x 0.2 cm hard, lima-red, core of bone, which is submitted in toto in one cassette following decalcification in Immunocal, one piece, x2. Please note: No clot is received with the specimen. TYRONE 9:31 AM EDT [facility] Disclaimer Unless otherwise specified, all tissue is 10% NB formalin fixed and paraffin embedded. NOTE: The immunohistochemical tests and in situ hybridization tests were developed and their performance characteristics were determined by [facility]. They have not been cleared or approved by the U.S. Food and Drug Administration. The FDA has determined that such clearance or approval is not necessary. These tests are used for clinical purposes. They should not be regarded as investigational or for research. This laboratory is certified under the Clinical Laboratory Improvement Amendments of 1988 (CLIA) as qualified to perform high complexity clinical laboratory testing. (controls appropriate) 9:31 AM EDT [facility] Bone Marrow Specimen from bone marrow obtained by aspiration / Unknown 01/18/2025 11:00 AM EDT 01/18/2025 11:19 AM EDT Bone marrow specimen (specimen) Specimen from bone marrow obtained by biopsy / Unknown 01/18/2025 11:00 AM EDT 01/18/2025 11:19 AM EDT Liban Nelson MD LAB PATHOLOGY ORDERABLES Edited Result - Final [facility]) [facility] [address] [place] [address], * Vascular US duplex upper extremity venous left (12/28/2024 1:29 PM EDT) Anatomical Region Laterality Modality Vascular, Abdomen Ultrasound 12/28/2024 1:31 PM EDT Impressions 12/28/2024 1:35 PM EDT No evidence for DVT within the left upper extremity. -------- FINAL REPORT -------- Dictated By: Mary Anne Banks Dictated Date: 12/28/2024 13:31 ET Assigned Physician: Mary Anne Banks Reviewed and Electronically Signed By: Mary Anne Banks Signed Date: 12/28/2024 13:35 ET Workstation ID: [id number] Transcribed By: Self Edit Transcribed Date: 12/28/2024 13:32 ET Narrative 12/28/2024 1:35 PM EDT STUDY: VAS US DUPLEX UPPER EXT VENOUS LEFT COMPARISON: None INDICATION: left arm edema; left wrist pain EPISODE: Not applicable TECHNIQUE: Multiple sonographic images of the left upper extremity were obtained with and without color flow interrogation and spectral duplex waveform analysis. FINDINGS: On the left, the visualized internal jugular vein demonstrates color flow, normal phasic waveforms, and compressibility. The visualized subclavian vein demonstrates color flow and phasic waveforms. Color flow is demonstrated within the visualized axillary vein. The brachial veins demonstrates color flow, phasic waveforms and compressibility. The visualized basilic and cephalic veins demonstrate color flow and normal compressibility. Procedure Note Mary Anne Banks MD - 12/28/2024 STUDY: VAS US DUPLEX UPPER EXT VENOUS LEFT COMPARISON: None INDICATION: left arm edema; left wrist pain EPISODE: Not applicable TECHNIQUE: Multiple sonographic images of the left upper extremity wereobtained with and without color flow interrogation and spectral duplexwaveform analysis. FINDINGS: On the left, the visualized internal jugular vein demonstrates color flow,normal phasic waveforms, and compressibility. The visualized subclavianvein demonstrates color flow and phasic waveforms. Color flow isdemonstrated within the visualized axillary vein. The brachial veinsdemonstrates color flow, phasic waveforms and compressibility. Thevisualized basilic and cephalic veins demonstrate color flow and normalcompressibility. IMPRESSION: No evidence for DVT within the left upper extremity. -------- FINAL REPORT -------- Dictated By: Mary Anne Banks Dictated Date: 12/28/2024 13:31 ET Assigned Physician: Mary Anne Banks Reviewed and Electronically Signed By: Mary Anne Banks Signed Date: 12/28/2024 13:35 ET Workstation ID: [id number] Transcribed By: Self Edit Transcribed Date: 12/28/2024 13:32 ET us Marika JAMES CV VASCULAR PROCEDURES Final Result * Pathologist Review Immunofixation (12/25/2024 8:31 AM EDT) Pathologist Interpretation Pao Simmons MD 12/28/2024 2:23 PM EDT [facility] Blood Venous blood specimen / Unknown Venipuncture / Unknown 12/25/2024 8:31 AM EDT 12/25/2024 11:27 AM EDT Fritz Rodrigez MD LAB BLOOD ORDERABLES Final Result Performing Organization Address City/[facility]/ZIP Co de Phone Number [facility] [address] [place] [address], [place] [phone] * PATHOLOGIST REVIEW PROTEIN ELECTROPHORESIS (12/25/2024 8:31 AM EDT) Pathologist Interpretation Pao Simmons MD 12/29/2024 2:01 PM EDT [facility] Blood Venous blood specimen / Unknown Venipuncture / Unknown 12/25/2024 8:31 AM EDT 12/25/2024 11:27 AM EDT us Fritz Rodrigez MD LAB BLOOD ORDERABLES Final Result Performing Organization Address [facility]/ZIP Co de Phone Number [facility] [address] [place] [address], [place] [phone] * (ABNORMAL) [place]-lambda free light chains, quantitative (12/25/2024 8:31 AM EDT) [place] Free Light Chain 7.81(H) 0.33 - 1.94 mg/dL 12/28/2024 3:49 PM EDT [facility] Lambda Free Light Chain 4.66(H) 0.57 - 2.63 mg/dL 12/28/2024 3:49 PM EDT [facility] [place]/Lambda FLC Ratio 1.68(H) 0.26 - 1.65 12/28/2024 3:49 PM EDT [facility] Comment: Test performed at [facility], [address] , [place] [address] Evelyne Cheney MD, PhD - Purchase Order Checker Blood Venous blood specimen / Unknown Venipuncture / Unknown 12/25/2024 8:31 AM EDT 12/25/2024 11:27 AM EDT Fritz Rodrigez MD LAB BLOOD ORDERABLES Final Result [facility] [address] [place] [address] * ISAIAH IFA with titer and pattern (12/25/2024 8:31 AM EDT) Pathologist [facility] ISAIAH Negative Negative 12/28/2024 12:55 PM EDT [facility] Blood Venous blood specimen / Unknown Venipuncture / Unknown 12/25/2024 8:31 AM EDT 12/25/2024 11:27 AM EDT Fritz Rodrigez MD LAB BLOOD ORDERABLES Final Result [facility] [address] [place] [address], * (ABNORMAL) CBC auto differential (12/25/2024 8:31 AM EDT) [facility] WBC 8.7 4.8 - 10.8 K/mcL LAB HEMETOLOGY METHOD 12/25/2024 11:36 AM EDT [facility] RBC 3.30(L) 4.50 - 5.50 M/[facility] LAB HEMETOLOGY METHOD 12/25/2024 11:36 AM EDT [facility] Hemoglobin 9.4(L) 13.5 - 17.5 g/dL LAB HEMETOLOGY METHOD 12/25/2024 11:36 AM EDT [facility] Hematocrit 29.9(L) 42.0 - 54.0 % LAB HEMETOLOGY METHOD 12/25/2024 11:36 AM EDT [facility] MCV 91.4 79.0 - 98.0 [place] LAB HEMETOLOGY METHOD 12/25/2024 11:36 AM [facility] MCH 28.7 27.0 - 32.0 pcg LAB HEMETOLOGY METHOD 12/25/2024 11:36 AM [facility] MCHC 31.4(L) 32.0 - 37.0 g/dL LAB HEMETOLOGY METHOD 12/25/2024 11:36 AM [facility] RDW 14.4 11.0 - 15.0 % LAB HEMETOLOGY METHOD 12/25/2024 11:36 AM [facility] Platelets 408(H) 130 - 400 K/mcL LAB HEMETOLOGY METHOD 12/25/2024 11:36 AM [facility] MPV 9.8 7.0 - 11.0 FL LAB HEMETOLOGY METHOD 12/25/2024 11:36 AM [facility] NRBC 0.0 <1.0 % LAB HEMETOLOGY METHOD 12/25/2024 11:36 AM [facility] NRBC Absolute 0.00 <0.10 K/mcL LAB HEMETOLOGY METHOD 12/25/2024 11:36 AM [facility] Neutrophils Relative 70.0 % LAB HEMETOLOGY METHOD 12/25/2024 11:36 AM [facility] Lymphocytes Relative 16.7 % LAB HEMETOLOGY METHOD 12/25/2024 11:36 AM [facility] Monocytes Relative 9.8 % LAB HEMETOLOGY METHOD 12/25/2024 11:36 AM [facility] Eosinophils Relative 2.9 % LAB HEMETOLOGY METHOD 12/25/2024 11:36 AM [facility] Basophils Relative 0.3 % LAB HEMETOLOGY METHOD 12/25/2024 11:36 AM EDT [facility] Immature Granulocytes Relative 0.3 % LAB HEMETOLOGY METHOD 12/25/2024 11:36 AM EDT [facility] Neutrophils Absolute 6.09 1.50 - 7.00 K/mcL LAB HEMETOLOGY METHOD 12/25/2024 11:36 AM EDT [facility] Lymphocytes Absolute 1.45 1.00 - 5.00 K/mcL LAB HEMETOLOGY METHOD 12/25/2024 11:36 AM EDT [facility] Monocytes Absolute 0.85 0.20 - 1.00 K/mcL LAB HEMETOLOGY METHOD 12/25/2024 11:36 AM EDT [facility] Eosinophils Absolute 0.25 0.00 - 0.50 K/mcL LAB HEMETOLOGY METHOD 12/25/2024 11:36 AM [facility] Basophils Absolute 0.03 0.00 - 0.20 K/mcL LAB HEMETOLOGY METHOD 12/25[facility]24 [facility] Immature Granulocytes Absolute 0.03 0.00 - 0.03 K/mcL LAB HEMETOLOGY METHOD 12/25/2024 11:36 AM [facility] Blood Venous blood specimen / Unknown Venipuncture / Unknown 12/25/2024 8:31 AM EDT 12/25/2024 11:26 AM EDT Fritz Rodrigez MD LAB BLOOD ORDERABLES Final Result [facility] [address] [place] [address], * (ABNORMAL) Iron and TIBC (12/25/2024 8:31 AM EDT) [facility] Signature Iron 65 50 - 160 mcg/dL LAB CHEMISTRY METHOD 12/25/2024 12:52 PM EDT [facility] TIBC 196(L) 250 - 450 mcg/dL LAB CHEMISTRY METHOD 12/25/2024 12:52 PM EDT [facility] Iron Saturation 33 20 - 50 % LAB CHEMISTRY METHOD 12/25/2024 12:52 PM EDT [facility] Blood Venous blood specimen / Unknown Venipuncture / Unknown 12/25/2024 8:31 AM EDT 12/25/2024 11:27 AM EDT Fritz Rodrigez MD LAB BLOOD ORDERABLES Final Result Performing Organization Address [facility]/ZIP Co de Phone Number [facility] [address] [place] [address], [place] [phone] * (ABNORMAL) Sedimentation rate (12/25/2024 8:31 AM EDT) Sed Rate 75(H) 0 - 20 mm/hr LAB HEMETOLOGY METHOD 12/25/2024 11:44 AM EDT [facility] Blood Venous blood specimen / Unknown Venipuncture / Unknown 12/25/2024 8:31 AM EDT 12/25/2024 11:26 AM EDT Fritz Rodrigez MD LAB BLOOD ORDERABLES Final Result Performing Organization Address [facility]/ZIP Co de Phone Number [facility] [address] [place] [address], [place] [phone] * (ABNORMAL) Reticulocyte count (12/25/2024 8:31 AM EDT) Retic Ct Abs 0.040 0.030 - 0.090 M/mcL LAB HEMETOLOGY METHOD 12/25/2024 11:36 AM EDT [facility] Retic Ct Pct 1.1 0.7 - 1.7 % LAB HEMETOLOGY METHOD 12/25/2024 11:36 AM EDT [facility] Immature Retic Fract 12.5 2.3 - 15.9 % LAB HEMETOLOGY METHOD 12/25/2024 11:36 AM EDT [facility] Reticulocyte Hemoglobin 27.7(L) >29.0 pcg LAB HEMETOLOGY METHOD 12/25/2024 11:36 AM EDT [facility] Blood Venous blood specimen / Unknown Venipuncture / Unknown 12/25/2024 8:31 AM EDT 12/25/2024 11:26 AM EDT Fritz Rodrigez MD LAB BLOOD ORDERABLES Final Result Performing Organization Address City/[facility]/ZIP Co de Phone Number [facility] [address] [place] [address], [place] [phone] * Rheumatoid factor (12/25/2024 8:31 AM EDT) Rheumatoid Factor <10.0 <15.0 I Unit/mL LAB CHEMISTRY METHOD 12/25/2024 12:52 PM EDT [facility] Blood Venous blood specimen / Unknown Venipuncture / Unknown 12/25/2024 8:31 AM EDT 12/25/2024 11:27 AM EDT Fritz Rodrigez MD LAB BLOOD ORDERABLES Final Result [facility] [address] [place] [address], [place] [phone] * Immunofixation electrophoresis serum (12/25/2024 8:31 AM EDT) Immunofixation Result, Serum No monoclonal immunoglobulins detected. LAB CHEMISTRY METHOD 12/28/2024 2:23 PM EDT [facility] Blood Venous blood specimen / Unknown Venipuncture / Unknown 12/25/2024 8:31 AM EDT 12/25/2024 11:27 AM EDT Fritz Rodrigez MD LAB BLOOD ORDERABLES Final Result Performing Organization Address [facility]/ZIP Co de Phone Number [facility] [address] [place] [address], [place] [phone] * (ABNORMAL) Immunoglobulins IgG, IgA, IgM (12/25/2024 8:31 AM EDT) Total IgG 1,500 549 - 1,584 mg/dL LAB CHEMISTRY METHOD 12/25/2024 1:09 PM EDT [facility] IgA 491(H) 61 - 348 mg/dL LAB CHEMISTRY METHOD 12/25/2024 1:09 PM EDT [facility] IgM 113 23 - 259 mg/dL LAB CHEMISTRY METHOD 12/25/2024 1:09 PM EDT [facility] Blood Venous blood specimen / Unknown Venipuncture / Unknown 12/25/2024 8:31 AM EDT 12/25/2024 11:27 AM EDT us Fritz Rodrigez MD LAB BLOOD ORDERABLES Final Result Performing Organization Address [facility] Co de Phone Number [facility] [address] [place] [address], [place] [phone] * Thyroid stimulating hormone (12/25/2024 8:31 AM EDT) TSH 1.02 0.40 - 4.00 mcIU/mL LAB CHEMISTRY METHOD 12/25/2024 1:41 PM EDT [facility] Blood Venous blood specimen / Unknown Venipuncture / Unknown 12/25/2024 8:31 AM EDT 12/25/2024 11:27 AM EDT us Fritz Rodrigez MD LAB BLOOD ORDERABLES Final Result Performing Organization Address City/[facility]/ZIP Co de Phone Number [facility] [address] [place] [address], [place] [phone] * (ABNORMAL) Protein electrophoresis, serum (12/25/2024 8:31 AM EDT) Total Protein 7.0 6.0 - 8.0 g/dL LAB CHEMISTRY METHOD 12/29/2024 2:01 PM EDT [facility] Albumin, Serum 2.6(L) 2.9 - 4.1 g/dL LAB CHEMISTRY METHOD 12/29/2024 2:01 PM EDT [facility] Alpha 1 Globulin (g/dL) 0.4 0.1 - 0.5 g/dL LAB CHEMISTRY METHOD 12/29/2024 2:01 PM EDT [facility] Alpha 2 Globulin (g/dL) 1.3 0.7 - 1.5 g/dL LAB CHEMISTRY METHOD 12/29/2024 2:01 PM [facility] Beta (g/dL) 0.9 0.7 - 1.5 g/dL LAB CHEMISTRY METHOD 12/29/2024 2:01 PM EDT [facility] Gamma Globulin (g/dL) 1.8 0.7 - 1.9 g/dL LAB CHEMISTRY METHOD 12/29/2024 2:01 PM [facility] SPEP Interpretation No M-Willi seen. Hypoalbuminem ia, suggestive of malnutrition, decreased hepatic synthesis or renal/GI loss LAB CHEMISTRY METHOD 12/29/2024 2:01 PM T [facility] Blood Venous blood specimen / Unknown Venipuncture / Unknown 12/25/2024 8:31 AM EDT 12/25/2024 11:27 AM EDT Fritz Rodrigez MD LAB BLOOD ORDERABLES Final Result [facility] [address] [place] [address], [place] [phone] * Protein, total (12/25/2024 8:31 AM EDT) [facility] Total Protein 7.1 6.0 - 8.0 g/dL LAB CHEMISTRY METHOD 12/25/2024 12:35 PM EDT [facility] Blood Venous blood specimen / Unknown Venipuncture / Unknown 12/25/2024 8:31 AM EDT 12/25/2024 11:27 AM EDT us Fritz Rodrigez MD LAB BLOOD ORDERABLES Final Result Performing Organization Address [facility]/ZIP Co de Phone Number [facility] [address] [place] [address], [place] [phone] * Lactate dehydrogenase (12/25/2024 8:31 AM EDT) [facility] LDH 124 120 - 246 unit/L LAB CHEMISTRY METHOD 12/25/2024 12:52 PM EDT [facility] Blood Venous blood specimen / Unknown Venipuncture / Unknown 12/25/2024 8:31 AM EDT 12/25/2024 11:27 AM EDT us Fritz Rodrigez MD LAB BLOOD ORDERABLES Final Result Performing Organization Address [facility] Co de Phone Number [facility] [address] [place] [address], [place] [phone] * (ABNORMAL) Haptoglobin (12/25/2024 8:31 AM EDT) [facility] Haptoglobin 358(H) 16 - 200 mg/dL LAB CHEMISTRY METHOD 12/25/2024 12:52 PM EDT [facility] Blood Venous blood specimen / Unknown Venipuncture / Unknown 12/25/2024 8:31 AM EDT 12/25/2024 11:27 AM EDT us Fritz Rodrigez MD LAB BLOOD ORDERABLES Final Result Performing Organization Address City/[facility]/ZIP Co de Phone Number [facility] [address] [place] [address], [place] [phone] * Folate (12/25/2024 8:31 AM EDT) Pathologist [facility] Folate 5.2 2.8 - 17.0 ng/ml LAB CHEMISTRY METHOD 12/25/2024 12:52 PM EDT [facility] Blood Venous blood specimen / Unknown Venipuncture / Unknown 12/25/2024 8:31 AM EDT 12/25/2024 11:27 AM EDT Fritz Rodrigez MD LAB BLOOD ORDERABLES Final Result [facility] [address] [place] [address], [place] [phone] * (ABNORMAL) Ferritin (12/25/2024 8:31 AM EDT) Pathologist [facility] Ferritin 554(H) 26 - 388 ng/mL LAB CHEMISTRY METHOD 12/25/2024 12:52 PM EDT [facility] Blood Venous blood specimen / Unknown Venipuncture / Unknown 12/25/2024 8:31 AM EDT 12/25/2024 11:27 AM EDT Fritz Rodrigez MD LAB BLOOD ORDERABLES Final Result [facility] [address] [place] [address], [place] [phone] * Vitamin B12 (12/25/2024 8:31 AM EDT) Pathologist [facility] Vitamin B-12 493 250 - 900 pcg/mL LAB CHEMISTRY METHOD 12/25/2024 12:52 PM EDT [facility] Blood Venous blood specimen / Unknown Venipuncture / Unknown 12/25/2024 8:31 AM EDT 12/25/2024 11:27 AM EDT us Fritz Rodrigez MD LAB BLOOD ORDERABLES Final Result [facility] [address] [place] [address], * (ABNORMAL) Comprehensive metabolic panel (12/25/2024 8:31 AM EDT) Sodium 142 133 - 145 mmol/L LAB CHEMISTRY METHOD 12/25/2024 12:52 PM [facility] Potassium 3.6 3.5 - 5.5 mmol/L LAB CHEMISTRY METHOD 12/25/2024 12:52 PM [facility] Chloride 109 96 - 110 mmol/L LAB CHEMISTRY METHOD 12/25/2024 12:52 PM [facility] CO2 21 21 - 32 mmol/L LAB CHEMISTRY METHOD 12/25/2024 12:52 PM [facility] Anion Gap 12(H) 3 - 11 LAB CHEMISTRY METHOD 12/25/2024 12:52 PM [facility] Glucose 123(H) 70 - 100 mg/dL LAB CHEMISTRY METHOD 12/25/2024 12:52 PM [facility] BUN 14 5 - 25 mg/dL LAB CHEMISTRY METHOD 12/25/2024 12:52 PM [facility] Creatinine 0.95 0.70 - 1.30 mg/dL LAB CHEMISTRY METHOD 12/25/2024 12:52 PM [facility] eGFR 83 >=60 mL/min/1. 73m2 LAB CHEMISTRY METHOD 12/25/2024 12:52 PM [facility] Comment:Calculation based on the Chronic Kidney Disease Epidemiology Collaboration (CKD-EPI) equation refit without adjustment for race. BUN/Creatinine Ratio 14.7 LAB CHEMISTRY METHOD 12/25/2024 12:52 PM [facility] Calcium 8.1(L) 8.5 - 10.5 mg/dL LAB CHEMISTRY METHOD 12/25/2024 12:52 PM EDT [facility] AST (SGOT) 11 10 - 42 unit/L LAB CHEMISTRY METHOD 12/25/2024 12:52 PM EDT [facility] ALT (SGPT) 13 10 - 60 unit/L LAB CHEMISTRY METHOD 12/25/2024 12:52 PM EDT [facility] Alkaline Phosphatase 79 42 - 121 unit/L LAB CHEMISTRY METHOD 12/25/2024 12:52 PM EDT [facility] Total Protein 6.9 6.0 - 8.0 g/dL LAB CHEMISTRY METHOD 12/25/2024 12:52 PM EDT [facility] Albumin 2.6(L) 3.2 - 5.0 g/dL LAB CHEMISTRY METHOD 12/25/2024 12:52 PM [facility] Total Bilirubin 0.4 0.0 - 1.4 mg/dL LAB CHEMISTRY METHOD 12/25/2024 12:52 PM EDT [facility] Blood Venous blood specimen / Unknown Venipuncture / Unknown 12/25/2024 8:31 AM EDT 12/25/2024 11:27 AM EDT us Fritz Rodrigez MD LAB BLOOD ORDERABLES Final Result [facility] [address] [place] [address], * US ABDOMINAL AORTA REAL TIME SCREEN STUDY AAA (05/01/2023 8:04 AM EDT) Anatomical Region Laterality Modality Ultrasound 04/17/2023 10:2 8 AM EDT Narrative 05/01/2023 9:25 AM EDT Ultrasound of the abdominal aorta. History AAA screening. No prior studies are available for comparison. There is no aneurysm of the abdominal aorta. Proximal aorta measures 1.9 cm, mid aorta measures 1.7 cm, distal aorta measures 1.5 cm. Proximal right common iliac artery measures 0.9 cm. Proximal left common [...] CONCLUSIONS: No evidence of AAA. us Danny JAMES Terrence US PROCEDURES Final R esult from Last 3 Months or Most Recently Relevant to Health Maintenance Insurance [employer]ARE Care Teams Compugraph Operator Relationship Specialty Start Date End Date Trista Masters PA [address] [place] [id number] PCP - General 04/10/24
--- OUTSIDE RECORDS SUMMARY | 2025-02-12 13:20 | XMS_ITS | Clinical Summary ---
Author Organization [facility] Address [address] [place] [address] Care Team Providers Care Psychologist Clinical Name Role Phone Trista Masters PA-C Primary [...] age to complete this topic Care Teams Psychologist Clinical Relationship Specialty Start Date End Date Trista Masters PA-C PCP - General Medical Services 04/10/24
[2025-02-12 13:29] VITALS: BP 156/74; PULSE 76; O2SAT 97; BMI 22.8
== END 2025-02-12 13:52 | disposition home or self-care (01) ==
LOC: HO.HGI 13:18
PROVIDERS: PCP Physician Assistant Medical; Visit Provider Nurse Practitioner Family
DX: D12.6 Benign neoplasm of colon, unspecified (principal); Z12.11 Encounter for screening for malignant neoplasm of colon
CPT/HCPCS: 99024

== ENCOUNTER → 2025-02-12 13:18 | Outpatient (BNVA) | payer MEDICARE, SELFPAY | PROVIDERS: PCP Physician Assistant Medical; Visit Provider Nurse Practitioner Family | DX: D12.6 Benign neoplasm of colon, unspecified (principal); Z12.11 Encounter for screening for malignant neoplasm of colon | CPT/HCPCS: 99212 ==

== ENCOUNTER 2025-02-25 09:44 | Outpatient (AMB) | payer MEDICARE, SELFPAY ==
--- NOTE | 2025-02-25 09:48 | A.OFFVIS_ITS ---
Vital Signs 02/25/25 10:00 Height 5 ft 8 in Weight 153 lb 7.068 oz BMI 23.3 BP 162/80 H Blood Pressure Location Rt brachial Position Sitting Pulse 74 Pulse Source Pulse Oximeter Pulse Oximetry (%) 99 Oxygen Delivery Method Room Air Intake Visit Reasons: Abnormal lab/MD Approved Intake Note: Patient presents for Abnormal lab. Patient c/o of LT hand/wrist pain and swelling. Patient stated these he has had these symptoms since last July. Patient is taking Ibuprofen and it works temporary. Allergies latex (LATEX) Allergy (Intermediate, Verified 02/12/25 13:20) RASH lisinopril (LISINOPRIL) Allergy (Intermediate, Verified 02/12/25 13:20) LEG CRAMPS NSAIDS (Non-Steroidal Anti-Inflamma (NSAIDS (NON-STEROIDAL ANTI-INFLAMMA) Allerg y (Intermediate, Verified 02/12/25 13:20) LEG CRAMPS vardenafil (From LEVITRA) Allergy (Intermediate, Verified 02/12/25 13:20) HALLUCINATIONS hydromorphone (Dilaudid) Allergy (Unknown, Verified 02/12/25 13:20) clammy ibuprofen Allergy (Unknown, Verified 02/12/25 13:20) Unknown Latex Gloves Allergy (Unknown, Uncoded 02/12/25 13:20) Unknown bee products Allergy (Uncoded 02/12/25 13:20) Rash Medication List - Last Reconciled 02/25/25 by Elle Solorzano MD amlodipine 2.5 mg PO DAILY aspirin (Adult Low Dose Aspirin) 81 mg PO DAILY atorvastatin 40 mg PO DAILY carvedilol 25 mg PO BID 30 days cyanocobalamin (vitamin B-12) (Vitamin B-12) 1,000 mcg PO DAILY ezetimibe 10 mg PO DAILY losartan 100 mg PO DAILY metformin 1,000 mg PO .once daily nitroglycerin 0.4 mg sublingual Q5M PRN HPI Comments Details: Patient is a 75 y.o. male with hypertension, asthma, hyperlipidemia complicated by coronary artery disease, diabetes, polyarticular OA (bilateral knees, left shoulder and hands), and history of right shoulder replacement after traumatic dislocation here today for evaluation of left hand swelling Patient was in his normal state of health until July when he had sudden onset of bilateral lower extremity swelling right worse than left. He was subsequently evaluated by Cardiology, had echocardiogram, ECG and other evaluations which were normal. He was subsequently sent to Hematology due to weight loss, night sweats. Hematology evaluation including bone marrow biopsy and flow cytometry for unremarkable. He had CT scan of his chest abdomen and pelvis which showed a pulmonary nodule for which she is going to follow up with pulmonology for. During this time he also developed left hand and arm swelling associated with pain. Denies rashes, Raynaud's, headaches, difficulty swallowing, difficulty breathing, lymphadenopathy, alopecia No family history of any autoimmune disease [facility] Medical History (Updated 02/12/25 @ 20:28 by Pauly Ellis, [facility]) Elevated sed rate Elevated C-reactive protein (CRP) Multiple lung nodules Left hand pain Left wrist pain Swelling of left hand Abnormal CBC Extremity edema Night sweats Weight loss Routine physical examination Right leg swelling PARIS (dyspnea on exertion) Abnormal echocardiogram Osteoarthritis of left knee Bursitis of left knee Synovial cyst of popliteal space [Gomes], left knee CAD (coronary artery disease) Left leg swelling Left knee pain Abnormal CBC Elevated ferritin Anemia Emphysema lung Cholelithiasis Asthma Tubular adenoma of colon Ocular migraine Chronic neutrophilia Controlled type 2 diabetes with neuropathy UTI (urinary tract infection) BPH associated with nocturia Venous insufficiency Type 2 diabetes mellitus TIA (transient ischemic attack) Stable angina pectoris Peripheral neuropathy Palpitations Osteoarthritis, hand CONNER (obstructive sleep apnea) Nodule of lower lobe of right lung Murmur Lower urinary tract symptoms HTN (hypertension) Hypercholesteremia Chronic total occlusion of coronary artery Surgical History History of bone marrow biopsy History of bilateral cataract extraction History of sinus surgery History of microdiscectomy Status post reverse total shoulder replacement History of colonoscopy Social History Housing: Other (mobile home [facility]) Alcohol intake: current Alcohol intake frequency: holidays/special occasions only Comment: Socially Patient Tobacco Use Status: Former Tobacco user Cigarette Packs Per Day: 2 Years Smoked: 30 e-Cigarette/Vaping Use: Never Used Second Hand Smoke Exposure: No service: Yes Current occupational status: retired Current occupational exposures/hazards: No Cognitive needs: No Hearing needs: No Vision needs: Yes (reading glasses) Review of Systems Const Details: Review of Systems Constitutional: Denies fever ENT: Denies vision changes, eye pain or eye redness, dental caries, dry mouth GI: Denies nausea, vomiting, diarrhea, abdominal pain, change in BM Pulm: Denies SOB, PARIS, hemoptysis, wheezing Cards: Denies chest pain, palpitations Skin: Denies Raynaud's, rash, nail changes, photosensitivity, PUBLIC RELATIONS ASSISTANT: Denies headaches, weakness, paresthesias, recurrent falls MSK: as per HPI All other systems reviewed and are unremarkable except noted above Physical Exam Exam Exam: Vital signs reviewed Physical Examination CONSTITUITIONAL Patient alert and cooperative. Well appearing and in no apparent painful distress HEENT Conjunctiva and sclera clear. No lymphadenopathy. CHEST/RESPIRATORY SYSTEM Normal respiratory effort and able to speak in complete sentences. Clear to auscultation bilaterally. No crackles, rales, rhonchi, wheezes heard. CARDIAC SYSTEM Regular rate and rhythm. S1 and S2 heard no murmurs. Radial pulses intact bilaterally MSK Hands * Right Hand: Able to make a fist. No swelling or tenderness to palpation of these joints. * Left Hand: Able to make a fist. No swelling or tenderness to palpation of these joints. * Herbedens nodes noted bilaterally and squarring of bilateral CMC Wrists * Right Wrist: Full ROM. 70 degrees of wrist flexion, 80 degrees of wrist extension. No swelling or TTP * Left Wrist: Full ROM. 70 degrees of wrist flexion, 80 degrees of wrist extension. No swelling or TTP Elbows * Right Elbow: Full ROM. No swelling or TTP. No TTP of the medial and lateral epicondyles * Left Elbow: Full ROM. No swelling or TTP. No TTP of the medial and lateral epicondyles Shoulders * Right shoulder: Decreased ROM. No swelling noted. No TTP of the AC joint, subacromial bursa or posterior shoulder * Left shoulder: Decreased ROM. No swelling noted. No TTP of the AC joint, subacromial bursa or posterior shoulder Knees * Right knee: Full ROM. No swelling noted. No TTP of the knee joint lie or pes anserine bursa * Left knee: Full ROM. No swelling noted. No TTP of the knee joint lie or pes anserine bursa. Ankles * Right ankle: Good ankle dorsiflexion and plantar flexion. Mild swelling noted. No TTP of the ankle joint * Left ankle: Good ankle dorsiflexion and plantar flexion. No swelling. No TTP of the ankle joint Feet * Right foot: Negative squeeze test * Left foot: Negative squeeze test Tender points? * No tenderness to palpation of the bilateral trapezius, supraspinatus, anterior costochondral junctions, bilateral suboccipital muscle insertions SKIN No rashes Vital Signs: Last Vital Signs Pulse 74 02/25/25 10:00 BP 162/80 H 02/25/25 10:00 Pulse Ox 99 02/25/25 10:00 Oxygen Delivery Method Room Air 02/25/25 10:00 BMI result Body Mass Index 23.3 Results Reviewed Results Reviewed: Laboratory Tests 11/20/24 12/24/24 02/02/25 08:15 09:35 10:36 WBC 11.0 H RBC 3.49 L Hgb 10.0 L Hct 31.2 L Plt Count 442 H ESR 101 H Sodium 139 Potassium 4.2 Chloride 109 H Carbon Dioxide 21 L BUN 12 Creatinine 0.71 AST 21 ALT < 6 C-Reactive Protein 6.20 H Laboratory Tests 02/02/25 10:36 Rheumatoid Factor < 13.0 ISAIAH Screen NEGATIVE XR Hand 01/2025 FINDINGS: Joint space narrowing with associated minimal subchondral cyst formation involving the proximal and distal interphalangeal joints of the digits. Sclerosis along the articular surface and subchondral cyst formation with the marginal osteophyte formation at the first carpal metacarpal joint. Osteopenia versus osteoporosis. No acute fracture or dislocation IMPRESSION: Osteoarthrosis, left hand. Flow cytometry from [facility] January 18, 2025 Bone marrow, flow cytometry: - no monotypic B-cell population identified - most of the lymphocytes are CD3 positive T-cells including CD4 positive and CD8 positive substance without diagnostic phenotypic aberrancy - there was no increase in the proportion of CD 34 positive blasts cells (1.4%) Note: The flow cytometry findings do not support a diagnosis of a B-cell or T- cell lymphoproliferative disorder. CD34 positive blasts cells are not increased. Immunophenotypic findings: Lymphocytes are 14% of total - T-cells are 10.6% of total with no aberrant phenotype, CD4: CD8 = 4.0 - B-cells are 2% of total (14.1% of cells in lymphocytic gait) and are polytypic. The B-cell show no significant expression of CD5, CD10 or CD 38 and show no expression of CD 200 - plasma cells are 0.3 of the total and are phenotypically unremarkable - granulocytes are 76.1% of total than showed generally funeral planner immunophenotypic maturation -CD4 45 themselves were 2.3% of total. CD 34 positive blasts are not increased. The blasts show expression of myeloid associated antigens CD33 and CD117 along with CD 38, CD 45 and HLA-DR. The blasts appear to show partial mucus personal CD 13 but no significant expression of CD7, CD14, CD15, CD16, CD56 or CD 123. A minute population of CD 34 positive cells with expression of CD10 and CD19 along with life scattered properties suggestive of hematogenes is also noted. 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 Symptoms are concerning for an underlying autoimmune disease especially in the setting of an elevated ESR and CRP. Definitely concerned about large vessel vasculitis which can present like this. Given that he mainly has constitutional symptoms there is no obvious artery to biopsy and so the next step would be to do a PET-CT scan to locate and confirm the diagnosis. Plan - PET CT Scan - LAbs today: CBC, CRP, ESR, CRP, ferritin, cytokine panel 13 Plan I spent 60 minutes reviewing the record and labs, taking a history, examining the patient, discussing the treatment plan, ordering diagnostic work up and documenting in the medical record Orders: Orders Rheumatoid Factor Today M31.6 - Other giant cell arteritis Cyclic Citrullinated Peptide Today M31.6 - Other giant cell arteritis Ferritin Today M31.6 - Other giant cell arteritis Complete Blood Count Auto Diff Today M31.6 - Other giant cell arteritis C Reactive Protein Today M31.6 - Other giant cell arteritis Erythrocyte Sedimentation Rate Today M31.6 - Other giant cell arteritis Creatine Kinase Total Today M31.6 - Other giant cell arteritis Other Ref Test - Misc Today M31.6 - Other giant cell arteritis PET CT fusion skull to thigh Today M31.6 - Other giant cell arteritis Immunoglobulin G Subclasses Today M31.6 - Other giant cell arteritis Immunoglobulins,IgG IgA IgM Today M31.6 - Other giant cell arteritis ANCA Vasculitides Today M31.6 - Other giant cell arteritis Comprehensive Met. Panel Today M31.6 - Other giant cell arteritis Coding Level of Care Code New Pt Level 5 (32862) Complex EM visit Add On G2211 Diagnoses Large vessel vasculitis M31.6
[2025-02-25 10:00] VITALS: BP 162/80; PULSE 74; O2SAT 99; BMI 23.3
--- OUTSIDE RECORDS SUMMARY | 2025-02-25 10:13 | XMS_ITS | Clinical Summary ---
Author Organization [facility] Address [address] [place] [address] Phone Care Team Providers Care Twist Maker Name Role Phone Trista Masters Primary Care Provider [phone] Allergies Active Allergy Reactions Criticality Noted Date [...] Description 02/02/2025 9:30 AM EDT Office Visit [facility] Hematology Oncology [address] [place] [address] Marika Hargrove PA Anemia, unspecified type (Primary Dx); Fatigue, unspecified type; Neutrophilia; Elevated erythrocyte sedimentation rate; Edema of left upper arm 01/21/2025 8:34 AM EDT - 01/21/2025 11:59 PM EDT Hospital Encounter [facility] CT Scan [address] [place] [address] Anemia, unspecified type; Fatigue, unspecified type; Weight loss Discharge Disposition: Home or Self Care 01/18/2025 8:51 AM EDT - 01/18/2025 11:59 PM EDT Hospital Encounter [facility] Interventional Radiology [address] [place] [address] Anemia, unspecified type; Fatigue, unspecified type; Weight loss Discharge Disposition: Home or Self Care 12/29/2024 Telephone [facility] Hematology Oncology [address] [place] [address] CAP/ Bone marrow biopsy appt 12/28/2024 12:40 PM EDT - 12/28/2024 11:59 PM EDT Hospital Encounter [facility] Ultrasound [address] [place] [address] Edema of left upper arm; Wrist pain, acute, left Discharge Disposition: Home or Self Care 12/28/2024 9:00 AM EDT Office Visit [facility] Hematology Oncology [address] [place] [phone] Marika Hargrove PA Anemia, unspecified type (Primary Dx); Fatigue, unspecified type; Weight loss; Edema of left upper arm; Wrist pain, acute, left 12/24/2024 Telephone [facility] Hematology Oncology [address] [place] [phone] Fritz Rodrigez MD from Last 3 Months [...] Description 05/03/2025 9:15 AM EDT Office Visit [facility] Hematology Oncology [address] [place] [address] Fritz Rodrigez MD [address] [place] [address] Health Maintenance Due Date Last [...] (2 - Td or Tdap) 09/20/2032 09/20/2022 HIB Vaccines Aged Out No longer eligi [...] left upper arm Wrist pain, acute, left [place] PROTEIN ELECTROPHORETIC FRACTIONATION & QUANTITATION SERUM Routine 12/25/2024 8:31 AM EDT Anemia, unspecified type [place] IMMUNOFIXATION ELECTROPHORESIS SERUM Routine 12/25/2024 8:31 AM [...] DIFFERENTIAL Routine 12/25/2024 8:31 AM EDT Neutrophilia from Last 3 Months Results * CT Chest/Abdomen/Pelvis w Contrast (01/21/2025 [...] Signed Date: 01/21/2025 14:03 ET Workstation ID: [id number] Transcribed By: Self Edit Transcribed Date: 01/21/2025 [...] Signed Date: 01/21/2025 14:03 ET Workstation ID: [id number] Transcribed By: Self Edit Transcribed Date: 01/21/2025 13:51 ET Marika JAMES IMG CT PROCEDURES Final Resul t * IR [...] Signed Date: 01/18/2025 12:30 ET Workstation ID: [id number] Transcribed By: Self Edit Transcribed Date: 01/18/2025 [...] of fentanyl administered during the procedure. Scanner: [employer] [address] Dose reduction technique: AEC [...] of fentanyl administered during the procedure. Scanner: [employer] [address] Dose reduction technique: AEC [...] Signed Date: 01/18/2025 12:30 ET Workstation ID: [id number] Transcribed By: Self Edit Transcribed Date: 01/18/2025 12:27 ET Marika JAMES IMG IR PROCEDURES Final Resul t * Cytogentic Miscellaneous (01/18/2025 11:00 AM EDT) Scan Result See Scanned Result 01/28/2025 11:16 AM EDT EXTERNAL LAB (NON-INTERFAC ED) Bone Marrow Specimen from bone marrow obtained by aspiration / Unknown 01/18/2025 11:00 AM EDT 01/18/2025 11:31 AM EDT us Liban Nelson MD LAB CYTOGENETICS ORDERABLES Fin al Result EXTERNAL LAB (NON-INTERFACED) * Flow cytometry (01/18/2025 11:00 AM EDT) Flow Cytometry Interpretation Bone marrow, Flow cytometry: - No monotypic B cell population identified. - Most of the lymphocytes are CD3-positive T cells including CD4-positive and CD8-positive subsets without diagnostic phenotypic aberrancy. - There is no increase in the proportion of JN87-nsxunlfx blasts (1.4%). Note: The flow cytometry findings do not support a diagnosis of a B-cell or a T-cell lymphoproliferative disorder. CD34 positive blasts are not increased. Correlation with morphologic findings in the accompanying bone marrow aspirate and biopsy specimen ([id number]) is recommended. Please note that myeloid disorders [...] are 76.1% of total and show generally silver cleaner immunophenotypic maturation. - Monocytic cells are 6.9% of total and show generally silver cleaner immunophenotypic maturation. - CD45 dim cells are 2.3% of total. CD34+ Blasts are not increased (1.4%). The blasts show expression of myeloid-associated antigens CD33 (variable) and CD117 along with CD38, CD45 (moderate), and HLA-DR. The blasts appear to show partial weak expression of CD13, but no significant expression of CD7, CD14, CD15, CD16, CD56 or CD123. A minute population of JQ14-splucaln cells with expression of CD10 and CD19 along with light scatter properties suggestive of hematogones is also noted. Antibodies (27 markers): CD2, CD3, CD4, CD5, CD7, CD8, CD10, CD11b, CD13, CD14, CD15, CD16, CD19, CD20, CD33, CD34, CD38, CD45, CD56, CD64, CD117, CD123, CD200, HLA-DR, Salix, Lambda, TCR??. 01/21/2025 11:44 AM EDT [facility] Disclaimer This test was developed and [...] complexity clinical laboratory testing. 01/21/2025 11:44 AM EDT [facility] Bone Marrow Specimen from bone marrow obtained by aspiration / Unknown 01/18/2025 11:00 AM EDT 01/18/2025 12:52 PM EDT us Liban Nelson MD LAB BLOOD ORDERABLES Final Resu lt [facility] [address] [place] [address], [place] [phone] * Bone marrow exam (01/18/2025 11:00 AM EDT) Addendum This case was sent t o [facility], [address] [place], [place], (CLIA #[id number]) for Oncology Chromosome Analysis studies. Their diagnosis [...] Resolution: 400 Electronic Signature BRIANDA Miller (CC), FAC - [facility] Electronic Signature Michell Philip M.D., Pathologist Report Date: 01/26/2025 11:36:58 AM ET (Full report on file) 9:31 AM EDT [facility] ([facility]) [facility] Addendum electronically signed by Anthony Hernández [...] T cell population and no increase in DG63-gifpwxci blasts. Reticulin staining shows scant reticulin-stained fibers [...] Erythroid maturation: A complete range of generally silver cleaner erythroid maturation is present. Rare binucleated erythroid [...] is no increase in the proportion of ZI98-wzyddggb blasts (1.4%). Note: The flow cytometry findings [...] are 76.1% of total and show generally silver cleaner immunophenotypic maturation. - Monocytic cells are 6.9% of total and show generally silver cleaner immunophenotypic maturation. - CD45 dim cells are 2.3% of total. CD34+ Blasts are not increased (1.4%). The blasts show expression of myeloid-associated antigens CD33 (variable) and CD117 along with CD38, CD45 (moderate), and HLA-DR. The blasts appear to show partial weak expression of CD13, but no significant expression of CD7, CD14, CD15, CD16, CD56 or CD123. A minute population of OC03-zpencdui cells with expression of CD10 and CD19 along with light scatter properties suggestive of hematogones is also noted. Antibodies (27 markers): CD2, CD3, CD4, CD5, CD7, CD8, CD10, CD11b, CD13, CD14, CD15, CD16, CD19, CD20, CD33, CD34, CD38, CD45, CD56, CD64, CD117, CD123, CD200, HLA-DR, Salix, Lambda, TCR??. This test was developed and its performance characteristics determined by [facility]. It has not been cleared or approved by U.S. Food and Drug Administration. The FDA does not require this test to go through [facility] FDA review. This test is used for clinical purposes. It should not be regarded as investigational or for research. This laboratory is certified under the Clinical Laboratory Improvement Amendments of 1988 (CLIA) as qualified to perform high complexity clinical laboratory testing. Additional Testing (Addendum to follow): Conventional karyotype All special stains were performed with appropriate controls. 9:31 AM EDT [facility] Comment The findings were discussed with ERIKA Castro by Christianne Hernández MD on 01/21/2025. 9:31 AM EDT [facility] Gross Description A. Bone Marrow Aspirate, : Labeled with the patient's name and information are two green top tubes and two purple top tubes. Eight slides are prepared. One slide subsequently is stained for iron. Two slides are stained with Dent's giemsa. One of the purple top tubes, containing 3 mL of bone marrow aspirate, is submitted in toto to [facility] in [place], [place], for flow cytometric studies. The remaining purple top tube and both green top tubes, containing 2.5 mL and 6.5 ml of bone marrow aspirate, respectively, are submitted to [facility], [place], [place], for cytogenetic studies. B. Bone Marrow Biopsy, : Labeled bone marrow biopsy . Received in formalin is a 1.3 x 0.2 cm hard, lima-red, core of bone, which is submitted in toto in one cassette following decalcification in Immunocal, one piece, x2. Please note: No clot is received with the specimen. TYRONE 9:31 AM EDT [facility] Disclaimer Unless otherwise specified, all tissue is 10% NB formalin fixed and paraffin embedded. NOTE: The immunohistochemical tests and in situ hybridization tests were developed and their performance characteristics were determined by [facility]. They have not been cleared [...] laboratory testing. (controls appropriate) 9:31 AM EDT [facility] ([facility]) [facility] Bone Marrow Specimen from bone marrow obtained by aspiration / Unknown 01/18/2025 11:00 AM EDT 01/18/2025 11:19 AM EDT Bone marrow specimen (specimen) Specimen from bone marrow obtained by biopsy / Unknown 01/18/2025 11:00 AM EDT 01/18/2025 11:19 AM EDT us Liban Nelson MD LAB PATHOLOGY ORDERABLES Edited Result - Final [facility] ([facility]) [facility] [address] [place] [address], [place] [phone] * Vascular US duplex upper extremity venous [...] Signed Date: 12/28/2024 13:35 ET Workstation ID: [id number] Transcribed By: Self Edit Transcribed Date: 12/28/2024 [...] Signed Date: 12/28/2024 13:35 ET Workstation ID: [id number] Transcribed By: Self Edit Transcribed Date: 12/28/2024 13:32 ET Marika JAMSE CV VASCULAR PROCEDURES Final Result * Pathologist Review Immunofixation (12/25/2024 8:31 AM EDT) Pathologist Interpretation Pao Simmons MD 12/28/2024 2:23 PM EDT [facility] Blood Venous blood specimen / Unknown Venipuncture / Unknown 12/25/2024 8:31 AM EDT 12/25/2024 11:27 AM EDT Fritz Rodrigez MD LAB BLOOD ORDERABLES Final Result [facility]) [facility] [address] [place] [address], [place] [phone] * PATHOLOGIST REVIEW PROTEIN ELECTROPHORESIS (12/25/2024 8:31 AM EDT) Pathologist Interpretation Pao Simmons MD 12/29/2024 2:01 PM EDT [facility] Blood Venous blood specimen / Unknown Venipuncture / Unknown 12/25/2024 8:31 AM EDT 12/25/2024 11:27 AM EDT Fritz Rodrigez MD LAB BLOOD ORDERABLES Final Result [facility] [address] [place] [address], [place] [phone] * (ABNORMAL) Salix-lambda free light chains, quantitative (12/25/2024 8:31 AM EDT) Pathologist [facility] Salix Free Light Chain 7.81(H) 0.33 - 1.94 mg/dL 12/28/2024 3:49 PM EDT [facility] Lambda Free Light Chain 4.66(H) 0.57 - 2.63 mg/dL 12/28/2024 3:49 PM EDT [facility] Salix/Lambda FLC Ratio 1.68(H) 0.26 - 1.65 12/28/2024 3:49 PM EDT [facility] Comment: Test performed at [facility], [address], [place] [address] Evelyne Cheney MD, PhD - [employer] Blood Venous blood specimen / Unknown Venipuncture / Unknown 12/25/2024 8:31 AM EDT 12/25/2024 11:27 AM EDT Fritz Rodrigez MD LAB BLOOD ORDERABLES Final Result [facility] [address] [place] [address] * ISAIAH IFA with titer and pattern (12/25/2024 8:31 AM EDT) Pathologist [facility] ISAIAH Negative Negative 12/28/2024 12:55 PM EDT [facility] Blood Venous blood specimen / Unknown Venipuncture / Unknown 12/25/2024 8:31 AM EDT 12/25/2024 11:27 AM EDT Fritz Rodrigez MD LAB BLOOD ORDERABLES Final Result [facility] [address] [place] [address], * (ABNORMAL) CBC auto differential (12/25/2024 8:31 AM EDT) [facility] WBC 8.7 4.8 - 10.8 K/mcL LAB HEMETOLOGY METHOD 12/25/2024 11:36 AM EDT [facility] RBC 3.30(L) 4.50 - 5.50 M/mcL LAB HEMETOLOGY METHOD 12/25/2024 11:36 AM EDT [facility] Hemoglobin 9.4(L) 13.5 - 17.5 g/dL LAB HEMETOLOGY METHOD 12/25/2024 11:[facility] Hematocrit 29.9(L) 42.0 - 54.0 % LAB HEMETOLOGY METHOD 12/25/2024 11:36 AM [facility] MCV 91.4 79.0 - 98.0 [place] LAB HEMETOLOGY METHOD 12/25/2024 11:36 AM EDT [facility] MCH 28.7 27.0 - 32.0 pcg LAB HEMETOLOGY METHOD 12/25/2024 11:36 [facility] MCHC 31.4(L) 32.0 - 37.0 g/dL LAB HEMETOLOGY METHOD 12/25/2024 11:36 AM [facility] RDW 14.4 11.0 - 15.0 % LAB HEMETOLOGY METHOD 12/25/2024 11:36 AM [facility] Platelets 408(H) 130 - 400 K/mcL LAB HEMETOLOGY METHOD 12/25/2024 11:36 AM [facility] MPV 9.8 7.0 - 11.0 [place] LAB HEMETOLOGY METHOD 12/25/2024 11:36 AM [facility] NRBC 0.0 <1.0 % LAB HEMETOLOGY METHOD 12/25/2024 11:36 AM [facility] NRBC Absolute 0.00 <0.10 K/mcL LAB HEMETOLOGY METHOD 12/25/2024 11:36 AM [facility] Neutrophils Relative 70.0 % LAB HEMETOLOGY METHOD 12/25/2024 11:36 AM [facility] Lymphocytes Relative 16.7 % LAB HEMETOLOGY METHOD 12/25/2024 11:36 AM [facility] Monocytes Relative 9.8 % LAB HEMETOLOGY METHOD 12/25/2024 11:36 AM [facility] Eosinophils Relative 2.9 % LAB HEMETOLOGY METHOD 12/25/2024 11:36 AM [facility] Basophils Relative 0.3 % LAB HEMETOLOGY METHOD 12/25/2024 11:36 AM [facility] Immature Granulocytes Relative 0.3 % LAB HEMETOLOGY METHOD 12/25/2024 11:36 AM [facility] Neutrophils Absolute 6.09 1.50 - 7.00 K/mcL LAB HEMETOLOGY METHOD 12/25/2024 11:36 AM [facility] Lymphocytes Absolute 1.45 1.00 - 5.00 K/mcL LAB HEMETOLOGY METHOD 12/25/2024 11:36 AM [facility] Monocytes Absolute 0.85 0.20 - 1.00 K/mcL LAB HEMETOLOGY METHOD 12/25/2024 11:36 AM EDT [facility] Eosinophils Absolute 0.25 0.00 - 0.50 K/[facility] LAB HEMETOLOGY METHOD 12/25/2024 11:36 AM EDT [facility] Basophils Absolute 0.03 0.00 - 0.20 K/[facility] LAB HEMETOLOGY METHOD 12/25/2024 11:36 AM EDT [facility] Immature Granulocytes Absolute 0.03 0.00 - 0.03 K/[facility] LAB HEMETOLOGY METHOD 12/25/2024 11:36 AM EDT [facility] Blood Venous blood specimen / Unknown Venipuncture / Unknown 12/25/2024 8:31 AM EDT 12/25/2024 11:26 AM EDT Fritz Rodrigez MD LAB BLOOD ORDERABLES Final Result Performing Organization Address City/[facility]/ZIP Co de Phone Number [facility] [address] [place] [address], [place] [phone] * (ABNORMAL) Iron and TIBC (12/25/2024 8:31 AM EDT) Iron 65 50 - 160 mcg/dL LAB CHEMISTRY METHOD 12/25/2024 12:52 PM EDT [facility] TIBC 196(L) 250 - 450 mcg/dL LAB CHEMISTRY METHOD 12/25/2024 12:52 PM EDT [facility] Iron Saturation 33 20 - 50 % LAB CHEMISTRY METHOD 12/25/2024 12:52 PM EDT [facility] Blood Venous blood specimen / Unknown Venipuncture / Unknown 12/25/2024 8:31 AM EDT 12/25/2024 11:27 AM EDT Fritz Rodrigez MD LAB BLOOD ORDERABLES Final Result [facility] [address] [place] [address], [place] [phone] * (ABNORMAL) Sedimentation rate (12/25/2024 8:31 AM EDT) [facility] Sed Rate 75(H) 0 - 20 mm/hr LAB HEMETOLOGY METHOD 12/25/2024 11:44 AM EDT [facility] Blood Venous blood specimen / Unknown Venipuncture / Unknown 12/25/2024 8:31 AM EDT 12/25/2024 11:26 AM EDT Fritz Rodrigez MD LAB BLOOD ORDERABLES Final Result Performing Organization Address [facility]/ZIP Co de Phone Number [facility] [address] [place] [address], [place] [phone] * (ABNORMAL) Reticulocyte count (12/25/2024 8:31 AM EDT) [facility] Retic Ct Abs 0.040 0.030 - 0.090 M/mcL LAB HEMETOLOGY METHOD 12/25/2024 11:36 AM EDT [facility] Retic Ct Pct 1.1 0.7 - 1.7 % LAB HEMETOLOGY METHOD 12/25/2024 11:36 AM EDT [facility] Immature Retic Fract 12.5 2.3 - 15.9 % LAB HEMETOLOGY METHOD 12/25/2024 11:36 AM EDT [facility] Reticulocyte Hemoglobin 27.7(L) >29.0 pcg LAB HEMETOLOGY METHOD 12/25/2024 11:36 AM EDT [facility] Blood Venous blood specimen / Unknown Venipuncture / Unknown 12/25/2024 8:31 AM EDT 12/25/2024 11:26 AM EDT Fritz Rodrigez MD LAB BLOOD ORDERABLES Final Result [facility] [address] [place] [address], * Rheumatoid factor (12/25/2024 8:31 AM EDT) [facility] Rheumatoid Factor <10.0 <15.0 I Unit/mL LAB CHEMISTRY METHOD 12/25/2024 12:52 PM EDT [facility] Blood Venous blood specimen / Unknown Venipuncture / Unknown 12/25/2024 8:31 AM EDT 12/25/2024 11:27 AM EDT Fritz Rodrigez MD LAB BLOOD ORDERABLES Final Result Performing Organization Address [facility] de Phone Number [facility] [address] [place] [address], * Immunofixation electrophoresis serum (12/25/2024 8:31 AM EDT) [facility] Immunofixation Result, Serum No monoclonal immunoglobulins detected. LAB CHEMISTRY METHOD 12/28/2024 2:23 PM EDT [facility] Blood Venous blood specimen / Unknown Venipuncture / Unknown 12/25/2024 8:31 AM EDT 12/25/2024 11:27 AM EDT Fritz Rodrigez MD LAB BLOOD ORDERABLES Final Result Performing Organization Address [facility] Co de Phone Number [facility] [address] [place] [address], [place] [phone] * (ABNORMAL) Immunoglobulins IgG, IgA, IgM (12/25/2024 8:31 AM EDT) [facility] Total IgG 1,500 549 - 1,584 mg/dL LAB CHEMISTRY METHOD 12/25/2024 1:09 PM EDT [facility] IgA 491(H) 61 - 348 mg/dL LAB CHEMISTRY METHOD 12/25/2024 1:09 PM EDT [facility] IgM 113 23 - 259 mg/dL LAB CHEMISTRY METHOD 12/25/2024 1:09 PM EDT [facility] Blood Venous blood specimen / Unknown Venipuncture / Unknown 12/25/2024 8:31 AM EDT 12/25/2024 11:27 AM EDT Fritz Rodrigez MD LAB BLOOD ORDERABLES Final Result [facility] [address] [place] [address], [place] [phone] * Thyroid stimulating hormone (12/25/2024 8:31 AM EDT) Pathologist [facility] TSH 1.02 0.40 - 4.00 mcIU/mL LAB CHEMISTRY METHOD 12/25/2024 1:41 PM EDT [facility] Blood Venous blood specimen / Unknown Venipuncture / Unknown 12/25/2024 8:31 AM EDT 12/25/2024 11:27 AM EDT Fritz Rodrigez MD LAB BLOOD ORDERABLES Final Result Performing Organization Address [facility]/ZIP Co de Phone Number [facility] [address] [place] [address], [place] [phone] * (ABNORMAL) Protein electrophoresis, serum (12/25/2024 8:31 AM EDT) Total Protein 7.0 6.0 - 8.0 g/dL LAB CHEMISTRY METHOD 12/29/2024 2:01 PM EDT [facility] Albumin, Serum 2.6(L) 2.9 - 4.1 g/dL LAB CHEMISTRY METHOD 12/29/2024 2:01 PM EDT [facility] Alpha 1 Globulin (g/dL) 0.4 0.1 - 0.5 g/dL LAB CHEMISTRY METHOD 12/29/2024 2:01 PM EDT [facility] Alpha 2 Globulin (g/dL) 1.3 0.7 - 1.5 g/dL LAB CHEMISTRY METHOD 12/29/2024 2:01 PM EDT [facility] Beta (g/dL) 0.9 0.7 - 1.5 g/dL LAB CHEMISTRY METHOD 12/29/2024 2:01 PM EDT [facility] Gamma Globulin (g/dL) 1.8 0.7 - 1.9 g/dL LAB CHEMISTRY METHOD 12/29/2024 2:01 PM EDT [facility] SPEP Interpretation No M-Willi seen. Hypoalbuminem ia, suggestive of malnutrition, decreased hepatic synthesis or renal/GI loss LAB CHEMISTRY METHOD 12/29/2024 2:01 PM EDT [facility] Blood Venous blood specimen / Unknown Venipuncture / Unknown 12/25/2024 8:31 AM EDT 12/25/2024 11:27 AM EDT us Fritz Rodrigez MD LAB BLOOD ORDERABLES Final Result [facility] [address] [place] [address], [place] [phone] * Protein, total (12/25/2024 8:31 AM EDT) Total Protein 7.1 6.0 - 8.0 g/dL LAB CHEMISTRY METHOD 12/25/2024 12:35 PM EDT [facility] Blood Venous blood specimen / Unknown Venipuncture / Unknown 12/25/2024 8:31 AM EDT 12/25/2024 11:27 AM EDT us Fritz Rodrigez MD LAB BLOOD ORDERABLES Final Result [facility] [address] [place] [address], * Lactate dehydrogenase (12/25/2024 8:31 AM EDT) LDH 124 120 - 246 unit/L LAB CHEMISTRY METHOD 12/25/2024 12:52 PM EDT [facility] Blood Venous blood specimen / Unknown Venipuncture / Unknown 12/25/2024 8:31 AM EDT 12/25/2024 11:27 AM EDT Fritz Rodrigez MD LAB BLOOD ORDERABLES Final Result [facility] [address] [place] [address], [place] [phone] * (ABNORMAL) Haptoglobin (12/25/2024 8:31 AM EDT) Haptoglobin 358(H) 16 - 200 mg/dL LAB CHEMISTRY METHOD 12/25/2024 12:52 PM EDT [facility] Blood Venous blood specimen / Unknown Venipuncture / Unknown 12/25/2024 8:31 AM EDT 12/25/2024 11:27 AM EDT Fritz Rodrigez MD LAB BLOOD ORDERABLES Final Result [facility] [address] [place] [address], [place] [phone] * Folate (12/25/2024 8:31 AM EDT) Folate 5.2 2.8 - 17.0 ng/ml LAB CHEMISTRY METHOD 12/25/2024 12:52 PM EDT [facility] Blood Venous blood specimen / Unknown Venipuncture / Unknown 12/25/2024 8:31 AM EDT 12/25/2024 11:27 AM EDT Fritz Rodrigez MD LAB BLOOD ORDERABLES Final Result Performing Organization Address [facility] Co de Phone Number [facility] [address] [place] [address], [place] [phone] * (ABNORMAL) Ferritin (12/25/2024 8:31 AM EDT) Pathologist [facility] Ferritin 554(H) 26 - 388 ng/mL LAB CHEMISTRY METHOD 12/25/2024 12:52 PM EDT [facility] Blood Venous blood specimen / Unknown Venipuncture / Unknown 12/25/2024 8:31 AM EDT 12/25/2024 11:27 AM EDT Fritz Rodrigez MD LAB BLOOD ORDERABLES Final Result Performing Organization Address [facility] de Phone Number [facility] [address] [place] [address], [place] [phone] * Vitamin B12 (12/25/2024 8:31 AM EDT) Pathologist [facility] Vitamin B-12 493 250 - 900 pcg/mL LAB CHEMISTRY METHOD 12/25/2024 12:52 PM EDT [facility] Blood Venous blood specimen / Unknown Venipuncture / Unknown 12/25/2024 8:31 AM EDT 12/25/2024 11:27 AM EDT us Fritz Rodrigez MD LAB BLOOD ORDERABLES Final Result Performing Organization Address [facility]/ZIP Co de Phone Number [facility] [address] [place] [address], [place] [phone] * (ABNORMAL) Comprehensive metabolic panel (12/25/2024 8:31 AM EDT) Pathologist [facility] Sodium 142 133 - 145 mmol/L LAB CHEMISTRY METHOD 12/25/2024 12:52 PM EDT [facility] Potassium 3.6 3.5 - 5.5 mmol/L LAB CHEMISTRY METHOD 12/25/2024 12:52 PM [facility] Chloride 109 96 - 110 mmol/L LAB CHEMISTRY METHOD 12/25/2024 12:52 PM [facility] CO2 21 21 - 32 mmol/L LAB CHEMISTRY METHOD 12/25/2024 12:52 PM [facility] Anion Gap 12(H) 3 - 11 LAB CHEMISTRY METHOD 12/25/2024 12:52 PM [facility] Glucose 123(H) 70 - 100 mg/dL LAB CHEMISTRY METHOD 12/25/2024 12:52 PM [facility] BUN 14 5 - 25 mg/dL LAB CHEMISTRY METHOD 12/25/2024 12:52 PM [facility] Creatinine 0.95 0.70 - 1.30 mg/dL LAB CHEMISTRY METHOD 12/25/2024 12:52 PM [facility] eGFR 83 >=60 mL/min/1. 73m2 LAB CHEMISTRY METHOD 12/25/2024 12:52 PM [facility] Comment:Calculation based on the Chronic Kidney Disease Epidemiology Collaboration (CKD-EPI) equation refit without adjustment for race. BUN/Creatinine Ratio 14.7 LAB CHEMISTRY METHOD 12/25/2024 12:52 PM [facility] Calcium 8.1(L) 8.5 - 10.5 mg/dL LAB CHEMISTRY METHOD 12/25/2024 12:52 PM [facility] AST (SGOT) 11 10 - 42 unit/L LAB CHEMISTRY METHOD 12/25/2024 12:52 PM [facility] ALT (SGPT) 13 10 - 60 unit/L LAB CHEMISTRY METHOD 12/25/2024 12:52 PM [facility] Alkaline Phosphatase 79 42 - 121 unit/L LAB CHEMISTRY METHOD 12/25/2024 12:52 PM [facility] Total Protein 6.9 6.0 - 8.0 g/dL LAB CHEMISTRY METHOD 12/25/2024 12:52 PM EDT [facility] Albumin 2.6(L) 3.2 - 5.0 g/dL LAB CHEMISTRY METHOD 12/25/2024 12:52 PM EDT [facility] Total Bilirubin 0.4 0.0 - 1.4 mg/dL LAB CHEMISTRY METHOD 12/25/2024 12:52 PM EDT [facility] Blood Venous blood specimen / Unknown Venipuncture / Unknown 12/25/2024 8:31 AM EDT 12/25/2024 11:27 AM EDT us Fritz Rodrigez MD LAB BLOOD ORDERABLES Final Result [facility] [address] [place] [address], from Last 3 Months Insurance [employer] [phone] Care Teams Twist Maker Relationship Specialty Start Date End Date Trista Masters PA [address] [place] [id number] PCP - General 04/10/24
--- OUTSIDE RECORDS SUMMARY | 2025-02-25 10:14 | XMS_ITS | Clinical Summary ---
Author Organization [facility] Address [address] [place] [address] Care Team Providers Care Jet Wiper Name Role Phone Trista Masters PA-C Primary Care Provider [phone] Allergies Active Allergy Reactions Criticality Noted Date [...] Depression Screening 1961 Preventative Health Evaluation 1967 Fall Risk Assessment 2014 Shingrix-Zoster Vaccine (2 [...] to complete this topic Care Teams Jet Wiper Relationship Specialty Start Date End Date Trista Mastres PA-C PCP - General Medical Services 04/10/24
== END 2025-02-25 10:47 | disposition home or self-care (01) ==
LOC: HO.RHES 09:45
PROVIDERS: PCP Physician Assistant Medical; Visit Provider Student in an Organized Health Care Education/Training Program
DX: M31.6 Other giant cell arteritis (principal)
CPT/HCPCS: 99205; G2211

== ENCOUNTER → 2025-02-25 09:44 | Outpatient (BNVA) | payer MEDICARE, SELFPAY | PROVIDERS: PCP Physician Assistant Medical; Visit Provider Student in an Organized Health Care Education/Training Program | DX: M31.6 Other giant cell arteritis (principal) | CPT/HCPCS: 99202 ==

== ENCOUNTER 2025-02-26 11:09 | Outpatient (REF) | payer MEDICARE, SELFPAY ==
--- OUTSIDE RECORDS SUMMARY | 2025-02-26 11:15 | XMS_ITS | Encounter Summary ---
Author Organization [facility] Address [address] [place] [address] Care Team Providers Care Instructor Private Name Role Phone Jaylen Blood Primary Care Provider Mejia Palmer MD Primary Care Provider Encounter Details Date Type Department Care Team Description 06/27/2018 SCAN Medical Records [address] [place] [address] Abstract, Provider Social History Tobacco Use Types [...] on filedocumented in this encounter Care Teams Instructor Private Relationship Specialty Start Date End Date Jaylen Blood PCP - General Internal Medicine 11/06/17 11/27/22 Mejia Armas MD [address] [place] [id number] PCP - General Internal Medicine 11/28/22 documented as of this encounter
--- OUTSIDE RECORDS SUMMARY | 2025-02-26 11:15 | XMS_ITS | Clinical Summary ---
Author Organization [facility] Address [address] [place] [address] Phone Care Team Providers Care Production Intern Name Role Phone Trista Masters Primary Care Provider [phone] Allergies Active Allergy Reactions Criticality Noted Date [...] Description 02/02/2025 9:30 AM EDT Office Visit [facility] Hematology Oncology [address] [place] [address] Marika Hargrove PA Anemia, unspecified type (Primary Dx); Fatigue, unspecified type; Neutrophilia; Elevated erythrocyte sedimentation rate; Edema of left upper arm 01/21/2025 8:34 AM EDT - 01/21/2025 11:59 PM EDT Hospital Encounter [facility] CT Scan [address] [place] [address] Anemia, unspecified type; Fatigue, unspecified type; Weight loss Discharge Disposition: Home or Self Care 01/18/2025 8:51 AM EDT - 01/18/2025 11:59 PM EDT Hospital Encounter [facility] Interventional Radiology [address] [place] [address] Anemia, unspecified type; Fatigue, unspecified type; Weight loss Discharge Disposition: Home or Self Care 12/29/2024 Telephone [facility] Hematology Oncology [address] [place] [address] CAP/ Bone marrow biopsy appt 12/28/2024 12:40 PM EDT - 12/28/2024 11:59 PM EDT Hospital Encounter [facility] Ultrasound [address] [place] [address] Edema of left upper arm; Wrist pain, acute, left Discharge Disposition: Home or Self Care 12/28/2024 9:00 AM EDT Office Visit [facility] Hematology Oncology [address] [place] [phone] Marika Hargrove PA Anemia, unspecified type (Primary Dx); Fatigue, unspecified type; Weight loss; Edema of left upper arm; Wrist pain, acute, left 12/24/2024 Telephone [facility] Hematology Oncology [address] [place] [phone] Fritz Rodrigez MD from Last 3 Months [...] Description 05/03/2025 9:15 AM EDT Office Visit [facility] Hematology Oncology [address] [place] [address] Fritz Rodrigez MD [address] [place] [address] Health Maintenance Due Date Last [...] left upper arm Wrist pain, acute, left MD PROTEIN ELECTROPHORETIC FRACTIONATION & QUANTITATION SERUM Routine 12/25/2024 8:31 AM EDT Anemia, unspecified type MD IMMUNOFIXATION ELECTROPHORESIS SERUM Routine 12/25/2024 8:31 AM [...] Signed Date: 01/21/2025 14:03 ET Workstation ID: [id number] Transcribed By: Self Edit Transcribed Date: 01/21/2025 [...] Signed Date: 01/21/2025 14:03 ET Workstation ID: [id number] Transcribed By: Self Edit Transcribed Date: 01/21/2025 [...] Signed Date: 01/18/2025 12:30 ET Workstation ID: [id number] Transcribed By: Self Edit Transcribed Date: 01/18/2025 [...] of fentanyl administered during the procedure. Scanner: Silk [address] Dose reduction technique: AEC [...] of fentanyl administered during the procedure. Scanner: Silk [address] Dose reduction technique: AEC [...] Signed Date: 01/18/2025 12:30 ET Workstation ID: [id number] Transcribed By: Self Edit Transcribed Date: 01/18/2025 [...] is no increase in the proportion of VV59-esoumdqf blasts (1.4%). Note: The flow cytometry findings do not support a diagnosis of a B-cell or a T-cell lymphoproliferative disorder. CD34 positive blasts are not increased. Correlation with morphologic findings in the accompanying bone marrow aspirate and biopsy specimen ([id number]) is recommended. Please note that myeloid disorders [...] are 76.1% of total and show generally contract graphic designer immunophenotypic maturation. - Monocytic cells are 6.9% of total and show generally contract graphic designer immunophenotypic maturation. - CD45 dim cells are 2.3% of total. CD34+ Blasts are not increased (1.4%). The blasts show expression of myeloid-associated antigens CD33 (variable) and CD117 along with CD38, CD45 (moderate), and HLA-DR. The blasts appear to show partial weak expression of CD13, but no significant expression of CD7, CD14, CD15, CD16, CD56 or CD123. A minute population of UZ40-apentgmz cells with expression of CD10 and CD19 along with light scatter properties suggestive of hematogones is also noted. Antibodies (27 markers): CD2, CD3, CD4, CD5, CD7, CD8, CD10, CD11b, CD13, CD14, CD15, CD16, CD19, CD20, CD33, CD34, CD38, CD45, CD56, CD64, CD117, CD123, CD200, HLA-DR, Grubbs, Lambda, TCR??. 01/21/2025 11:44 AM EDT [facility] Disclaimer This test was developed [...] clinical laboratory testing. 01/21/2025 11:44 AM EDT [facility] Bone Marrow Specimen from bone marrow obtained by aspiration / Unknown 01/18/2025 11:00 AM EDT 01/18/2025 12:52 PM EDT us Liban Nelson MD LAB BLOOD ORDERABLES Final Resu lt [facility] [address] [place] [address], [place] [phone] * Bone marrow exam (01/18/2025 11:00 AM EDT) Addendum This case was sent t o [employer], [address] [place], [place], (CLIA #[id number]) for Oncology Chromosome Analysis studies. Their diagnosis [...] Electronic Signature BRIANDA Miller (CC), FAC - [facility] Electronic Signature Michell Philip M.D., Pathologist Report Date: 01/26/2025 11:36:58 AM ET (Full report on file) 9:31 AM EDT [facility] Addendum electronically signed by Anthony [...] T cell population and no increase in UY43-gsreqwgt blasts. Reticulin staining shows scant reticulin-stained fibers [...] Erythroid maturation: A complete range of generally contract graphic designer erythroid maturation is present. Rare binucleated erythroid [...] is no increase in the proportion of WS62-zrezqisv blasts (1.4%). Note: The flow cytometry findings [...] are 76.1% of total and show generally contract graphic designer immunophenotypic maturation. - Monocytic cells are 6.9% of total and show generally contract graphic designer immunophenotypic maturation. - CD45 dim cells are 2.3% of total. CD34+ Blasts are not increased (1.4%). The blasts show expression of myeloid-associated antigens CD33 (variable) and CD117 along with CD38, CD45 (moderate), and HLA-DR. The blasts appear to show partial weak expression of CD13, but no significant expression of CD7, CD14, CD15, CD16, CD56 or CD123. A minute population of JA55-usmxilvy cells with expression of CD10 and CD19 along with light scatter properties suggestive of hematogones is also noted. Antibodies (27 markers): CD2, CD3, CD4, CD5, CD7, CD8, CD10, CD11b, CD13, CD14, CD15, CD16, CD19, CD20, CD33, CD34, CD38, CD45, CD56, CD64, CD117, CD123, CD200, HLA-DR, Grubbs, Lambda, TCR??. This test was developed and its performance characteristics determined by [facility]. It has not been cleared or approved by U.S. Food and Drug Administration. The FDA does not require this test to go through [facility] FDA review. This test is used for clinical purposes. It should not be regarded as investigational or for research. This laboratory is certified under the Clinical Laboratory Improvement Amendments of 1988 (CLIA) as qualified to perform high complexity clinical laboratory testing. Additional Testing (Addendum to follow): Conventional karyotype All special stains were performed with appropriate controls. 9:31 AM EDT [facility] Comment The findings were discussed with ERIKA Castro by Christianne Hernández MD on 01/21/2025. 9:31 AM EDT [facility] Gross Description A. Bone Marrow Aspirate, : Labeled with the patient's name and information are two green top tubes and two purple top tubes. Eight slides are prepared. One slide subsequently is stained for iron. Two slides are stained with Dent's giemsa. One of the purple top tubes, containing 3 mL of bone marrow aspirate, is submitted in toto to [facility] in [place], [place], for flow cytometric studies. The remaining purple top tube and both green top tubes, containing 2.5 mL and 6.5 ml of bone marrow aspirate, respectively, are submitted to [facility], [place], [place], for cytogenetic studies. B. Bone Marrow Biopsy, : Labeled bone marrow biopsy . Received in formalin is a 1.3 x 0.2 cm hard, lima-red, core of bone, which is submitted in toto in one cassette following decalcification in Immunocal, one piece, x2. Please note: No clot is received with the specimen. TYRONE 9:31 AM EDT [facility] Disclaimer Unless otherwise specified, all tissue is 10% NB formalin fixed and paraffin embedded. NOTE: The immunohistochemical tests and in situ hybridization tests were developed and their performance characteristics were determined by [facility]. They have not been cleared [...] laboratory testing. (controls appropriate) 9:31 AM EDT [facility] Bone Marrow Specimen from bone marrow obtained by aspiration / Unknown 01/18/2025 11:00 AM EDT 01/18/2025 11:19 AM EDT Bone marrow specimen (specimen) Specimen from bone marrow obtained by biopsy / Unknown 01/18/2025 11:00 AM EDT 01/18/2025 11:19 AM EDT us Liban Nelson MD LAB PATHOLOGY ORDERABLES Edited Result - Final [facility] [address] [place] [address], [place] [phone] * Vascular US duplex upper extremity venous [...] Signed Date: 12/28/2024 13:35 ET Workstation ID: [id number] Transcribed By: Self Edit Transcribed Date: 12/28/2024 [...] Signed Date: 12/28/2024 13:35 ET Workstation ID: [id number] Transcribed By: Self Edit Transcribed Date: 12/28/2024 13:32 ET Marika JAMES CV VASCULAR PROCEDURES Final Result * Pathologist Review Immunofixation (12/25/2024 8:31 AM EDT) Pathologist Interpretation Pao Simmons MD 12/28/2024 2:23 PM EDT [facility] Blood Venous blood specimen / Unknown Venipuncture / Unknown 12/25/2024 8:31 AM EDT 12/25/2024 11:27 AM EDT Fritz Rodrigez MD LAB BLOOD ORDERABLES Final Result [facility] [address] [place] [address], [place] [phone] * PATHOLOGIST REVIEW PROTEIN ELECTROPHORESIS (12/25/2024 8:31 AM EDT) Pathologist Interpretation Pao Simmons MD 12/29/2024 2:01 PM EDT [facility] Blood Venous blood specimen / Unknown Venipuncture / Unknown 12/25/2024 8:31 AM EDT 12/25/2024 11:27 AM EDT Fritz Rodrigez MD LAB BLOOD ORDERABLES Final Result [facility] [address] [place] [address], [place] [phone] * (ABNORMAL) Grubbs-lambda free light chains, quantitative (12/25/2024 8:31 AM EDT) Pathologist [facility] Grubbs Free Light Chain 7.81(H) 0.33 - 1.94 mg/dL 12/28/2024 3:49 PM EDT [facility] Lambda Free Light Chain 4.66(H) 0.57 - 2.63 mg/dL 12/28/2024 3:49 PM EDT [facility] Grubbs/Lambda FLC Ratio 1.68(H) 0.26 - 1.65 12/28/2024 3:49 PM EDT [facility] Comment: Test performed at [facility], [address], [place] [address] Evelyne Cheney MD, PhD - Senior Gis Analyst Blood Venous blood specimen / Unknown Venipuncture / Unknown 12/25/2024 8:31 AM EDT 12/25/2024 11:27 AM EDT Fritz Rodrigez MD LAB BLOOD ORDERABLES Final Result [facility] [address] [place] [address] * ISAIAH IFA with titer and pattern (12/25/2024 8:31 AM EDT) Pathologist [facility] ISAIAH Negative Negative 12/28/2024 12:55 PM EDT [facility] Blood Venous blood specimen / Unknown Venipuncture / Unknown 12/25/2024 8:31 AM EDT 12/25/2024 11:27 AM EDT Fritz Rodrigez MD LAB BLOOD ORDERABLES Final Result [facility] [address] [place] [address], * (ABNORMAL) CBC auto differential (12/25/2024 8:31 AM EDT) [facility] WBC 8.7 4.8 - 10.8 K/mcL LAB HEMETOLOGY METHOD 12/25/2024 11:36 AM EDT [facility] RBC 3.30(L) 4.50 - 5.50 M/mcL LAB HEMETOLOGY METHOD 12/25/2024 11:36 AM EDT [facility] Hemoglobin 9.4(L) 13.5 - 17.5 g/dL LAB HEMETOLOGY METHOD [facility] Hematocrit 29.9(L) 42.0 - 54.0 % LAB HEMETOLOGY METHOD 12/25/2024 11:[facility] MCV 91.4 79.0 - 98.0 [place] LAB HEMETOLOGY METHOD 12/25/2024 11:36 AM EDT [facility] MCH 28.7 27.0 - 32.0 pcg LAB HEMETOLOGY METHOD 12/25/2024 11:[facility] MCHC 31.4(L) 32.0 - 37.0 g/dL LAB HEMETOLOGY METHOD 12/25/2024 11:[facility] RDW 14.4 11.0 - 15.0 % LAB HEMETOLOGY METHOD 12/25/2024 11:36 AM [facility] Platelets 408(H) 130 - 400 K/mcL LAB HEMETOLOGY METHOD 12/25/2024 11:36 AM [facility] MPV 9.8 7.0 - 11.0 [place] LAB HEMETOLOGY METHOD 12/25/2024 11:36 AM [facility] NRBC 0.0 <1.0 % LAB HEMETOLOGY METHOD 12/25/2024 11:36 AM [facility] NRBC Absolute 0.00 <0.10 K/mcL LAB HEMETOLOGY METHOD 12/25/2024 11:36 AM [facility] Neutrophils Relative 70.0 % LAB HEMETOLOGY METHOD 12/25/2024 11:36 AM [facility] Lymphocytes Relative 16.7 % LAB HEMETOLOGY METHOD 12/25/2024 11:36 AM [facility] Monocytes Relative 9.8 % LAB HEMETOLOGY METHOD 12/25/2024 11:36 AM [facility] Eosinophils Relative 2.9 % LAB HEMETOLOGY METHOD 12/25/2024 11:36 AM [facility] Basophils Relative 0.3 % LAB HEMETOLOGY METHOD 12/25/2024 11:36 AM [facility] Immature Granulocytes Relative 0.3 % LAB HEMETOLOGY METHOD 12/25/2024 11:36 AM [facility] Neutrophils Absolute 6.09 1.50 - 7.00 K/mcL LAB HEMETOLOGY METHOD 12/25/2024 11:36 AM [facility] Lymphocytes Absolute 1.45 1.00 - 5.00 K/mcL LAB HEMETOLOGY METHOD 12/25/2024 11:36 AM [facility] Monocytes Absolute 0.85 0.20 - 1.00 K/mcL LAB HEMETOLOGY METHOD 12/25/2024 11:36 AM EDT [facility] Eosinophils Absolute 0.25 0.00 - 0.50 K/[facility] LAB HEMETOLOGY METHOD 12/25/2024 11:36 AM EDT [facility] Basophils Absolute 0.03 0.00 - 0.20 K/[facility] HEMETOLOGY METHOD 12/25/2024 11:36 AM EDT [facility] Immature Granulocytes Absolute 0.03 0.00 - 0.03 K/[facility] HEMETOLOGY METHOD 12/25/2024 11:36 AM EDT [facility] Blood Venous blood specimen / Unknown Venipuncture / Unknown 12/25/2024 8:31 AM EDT 12/25/2024 11:26 AM EDT Fritz Rodrigez MD LAB BLOOD ORDERABLES Final Result Performing Organization Address City/[facility] [address]/ZIP Co de Phone Number [facility] [address] [place] [address], [place] [phone] * (ABNORMAL) Iron and TIBC (12/25/2024 8:31 AM EDT) Iron 65 50 - 160 mcg/dL LAB CHEMISTRY METHOD 12/25/2024 12:52 PM EDT [facility] TIBC 196(L) 250 - 450 mcg/dL LAB CHEMISTRY METHOD 12/25/2024 12:52 PM EDT [facility] Iron Saturation 33 20 - 50 % LAB CHEMISTRY METHOD 12/25/2024 12:52 PM EDT [facility] Blood Venous blood specimen / Unknown Venipuncture / Unknown 12/25/2024 8:31 AM EDT 12/25/2024 11:27 AM EDT Fritz Rodrigez MD LAB BLOOD ORDERABLES Final Result [facility] [address] [place] [address], [place] [phone] * (ABNORMAL) Sedimentation rate (12/25/2024 8:31 AM EDT) [facility] Sed Rate 75(H) 0 - 20 mm/hr LAB HEMETOLOGY METHOD 12/25/2024 11:44 AM EDT [facility] Blood Venous blood specimen / Unknown Venipuncture / Unknown 12/25/2024 8:31 AM EDT 12/25/2024 11:26 AM EDT Fritz Rodrigez MD LAB BLOOD ORDERABLES Final Result Performing Organization Address [facility] [address]/ZIP Co de Phone Number [facility] [address] [place] [address], [place] [phone] * (ABNORMAL) Reticulocyte count (12/25/2024 8:31 AM EDT) [facility] Retic Ct Abs 0.040 0.030 - 0.090 M/mcL LAB HEMETOLOGY METHOD 12/25/2024 11:36 AM EDT [facility] Retic Ct Pct 1.1 0.7 - 1.7 % LAB HEMETOLOGY METHOD 12/25/2024 11:36 AM EDT [facility] Immature Retic Fract 12.5 2.3 - 15.9 % LAB HEMETOLOGY METHOD 12/25/2024 11:36 AM EDT [facility] Reticulocyte Hemoglobin 27.7(L) >29.0 pcg LAB HEMETOLOGY METHOD 12/25/2024 11:36 AM EDT [facility] Blood Venous blood specimen / Unknown Venipuncture / Unknown 12/25/2024 8:31 AM EDT 12/25/2024 11:26 AM EDT Fritz Rodrigez MD LAB BLOOD ORDERABLES Final Result [facility] [address] [place] [address], * Rheumatoid factor (12/25/2024 8:31 AM EDT) [facility] Rheumatoid Factor <10.0 <15.0 I Unit/mL LAB CHEMISTRY METHOD 12/25/2024 12:52 PM EDT [facility] Blood Venous blood specimen / Unknown Venipuncture / Unknown 12/25/2024 8:31 AM EDT 12/25/2024 11:27 AM EDT Fritz Rodrigez MD LAB BLOOD ORDERABLES Final Result Performing Organization Address [facility] de Phone Number [facility] [address] [place] [address], * Immunofixation electrophoresis serum (12/25/2024 8:31 AM EDT) [facility] Immunofixation Result, Serum No monoclonal immunoglobulins detected. LAB CHEMISTRY METHOD 12/28/2024 2:23 PM EDT [facility] Blood Venous blood specimen / Unknown Venipuncture / Unknown 12/25/2024 8:31 AM EDT 12/25/2024 11:27 AM EDT Fritz Rodrigez MD LAB BLOOD ORDERABLES Final Result Performing Organization Address [facility] [address] [facility] Co de Phone Number [facility] [address] [place] [address], [place] [phone] * (ABNORMAL) Immunoglobulins IgG, IgA, IgM (12/25/2024 8:31 AM EDT) [facility] Total IgG 1,500 549 - 1,584 mg/dL LAB CHEMISTRY METHOD 12/25/2024 1:09 PM EDT [facility] IgA 491(H) 61 - 348 mg/dL LAB CHEMISTRY METHOD 12/25/2024 1:09 PM EDT [facility] IgM 113 23 - 259 mg/dL LAB CHEMISTRY METHOD 12/25/2024 1:09 PM EDT [facility] Blood Venous blood specimen / Unknown Venipuncture / Unknown 12/25/2024 8:31 AM EDT 12/25/2024 11:27 AM EDT Fritz Rodrigez MD LAB BLOOD ORDERABLES Final Result [facility] [address] [place] [address], [place] [phone] * Thyroid stimulating hormone (12/25/2024 8:31 AM EDT) Pathologist [facility] TSH 1.02 0.40 - 4.00 mcIU/mL LAB CHEMISTRY METHOD 12/25/2024 1:41 PM EDT [facility] Blood Venous blood specimen / Unknown Venipuncture / Unknown 12/25/2024 8:31 AM EDT 12/25/2024 11:27 AM EDT Fritz Rodrigez MD LAB BLOOD ORDERABLES Final Result Performing Organization Address [facility] [address]/ZIP Co de Phone Number [facility] [address] [place] [address], [place] [phone] * (ABNORMAL) Protein electrophoresis, serum (12/25/2024 8:31 AM EDT) Total Protein 7.0 6.0 - 8.0 g/dL LAB CHEMISTRY METHOD 12/29/2024 2:01 PM EDT [facility] Albumin, Serum 2.6(L) 2.9 - 4.1 g/dL LAB CHEMISTRY METHOD 12/29/2024 2:01 PM EDT [facility] Alpha 1 Globulin (g/dL) 0.4 0.1 - 0.5 g/dL LAB CHEMISTRY METHOD 12/29/2024 2:01 PM EDT [facility] Alpha 2 Globulin (g/dL) 1.3 0.7 - 1.5 g/dL LAB CHEMISTRY METHOD 12/29/2024 2:01 PM EDT [facility] Beta (g/dL) 0.9 0.7 - 1.5 g/dL LAB CHEMISTRY METHOD 12/29/2024 2:01 PM EDT [facility] Gamma Globulin (g/dL) 1.8 0.7 - 1.9 g/dL LAB CHEMISTRY METHOD 12/29/2024 2:01 PM EDT [facility] SPEP Interpretation No M-Willi seen. Hypoalbuminem ia, suggestive of malnutrition, decreased hepatic synthesis or renal/GI loss LAB CHEMISTRY METHOD 12/29/2024 2:01 PM EDT [facility] Blood Venous blood specimen / Unknown Venipuncture / Unknown 12/25/2024 8:31 AM EDT 12/25/2024 11:27 AM EDT us Fritz Rodrigez MD LAB BLOOD ORDERABLES Final Result [facility] [address] [place] [address], [place] [phone] * Protein, total (12/25/2024 8:31 AM EDT) Total Protein 7.1 6.0 - 8.0 g/dL LAB CHEMISTRY METHOD 12/25/2024 12:35 PM EDT [facility] Blood Venous blood specimen / Unknown Venipuncture / Unknown 12/25/2024 8:31 AM EDT 12/25/2024 11:27 AM EDT us Fritz Rodrigez MD LAB BLOOD ORDERABLES Final Result [facility] [address] [place] [address], * Lactate dehydrogenase (12/25/2024 8:31 AM EDT) LDH 124 120 - 246 unit/L LAB CHEMISTRY METHOD 12/25/2024 12:52 PM EDT [facility] Blood Venous blood specimen / Unknown Venipuncture / Unknown 12/25/2024 8:31 AM EDT 12/25/2024 11:27 AM EDT Fritz Rodrigez MD LAB BLOOD ORDERABLES Final Result [facility] [address] [place] [address], [place] [phone] * (ABNORMAL) Haptoglobin (12/25/2024 8:31 AM EDT) Haptoglobin 358(H) 16 - 200 mg/dL LAB CHEMISTRY METHOD 12/25/2024 12:52 PM EDT [facility] Blood Venous blood specimen / Unknown Venipuncture / Unknown 12/25/2024 8:31 AM EDT 12/25/2024 11:27 AM EDT Fritz Rodrigez MD LAB BLOOD ORDERABLES Final Result [facility] [address] [place] [address], [place] [phone] * Folate (12/25/2024 8:31 AM EDT) Folate 5.2 2.8 - 17.0 ng/ml LAB CHEMISTRY METHOD 12/25/2024 12:52 PM EDT [facility] Blood Venous blood specimen / Unknown Venipuncture / Unknown 12/25/2024 8:31 AM EDT 12/25/2024 11:27 AM EDT Fritz Rodrigez MD LAB BLOOD ORDERABLES Final Result Performing Organization Address [facility] [address] [facility] Co de Phone Number [facility] [address] [place] [address], [place] [phone] * (ABNORMAL) Ferritin (12/25/2024 8:31 AM EDT) Pathologist [facility] Ferritin 554(H) 26 - 388 ng/mL LAB CHEMISTRY METHOD 12/25/2024 12:52 PM EDT [facility] Blood Venous blood specimen / Unknown Venipuncture / Unknown 12/25/2024 8:31 AM EDT 12/25/2024 11:27 AM EDT Fritz Rodrigez MD LAB BLOOD ORDERABLES Final Result Performing Organization Address [facility] de Phone Number [facility] [address] [place] [address], [place] [phone] * Vitamin B12 (12/25/2024 8:31 AM EDT) Pathologist [facility] Vitamin B-12 493 250 - 900 pcg/mL LAB CHEMISTRY METHOD 12/25/2024 12:52 PM EDT [facility] Blood Venous blood specimen / Unknown Venipuncture / Unknown 12/25/2024 8:31 AM EDT 12/25/2024 11:27 AM EDT us Fritz Rodrigez MD LAB BLOOD ORDERABLES Final Result Performing Organization Address [facility] [address] [facility]/ZIP Co de Phone Number [facility] [address] [place] [address], [place] [phone] * (ABNORMAL) Comprehensive metabolic panel (12/25/2024 8:31 AM EDT) Pathologist [facility] Sodium 142 133 - 145 mmol/L LAB CHEMISTRY METHOD 12/25/2024 12:52 PM EDT [facility] Potassium 3.6 3.5 - 5.5 mmol/L LAB CHEMISTRY METHOD 12/25/2024 12:52 PM [facility] Chloride 109 96 - 110 mmol/L LAB CHEMISTRY METHOD 12/25/2024 12:52 PM [facility] CO2 21 21 - 32 mmol/L LAB CHEMISTRY METHOD 12/25/2024 12:52 PM [facility] Anion Gap 12(H) 3 - 11 LAB CHEMISTRY METHOD 12/25/2024 12:52 PM [facility] Glucose 123(H) 70 - 100 mg/dL LAB CHEMISTRY METHOD 12/25/2024 12:52 PM [facility] BUN 14 5 - 25 mg/dL LAB CHEMISTRY METHOD 12/25/2024 12:52 PM [facility] Creatinine 0.95 0.70 - 1.30 mg/dL LAB CHEMISTRY METHOD 12/25/2024 12:52 PM [facility] eGFR 83 >=60 mL/min/1. 73m2 LAB CHEMISTRY METHOD 12/25/2024 12:52 PM [facility] Comment:Calculation based on the Chronic Kidney Disease Epidemiology Collaboration (CKD-EPI) equation refit without adjustment for race. BUN/Creatinine Ratio 14.7 LAB CHEMISTRY METHOD 12/25/2024 12:52 PM [facility] Calcium 8.1(L) 8.5 - 10.5 mg/dL LAB CHEMISTRY METHOD 12/25/2024 12:52 PM [facility] AST (SGOT) 11 10 - 42 unit/L LAB CHEMISTRY METHOD 12/25/2024 12:52 PM [facility] ALT (SGPT) 13 10 - 60 unit/L LAB CHEMISTRY METHOD 12/25/2024 12:52 PM [facility] Alkaline Phosphatase 79 42 - 121 unit/L LAB CHEMISTRY METHOD 12/25/2024 12:52 PM [facility] Total Protein 6.9 6.0 - 8.0 g/dL LAB CHEMISTRY METHOD 12/25/2024 12:52 PM EDT [facility] Albumin 2.6(L) 3.2 - 5.0 g/dL LAB CHEMISTRY METHOD 12/25/2024 12:52 PM EDT [facility] Total Bilirubin 0.4 0.0 - 1.4 mg/dL LAB CHEMISTRY METHOD 12/25/2024 12:52 PM EDT [facility] Blood Venous blood specimen / Unknown Venipuncture / Unknown 12/25/2024 8:31 AM EDT 12/25/2024 11:27 AM EDT us Fritz Rodrigez MD LAB BLOOD ORDERABLES Final Result [facility] [address] [place] [address], from Last 3 Months Insurance [employer] MEDICARE Care Teams Production Intern Relationship Specialty Start Date End Date Trista Masters PA [address] [place] [id number] PCP - General 04/10/24
--- OUTSIDE RECORDS SUMMARY | 2025-02-26 11:15 | XMS_ITS | Clinical Summary ---
Author Organization [facility] Address [address] [place] [address] Care Team Providers Care Skin Carver Name Role Phone Trista Masters PA-C Primary [...] age to complete this topic Care Teams Skin Carver Relationship Specialty Start Date End Date Trista Masters PA-C PCP - General Medical Services 04/10/24
[2025-02-26 12:09] LABS: MANUAL DIFF FLAG NO
[2025-02-26 13:29] LABS: Hematocrit 34.7 % (42.0-52.0); Hemoglobin 11.1 g/dl (14.0-18.0); Imm Gran Abs Auto 0.04 X10*3/uL (0.00-0.03); Imm Gran Pct Auto 0.4 % (0.0-0.4); Lymphocytes Absolute Auto 1.9 X10*3/uL (1.2-4.9); Mean Corpuscular HGB Conc 32.0 g/dl (31.0-36.0); Mean Corpuscular Hemoglobin 29.6 pg (27.0-33.0); Mean Corpuscular Volume 92.5 fL (80.0-98.0); NRBC Abs Auto 0.000 X10*3/uL (0.0-0.012); NRBC Pct Auto 0.0 /100WBC (0.0-0.2); Platelet Count 327 X10*3/uL (160-400); Red Blood Count 3.75 X10*6/uL (4.60-5.80); White Blood Count 9.6 X10*3/uL (4.8-10.8)
[2025-02-26 13:58] LABS: Alanine Aminotransferase 9 U/L (0-40); Albumin Level 3.9 g/dL (3.5-5.0); Alkaline Phosphatase 91 U/L (39-117); Anion Gap 12 (12-20); Aspartate Amino Transferase 20 U/L (5-37); Blood Urea Nitrogen 14 mg/dL (9-16); Calcium 8.9 mg/dL (8.4-10.2); Carbon Dioxide 23 mmol/L (22-29); Chloride 108 mmol/L (96-108); Estimated Glomerular Filt Rate > 60; Potassium 3.9 mmol/L (3.3-5.1); Sodium 139 mmol/L (135-145); Total Protein 7.5 g/dL (6.5-8.0)
[2025-02-26 14:07] LABS: Ferritin 375 ng/mL (20-250)
[2025-03-02 13:33] LABS: Immunoglobulin G Subclass 1 507 mg/dL (382-929); Immunoglobulin G Subclass 2 539 mg/dL (241-700); Immunoglobulin G Subclass 3 58 mg/dL (22-178); Immunoglobulin G Subclass 4 158.4 mg/dL (4-86); Immunoglobulin G Total 1218 mg/dL (600-1540)
[2025-03-02 21:19] LABS: Proteinase 3 PR3 Antibodies <1.0 AI
== END 2025-02-26 11:10 | disposition home or self-care (01) ==
LOC: HO.HMGCLDS 11:09
PROVIDERS: PCP Physician Assistant Medical; Visit Provider Student in an Organized Health Care Education/Training Program
DX: R91.8 Other nonspecific abnormal finding of lung field (principal); R06.09 Other forms of dyspnea; M31.6 Other giant cell arteritis
CPT/HCPCS: 80053; 82550; 82728; 82784; 85025; 85652; 86021; 86140; 86200; 86431; 99202

== ENCOUNTER 2025-02-26 15:09 | Outpatient (AMB) | payer MEDICARE, SELFPAY ==
--- NOTE | 2025-02-26 15:30 | MHC.OFFVIS ---
Vital Signs 02/26/25 15:31 Height 5 ft 8 in Weight 153 lb 2 oz BMI 23.3 BP 158/84 H Blood Pressure Location Rt brachial Position Sitting Pulse 70 Pulse Source Pulse Oximeter Pulse Oximetry (%) 99 Oxygen Delivery Method Room Air Intake Visit Reasons: abnormal finding of lung field Allergies latex (LATEX) Allergy (Intermediate, Verified 02/26/25 15:33) RASH lisinopril (LISINOPRIL) Allergy (Intermediate, Verified 02/26/25 15:33) LEG CRAMPS NSAIDS (Non-Steroidal Anti-Inflamma (NSAIDS (NON-STEROIDAL ANTI-INFLAMMA) Allergy (Intermediate, Verified 02/26/25 15:33) LEG CRAMPS vardenafil (From LEVITRA) Allergy (Intermediate, Verified 02/26/25 15:33) HALLUCINATIONS hydromorphone (Dilaudid) Allergy (Unknown, Verified 02/26/25 15:33) clammy ibuprofen Allergy (Unknown, Verified 02/26/25 15:33) Unknown Latex Gloves Allergy (Unknown, Uncoded 02/26/25 15:33) Unknown bee products Allergy (Uncoded 02/26/25 15:33) Rash HPI HPI abnormal finding of lung field: Details: Ricki is a pleasant 75 year old male, former 60+ pack year smoker, quit 30 years ago with underlying chronic neutrophilia, anemia, weight loss, hypercholesterolemia, hypertension, coronary artery disease, right lower lobe lung nodule, BPH, CONNER, palpitations, peripheral neuropathy, TIA x2, controlled type 2 diabetes and venous insufficiency. He was referred by PCP after recent imaging revealed [address] Chest performed at [facility] 01/2025 revealed emphysematous changes as well as multiple <2mm pulmonary nodules, predominantly of upper lobes and a RLL 8 mm nodule. He notes prior imaging through [facility] where he was followed for pulmonary nodules without any significant changes during that time. He reports intermittent dyspnea otherwise denies any respiratory symptoms and is not interested in further evaluation of dyspnea at this time. 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 Question of prior asthma diagnosis. He denies recurrent respiratory infections. He denies any pertinent family history. 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 There is also a question of some type of blood disorder under the care of oncology/hemetology through [facility]. [facility] Medical History (Updated 02/12/25 @ 20:28 by NILS PrietoP-) Elevated sed rate Elevated C-reactive protein (CRP) Multiple lung nodules Left hand pain Left wrist pain Swelling of left hand Abnormal CBC Extremity edema Night sweats Weight loss Routine physical examination Right leg swelling PARIS (dyspnea on exertion) Abnormal echocardiogram Osteoarthritis of left knee Bursitis of left knee Synovial cyst of popliteal space [Gomes], left knee CAD (coronary artery disease) Left leg swelling Left knee pain Abnormal CBC Elevated ferritin Anemia Emphysema lung Cholelithiasis Asthma Tubular adenoma of colon Ocular migraine Chronic neutrophilia Controlled type 2 diabetes with neuropathy UTI (urinary tract infection) BPH associated with nocturia Venous insufficiency Type 2 diabetes mellitus TIA (transient ischemic attack) Stable angina pectoris Peripheral neuropathy Palpitations Osteoarthritis, hand CONNER (obstructive sleep apnea) Nodule of lower lobe of right lung Murmur Lower urinary tract symptoms HTN (hypertension) Hypercholesteremia Chronic total occlusion of coronary artery Surgical History (Reviewed 02/25/25 @ 10:00 by Hodan Renee [facility]) History of bone marrow biopsy History of bilateral cataract extraction History of sinus surgery History of microdiscectomy Status post reverse total shoulder replacement History of colonoscopy Social History Housing: Other (mobile home prison community) Alcohol intake: current Alcohol intake frequency: holidays/special occasions only Comment: Socially Patient Tobacco Use Status: Former Tobacco user Cigarette Packs Per Day: 2 Years Smoked: 30 e-Cigarette/Vaping Use: Never Used Second Hand Smoke Exposure: No service: Yes Current occupational status: retired Current occupational exposures/hazards: No Cognitive needs: No Hearing needs: No Vision needs: Yes (reading glasses) Review of Systems Const Denies chills, Denies excessive sweating, Denies fever(s) and Denies headache(s) Eyes Denies dry eyes, Denies irritation and Denies itchy eyes ENT Reports Normal hearing present, Denies headache(s), Denies nasal congestion, Denies nasal discharge, Denies post nasal drip and Denies sore throat Card Denies chest pain, Denies chest pain at rest, Denies chest pain with activity, Denies claudication, Denies orthopnea and Denies paroxysmal nocturnal dyspnea Resp Denies chest congestion, Denies cough, Denies excessive phlegm production, Denies pain on inspiration, Denies pain with cough, Denies stridor and Denies wheezing Musc Denies myalgias Neuro Reports Normal hearing present and Denies headache(s) Endo Denies excessive sweating Ander/Lymph Denies lymphadenopathy Aller/Immun Denies itchy eyes, Denies seasonal rhinorrhea and Denies wheezing Physical Exam Vital Signs: Last Vital Signs Pulse 70 02/26/25 15:31 BP 158/84 H 02/26/25 15:31 Pulse Ox 99 02/26/25 15:31 Oxygen Delivery Method Room Air 02/26/25 15:31 BMI result Body Mass Index 23.3 Const General: cooperative, healthy appearing, comfortable, no acute distress, well developed and alert Orientation/consciousness: patient oriented x3 Limitations: no limitations HEENT Head: Yes normal to inspection, Yes normocephalic and Yes atraumatic Ears: hearing grossly normal bilaterally and external ears normal Eyes General: appearance normal, both eyes and all related structures Eyelids: Yes eyelids normal Sclerae: sclerae normal EOM: EOMs intact bilaterally Neck Neck: Yes normal visual inspection and Yes no lymphadenopathy Lymphatic: no lymphadenopathy noted Chest Chest palpation & inspection: normal inspection of the chest Resp Effort & Inspection: normal respiratory effort, able to speak in complete sentences, no audible wheezes, no cough, no stridor, not tachypneic, no tripod positioning and no use of accessory muscles Auscultation: clear to auscultation bilaterally Cardio Jugular venous distension: no JVD Rate: regular rate Rhythm: regular rhythm Skin Other: warm, dry General skin exam: no rashes or lesions noted Neuro General: patient oriented x3 Cranial nerves: Yes Normal hearing present Cognition (Neuro): normal cognition Gait exam (Neuro): Normal gait present Extrem General: Yes normal to inspection, Yes capillary refill normal, Yes no clubbing, cyanosis or edema and Yes no pedal edema Psych Appearance: grossly normal and well kempt Speech and movement: Normal speech and movement present and Clear speech present Affect: normal affect Attitude: cooperative Thought process: Normal thought process present Thought content: Normal thought content present Insight: Good insight present (Psych) Judgement: Good judgement present (Psych) Assessment & Plan Assessment & Plan (1) Multiple lung nodules: Code(s): R91.8 - Other nonspecific abnormal finding of lung field Category: Medical (2) PARIS (dyspnea on exertion): Code(s): R06.09 - Other forms of dyspnea Category: Medical Plan Patient presents after chest CT at [facility] revealed 8 mm pulmonary nodule of RLL. Patient reports known history of pulmonary nodules. Will attempt to obtain images from recent CT as well as prior through [facility]. If unable to obtain will repeat in 3 months to assess stability. Patient with question of prior asthma diagnosis and reports intermittent dyspnea on exertion. Discussed further evaluation with PFT however he would like to hold off at this time. He is aware to call if symptoms are persistent or worsen. All questions were answered and patient is in agreement of plan. Will follow up in 3 months or sooner if needed. Coding Level of Care Code New Pt Level 3 (97008) Diagnoses Multiple lung nodules R91.8 PARIS (dyspnea on exertion) R06.09
[2025-02-26 15:31] VITALS: BP 158/84; PULSE 70; O2SAT 99; BMI 23.3
== END 2025-02-26 16:26 | disposition home or self-care (01) ==
LOC: HO.HPSW 15:11
PROVIDERS: PCP Physician Assistant Medical; Referring Provider Physician Assistant Medical; Visit Provider Nurse Practitioner Family
DX: R91.8 Other nonspecific abnormal finding of lung field (principal); R06.09 Other forms of dyspnea
CPT/HCPCS: 99203

== ENCOUNTER 2025-03-29 09:42 | Outpatient (AMB) | payer MEDICARE, SELFPAY ==
--- OUTSIDE RECORDS SUMMARY | 2025-03-23 07:29 | XMS_ITS | Encounter Summary ---
Author Organization [facility] Address [address] [place] [address] Care Team Providers Care Business Continuity Consultant Name Role Phone Trista Masters Primary Care Provider [phone] Reason for Referral * Imaging (Routine) - Pending Review Specialty Diagnoses / Procedures Referred By Vanessa t Referred To Contact Radiology Diagnoses Other giant cell arteritis (CMS/HCC V24, CMS/HCC V28) Procedures PET CT Skull to Mid Thigh Initial Elle Solorzano MD [address] [place] [id number] Phone: tel: fax: [facility] Referral ID Status Reason Start Date Expiration Date V isits Requested Visits Authorized [id number] Pending Review 03/19/2025 03/19/2026 1 1 Reason for Visit * Imaging (Routine) - Pending Review Specialty Diagnoses / Procedures Referred By Vanessa antonio Referred To Contact Radiology Diagnoses Other giant cell arteritis (CMS/HCC V24, CMS/HCC V28) Procedures PET CT Skull to Mid Thigh Initial Elle Solorzano MD [address] [place] [address] Phone: tel: fax: [facility] Referral ID Status Reason Start Date Expiration Date V isits Requested Visits Authorized [id number] Pending Review 03/19/2025 03/19/2026 1 1 Encounter Details Date Type Department Care Team (Latest Contact Info) Description 03/23/2025 7:29 AM EDT Hospital Encounter [facility] PET Scan [address] [place] [phone] Other giant cell arteritis ([facility] V24, [facility] V28) Social History Tobacco Use Types Packs/Day Years [...] as of this encounter Plan of Treatment Upcoming Encounters Date Type Department Care Team (Late st Contact Info) Description 05/03/2025 9:15 AM EDT Office Visit [facility] Hematology Oncology [address] [place] [phone] Fritz Rodrigez MD [address] [place] [address] documented as of this encounter Procedures Procedure Name Priority Date/Time Associated Diagnosis Comments PET CT SKULL TO MID THIGH INITIAL Routine 03/23/2025 9:17 AM EDT Other giant cell arteritis ([facility] V24, [facility] V28) documented in this encounter Results * PET CT Skull to Mid Thigh Initial (03/23/2025 9:17 AM EDT) Anatomical Region Laterality Modality Body Radiographic Nette ging 03/24/2025 3:48 PM EDT Impressions 03/24/2025 3:54 PM EDT No pattern of activity to suggest giant cell arteritis. Pattern of musculoskeletal activity suspicious for polymyalgia rheumatica. -------- FINAL REPORT -------- Dictated By: Liban Nelson Dictated Date: 03/24/2025 15:48 ET Assigned Physician: Liban Nelson Reviewed and Electronically Signed By: Liban Nelson Signed Date: 03/24/2025 15:54 ET Workstation ID: [id number] Transcribed By: Self Edit Transcribed Date: 03/24/2025 15:48 ET Narrative 03/24/2025 3:54 PM EDT INDICATION: Giant cell arteritis, initial treatment strategy Prior relevant studies: CT scan of the chest, abdomen and pelvis from January 21, 2025. Radiopharmaceutical: 12.0 mCi of F-18 FDG IV. Blood glucose: 86 mg/dl. PROCEDURE: Routine body FDG PET-CT imaging was performed from the skull base to the mid thighs and reconstructed in axial, coronal, and sagittal planes at the computer workstation with fused data from both the PET imaging study and attenuation correction CT. The CT portion of the examination was done strictly for attenuation correction and is not a true diagnostic CT examination. CTDI: 8.14 mGy FINDINGS: VASCULAR: No abnormal activity noted along the vascular system (subclavian and axillary arteries, extracranial carotid arteries, aorta, iliac and femoral vessels). Liver SUV max 3 Supra aortic SUV max 2.5 Aortic SUV max of 2.8 just below the renal arteries. Iliac SUV max of 2.5 on the right and left HEAD AND NECK: Focal activity associated with small nodule within the deep aspect of the left parotid gland with SUV max of 4.5. THORAX: No abnormal FDG activity. ABDOMEN/PELVIS: No abnormal FDG activity. MUSCULOSKELETAL: Increased activity noted within both shoulders, left supraclavicular joint, both hips, left ischial tuberosity as well as both knees with SUV max of 5.3 within the right shoulder and 7.1 in the right knee. This distribution is suspicious for polymyalgia rheumatica. Procedure Note Liban Nelson MD - 03/24/2025 INDICATION: Giant cell arteritis, initial treatment strategy Prior relevant studies: CT scan of the chest, abdomen and pelvis from 2024. Radiopharmaceutical: 12.0 mCi of F-18 FDG IV. Blood glucose: 86 mg/dl. PROCEDURE: Routine body FDG PET-CT imaging was performed from the skullbase to the mid thighs and reconstructed in axial, coronal, and sagittalplanes at the computer workstation with fused data from both the PETimaging study and attenuation correction CT. The CT portion of theexamination was done strictly for attenuation correction and is not a truediagnostic CT examination. CTDI: 8.14 mGy FINDINGS: VASCULAR: No abnormal activity noted along the vascular system (subclavianand axillary arteries, extracranial carotid arteries, aorta, iliac andfemoral vessels). Liver SUV max 3 Supra aortic SUV max 2.5 Aortic SUV max of 2.8 just below the renal arteries. Iliac SUV max of 2.5 on the right and left HEAD AND NECK: Focal activity associated with small nodule within the deepaspect of the left parotid gland with SUV max of 4.5. THORAX: No abnormal FDG activity. ABDOMEN/PELVIS: No abnormal FDG activity. MUSCULOSKELETAL: Increased activity noted within both shoulders, leftsupraclavicular joint, both hips, left ischial tuberosity as well as bothknees with SUV max of 5.3 within the right shoulder and 7.1 in the rightknee. This distribution is suspicious for polymyalgia rheumatica. IMPRESSION: No pattern of activity to suggest giant cell arteritis. Pattern of musculoskeletal activity suspicious for polymyalgiarheumatica. -------- FINAL REPORT -------- Dictated By: Liban Nelson Dictated Date: 03/24/2025 15:48 ET Assigned Physician: Liban Nelson Reviewed and Electronically Signed By: Liban Nelson Signed Date: 03/24/2025 15:54 ET Workstation ID: [id number] Transcribed By: Self Edit Transcribed Date: 03/24/2025 15:48 ET us Elle Solorzano MD IM NM PROCEDURES Final Result documented in this encounter Visit Diagnoses Diagnosis Other giant cell arteritis ([facility]/HCC V24, [facility]/HCC V28) documented in this encounter Administered Medications Inactive Administered Medications - up to 3 most recent administrations Medication Order MAR Action Action Date Dose Rate Site F-18 FDG pet diag radio-isotope injection 12 millicurie 12 millicurie, intravenous, Once in imaging, Starting on Sat03/23/25 at 0815, For 1 dose Given 03/23/2025 8:10 AM EDT 12 millicuries documented in this encounter Orders Medications Ordered That Travis ht Not Have Been Administered Count Last Ordered Date First Ordered Date F-18 FDG pet diag radio-isot ope injection 12 millicurie 1 03/23/2025 documented in this encounter Care Teams Business Continuity Consultant Relationship Specialty Start Date End Date Trista Masters PA [address] [place] [address] PCP - General 04/10/24 documented as of this encounter
--- NOTE | 2025-03-29 10:01 | MHC.PC.OV ---
Vital Signs 03/29/25 10:09 Height 5 ft 8 in Weight 156 lb 8 oz BMI 23.8 BP 138/82 Blood Pressure Location Lt brachial Position Sitting Pulse 69 Pulse Source Pulse Oximeter Temp 97.2 F Temp Source Temporal Artery Scan Pulse Oximetry (%) 98 Oxygen Delivery Method Room Air Intake Visit Reasons: 30 minute weight loss, swelling Intake Note: Ricki presents in the office today for weight loss and swelling. Allergies latex (LATEX) Allergy (Intermediate, Verified 03/29/25 10:07) RASH lisinopril (LISINOPRIL) Allergy (Intermediate, Verified 03/29/25 10:07) LEG CRAMPS NSAIDS (Non-Steroidal Anti-Inflamma (NSAIDS (NON-STEROIDAL ANTI-INFLAMMA) Allergy (Intermediate, Verified 03/29/25 10:07) LEG CRAMPS vardenafil (From LEVITRA) Allergy (Intermediate, Verified 03/29/25 10:07) HALLUCINATIONS hydromorphone (Dilaudid) Allergy (Unknown, Verified 03/29/25 10:07) clammy ibuprofen Allergy (Unknown, Verified 03/29/25 10:07) Unknown Latex Gloves Allergy (Unknown, Uncoded 03/29/25 10:07) Unknown bee products Allergy (Uncoded 03/29/25 10:07) Rash Tobacco use date assessed: 03/29/25 Dental Screening Dental Screen Date: 03/29/25 Did you have a dental visit in the last 12 months?: No Did you have a dental problem in the last 6 months where you did not have access to dental care?: No Was dental information given to patient?: Patient has dentist HPI HPI Comments History of Present Illness Details This is a 74-year-old male with a past medical history of chronic neutrophilia, anemia, weight loss, hypercholesterolemia, hypertension, coronary artery disease, right lower lobe lung nodule, BPH, CONNER, palpitations, peripheral neuropathy, TIA x2, controlled type 2 diabetes and venous insufficiency presenting for follow up. Type 2 diabetes with peripheral neuropathy- The patient was brought to the emergency room on 03/18/2025 after he had a syncopal episode at home due to severe hypoglycemia. He was found to have a blood glucose of 31. He was given dextrose via EMS and POC improved to 151. Symptoms resolved after treatment. White blood cell count 11.2 Red blood cell count 4.12 Hemoglobin 12.5 Hematocrit 38.9 Platelet count want to 43 Creatinine 0.81 GFR 91 Alk-phos 79 AST 36 ALT 19 Hemoglobin A1c is 5% today down from 5.8%. He stopped taking metformin after the episode of hypoglycemia. He did not have any other episodes prior to this. He had felt sweaty and tired prior to trying to stand up when he passed out. He has a follow up with Rheumatology on Saturday. He had a PET-CT which showed a possible nodule in the left parotid gland and potential evidence of an inflammatory disorder like polymyalgia rheumatica. Patient states overall he is doing a bit better. Energy is better as well as his joint pains except for his left hand and wrist. He has gained some weight back. Cardiovascular- Seen by Dr. Boles in December and per notes can proceed with colonoscopy with intermediate risk. Colonoscopy is pending scheduling. 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 Patient has known coronary artery disease in 2005 underwent angiography due to anginal symptoms. He underwent coronary CTA in the past which revealed diffuse severe disease in the right coronary artery, and medical treatment was advised. Echocardiogram recently showed inferior wall motion abnormality and nuclear perfusion imaging showed inferior perfusion defect. Further evaluation with Gastroenterology and Oncology due to anemia, weight loss, fatigue and night sweats was recommended prior to further ischemic assessment. Hypotension and lightheadedness resolved since decreasing his dose of amlodipine. Patient had 2 TIAs. The 1st was some 20 years ago, and the other TIA occurred years ago, but he does not remember exactly when. I saw him for a physical exam in November. He reported episodes of dizziness and shortness of breath with exertion during the last few months. CBC drawn 09/10/2024 showed leukocytosis and mild anemia which had worsened since July of 2024. Lymphocyte count and platelets were normal. He also reported unintentional weight loss of about 10 lb. He is followed by Dr. Rodrigez at [facility] for history of abnormal CBC. CBC was repeated on 11/20/2024 which showed no leukocytosis, worsening of anemia with hemoglobin 9.8 and hematocrit 31.6, elevated platelets at 424,000. Patient's ferritin was also elevated at 543. Iron low at 33. Patient saw Hematology and had a negative bone marrow biopsy as well as a CT of the chest/abdomen and pelvis which did not show evidence of malignancy. Right lower lobe pulmonary nodule-he is seeing [facility] [place] now. He quit smoking in 1993. He was followed by pulmonology in the past, and he reports it remained stable. BPH, elevated PSA-previously followed by Dr. Yuen. He saw Dr. Dash after UTI last year. Last PSA in April normal. Tubular adenoma-colonoscopy is pending. Denies abdominal pain, nausea, vomiting, blood in stools. ROS: Constitutional: Denies fevers, chills and night sweats. Interval weight gain. Fatigue has improved. Eyes: No vision changes, blurry vision, double vision, eye pain, eye redness, eye discharge. ENT: No hearing loss, sneezing, congestion, runny nose or sore throat. Respiratory: No cough, wheezing, hemoptysis. +dyspnea on exertion. Cardiovascular: No chest pain, chest pressure or chest discomfort. No palpitations. Gastrointestinal: No anorexia, nausea, vomiting or diarrhea. No abdominal pain or blood in stool. Denies early satiety. Genitourinary: No dysuria, hematuria, urinary frequency. Neurologic: No headache, seizures, unilateral weakness, ataxia, numbness or tingling in the extremities. Hematologic/Lymphatics: No bleeding or bruising. No painful lymph nodes. Skin: No rash or itching. Endocrine: No cold or heat intolerance. No polyuria or polydipsia. Physical exam: Constitutional: Alert, in no distress. Eyes: Pupils are equal, round and reactive to light. Extraocular muscles intact. Neck: Supple, Full range of motion. No lymphadenopathy. No palpable masses. Respiratory: Clear to auscultation. Cardiovascular: S1 S2 regular. No murmurs. Gastrointestinal: Abdomen soft, non-tender, non-distended. Normal bowel sounds. No palpable masses. Neurologic: No focal neurological deficits. Lymph nodes: Grossly normal Skin: No rashes Extremities: Warm and well perfused. No clubbing or cyanosis. Intact peripheral pulses. 1+ edema of the bilateral lower extremities. Psychiatric: Normal mood and affect [facility] Medical History (Updated 03/29/25 @ 13:39 by ERIKA Warren) Hypoglycemia Lesion of parotid gland Elevated sed rate Elevated C-reactive protein (CRP) Multiple lung nodules Left hand pain Left wrist pain Swelling of left hand Abnormal CBC Extremity edema Night sweats Weight loss Routine physical examination Right leg swelling [place] (dyspnea on exertion) Abnormal echocardiogram Osteoarthritis of left knee Bursitis of left knee Synovial cyst of popliteal space [Gomes], left knee CAD (coronary artery disease) Left leg swelling Left knee pain Abnormal CBC Elevated ferritin Anemia Emphysema lung Cholelithiasis Asthma Tubular adenoma of colon Ocular migraine Chronic neutrophilia Controlled type 2 diabetes with neuropathy UTI (urinary tract infection) BPH associated with nocturia Venous insufficiency Type 2 diabetes mellitus TIA (transient ischemic attack) Stable angina pectoris Peripheral neuropathy Palpitations Osteoarthritis, hand CONNER (obstructive sleep apnea) Nodule of lower lobe of right lung Murmur Lower urinary tract symptoms HTN (hypertension) Hypercholesteremia Chronic total occlusion of coronary artery Surgical History History of bone marrow biopsy History of bilateral cataract extraction History of sinus surgery History of microdiscectomy Status post reverse total shoulder replacement History of colonoscopy Social History (Updated 03/29/25 @ 10:08 by Alise Almeida MA) Housing: Other (mobile home [facility]) Alcohol intake: current Alcohol intake frequency: holidays/special occasions only Comment: Socially Patient Tobacco Use Status: Former Tobacco user Cigarette Packs Per Day: 2 Years Smoked: 30 e-Cigarette/Vaping Use: Never Used Second Hand Smoke Exposure: No service: Yes Current occupational status: retired Current occupational exposures/hazards: No Cognitive needs: No Hearing needs: No Vision needs: Yes (reading glasses) Questionnaire Thrive Questionnaire Date Thrive assessed: 09/04/24 I am a: Patient What is your living situation today?: I have a steady place to live Within the past 12 months, did the food you bought not last and you didn't have the money to get more?: Never true Within the past 12 months, did you worry whether your food would run out before you got money to buy more?: Never true Do you have trouble paying for medicines?: No Do you have trouble getting transportation to medical appointments?: No Do you have trouble paying your heating and electricity bill?: No Do you have trouble taking care of your child, family member or friend?: No Do you have trouble with day-to-day activities such as bathing, preparing meals, shopping, managing finances, etc.?: I choose not to answer this question Are you currently unemployed and looking for a job?: No Are you interested in more education?: No Please select the resources that you would like help with: None Currently or been in a relationship where the following occur: No concerns reported THRIVE Score: 0 NICKI-7 AMB Questionnaire NICKI-7 Date NICKI - 7 assessed: 01/30/24 Source: Developed by Drs. Deven Lincoln, Altagracia Quintanilla, Tee Canchola and colleagues, with an educational linus from [employer]. Physical exam (Primary Care) Vital Signs: Last Vital Signs Temp 97.2 F 03/29/25 10:09 Pulse 69 03/29/25 10:09 BP 138/82 03/29/25 10:09 Pulse Ox 98 03/29/25 10:09 Oxygen Delivery Method Room Air 03/29/25 10:09 BMI result Body Mass Index 23.8 Tobacco/Smoking Status: Tobacco use Status Tobacco use date assessed 03/29/25 03/29/25 10:11 Patient Tobacco Use Status Former Tobacco user 03/29/25 10:08 e-Cigarette/Vaping Use Never Used 03/29/25 10:08 Thrive Assessment: Date of Thrive Assessment Date Thrive assessed 09/04/24 03/29/25 10:02 Currently or been in a relationship where the following occur: No concerns reported Results AMB Hemoglobin A1c AMB Hemoglobin A1c 5.0 % Last Edit by Alise Almeida MA on 03/29/25 10:23 Results Reviewed Results Reviewed: Laboratory Last Values Hgb A1c (Clinic) 5.0 % (4.0-6.0) 03/29/25 10:14 Coding Level of Care Code Est Pt Level 5 (06778) Complex EM visit Add On G2211 Diagnoses Controlled type 2 diabetes with neuropathy E11.40 Lesion of parotid gland K11.9 Essential hypertension I10 Abnormal echocardiogram R93.1 CAD (coronary artery disease) I25.10 Tubular adenoma of colon D12.6 Anemia D64.9 Left wrist pain M25.532 Abnormal CBC R79.89 Hypoglycemia E16.2 Time Spent (min) 50 Comment Chart review, direct patient care, completing documentation Assessment & Plan Assessment & Plan (1) Controlled type 2 diabetes with neuropathy: Code(s): E11.40 - Type 2 diabetes mellitus with diabetic neuropathy, unspecified Category: Medical (2) Lesion of parotid gland: Code(s): K11.9 - Disease of salivary gland, unspecified Category: Medical (3) Essential hypertension: Code(s): I10 - Essential (primary) hypertension Category: Medical (4) Abnormal echocardiogram: Code(s): R93.1 - Abnormal findings on diagnostic imaging of heart and coronary circulation Category: Medical (5) CAD (coronary artery disease): Code(s): I25.10 - Atherosclerotic heart disease of [place] coronary artery without angina pectoris Category: Medical (6) Tubular adenoma of colon: Code(s): D12.6 - Benign neoplasm of colon, unspecified Category: Medical (7) Anemia: Code(s): D64.9 - Anemia, unspecified Category: Medical (8) Left wrist pain: Code(s): M25.532 - Pain in left wrist Category: Medical (9) Abnormal CBC: Code(s): R79.89 - Other specified abnormal findings of blood chemistry Category: Medical (10) Hypoglycemia: Code(s): E16.2 - Hypoglycemia, unspecified Category: Medical Plan In summary this is a 75-year-old male with a past medical history of an abnormal CBC, known coronary artery disease, controlled type 2 diabetes, hyperlipidemia, hypertension, tubular adenoma of the colon who presented with symptoms of weight loss, fatigue, extremity swelling, joint pains and anemia. Inflammatory markers were elevated. He has undergone evaluation with Heme-Onc and had a recent PET-CT with no evidence of malignancy. He had a negative bone marrow biopsy. He will follow up with Gastroenterology for a colonoscopy. He will follow up with Cardiology to discuss further ischemic evaluation. He has an appointment with rheumatology to review the results of his PET-CT which is suggestive of an inflammatory autoimmune disorder. He has been feeling better recently. I will refer him to ENT for evaluation of the left parotid gland lesion which may be a cyst or nodule. He is following with [facility] pulmonology regarding the pulmonary nodule that he reports was stable for years. He will remain off diabetic medications. Currently diabetes is in remission. If he has any further episodes of hypoglycemia he was instructed to call for endocrinology consult. Reviewed treatment of hypoglycemia with the patient. I sent glucose tablets and Baqsimi prescriptions to his pharmacy as a precaution. He declines a continuous glucose monitor. Follow up in 8 weeks. Orders: Orders AMB Hemoglobin A1c Today E11.40 - Type 2 diabetes mellitus with diabetic neuropathy, unspecified Referrals Ear/Nose/Throat Referral K11.9 - Disease of salivary gland, unspecified Medications: New glucose (Dex4 Glucose) 16 grams (4 x 4 gram) PO Q15M PRN 10 tabs 3RF hypoglycemia glucagon 3 mg/actuation (Baqsimi) 3 mg (one actuation) into a single nostril; if no response, may repeat in 15 minutes using a new intranasal device. 3 mg intranasal ONCE 2 ea 0RF
[2025-03-29 10:09] VITALS: BP 138/82; PULSE 69; TEMP 36.2; O2SAT 98; BMI 23.8
--- OUTSIDE RECORDS SUMMARY | 2025-03-29 11:06 | XMS_ITS | Clinical Summary ---
Author Organization [facility] Address [address] [place] [address] Phone Care Team Providers Care Fruit Room Hand Name Role Phone Trista Masters Primary Care Provider [phone] Allergies Active Allergy Reactions Criticality Noted Date [...] Encounters Date Type Department Care Team Description 03/23/2025 7:29 AM EDT Hospital Encounter [facility] PET Scan [address] [place] [address] Other giant cell arteritis (CMS/HCC V24, CMS/HCC V28) 02/02/2025 9:30 AM EDT Office Visit [facility] Hematology Oncology [address] [place] [id number] Marika Hargrove PA Anemia, unspecified type (Primary Dx); Fatigue, unspecified type; Neutrophilia; Elevated erythrocyte sedimentation rate; Edema of left upper arm 01/21/2025 8:34 AM EDT - 01/21/2025 11:59 PM EDT Hospital Encounter [facility] CT Scan [address] [place] [address] Anemia, unspecified type; Fatigue, unspecified type; Weight loss Discharge Disposition: Home or Self Care 01/18/2025 8:51 AM EDT - 01/18/2025 11:59 PM EDT Hospital Encounter [facility] Interventional Radiology [address] [place] [address] Anemia, unspecified type; Fatigue, unspecified type; Weight loss Discharge Disposition: Home or Self Care 12/29/2024 Telephone [facility] Hematology Oncology [address] [place] [address] Ivana Barnes MA 12/28/2024 12:40 PM EDT - 12/28/2024 11:59 PM EDT Hospital Encounter [facility] Ultrasound [address] [place] [address] Edema of left upper arm; Wrist pain, acute, left Discharge Disposition: Home or Self Care 12/28/2024 9:00 AM EDT Office Visit [facility] Hematology Oncology [address] [place] [address] Marika Hargrove PA Anemia, unspecified type (Primary Dx); Fatigue, unspecified type; Weight loss; Edema of left upper arm; Wrist pain, acute, left from Last 3 Months Social History Tobacco [...] Description 05/03/2025 9:15 AM EDT Office Visit [facility] Hematology Oncology [address] [place] [address] Fritz Rodrigez MD [address] [place] [address] Health Maintenance Due Date Last [...] Patients (1 - 1-dose 75+ series) 02/13/2024 Depression Screening 07/22/2024 COVID-19 Vaccine ( season) 2025 02/08/2022, 08/11/2021, 08/25/2020, Additional history exists Influenza Vaccine (#1) 2025 2, 05/12/2020, 03/30/2019, Additional history exists Diabetes: Annual GFR (Glomerular [...] 9:17 AM EDT Other giant cell arteritis ([facility] V24, [facility] V28) CT CHEST/ABDOMEN/PELVIS W CONTRAST Routine 01/21/2025 8:49 [...] left upper arm Wrist pain, acute, left COMPREHENSIVE METABOLIC PANEL Routine 12/25/2024 8:31 AM EDT Anemia, unspecified type from Last 3 Months or Most Recently Relevant to Health Maintenance Results * PET CT Skull to Mid [...] Signed Date: 03/24/2025 15:54 ET Workstation ID: [id number] Transcribed By: Self Edit Transcribed Date: 03/24/2025 [...] Signed Date: 03/24/2025 15:54 ET Workstation ID: [id number] Transcribed By: Self Edit Transcribed Date: 03/24/2025 15:48 ET Elle Solorzano MD IMG NM PROCEDURES Final Result * CT Chest/Abdomen/Pelvis w Contrast (01/21/2025 8:49 [...] Signed Date: 01/21/2025 14:03 ET Workstation ID: [id number] Transcribed By: Self Edit Transcribed Date: 01/21/2025 [...] Signed Date: 01/21/2025 14:03 ET Workstation ID: [id number] Transcribed By: Self Edit Transcribed Date: 01/21/2025 [...] Signed Date: 01/18/2025 12:30 ET Workstation ID: [id number] Transcribed By: Self Edit Transcribed Date: 01/18/2025 [...] of fentanyl administered during the procedure. Scanner: [employer] [address] Dose reduction technique: AEC [...] of fentanyl administered during the procedure. Scanner: [employer] [address] Dose reduction technique: AEC [...] Signed Date: 01/18/2025 12:30 ET Workstation ID: [id number] Transcribed By: Self Edit Transcribed Date: 01/18/2025 12:27 ET Marika JAMES IMG IR PROCEDURES Final Resul t * Cytogentic Miscellaneous (01/18/2025 11:00 AM EDT) Pathologist [facility] Scan Result See Scanned Result 01/28/2025 11:16 AM EDT EXTERNAL LAB (NON-INTERFAC ED) Bone Marrow Specimen from bone marrow obtained by aspiration / Unknown 01/18/2025 11:00 AM EDT 01/18/2025 11:31 AM EDT Liban Nelson MD LAB CYTOGENETICS ORDERABLES Fin al Result EXTERNAL LAB (NON-INTERFACED) * Flow cytometry (01/18/2025 11:00 AM EDT) [facility] Flow Cytometry Interpretation Bone marrow, Flow cytometry: - No monotypic B cell population identified. - Most of the lymphocytes are CD3-positive T cells including CD4-positive and CD8-positive subsets without diagnostic phenotypic aberrancy. - There is no increase in the proportion of GA53-rorvyaqs blasts (1.4%). Note: The flow cytometry findings do not support a diagnosis of a B-cell or a T-cell lymphoproliferative disorder. CD34 positive blasts are not increased. Correlation with morphologic findings in the accompanying bone marrow aspirate and biopsy specimen ([id number]) is recommended. Please note that myeloid disorders [...] are 76.1% of total and show generally reading teacher immunophenotypic maturation. - Monocytic cells are 6.9% of total and show generally reading teacher immunophenotypic maturation. - CD45 dim cells are 2.3% of total. CD34+ Blasts are not increased (1.4%). The blasts show expression of myeloid-associated antigens CD33 (variable) and CD117 along with CD38, CD45 (moderate), and HLA-DR. The blasts appear to show partial weak expression of CD13, but no significant expression of CD7, CD14, CD15, CD16, CD56 or CD123. A minute population of VJ27-hgzqftng cells with expression of CD10 and CD19 along with light scatter properties suggestive of hematogones is also noted. Antibodies (27 markers): CD2, CD3, CD4, CD5, CD7, CD8, CD10, CD11b, CD13, CD14, CD15, CD16, CD19, CD20, CD33, CD34, CD38, CD45, CD56, CD64, CD117, CD123, CD200, HLA-DR, Adamson, Lambda, TCR??. 01/21/2025 11:44 AM EDT [facility] Disclaimer This test was developed [...] clinical laboratory testing. 01/21/2025 11:44 AM EDT [facility] Bone Marrow Specimen from bone marrow obtained by aspiration / Unknown 01/18/2025 11:00 AM EDT 01/18/2025 12:52 PM EDT us Liban Nelson MD LAB BLOOD ORDERABLES Final Resu lt [facility] [address] [place] [address], [place] [phone] * Bone marrow exam (01/18/2025 11:00 AM EDT) Addendum This case was sent t o [employer], [address] [place], [place], (CLIA #[id number]) for Oncology Chromosome Analysis studies. Their diagnosis [...] Resolution: 400 Electronic Signature BRIANDA Miller (CC), [facility] Electronic Signature Michell Philip M.D., Pathologist Report Date: 01/26/2025 11:36:58 AM ET (Full report on file) 9:31 AM EDT [facility] Addendum electronically signed by Anthony [...] T cell population and no increase in PH86-xdpwllqt blasts. Reticulin staining shows scant reticulin-stained fibers [...] Erythroid maturation: A complete range of generally reading teacher erythroid maturation is present. Rare binucleated erythroid [...] is no increase in the proportion of PB71-whvgdoff blasts (1.4%). Note: The flow cytometry findings [...] are 76.1% of total and show generally reading teacher immunophenotypic maturation. - Monocytic cells are 6.9% of total and show generally reading teacher immunophenotypic maturation. - CD45 dim cells are 2.3% of total. CD34+ Blasts are not increased (1.4%). The blasts show expression of myeloid-associated antigens CD33 (variable) and CD117 along with CD38, CD45 (moderate), and HLA-DR. The blasts appear to show partial weak expression of CD13, but no significant expression of CD7, CD14, CD15, CD16, CD56 or CD123. A minute population of HY72-qplzixbw cells with expression of CD10 and CD19 along with light scatter properties suggestive of hematogones is also noted. Antibodies (27 markers): CD2, CD3, CD4, CD5, CD7, CD8, CD10, CD11b, CD13, CD14, CD15, CD16, CD19, CD20, CD33, CD34, CD38, CD45, CD56, CD64, CD117, CD123, CD200, HLA-DR, Adamson, Lambda, TCR??. This test was developed and [...] were performed with appropriate controls. 9:31 AM EDJosef [facility] Comment The findings were discussed with ERIKA Castro by Christianne Hernández MD on 01/21/2025. 9:31 AM EDT [facility] Gross Description A. Bone Marrow Aspirate, : Labeled with the patient's name and information are two green top tubes and two purple top tubes. Eight slides are prepared. One slide subsequently is stained for iron. Two slides are stained with Dent's giemsa. One of the purple top tubes, containing 3 mL of bone marrow aspirate, is submitted in toto to [facility] [facility] lab in [place], [place], for flow cytometric studies. The remaining purple top tube and both green top tubes, containing 2.5 mL and 6.5 ml of bone marrow aspirate, respectively, are submitted to [facility], [place], [place], for cytogenetic studies. B. Bone Marrow Biopsy, : Labeled bone marrow biopsy . Received in formalin is a 1.3 x 0.2 cm hard, lima-red, core of bone, which is submitted in toto in one cassette following decalcification in Immunocal, one piece, x2. Please note: No clot is received with the specimen. TYRONE 9:31 AM EDT [facility] Disclaimer Unless otherwise specified, all tissue is 10% NB formalin fixed and paraffin embedded. NOTE: The immunohistochemical tests and in situ hybridization tests were developed and their performance characteristics were determined by [facility]. They have not been [...] clinical laboratory testing. (controls appropriate) 9:31 AM T [facility] Bone Marrow Specimen from bone marrow obtained by aspiration / Unknown 01/18/2025 11:00 AM EDT 01/18/2025 11:19 AM EDT Bone marrow specimen (specimen) Specimen from bone marrow obtained by biopsy / Unknown 01/18/2025 11:00 AM EDT 01/18/2025 11:19 AM EDT us Liban Nelson MD LAB PATHOLOGY ORDERABLES Edited Result - Final [facility] [address] [place] [address], [place] [phone] * Vascular US duplex upper extremity venous [...] Signed Date: 12/28/2024 13:35 ET Workstation ID: [id number] Transcribed By: Self Edit Transcribed Date: 12/28/2024 [...] Signed Date: 12/28/2024 13:35 ET Workstation ID: [id number] Transcribed By: Self Edit Transcribed Date: 12/28/2024 13:32 ET Marika JAMES CV VASCULAR PROCEDURES Final Result * (ABNORMAL) Comprehensive metabolic panel (12/25/2024 8:31 AM EDT) Sodium 142 133 - 145 mmol/L LAB CHEMISTRY METHOD 12/25/2024 12:52 PM [facility] Potassium 3.6 3.5 - 5.5 mmol/L LAB CHEMISTRY METHOD 12/25/2024 12:52 PM [facility] Chloride 109 96 - 110 mmol/L LAB CHEMISTRY METHOD 12/25/2024 12:52 PM [facility] CO2 21 21 - 32 mmol/L LAB CHEMISTRY METHOD 12/25/2024 12:52 PM [facility] Anion Gap 12(H) 3 - 11 LAB CHEMISTRY METHOD 12/25/2024 12:52 PM [facility] Glucose 123(H) 70 - 100 mg/dL LAB CHEMISTRY METHOD 12/25/2024 12:52 PM [facility] BUN 14 5 - 25 mg/dL LAB CHEMISTRY METHOD 12/25/2024 12:52 PM [facility] Creatinine 0.95 0.70 - 1.30 mg/dL LAB CHEMISTRY METHOD 12/25/2024 12:52 PM [facility] eGFR 83 >=60 mL/min/1. 73m2 LAB CHEMISTRY METHOD 12/25/2024 12:52 PM [facility] Comment:Calculation based on the Chronic Kidney Disease Epidemiology Collaboration (CKD-EPI) equation refit without adjustment for race. BUN/Creatinine Ratio 14.7 LAB CHEMISTRY METHOD 12/25/2024 12:52 PM [facility] Calcium 8.1(L) 8.5 - 10.5 mg/dL LAB CHEMISTRY METHOD 12/25/2024 12:52 PM [facility] AST (SGOT) 11 10 - 42 unit/L LAB CHEMISTRY METHOD 12/25/2024 12:52 PM [facility] ALT (SGPT) 13 10 - 60 unit/L LAB CHEMISTRY METHOD 12/25/2024 12:52 PM [facility] Alkaline Phosphatase 79 42 - 121 unit/L LAB CHEMISTRY METHOD 12/25/2024 12:52 PM [facility] Total Protein 6.9 6.0 - 8.0 g/dL LAB CHEMISTRY METHOD 12/25/2024 12:52 PM [facility] Albumin 2.6(L) 3.2 - 5.0 g/dL LAB CHEMISTRY METHOD 12/25/2024 12:52 PM [facility] Total Bilirubin 0.4 0.0 - 1.4 mg/dL LAB CHEMISTRY METHOD 12/25/2024 12:52 PM [facility] Blood Venous blood specimen / Unknown Venipuncture / Unknown 12/25/2024 8:31 AM EDT 12/25/2024 11:27 AM EDT us Fritz Rodrigez MD LAB BLOOD ORDERABLES Final Result [facility] [address], [place] [address] [phone] from Last 3 Months or Most Recently Relevant to Health Maintenance [place] [id number] [employer] MEDICARE Care Teams Fruit Room Hand Relationship Specialty Start Date End Date Trista Masters PA [address] [place] [id number] PCP - General 04/10/24
--- OUTSIDE RECORDS SUMMARY | 2025-03-29 11:06 | XMS_ITS | Clinical Summary ---
Author Organization [facility] Address [address] [place] [address] Care Team Providers Care Junior Accountant Name Role Phone Trista Masters PA-C Primary [...] age to complete this topic Care Teams Junior Accountant Relationship Specialty Start Date End Date Trista Masters PA-C PCP - General Medical Services 04/10/24
== END 2025-03-29 10:43 | disposition home or self-care (01) ==
LOC: HO.HMCFM 09:43
PROVIDERS: PCP Physician Assistant Medical; Visit Provider Physician Assistant Medical
DX: E11.40 Type 2 diabetes mellitus with diabetic neuropathy, unspecified (principal); K11.9 Disease of salivary gland, unspecified; I10 Essential (primary) hypertension; R93.1 Abnormal findings on diagnostic imaging of heart and coronary circulation; I25.10 Atherosclerotic heart disease of native coronary artery without angina pectoris; D12.6 Benign neoplasm of colon, unspecified; D64.9 Anemia, unspecified; M25.532 Pain in left wrist; R79.89 Other specified abnormal findings of blood chemistry; E16.2 Hypoglycemia, unspecified

== ENCOUNTER → 2025-03-29 09:42 | Outpatient (BNVA) | payer MEDICARE, SELFPAY | PROVIDERS: PCP Physician Assistant Medical; Visit Provider Physician Assistant Medical | DX: E11.40 Type 2 diabetes mellitus with diabetic neuropathy, unspecified (principal); E11.649 Type 2 diabetes mellitus with hypoglycemia without coma; K11.9 Disease of salivary gland, unspecified; I10 Essential (primary) hypertension; R93.1 Abnormal findings on diagnostic imaging of heart and coronary circulation; I25.10 Atherosclerotic heart disease of native coronary artery without angina pectoris; D64.9 Anemia, unspecified; M25.532 Pain in left wrist; R79.89 Other specified abnormal findings of blood chemistry; N40.0 Benign prostatic hyperplasia without lower urinary tract symptoms; Z86.73 Personal history of transient ischemic attack (TIA), and cerebral infarction without residual deficits; Z86.0101 Personal history of adenomatous and serrated colon polyps; Z87.891 Personal history of nicotine dependence | CPT/HCPCS: 83036; 99212 ==

== ENCOUNTER 2025-04-01 08:28 | Outpatient (AMB) | payer MEDICARE, SELFPAY ==
--- NOTE | 2025-04-01 08:38 | A.OFFVIS_ITS ---
Vital Signs 04/01/25 08:43 Height 5 ft 8 in Weight 156 lb 15.506 oz BMI 23.9 BP 140/72 H Blood Pressure Location Lt brachial Position Sitting Pulse 75 Pulse Source Pulse Oximeter Pulse Oximetry (%) 99 Oxygen Delivery Method Room Air Intake Visit Reasons: discuss results Intake Note: Patient presents to discuss labs follow up. Allergies latex (LATEX) Allergy (Intermediate, Verified 04/01/25 08:42) RASH lisinopril (LISINOPRIL) Allergy (Intermediate, Verified 04/01/25 08:42) LEG CRAMPS NSAIDS (Non-Steroidal Anti-Inflamma (NSAIDS (NON-STEROIDAL ANTI-INFLAMMA) Allergy (Intermediate, Verified 04/01/25 08:42) LEG CRAMPS vardenafil (From LEVITRA) Allergy (Intermediate, Verified 04/01/25 08:42) HALLUCINATIONS hydromorphone (Dilaudid) Allergy (Unknown, Verified 04/01/25 08:42) clammy ibuprofen Allergy (Unknown, Verified 04/01/25 08:42) Unknown Latex Gloves Allergy (Unknown, Uncoded 03/29/25 10:07) Unknown bee products Allergy (Uncoded 03/29/25 10:07) Rash HPI Comments Details: Patient is a 75 y.o. male with hypertension, asthma, hyperlipidemia complicated by coronary artery disease, diabetes, polyarticular OA (bilateral knees, left shoulder and hands), and history of right shoulder replacement after traumatic dislocation here today for follow up Interval History: Patient last seen 02/25/25 with mi - New patient visit - Evaluation of elevated ESR/CRP and constitutional sx - Labs and imaging ordered Today - Not on any rheum meds - PET scan showing evidence of PMR Rheumatologic History: Initial history: Patient was in his normal state of health until July when he had sudden onset of bilateral lower extremity swelling right worse than left. He was subsequently evaluated by Cardiology, had echocardiogram, ECG and other evaluations which were normal. He was subsequently sent to Hematology due to weight loss, night sweats. Hematology evaluation including bone marrow biopsy and flow cytometry for unremarkable. He had CT scan of his chest abdomen and pelvis which showed a pulmonary nodule for which she is going to follow up with pulmonology for. During this time he also developed left hand and arm swelling associated with pain. Denies rashes, Raynaud's, headaches, difficulty swallowing, difficulty breathing, lymphadenopathy, alopecia No family history of any autoimmune disease Current Rheumatology Medication(s): [facility] Medical History (Updated 04/01/25 @ 15:57 by Elle Solorzano MD) Polymyalgia rheumatica Hypoglycemia Lesion of parotid gland Elevated sed rate Elevated C-reactive protein (CRP) Multiple lung nodules Left hand pain Left wrist pain Swelling of left hand Abnormal CBC Extremity edema Night sweats Weight loss Routine physical examination Right leg swelling PARIS (dyspnea on exertion) Abnormal echocardiogram Osteoarthritis of left knee Bursitis of left knee Synovial cyst of popliteal space [Gomes], left knee CAD (coronary artery disease) Left leg swelling Left knee pain Abnormal CBC Elevated ferritin Anemia Emphysema lung Cholelithiasis Asthma Tubular adenoma of colon Ocular migraine Chronic neutrophilia Controlled type 2 diabetes with neuropathy UTI (urinary tract infection) BPH associated with nocturia Venous insufficiency Type 2 diabetes mellitus TIA (transient ischemic attack) Stable angina pectoris Peripheral neuropathy Palpitations Osteoarthritis, hand CONNER (obstructive sleep apnea) Nodule of lower lobe of right lung Murmur Lower urinary tract symptoms HTN (hypertension) Hypercholesteremia Chronic total occlusion of coronary artery Surgical History History of bone marrow biopsy History of bilateral cataract extraction History of sinus surgery History of microdiscectomy Status post reverse total shoulder replacement History of colonoscopy Social History Housing: Other ([place] [facility]) Alcohol intake: current Alcohol intake frequency: holidays/special occasions only Comment: Socially Patient Tobacco Use Status: Former Tobacco user Cigarette Packs Per Day: 2 Years Smoked: 30 e-Cigarette/Vaping Use: Never Used Second Hand Smoke Exposure: No service: Yes Current occupational status: retired Current occupational exposures/hazards: No Cognitive needs: No Hearing needs: No Vision needs: Yes (reading glasses) Review of Systems Const Details: Review of Systems ENT: Denies vision changes, eye pain or eye redness, dental caries, dry mouth GI: Denies nausea, vomiting, diarrhea, abdominal pain, change in BM Pulm: Denies SOB, PARIS, hemoptysis, wheezing Cards: Denies chest pain, palpitations Skin: Denies Raynaud's, rash, nail changes, photosensitivity, GARMENT STEAMER: Denies headaches, weakness, paresthesias, recurrent falls MSK: as per HPI All other systems reviewed and are unremarkable except noted above Physical Exam Exam Exam: Exam deferred Vital Signs: Last Vital Signs Pulse 75 04/01/25 08:43 BP 140/72 H 04/01/25 08:43 Pulse Ox 99 04/01/25 08:43 Oxygen Delivery Method Room Air 04/01/25 08:43 BMI result Body Mass Index 23.9 Results Reviewed Results Reviewed: Laboratory Tests 02/02/25 02/26/25 10:36 12:08 WBC 9.6 RBC 3.75 L Hgb 11.1 L Hct 34.7 L Plt Count 327 D ESR 101 H 65 H Sodium 139 Potassium 3.9 Chloride 108 Carbon Dioxide 23 BUN 14 Creatinine 0.79 AST 20 ALT 9 C-Reactive Protein 6.20 H 2.59 H Laboratory Tests 02/02/25 02/26/25 10:36 12:08 Rheumatoid Factor < 13.0 Cycl Citrul Peptide IgG <16 ISAIAH Screen NEGATIVE Proteinase 3 (PR3) Ab <1.0 Myeloperoxidase Ab <1.[address] Scan 03/2025 Findings: Vascular: No abnormal activity noted along the vascular system (subclavian and axillary arteries, extracranial carotid arteries, aorta, iliac and femoral vessels) Liver SUV max 3 Supra aortic SUV max 2.5 Aortic SUV max of 2.8 just below the renal arteries Iliac SUV max of 2.5 on the right and left Head and neck: Focal activity associated with a small nodule within the deep aspect of the left parotid gland with SUV max of 4.5 Thorax: No abnormal FDG activity Abdomen/pelvis: No abnormal FDG activity Musculoskeletal: Increased activity noted within both shoulders, left supraclavicular joint, both hips, left ischial tuberosity as well as both knees with SUV max of 5.3 with in the right shoulder and a 7 0.1 in the right knee. This distribution is suspicious for polymyalgia rheumatica Impression: No pattern of activity to suggest giant cell arteritis Pattern of musculoskeletal activity suspicious for polymyalgia rheumatica Assessment & Plan Assessment & Plan (1) Polymyalgia rheumatica: Comment: PMR Ddx 03/2025 Elevated ESR/CRP PET CT suspicious for PMR Code(s): M35.3 - Polymyalgia rheumatica Category: Medical Plan: #PMR Patient is a 75-year-old male here today for follow up newly diagnosed with PMR based on PET-CT Discussed with patient the treatment of PMR involve steroids and patient is very apprehensive because he recently stopped metformin due to an episode of symptomatic hypoglycemia and he is concerned that he may have a recurrence of his diabetes. I explained to the patient that this is a risk with steroids but it is a risk worth taking because the treatment in the acute setting for polymyalgia rheumatica is steroids. Given that he is concerned about long-term steroid use and he has a history of diabetes I think it is pertinent that we start a steroid sparing agent with Kevzara immediately to assist in quickly weaning steroids Plan - Start prednisone 20mg x 2 weeks, 15mg x 2 weeks, 12.5mg x 2 weeks, 10 weeks x 4 weeks then decrease by 1mg every month - Start Kevzara 200mg SC every 2 weeks - RTC 8 weeks - Labs before visit: CBC, CMP, ESR, CRP, Hepatitis panel and T spot, lipid panel (2) [facility] current use of sarilumab: Code(s): Z79.620 - tank terminal gauger (current) use of immunosuppressive biologic Plan: #Long-term Use of IL 6 Inhibitors: Tocilizumab/Sarilumab Discussed the risks and benefits of IL6 inhibitors with the management of this patient's rheumatic condition. Benefits include decreased pain, improved mortality, improved quality of life Risks include LFT abnormalities, elevated triglycerides, GI perforations Contraindicated in a patient with history of diverticulitis Monitoring: CBC, CMP, triglycerides Plan I spent 45 minutes reviewing the record and labs, discussing the results with patient, discussing the treatment plan, answering questions, ordering diagnostic work up and documenting in the medical record Orders: Orders Erythrocyte Sedimentation Rate 8 Weeks Z79.899 - Other fci (current) drug therapy Hepatitis B,C Profile 8 Weeks Z79.899 - Other terminal clerk (current) drug therapy Complete Blood Count Auto Diff 8 Weeks Z79.899 - Other terminal clerk (current) drug therapy Comprehensive Met. Panel 8 Weeks Z79.899 - Other terminal clerk (current) drug therapy C Reactive Protein 8 Weeks Z79.899 - Other terminal clerk (current) drug therapy Lipid Panel 8 Weeks Z79.899 - Other terminal clerk (current) drug therapy T Spot TB 8 Weeks Z79.899 - Other fci (current) drug therapy Medications: New prednisone Take 4 tablets for 14 days then 3 tablets for 14 days then 2.5 tablets for 14 days then 2 tablets for 14 days 5 mg PO DIRECTED 180 tabs 0RF M35.3 - Polymyalgia rheumatica sarilumab (Kevzara) 200 mg (1.14 mL) subcut Q2W 2.28 mL 5RF M35.3 - Polymyalgia rheumatica Coding Level of Care Code Est Pt Level 5 (56169) Complex EM visit Add On G2211 Diagnoses Polymyalgia rheumatica M35.3 penitentiary current use of sarilumab Z79.620
[2025-04-01 08:43] VITALS: BP 140/72; PULSE 75; O2SAT 99; BMI 23.9
--- OUTSIDE RECORDS SUMMARY | 2025-04-01 09:29 | XMS_ITS | Clinical Summary ---
Author Organization [facility] Address [address] [place] [address] Phone Care Team Providers Care Head Sulfide Operator Name Role Phone Trista Masters Primary Care Provider [phone] Allergies Active Allergy Reactions Criticality Noted Date [...] Care Team Description 03/23/2025 7:29 AM EDT - 03/23/2025 11:59 PM EDT Hospital Encounter [facility] PET Scan [address] [place] [address] Other giant cell arteritis (CMS/HCC V24, CMS/HCC V28) Discharge Disposition: Home or Self Care 02/02/2025 9:30 AM EDT Office Visit [facility] Hematology Oncology [address] [place] [address] Marika Hargrove PA Anemia, unspecified type (Primary Dx); Fatigue, unspecified type; Neutrophilia; Elevated erythrocyte sedimentation rate; Edema of left upper arm 01/21/2025 8:34 AM EDT - 01/21/2025 11:59 PM EDT Hospital Encounter [facility] CT Scan [address] [place] [phone] Anemia, unspecified type; Fatigue, unspecified type; Weight loss Discharge Disposition: Home or Self Care 01/18/2025 8:51 AM EDT - 01/18/2025 11:59 PM EDT Hospital Encounter [facility] Interventional Radiology [address] [place] [phone] Anemia, unspecified type; Fatigue, unspecified type; Weight loss Discharge Disposition: Home or Self Care from Last 3 Months Social History Tobacco [...] Visit [facility] Hematology Oncology [address] [place] [address] Fritz Rodrigez MD [address] [place] [phone] Health Maintenance Due Date Last Done Comments [...] Additional history exists Influenza Vaccine (#1) 2025 , 05/12/2020, 03/30/2019, Additional history exists Diabetes: Annual [...] 9:17 AM EDT Other giant cell arteritis ([facility] V24, [facility] V28) CT CHEST/ABDOMEN/PELVIS W CONTRAST Routine 01/21/2025 [...] unspecified type Fatigue, unspecified type Weight loss COMPREHENSIVE METABOLIC PANEL Routine 12/25/2024 8:31 AM [...] Signed Date: 03/24/2025 15:54 ET Workstation ID: [id number] Transcribed By: Self Edit Transcribed Date: 03/24/2025 [...] Signed Date: 03/24/2025 15:54 ET Workstation ID: [id number] Transcribed By: Self Edit Transcribed Date: 03/24/2025 15:48 ET Elle Solorzano MD IM NM PROCEDURES Final Result * CT Chest/Abdomen/Pelvis [...] Signed Date: 01/21/2025 14:03 ET Workstation ID: [id number] Transcribed By: Self Edit Transcribed Date: 01/21/2025 [...] Signed Date: 01/21/2025 14:03 ET Workstation ID: [id number] Transcribed By: Self Edit Transcribed Date: 01/21/2025 [...] Signed Date: 01/18/2025 12:30 ET Workstation ID: [id number] Transcribed By: Self Edit Transcribed Date: 01/18/2025 [...] of fentanyl administered during the procedure. Scanner: [employer] [address] Dose reduction technique: AEC [...] of fentanyl administered during the procedure. Scanner: [employer] [address] Dose reduction technique: AEC [...] Signed Date: 01/18/2025 12:30 ET Workstation ID: [id number] Transcribed By: Self Edit Transcribed Date: 01/18/2025 [...] is no increase in the proportion of YI22-fptghkfp blasts (1.4%). Note: The flow cytometry findings do not support a diagnosis of a B-cell or a T-cell lymphoproliferative disorder. CD34 positive blasts are not increased. Correlation with morphologic findings in the accompanying bone marrow aspirate and biopsy specimen ([id number]) is recommended. Please note that myeloid disorders [...] are 76.1% of total and show generally seat joiner chainstitch immunophenotypic maturation. - Monocytic cells are 6.9% of total and show generally seat joiner chainstitch immunophenotypic maturation. - CD45 dim cells are 2.3% of total. CD34+ Blasts are not increased (1.4%). The blasts show expression of myeloid-associated antigens CD33 (variable) and CD117 along with CD38, CD45 (moderate), and HLA-DR. The blasts appear to show partial weak expression of CD13, but no significant expression of CD7, CD14, CD15, CD16, CD56 or CD123. A minute population of CG94-uigvllut cells with expression of CD10 and CD19 along with light scatter properties suggestive of hematogones is also noted. Antibodies (27 markers): CD2, CD3, CD4, CD5, CD7, CD8, CD10, CD11b, CD13, CD14, CD15, CD16, CD19, CD20, CD33, CD34, CD38, CD45, CD56, CD64, CD117, CD123, CD200, HLA-DR, [place], Lambda, TCR??. 01/21/2025 11:44 AM [facility] Disclaimer This test was [...] complexity clinical laboratory testing. 01/21/2025 11:44 AM [facility] Bone Marrow Specimen from bone marrow obtained by aspiration / Unknown 01/18/2025 11:00 AM EDT 01/18/2025 12:52 PM EDT us Liban Nelson MD LAB BLOOD ORDERABLES Final Resu lt [facility] ([facility]) [facility] [address] [place] [address], [place] [phone] * Bone marrow exam (01/18/2025 11:00 AM EDT) Addendum This case was sent t o [facility], [address], [place], [place], (CLIA #[id number]) for Oncology Chromosome Analysis studies. Their diagnosis [...] Electronic Signature BRIANDA Miller (CC), [facility] - [facility] Electronic Signature Michell Philip M.D., Pathologist Report Date: 01/26/2025 11:36:58 AM ET (Full report on file) 9:31 AM EDT [facility] ([facility]) [facility] Addendum electronically signed by [...] T cell population and no increase in GV96-[id number] blasts. Reticulin staining shows scant reticulin-stained fibers [...] Erythroid maturation: A complete range of generally seat joiner chainstitch erythroid maturation is present. Rare binucleated erythroid [...] is no increase in the proportion of TT57-doteocsq blasts (1.4%). Note: The flow cytometry findings [...] are 76.1% of total and show generally seat joiner chainstitch immunophenotypic maturation. - Monocytic cells are 6.9% of total and show generally seat joiner chainstitch immunophenotypic maturation. - CD45 dim cells are 2.3% of total. CD34+ Blasts are not increased (1.4%). The blasts show expression of myeloid-associated antigens CD33 (variable) and CD117 along with CD38, CD45 (moderate), and HLA-DR. The blasts appear to show partial weak expression of CD13, but no significant expression of CD7, CD14, CD15, CD16, CD56 or CD123. A minute population of SS37-dhfwqxqn cells with expression of CD10 and CD19 along with light scatter properties suggestive of hematogones is also noted. Antibodies (27 markers): CD2, CD3, CD4, CD5, CD7, CD8, CD10, CD11b, CD13, CD14, CD15, CD16, CD19, CD20, CD33, CD34, CD38, CD45, CD56, CD64, CD117, CD123, CD200, HLA-DR, [place], Lambda, TCR??. This test was developed and [...] were performed with appropriate controls. 9:31 AM [facility] Comment The findings were discussed with ERIKA Castro by Christianne Hernández MD on 01/21/2025. 9:31 AM [facility] Gross Description A. Bone Marrow Aspirate, : Labeled with the patient's name and information are two green top tubes and two purple top tubes. Eight slides are prepared. One slide subsequently is stained for iron. Two slides are stained with Dent's giemsa. One of the purple top tubes, containing 3 mL of bone marrow aspirate, is submitted in toto to [facility] in [place], [place], for flow cytometric studies. The remaining purple top tube and both green top tubes, containing 2.5 mL and 6.5 ml of bone marrow aspirate, respectively, are submitted to [facility], [place], [place], for cytogenetic studies. B. Bone Marrow Biopsy, : Labeled bone marrow biopsy . Received in formalin is a 1.3 x 0.2 cm hard, lima-red, core of bone, which is submitted in toto in one cassette following decalcification in Immunocal, one piece, x2. Please note: No clot is received with the specimen. TYRONE 9:31 AM EDT [facility] Disclaimer Unless otherwise specified, all [...] laboratory testing. (controls appropriate) 9:31 AM EDT [facility] Bone Marrow Specimen from bone marrow obtained by aspiration / Unknown 01/18/2025 11:00 AM EDT 01/18/2025 11:19 AM EDT Bone marrow specimen (specimen) Specimen from bone marrow obtained by biopsy / Unknown 01/18/2025 11:00 AM EDT 01/18/2025 11:19 AM EDT us Liban Nelson MD LAB PATHOLOGY ORDERABLES Edited Result - Final [facility] [address] [place] [address], * (ABNORMAL) Comprehensive metabolic panel (12/25/2024 8:31 AM EDT) Sodium 142 133 - 145 mmol/L LAB CHEMISTRY METHOD 12/25/2024 12:52 PM EDT [facility] Potassium 3.6 3.5 - 5.5 mmol/L LAB CHEMISTRY METHOD 12/25/2024 12:52 PM EDT [facility] Chloride 109 96 - 110 [...] g/dL LAB CHEMISTRY METHOD 12/25/2024 12:52 PM [facility] Albumin 2.6(L) 3.2 - 5.0 g/dL LAB CHEMISTRY METHOD 12/25/2024 12:52 PM EDT [facility] Total Bilirubin 0.4 0.0 - 1.4 mg/dL LAB CHEMISTRY METHOD 12/25/2024 12:52 PM EDT [facility] Blood Venous blood specimen / Unknown Venipuncture / Unknown 12/25/2024 8:31 AM EDT 12/25/2024 11:27 AM EDT us Fritz Rodrigez MD LAB BLOOD ORDERABLES Final Result [facility] ([facility]) [facility] [address] [place] [address], from Last 3 Months or Most Recently Relevant to Health Maintenance Insurance [employer] MED[employer] Care Teams Head Sulfide Operator Relationship Specialty Start Date End Date Trista Matsers PA [address] [place] [id number] PCP - General 04/10/24
--- OUTSIDE RECORDS SUMMARY | 2025-04-01 09:29 | XMS_ITS | Clinical Summary ---
Author Organization [facility] Address [address] [place] [address] Care Team Providers Care Automatic Mounter Name Role Phone Trista Masters PA-C Primary [...] age to complete this topic Care Teams Automatic Mounter Relationship Specialty Start Date End Date Trista Masters PA-C PCP - General Medical Services 04/10/24
== END 2025-04-01 09:09 | disposition home or self-care (01) ==
LOC: HO.RHES 08:28
PROVIDERS: PCP Physician Assistant Medical; Visit Provider Student in an Organized Health Care Education/Training Program
DX: M35.3 Polymyalgia rheumatica (principal); Z79.620 Long term (current) use of immunosuppressive biologic
CPT/HCPCS: 99215; G2211

== ENCOUNTER → 2025-04-01 08:28 | Outpatient (BNVA) | payer MEDICARE, SELFPAY | PROVIDERS: PCP Physician Assistant Medical; Visit Provider Student in an Organized Health Care Education/Training Program | DX: M35.3 Polymyalgia rheumatica (principal); Z79.620 Long term (current) use of immunosuppressive biologic | CPT/HCPCS: 99212 ==

== ENCOUNTER 2025-05-08 09:38 | Outpatient (REF) | payer MEDICARE, SELFPAY ==
--- OUTSIDE RECORDS SUMMARY | 2025-05-08 09:42 | XMS_ITS | Clinical Summary ---
Author Organization [facility] Address [address] [place] [address] Phone Care Team Providers Care Driller Helper Name Role Phone Trista Masters Primary Care Provider [phone] Allergies Active Allergy Reactions Criticality Noted Date [...] - 03/23/2025 11:59 PM EDT Hospital Encounter [facility] PET Scan [address] [place] [address] Other giant cell arteritis (CMS/HCC V24, CMS/HCC V28) Discharge Disposition: Home or Self Care from Last 3 Months Social History Tobacco Use Types Packs/Day Years Used Date Smoking Tobacco: Former Smokeless Tobacco: Never Tobacco Cessation:Counseling Given: Not Answered Alcohol Use Standard Drinks/Week Comments Yes 0 (1 standard drink = 0.6 oz pur e alcohol) Sex and Gender Information Value Date Recorded Sex Assigned at Male 04/29/2025 4:11 PM EDT Legal Sex Male 12:30 AM EST Gender [...] Care Team (Late st Contact Info) Description 05/12/2025 10:00 AM EDT Appointment [facility] CT Scan [address] [place] [address] Health Maintenance Due Date Last [...] 02/13/2024 Depression Screening 07/22/2024 COVID-19 Vaccine ( - season) 2025 02/08/2022, 08/11/2021, 08/25/2020, Additional history exists Influenza Vaccine (#1) 2025 2, 05/12/2020, 03/30/2019, Additional history exists Diabetes: Annual GFR (Glomerular Filtration Rate) 12/25/2025 12/25/2024 Hypertension/CHF/CAD Annual BMP Blood Test 12/25/2025 12/25/2024 DTaP,Tdap,and Td Vaccines (2 - Td or Tdap) 09/20/2032 09/20/2022 Abdominal Aortic Aneurysm (AAA) Screen Discontinued 05/01/2023 HIB Vaccines Aged Out No longer [...] 9:17 AM EDT Other giant cell arteritis (CMS/HCC V24, CMS/HCC V28) COMPREHENSIVE METABOLIC PANEL Routine 12/25/2024 8:31 AM EDT Anemia, unspecified type US ABDOMINAL AORTA REAL TIME SCREEN STUDY [...] Signed Date: 03/24/2025 15:54 ET Workstation ID: [id number] Transcribed By: Self Edit Transcribed Date: 03/24/2025 [...] Signed Date: 03/24/2025 15:54 ET Workstation ID: [id number] Transcribed By: Self Edit Transcribed Date: 03/24/2025 15:48 ET Elle Solorzano MD [facility] PROCEDURES Final Result * (ABNORMAL) Comprehensive metabolic panel (12/25/2024 8:31 AM EDT) Sodium 142 133 - 145 mmol/L LAB CHEMISTRY METHOD 12/25/2024 12:52 PM [facility] Potassium 3.6 3.5 - 5.5 mmol/L LAB CHEMISTRY METHOD 12/25/2024 12:52 PM [facility] Chloride 109 96 - 110 mmol/L LAB CHEMISTRY METHOD 12/25/2024 12:52 PM [facility] CO2 21 21 - 32 mmol/L LAB CHEMISTRY METHOD 12/25/2024 12:52 PM [facility] Anion Gap 12(H) 3 - 11 LAB CHEMISTRY METHOD 12/25/2024 12:52 PM [facility] Glucose 123(H) 70 - 100 mg/dL LAB CHEMISTRY METHOD 12/25/2024 12:52 PM [facility] BUN 14 5 - 25 mg/dL LAB CHEMISTRY METHOD 12/25/2024 12:52 PM [facility] Creatinine 0.95 0.70 - 1.30 mg/dL LAB CHEMISTRY METHOD 12/25/2024 12:52 PM [facility] eGFR 83 >=60 mL/min/1. 73m2 LAB CHEMISTRY METHOD 12/25/2024 12:52 PM [facility] Comment:Calculation based on the Chronic Kidney Disease Epidemiology Collaboration (CKD-EPI) equation refit without adjustment for race. BUN/Creatinine Ratio 14.7 LAB CHEMISTRY METHOD 12/25/2024 12:52 PM [facility] Calcium 8.1(L) 8.5 - 10.5 mg/dL LAB CHEMISTRY METHOD 12/25/2024 12:[address] [facility] AST (SGOT) 11 10 - 42 unit/L LAB CHEMISTRY METHOD 12/25/2024 12:[address] [facility] ALT (SGPT) 13 10 - 60 unit/L LAB CHEMISTRY METHOD 12/25/2024 12:[address] [facility] Alkaline Phosphatase 79 42 - 121 unit/L LAB CHEMISTRY METHOD 12/25/2024 12:[address] [facility] Total Protein 6.9 6.0 - 8.0 g/dL LAB CHEMISTRY METHOD 12/25/2024 12:[address] [facility] Albumin 2.6(L) 3.2 - 5.0 g/dL LAB CHEMISTRY METHOD 12/25/2024 12:[address] [facility] Total Bilirubin 0.4 0.0 - 1.4 mg/dL LAB CHEMISTRY METHOD 12/25/2024 12:[address] [facility] Blood Venous blood specimen / Unknown Venipuncture / Unknown 12/25/2024 8:31 AM EDT 12/25/2024 11:27 AM EDT us Fritz Rodrigez MD LAB BLOOD ORDERABLES Final Result [facility] [address] [place] [address], * US ABDOMINAL AORTA REAL TIME SCREEN [...] No evidence of AAA. us Danny JAMES IMTerrence US PROCEDURES Final R esult from Last 3 Months or Most Recently Relevant to Health Maintenance Insurance [employer] MED[employer] Care Teams Driller Helper Relationship Specialty Start Date End Date Trista Masters PA [address] [place] [address] [phone] PCP - General 04/10/24
--- OUTSIDE RECORDS SUMMARY | 2025-05-08 09:42 | XMS_ITS | Clinical Summary ---
Author Organization [facility] Address [address] [place] [address] Care Team Providers Care Crusher Machine Operator Name Role Phone Trista Masters PA-C [...] age to complete this topic Care Teams Crusher Machine Operator Relationship Specialty Start Date End Date Trista Masters PA-C PCP - General Medical Services 04/10/24
[2025-05-08 11:52] LABS: Blood Urea Nitrogen 25 mg/dL (9-16); Estimated Glomerular Filt Rate > 60
== END 2025-05-08 09:39 | disposition home or self-care (01) ==
LOC: HO.HMGCLDS 09:38
PROVIDERS: PCP Physician Assistant Medical; Visit Provider Otolaryngology
DX: Z13.89 Encounter for screening for other disorder (principal)
CPT/HCPCS: 36415; 82565; 84520

== ENCOUNTER 2025-05-25 08:58 | Outpatient (AMB) | payer MEDICARE, SELFPAY ==
--- NOTE | 2025-05-25 09:02 | A.OFFVIS_ITS ---
Vital Signs 05/25/25 09:03 Height 5 ft 8 in Weight 159 lb 4 oz BMI 24.2 BP 140/66 H Blood Pressure Location Rt brachial Position Sitting Pulse 85 Pulse Source Pulse Oximeter Pulse Oximetry (%) 99 Oxygen Delivery Method Room Air Intake Visit Reasons: abnormal finding of lung field Allergies latex (LATEX) Allergy (Intermediate, Verified 05/25/25 09:07) RASH lisinopril (LISINOPRIL) Allergy (Intermediate, Verified 05/25/25 09:07) LEG CRAMPS NSAIDS (Non-Steroidal Anti-Inflamma (NSAIDS (NON-STEROIDAL ANTI-INFLAMMA) Allergy (Intermediate, Verified 05/25/25 09:07) LEG CRAMPS vardenafil (From LEVITRA) Allergy (Intermediate, Verified 05/25/25 09:07) HALLUCINATIONS hydromorphone (Dilaudid) Allergy (Unknown, Verified 05/25/25 09:07) clammy ibuprofen Allergy (Unknown, Verified 05/25/25 09:07) Unknown Latex Gloves Allergy (Unknown, Uncoded 05/25/25 09:07) Unknown bee products Allergy (Uncoded 05/25/25 09:07) Rash HPI HPI abnormal finding of lung field: Details: Ricki is a pleasant 75 year old male, former 60+ pack year smoker, quit 30 years ago with underlying chronic neutrophilia, anemia, weight loss, hypercholesterolemia, hypertension, coronary artery disease, right lower lobe lung nodule, BPH, CONNER, palpitations, peripheral neuropathy, TIA x2, controlled type 2 diabetes and venous insufficiency. He was referred by PCP after recent imaging revealed [address] Chest performed at [facility] 01/2025 revealed emphysematous changes as well as multiple <2mm pulmonary nodules, predominantly of upper lobes and a RLL 8 mm nodule. He notes prior imaging through [facility] where he was followed for pulmonary nodules without any significant changes during that time however does recall RLL nodule measuring approximately 6mm. No records to review and no imaging over the last 5 years through [facility]. He reports intermittent dyspnea otherwise denies any respiratory symptoms and is not interested in further evaluation of dyspnea at this time. Denies cough, wheezing or chest tightness. Of note, patient recently diagnosed with PMR started on prednisone and methotrexate, with significant improvements in musculoskeletal pain, no changes in dyspnea. [facility] Medical History (Updated 04/01/25 @ 15:57 by Elle Solorzano MD) Polymyalgia rheumatica Hypoglycemia Lesion of parotid gland Elevated sed rate Elevated C-reactive protein (CRP) Multiple lung nodules Left hand pain Left wrist pain Swelling of left hand Abnormal CBC Extremity edema Night sweats Weight loss Routine physical examination Right leg swelling PARIS (dyspnea on exertion) Abnormal echocardiogram Osteoarthritis of left knee Bursitis of left knee Synovial cyst of popliteal space [Gomes], left knee CAD (coronary artery disease) Left leg swelling Left knee pain Abnormal CBC Elevated ferritin Anemia Emphysema lung Cholelithiasis Asthma Tubular adenoma of colon Ocular migraine Chronic neutrophilia Controlled type 2 diabetes with neuropathy UTI (urinary tract infection) BPH associated with nocturia Venous insufficiency Type 2 diabetes mellitus TIA (transient ischemic attack) Stable angina pectoris Peripheral neuropathy Palpitations Osteoarthritis, hand CONNER (obstructive sleep apnea) Nodule of lower lobe of right lung Murmur Lower urinary tract symptoms HTN (hypertension) Hypercholesteremia Chronic total occlusion of coronary artery Surgical History History of bone marrow biopsy History of bilateral cataract extraction History of sinus surgery History of microdiscectomy Status post reverse total shoulder replacement History of colonoscopy Social History Housing: Other ([facility]) Alcohol intake: current Alcohol intake frequency: holidays/special occasions only Comment: Socially Patient Tobacco Use Status: Former Tobacco user Cigarette Packs Per Day: 2 Years Smoked: 30 e-Cigarette/Vaping Use: Never Used Second Hand Smoke Exposure: No service: Yes Current occupational status: retired Current occupational exposures/hazards: No Cognitive needs: No Hearing needs: No Vision needs: Yes (reading glasses) Review of Systems Const Denies chills, Denies excessive sweating, Denies fever(s), Denies headache(s) and Denies night sweats Eyes Denies dry eyes, Denies irritation and Denies itchy eyes ENT Reports Normal hearing present, Denies headache(s), Denies nasal congestion, Denies nasal discharge, Denies post nasal drip and Denies sore throat Card Denies chest pain, Denies chest pain at rest, Denies chest pain with activity, Denies claudication, Denies leg edema, Denies orthopnea and Denies paroxysmal nocturnal dyspnea Resp Denies chest congestion, Denies cough, Denies excessive phlegm production, Denies pain on inspiration, Denies pain with cough, Denies stridor and Denies wheezing Musc Denies myalgias Neuro Reports Normal hearing present and Denies headache(s) Endo Denies excessive sweating Ander/Lymph Denies lymphadenopathy Aller/Immun Denies itchy eyes, Denies seasonal rhinorrhea and Denies wheezing Physical Exam Vital Signs: Last Vital Signs Pulse 85 05/25/25 09:03 BP 140/66 H 05/25/25 09:03 Pulse Ox 99 05/25/25 09:03 Oxygen Delivery Method Room Air 05/25/25 09:03 BMI result Body Mass Index 24.2 Neuro Cranial nerves: Yes Normal hearing present Assessment & Plan Assessment & Plan (1) Multiple lung nodules: Code(s): R91.8 - Other nonspecific abnormal finding of lung field Category: Medical (2) PARIS (dyspnea on exertion): Code(s): R06.09 - Other forms of dyspnea Category: Medical Plan Patient presents after chest CT at [facility] revealed 8 mm pulmonary nodule of RLL. Reviewed CT images from 01/2025 which reveal solid spiculated 8 mm RLL nodule. Will repeat imaging now to assess stability. Recent PET 03/2025 did not demonstrate any activity in the thorax. Discussed further evaluation with PFT however patient has not had any improvements with prednisone and attributes dyspnea to deconditioning over the last year related to musculoskeletal pain limiting activity. He is aware to call if symptoms are persistent or worsen. All questions were answered and patient is in agreement of plan. Will follow up to review results or sooner if needed. Orders: Orders CT chest wo IV con Today R91.8 - Other nonspecific abnormal finding of lung field Coding Level of Care Code Est Pt Level 4 (32638) Diagnoses Multiple lung nodules R91.8 PARIS (dyspnea on exertion) R06.09
[2025-05-25 09:03] VITALS: BP 140/66; PULSE 85; O2SAT 99; BMI 24.2
--- OUTSIDE RECORDS SUMMARY | 2025-05-25 09:42 | XMS_ITS | Clinical Summary ---
Author Organization [facility] Address [address] [place] [address] Phone Care Team Providers Care Rope Cutter Name Role Phone Trista Masters Primary Care Provider [phone] Allergies Active Allergy Reactions Criticality Noted Date [...] Encounters Date Type Department Care Team Description 05/12/2025 9:34 AM EDT - 05/12/2025 11:59 PM EDT Hospital Encounter [facility] CT Scan [address] [place] [phone] Neoplasm of unspecified behavior of digestive system Discharge Disposition: Home or Self Care 03/23/2025 7:29 AM EDT - 03/23/2025 11:59 PM EDT Hospital Encounter [facility] PET Scan [address] [place] [phone] Other giant cell arteritis (CMS/HCC V24, CMS/HCC [...] 01/18/2025 9:02 AM EDT Plan of Treatment Health Maintenance [...] Name Priority Date/Time Associated Diagnosis Comments CT NECK SOFT TISSUE WO AND W CONTRAST Routine 05/12/2025 10:06 AM EDT Neoplasm of unspecified behavior of digestive system PET CT SKULL TO MID THIGH INITIAL [...] Relevant to Health Maintenance Results * CT Neck Soft Tissue wo and w Contrast (05/12/2025 10:06 AM EDT) Anatomical Region Laterality Modality Head and Neck Computed Tomogra phy 05/19/2025 11:3 3 AM EDT Impressions 05/19/2025 11:58 AM EDT No cervical lymphadenopathy or mass. -------- FINAL REPORT -------- Dictated By: NICKO ROBLES Dictated Date: 05/19/2025 11:33 ET Assigned Physician: NICKO ROBLES Reviewed and Electronically Signed By: NICKO ROBLES Signed Date: 05/19/2025 11:58 ET Workstation ID: [id number] Transcribed By: Self Edit Transcribed Date: 05/19/2025 11:33 ET Narrative 05/19/2025 11:58 AM EDT PROCEDURE: CT neck INDICATION: NEOPLASM OF UNSPECIFIED BEHAVIOR OF DIGESTIVE SYSTEM; TECHNIQUE: CT neck without and with intravenous administration of 90cc ISOVUE 370. Multi planar reformats were created and interpreted. The examination was performed utilizing dose reduction techniques. Total DLP 424 COMPARISON: PET CT 03/23/2025 FINDINGS: No cervical lymphadenopathy or mass. No surface mucosal lesion along the aerodigestive tract. No peritonsillar or retropharyngeal fluid collection. Parapharyngeal spaces are clear. Parotid and submandibular glands are normal. Thyroid gland is normal. Major vascular structures opacify normally with contrast. Visualized intracranial structures, sinuses, and mastoids are normal. Bilateral lens implants. The orbits are otherwise normal. Paraspinal muscles are normal. No suspicious lytic or blastic lesions. Degenerative changes are seen throughout the cervical spine. Emphysema seen throughout the lung apices. The visualized intrathoracic structures are otherwise unremarkable. Procedure Note Nicko Robles MD - 05/19/2025 PROCEDURE: CT neck INDICATION: NEOPLASM OF UNSPECIFIED BEHAVIOR OF DIGESTIVE SYSTEM; TECHNIQUE: CT neck without and with intravenous administration of 90ccISOVUE 370. Multi planar reformats were created and interpreted. Theexamination was performed utilizing dose reduction techniques. Total [id number] COMPARISON: PET CT 03/23/2025 FINDINGS: No cervical lymphadenopathy or mass. No surface mucosal lesion along the aerodigestive tract. No peritonsillaror retropharyngeal fluid collection. Parapharyngeal spaces are clear. Parotid and submandibular glands are normal. Thyroid gland is normal. Major vascular structures opacify normally with contrast. Visualized intracranial structures, sinuses, and mastoids are normal. Bilateral lens implants. The orbits are otherwise normal. Paraspinal muscles are normal. No suspicious lytic or blastic lesions.Degenerative changes are seen throughout the cervical spine. Emphysema seen throughout the lung apices. The visualized intrathoracicstructures are otherwise unremarkable. IMPRESSION: No cervical lymphadenopathy or mass. -------- FINAL REPORT -------- Dictated By: NICKO ROBLES Dictated Date: 05/19/2025 11:33 ET Assigned Physician: NICKO ROBLES Reviewed and Electronically Signed By: NICKO ROBLES Signed Date: 05/19/2025 11:58 ET Workstation ID: [id number] Transcribed By: Self Edit Transcribed Date: 05/19/2025 11:33 ET Gorge Rees MD IMG CT PROCEDURES Final Result * PET CT Skull to Mid Thigh [...] Signed Date: 03/24/2025 15:54 ET Workstation ID: [id number] Transcribed By: Self Edit Transcribed Date: 03/24/2025 [...] Signed Date: 03/24/2025 15:54 ET Workstation ID: [id number] Transcribed By: Self Edit Transcribed Date: 03/24/2025 15:48 ET Elle Solorzano MD [facility] PROCEDURES Final Result * (ABNORMAL) Comprehensive metabolic panel (12/25/2024 8:31 AM EDT) Sodium 142 133 - 145 mmol/L LAB CHEMISTRY METHOD 12/25/2024 12:52 PM EDT [facility] Potassium 3.6 3.5 - 5.5 mmol/L LAB CHEMISTRY METHOD 12/25/2024 12:52 PM EDT [facility] Chloride 109 96 - 110 mmol/L LAB CHEMISTRY METHOD 12/25/2024 12:52 PM EDT [facility] CO2 21 21 - 32 mmol/L LAB CHEMISTRY METHOD 12/25/2024 12:52 PM [facility] Anion Gap 12(H) 3 - 11 LAB CHEMISTRY METHOD 12/25/2024 12:52 PM [facility] Glucose 123(H) 70 - 100 mg/dL LAB CHEMISTRY METHOD 12/25/2024 12:52 PM [facility] BUN 14 5 - 25 mg/dL LAB CHEMISTRY METHOD 12/25/2024 12:52 PM [facility] Creatinine 0.95 0.70 - 1.30 mg/dL LAB CHEMISTRY METHOD 12/25/2024 12:52 PM [facility] eGFR 83 >=60 mL/min/1. 73m2 LAB CHEMISTRY METHOD 12/25/2024 12:52 PM [facility] Comment:Calculation based on the Chronic Kidney Disease Epidemiology Collaboration (CKD-EPI) equation refit without adjustment for race. BUN/Creatinine Ratio 14.7 LAB CHEMISTRY METHOD 12/25/2024 12:52 PM [facility] Calcium 8.1(L) 8.5 - 10.5 mg/dL LAB CHEMISTRY METHOD 12/25/2024 12:52 PM [facility] AST (SGOT) 11 10 - 42 unit/L LAB CHEMISTRY METHOD 12/25/2024 12:52 PM [facility] ALT (SGPT) 13 10 - 60 unit/L LAB CHEMISTRY METHOD 12/25/2024 12:52 PM [facility] Alkaline Phosphatase 79 42 - 121 unit/L LAB CHEMISTRY METHOD 12/25/2024 12:52 PM [facility] Total Protein 6.9 6.0 - 8.0 g/dL LAB CHEMISTRY METHOD 12/25/2024 12:52 PM [facility] Albumin 2.6(L) 3.2 - 5.0 g/dL LAB CHEMISTRY METHOD 12/25/2024 12:52 PM EDT [facility] Total Bilirubin 0.4 0.0 - 1.4 mg/dL LAB CHEMISTRY METHOD 12/25/2024 12:52 PM EDT [facility] Blood Venous blood specimen / Unknown Venipuncture / Unknown 12/25/2024 8:31 AM EDT 12/25/2024 11:27 AM EDT Fritz Rodrigez MD LAB BLOOD ORDERABLES Final Result [facility] [address] [place] [address], [place] [phone] * [place] ABDOMINAL AORTA REAL TIME SCREEN [...] Maintenance Insurance [employer] MEDICARE Care Teams Rope Cutter Relationship Specialty Start Date End Date Trista Masters PA [address] [place] [address] PCP - General 04/10/24
--- OUTSIDE RECORDS SUMMARY | 2025-05-25 09:42 | XMS_ITS | Clinical Summary ---
Author Organization [facility] Address [address] [place] [address] Care Team Providers Care Hand Shaper Name Role Phone Trista Masters PA-C Primary Care Provider [phone] Allergies Active Allergy Reactions Criticality Noted Date [...] age to complete this topic Care Teams Hand Shaper Relationship Specialty Start Date End Date Trista Masters PA-C PCP - General Medical Services 04/10/24
== END 2025-05-25 09:32 | disposition home or self-care (01) ==
LOC: HO.HPSW 08:58
PROVIDERS: PCP Physician Assistant Medical; Visit Provider Nurse Practitioner Family
DX: R91.8 Other nonspecific abnormal finding of lung field (principal); R06.09 Other forms of dyspnea
CPT/HCPCS: 99214

== ENCOUNTER → 2025-05-25 08:58 | Outpatient (BNVA) | payer MEDICARE, SELFPAY | PROVIDERS: PCP Physician Assistant Medical; Visit Provider Nurse Practitioner Family | DX: Z71.2 Person consulting for explanation of examination or test findings (principal); R91.8 Other nonspecific abnormal finding of lung field; R06.09 Other forms of dyspnea | CPT/HCPCS: 99212 ==

== ENCOUNTER 2025-05-26 08:19 | Outpatient (REF) | payer MEDICARE, SELFPAY ==
--- OUTSIDE RECORDS SUMMARY | 2025-05-26 08:28 | XMS_ITS | Clinical Summary ---
Author Organization [facility] Address [address] [place] [address] Care Team Providers Care Processing Technologist Name Role Phone Trista Masters PA-C Primary [...] age to complete this topic Care Teams Processing Technologist Relationship Specialty Start Date End Date Trista Masters PA-C PCP - General Medical Services 04/10/24
--- OUTSIDE RECORDS SUMMARY | 2025-05-26 08:28 | XMS_ITS | Clinical Summary ---
Author Organization [facility] Address [address] [place] [address] Phone Care Team Providers Care Junction Maker Name Role Phone Trista Masters Primary Care Provider [phone] Allergies Active Allergy Reactions Criticality Noted Date [...] - 05/12/2025 11:59 PM EDT Hospital Encounter [facility] CT Scan [address] [place] [phone] Neoplasm of unspecified behavior of digestive system Discharge Disposition: Home or Self Care 03/23/2025 7:29 AM EDT - 03/23/2025 11:59 PM EDT Hospital Encounter [facility] PET Scan [address] [place] [phone] Other giant cell arteritis (CMS/HCC V24, CMS/HCC [...] Signed Date: 05/19/2025 11:58 ET Workstation ID: [id number] Transcribed By: Self Edit Transcribed Date: 05/19/2025 [...] was performed utilizing dose reduction techniques. Total SNP729 COMPARISON: PET CT 03/23/2025 FINDINGS: No cervical [...] Signed Date: 05/19/2025 11:58 ET Workstation ID: [id number] Transcribed By: Self Edit Transcribed Date: 05/19/2025 [...] Signed Date: 03/24/2025 15:54 ET Workstation ID: [id number] Transcribed By: Self Edit Transcribed Date: 03/24/2025 [...] Signed Date: 03/24/2025 15:54 ET Workstation ID: [id number] Transcribed By: Self Edit Transcribed Date: 03/24/2025 15:48 ET Elle Solorzano MD [facility] PROCEDURES Final Result * (ABNORMAL) Comprehensive metabolic panel (12/25/2024 8:31 AM EDT) Sodium 142 133 - 145 mmol/L LAB CHEMISTRY METHOD 12/25/2024 12:52 PM EDT [facility] Potassium 3.6 3.5 - 5.5 mmol/L LAB CHEMISTRY METHOD 12/25/2024 12:52 PM EDT [facility] Chloride 109 96 - 110 mmol/L LAB CHEMISTRY METHOD 12/25/2024 12:52 PM EDT [facility] CO2 21 21 - 32 mmol/L LAB CHEMISTRY METHOD 12/25/2024 12:52 PM [facility] Anion Gap 12(H) 3 - 11 LAB CHEMISTRY METHOD 12/25/2024 12:52 PM [facility] Glucose 123(H) 70 - 100 mg/dL LAB CHEMISTRY METHOD 12/25/2024 12:52 PM [facility] BUN 14 5 - 25 mg/dL LAB CHEMISTRY METHOD 12/25/2024 12:52 PM [facility] Creatinine 0.95 0.70 - 1.30 mg/dL LAB CHEMISTRY METHOD 12/25/2024 12:52 PM [facility] eGFR 83 >=60 mL/min/1. 73m2 LAB CHEMISTRY METHOD 12/25/2024 12:52 PM [facility] Comment:Calculation based on the Chronic Kidney Disease Epidemiology Collaboration (CKD-EPI) equation refit without adjustment for race. BUN/Creatinine Ratio 14.7 LAB CHEMISTRY METHOD 12/25/2024 12:52 PM [facility] Calcium 8.1(L) 8.5 - 10.5 mg/dL LAB CHEMISTRY METHOD 12/25/2024 12:52 PM [facility] AST (SGOT) 11 10 - 42 unit/L LAB CHEMISTRY METHOD 12/25/2024 12:52 PM [facility] ALT (SGPT) 13 10 - 60 unit/L LAB CHEMISTRY METHOD 12/25/2024 12:52 PM [facility] Alkaline Phosphatase 79 42 - 121 unit/L LAB CHEMISTRY METHOD 12/25/2024 12:52 PM [facility] Total Protein 6.9 6.0 - 8.0 g/dL LAB CHEMISTRY METHOD 12/25/2024 12:52 PM [facility] Albumin 2.6(L) 3.2 - 5.0 g/dL LAB CHEMISTRY METHOD 12/25/2024 12:52 PM EDT [facility] Total Bilirubin 0.4 0.0 - 1.4 mg/dL LAB CHEMISTRY METHOD 12/25/2024 12:52 PM EDT [facility] Blood Venous blood specimen / Unknown Venipuncture / Unknown 12/25/2024 8:31 AM EDT 12/25/2024 11:27 AM EDT Fritz Rodrigez MD LAB BLOOD ORDERABLES Final Result [facility] [address] [place] [address], [place] [phone] * [place] ABDOMINAL AORTA REAL TIME SCREEN [...] Maintenance Insurance [employer] MED[employer]ARE Care Teams Junction Maker Relationship Specialty Start Date End Date Trista Masters PA [address] [place] [address] PCP - General 04/10/24
[2025-05-26 10:31] LABS: MANUAL DIFF FLAG NO
[2025-05-26 10:54] LABS: Red Blood Count 3.86 X10*6/uL (4.60-5.80); White Blood Count 14.9 X10*3/uL (4.8-10.8)
[2025-05-26 10:55] LABS: Hematocrit 36.9 % (42.0-52.0); Hemoglobin 12.3 g/dl (14.0-18.0); Imm Gran Abs Auto 0.11 X10*3/uL (0.00-0.03); Imm Gran Pct Auto 0.7 % (0.0-0.4); Lymphocytes Absolute Auto 1.8 X10*3/uL (1.2-4.9); Mean Corpuscular HGB Conc 33.3 g/dl (31.0-36.0); Mean Corpuscular Hemoglobin 31.9 pg (27.0-33.0); Mean Corpuscular Volume 95.6 fL (80.0-98.0); NRBC Abs Auto 0.000 X10*3/uL (0.0-0.012); NRBC Pct Auto 0.0 /100WBC (0.0-0.2); Platelet Count 252 X10*3/uL (160-400)
[2025-05-26 11:06] LABS: Alanine Aminotransferase 53 U/L (0-40); Albumin Level 3.9 g/dL (3.5-5.0); Alkaline Phosphatase 70 U/L (39-117); Anion Gap 12 (12-20); Aspartate Amino Transferase 44 U/L (5-37); Blood Urea Nitrogen 23 mg/dL (9-16); Calcium 9.1 mg/dL (8.4-10.2); Carbon Dioxide 20 mmol/L (22-29); Chloride 109 mmol/L (96-108); Cholesterol 176 mg/dL (<200); Estimated Glomerular Filt Rate > 60; HDL Cholesterol 85 mg/dL (>40); Potassium 4.4 mmol/L (3.3-5.1); Sodium 137 mmol/L (135-145); Total Protein 6.7 g/dL (6.5-8.0); Triglycerides 70 mg/dL (<150)
[2025-05-26 11:28] LABS: HBS Num1 1.61 mIU/mL (0-7.99); HBc Num1 0.12 S/CO (0.00-0.79); HBsAGNum1 0.36 S/CO (0.00-0.99); Hepatitis B Surface Antigen Negative (Negative); ~HepC Num1 0.07 S/CO (0.00-0.79); ~Hepatitis B Surface Antibody NONREACTIVE (Nonreactive); ~Hepatitis C Antibody Nonreactive (Nonreactive)
[2025-05-29 17:48] LABS: TS Negative Control Passed; TS Panel A 0; TS Panel B 0; TS Positive Control Passed; TSpotTB Negative (Negative)
== END 2025-05-26 08:20 | disposition home or self-care (01) ==
LOC: HO.HMGCLDS 08:19
PROVIDERS: PCP Physician Assistant Medical; Visit Provider Student in an Organized Health Care Education/Training Program
DX: Z11.1 Encounter for screening for respiratory tuberculosis (principal); Z79.899 Other long term (current) drug therapy
CPT/HCPCS: 36415; 80053; 80061; 85025; 85652; 86140; 86481; 86704; 86706; 86803; 87340

== ENCOUNTER 2025-06-04 07:59 | Outpatient (AMB) | payer MEDICARE, SELFPAY ==
--- OUTSIDE RECORDS SUMMARY | 2025-06-04 08:01 | XMS_ITS | Clinical Summary ---
Author Organization [facility] Address [address] [place] [address] Phone Care Team Providers Care Mental Health Tech Name Role Phone Trista Masters Primary Care Provider [phone] Allergies Active Allergy Reactions Criticality Noted Date [...] - 05/12/2025 11:59 PM EDT Hospital Encounter [facility] CT Scan [address] [place] [phone] Neoplasm of unspecified behavior of digestive system Discharge Disposition: Home or Self Care 03/23/2025 7:29 AM EDT - 03/23/2025 11:59 PM EDT Hospital Encounter [facility] PET Scan [address] [place] [phone] Other giant cell arteritis (CMS/HCC V24, CMS/HCC [...] Signed Date: 05/19/2025 11:58 ET Workstation ID: [id number] Transcribed By: Self Edit Transcribed Date: 05/19/2025 [...] was performed utilizing dose reduction techniques. Total [id number] COMPARISON: PET CT 03/23/2025 FINDINGS: No cervical [...] Signed Date: 05/19/2025 11:58 ET Workstation ID: [id number] Transcribed By: Self Edit Transcribed Date: 05/19/2025 [...] Signed Date: 03/24/2025 15:54 ET Workstation ID: [id number] Transcribed By: Self Edit Transcribed Date: 03/24/2025 [...] Signed Date: 03/24/2025 15:54 ET Workstation ID: [id number] Transcribed By: Self Edit Transcribed Date: 03/24/2025 15:48 ET Elle Solorzano MD [facility] PROCEDURES Final Result * (ABNORMAL) Comprehensive metabolic panel (12/25/2024 8:31 AM EDT) Sodium 142 133 - 145 mmol/L LAB CHEMISTRY METHOD 12/25/2024 12:52 PM EDT [facility] Potassium 3.6 3.5 - 5.5 mmol/L LAB CHEMISTRY METHOD 12/25/2024 12:52 PM EDT [facility] Chloride 109 96 - 110 mmol/L LAB CHEMISTRY METHOD 12/25/2024 12:52 PM EDT [facility] CO2 21 21 - 32 [...] LAB CHEMISTRY METHOD 12/25/2024 12:52 PM EDT [facility] Total Bilirubin 0.4 0.0 - 1.4 mg/dL LAB CHEMISTRY METHOD 12/25/2024 12:52 PM EDT [facility] Blood Venous blood specimen / Unknown Venipuncture / Unknown 12/25/2024 8:31 AM EDT 12/25/2024 11:27 AM EDT Fritz Rodrigez MD LAB BLOOD ORDERABLES Final Result [facility] [address] [place] [address], [place] [phone] * [place] ABDOMINAL AORTA REAL TIME SCREEN [...] Maintenance Insurance [employer] MED[employer]ARE Care Teams Mental Health Tech Relationship Specialty Start Date End Date Trista Masters PA [address] [facility] [place] [address] PCP - General 04/10/24
--- OUTSIDE RECORDS SUMMARY | 2025-06-04 08:02 | XMS_ITS | Clinical Summary ---
Author Organization [facility] Address [address] [place] [address] Care Team Providers Care Share Dairy Farmer Name Role Phone Trista Masters PA-C Primary [...] age to complete this topic Care Teams Share Dairy Farmer Relationship Specialty Start Date End Date Trista Masters PA-C PCP - General Medical Services 04/10/24
--- NOTE | 2025-06-04 08:20 | A.OFFVIS_ITS ---
Vital Signs 06/04/25 08:25 Height 5 ft 8 in Weight 159 lb 6.307 oz BMI 24.2 BP 132/80 Blood Pressure Location Lt brachial Position Sitting Pulse 78 Pulse Source Pulse Oximeter Pulse Oximetry (%) 98 Oxygen Delivery Method Room Air Intake Visit Reasons: 2months Intake Note: Patient presents for PMR follow up. Allergies latex (LATEX) Allergy (Intermediate, Verified 06/04/25 08:23) RASH lisinopril (LISINOPRIL) Allergy (Intermediate, Verified 06/04/25 08:23) LEG CRAMPS NSAIDS (Non-Steroidal Anti-Inflamma (NSAIDS (NON-STEROIDAL ANTI-INFLAMMA) Allergy (Intermediate, Verified 06/04/25 08:23) LEG CRAMPS vardenafil (From LEVITRA) Allergy (Intermediate, Verified 06/04/25 08:23) HALLUCINATIONS hydromorphone (Dilaudid) Allergy (Unknown, Verified 06/04/25 08:23) clammy ibuprofen Allergy (Unknown, Verified 06/04/25 08:23) Unknown Latex Gloves Allergy (Unknown, Uncoded 05/25/25 09:07) Unknown bee products Allergy (Uncoded 05/25/25 09:07) Rash HPI Comments Details: Patient is a 75 y.o. male with hypertension, asthma, hyperlipidemia complicated by coronary artery disease, diabetes, polyarticular OA (bilateral knees, left shoulder and hands), and history of right shoulder replacement after traumatic dislocation here today for follow up Interval History: Patient last seen 04/01/25 with me - Not on any rheum meds - PET scan showing evidence of PMR - Started on prednisone taper and Kevzara Today - On prednisone 10mg - Could not afford the co pay for the Kevzara ($1500/month) - Started on methotrexate 15mg PO and folic acid 1mg daily - Doing better overall. Swelling has improved, joint pain has improved as well - Prednisone does make him irritable - Labs done 05/2025 showed elevated AST and ALT and so methotrexate was reduced to 4 pills weekly Rheumatologic History: PMR 03/2025 Based on elevated inflammatory markers, weight loss and PET scan consistent with PMR Started on prednisone 03/2025 Unable to do Kevzara due to high co pay Methotrexate 03/2025 Dose decreased 05/2025 due to elevated LFTs Initial history: Patient was in his normal state of health until July when he had sudden onset of bilateral lower extremity swelling right worse than left. He was subsequently evaluated by Cardiology, had echocardiogram, ECG and other evaluations which were normal. He was subsequently sent to Hematology due to weight loss, night sweats. Hematology evaluation including bone marrow biopsy and flow cytometry for unremarkable. He had CT scan of his chest abdomen and pelvis which showed a pulmonary nodule for which she is going to follow up with pulmonology for. During this time he also developed left hand and arm swelling associated with pain. Denies rashes, Raynaud's, headaches, difficulty swallowing, difficulty breathing, lymphadenopathy, alopecia No family history of any autoimmune disease Current Rheumatology Medication(s): Prednisone 10mg Methotrexate 10mg weekly Folic acid 1mg PFSH Medical History (Updated 06/04/25 @ 09:02 by Elle Solorzano MD) Polymyalgia rheumatica Hypoglycemia Lesion of parotid gland Elevated sed rate Elevated C-reactive protein (CRP) Multiple lung nodules Left hand pain Left wrist pain Swelling of left hand Abnormal CBC Extremity edema Night sweats Weight loss Routine physical examination Right leg swelling PARIS (dyspnea on exertion) Abnormal echocardiogram Osteoarthritis of left knee Bursitis of left knee Synovial cyst of popliteal space [Gomes], left knee CAD (coronary artery disease) Left leg swelling Left knee pain Abnormal CBC Elevated ferritin Anemia Emphysema lung Cholelithiasis Asthma Tubular adenoma of colon Ocular migraine Chronic neutrophilia Controlled type 2 diabetes with neuropathy UTI (urinary tract infection) BPH associated with nocturia Venous insufficiency Type 2 diabetes mellitus TIA (transient ischemic attack) Stable angina pectoris Peripheral neuropathy Palpitations Osteoarthritis, hand CONNER (obstructive sleep apnea) Nodule of lower lobe of right lung Murmur Lower urinary tract symptoms HTN (hypertension) Hypercholesteremia Chronic total occlusion of coronary artery Surgical History History of bone marrow biopsy History of bilateral cataract extraction History of sinus surgery History of microdiscectomy Status post reverse total shoulder replacement History of colonoscopy Social History Housing: Other (mobile home [facility]) Alcohol intake: current Alcohol intake frequency: holidays/special occasions only Comment: Socially Patient Tobacco Use Status: Former Tobacco user Cigarette Packs Per Day: 2 Years Smoked: 30 e-Cigarette/Vaping Use: Never Used Second Hand Smoke Exposure: No service: Yes Current occupational status: retired Current occupational exposures/hazards: No Cognitive needs: No Hearing needs: No Vision needs: Yes (reading glasses) Review of Systems Narrative Review of Systems Constitutional: Denies fever, chills, weight loss ENT: Denies vision changes, eye pain or eye redness, dental caries, dry mouth GI: Denies nausea, vomiting, diarrhea, abdominal pain, change in BM Pulm: Denies SOB, PARIS, hemoptysis, wheezing Cards: Denies chest pain, palpitations Skin: Denies Raynaud's, rash, nail changes, photosensitivity, GOLD MINER: Denies headaches, weakness, paresthesias, recurrent falls MSK: as per HPI All other systems reviewed and are unremarkable except noted above Physical Exam Exam Exam: Vital signs reviewed Physical Examination CONSTITUITIONAL Patient alert and cooperative. Well appearing and in no apparent painful distress MSK Hands * Right Hand: Able to make a fist. No swelling or tenderness to palpation of these joints. * Left Hand: Able to make a fist. No swelling or tenderness to palpation of these joints. * Herbedens nodes noted bilaterally and squarring of bilateral CMC Wrists * Right Wrist: Full ROM. 70 degrees of wrist flexion, 80 degrees of wrist extension. No swelling or TTP * Left Wrist: Full ROM. 70 degrees of wrist flexion, 80 degrees of wrist extension. No swelling or TTP Elbows * Right Elbow: Full ROM. No swelling or TTP. No TTP of the medial and lateral epicondyles * Left Elbow: Full ROM. No swelling or TTP. No TTP of the medial and lateral epicondyles Shoulders * Right shoulder: Decreased ROM, more than the left. No swelling noted. No TTP of the AC joint, subacromial bursa or posterior shoulder * Left shoulder: Decreased ROM. No swelling noted. No TTP of the AC joint, subacromial bursa or posterior shoulder Knees * Right knee: Full ROM. No swelling noted. No TTP of the knee joint lie or pes anserine bursa * Left knee: Full ROM. No swelling noted. No TTP of the knee joint lie or pes anserine bursa. Ankles * Right ankle: Good ankle dorsiflexion and plantar flexion. Mild swelling noted. No TTP of the ankle joint * Left ankle: Good ankle dorsiflexion and plantar flexion. No swelling. No TTP of the ankle joint Feet * Right foot: Negative squeeze test * Left foot: Negative squeeze test Tender points? * No tenderness to palpation of the bilateral trapezius, supraspinatus, anterior costochondral junctions, bilateral suboccipital muscle insertions SKIN No rashes Vital Signs: Last Vital Signs Pulse 78 06/04/25 08:25 BP 132/80 06/04/25 08:25 Pulse Ox 98 06/04/25 08:25 Oxygen Delivery Method Room Air 06/04/25 08:25 BMI result Body Mass Index 24.2 Results Reviewed Results Reviewed: Laboratory Tests 02/02/25 02/26/25 05/26/25 10:36 12:08 08:50 WBC 14.9 H RBC 3.86 L Hgb 12.3 L Hct 36.9 L Plt Count 252 ESR 65 H 19 H Sodium 137 Potassium 4.4 Chloride 109 H Carbon Dioxide 20 L BUN 23 H Creatinine 0.83 AST 20 44 H ALT 9 53 H C-Reactive Protein 6.20 H 2.59 H 0.10 Laboratory Tests 05/26/25 08:50 Hep Bs Antigen Negative Hep Bs Antibody NONREACTIVE Hep B Core Total Ab Nonreactive Hepatitis C Ab (EIA) Nonreactive TB Test (T-Spot) Com Negative PET CT Scan 03/2025 Findings: Vascular: No abnormal activity noted along the vascular system (subclavian and axillary arteries, extracranial carotid arteries, aorta, iliac and femoral vessels) Liver SUV max 3 Supra aortic SUV max 2.5 Aortic SUV max of 2.8 just below the renal arteries Iliac SUV max of 2.5 on the right and left Head and neck: Focal activity associated with a small nodule within the deep aspect of the left parotid gland with SUV max of 4.5 Thorax: No abnormal FDG activity Abdomen/pelvis: No abnormal FDG activity Musculoskeletal: Increased activity noted within both shoulders, left supraclavicular joint, both hips, left ischial tuberosity as well as both knees with SUV max of 5.3 with in the right shoulder and a 7 0.1 in the right knee. This distribution is suspicious for polymyalgia rheumatica Impression: No pattern of activity to suggest giant cell arteritis Pattern of musculoskeletal activity suspicious for polymyalgia rheumatica Assessment & Plan Assessment & Plan (1) Polymyalgia rheumatica: Comment: 03/2025 Based on elevated inflammatory markers, weight loss and PET scan consistent with PMR Started on prednisone 03/2025 Unable to do Kevzara due to high co pay Methotrexate 03/2025 Dose decreased 05/2025 due to elevated LFTs Code(s): M35.3 - Polymyalgia rheumatica Category: Medical Plan: #PMR Patient is a 75-year-old male here today for follow up of PMR Doing well on prednisone Will check AST/ALT for function on decreased MTX Continue prednisone taper Plan - Prednisone: decreased by 1mg every month - Methotrexate 10mg weekly and folic acid 1mg daily - Labs today: AST/ALT - RTC 3 months - Labs before visit: CBC, CMP, ESR, CRP (2) Encounter for methotrexate monitoring: Code(s): Z51.81 - Encounter for therapeutic drug level monitoring; Z79.631 - oysterman (current) use of antimetabolite agent Plan: #Long-term Current Use of Methotrexate Discussed with patient the benefits and risks of methotrexate for managing their rheumatic condition Benefits include reduced pain, reduced mortality, maintenance of remission and reduction of flares Risks include oral ulcers, photosensitivity, hepatotoxicity, hematologic toxicity, pneumonitis, flu-like symptoms (especially day after administration), nodulosis, lymphomas ? Limit alcohol and avoid Bactrim ? Monitoring: CBC, BMP, LFTs every 3-4 months and hepatitis serologies as needed ? Methotrexate is teratogenic. If planning need to discontinue 3 months prior to conception Plan I spent 38 minutes reviewing the record and labs, discussing the results with patient, discussing the treatment plan, writing out prednisone plan for patient, ordering diagnostic work up and documenting in the medical record Coding Level of Care Code Est Pt Level 4 (04124) Complex EM visit Add On G2211 Diagnoses Polymyalgia rheumatica M35.3 Encounter for methotrexate monitoring Z51.81; Z79.631
[2025-06-04 08:25] VITALS: BP 132/80; PULSE 78; O2SAT 98; BMI 24.2
== END 2025-06-04 09:04 | disposition home or self-care (01) ==
LOC: HO.RHES 08:00
PROVIDERS: PCP Physician Assistant Medical; Visit Provider Student in an Organized Health Care Education/Training Program
DX: M35.3 Polymyalgia rheumatica (principal); Z51.81 Encounter for therapeutic drug level monitoring; Z79.631 Long term (current) use of antimetabolite agent
CPT/HCPCS: 99214; G2211

== ENCOUNTER → 2025-06-04 07:59 | Outpatient (BNVA) | payer MEDICARE, SELFPAY | PROVIDERS: PCP Physician Assistant Medical; Visit Provider Student in an Organized Health Care Education/Training Program | DX: M35.3 Polymyalgia rheumatica (principal); Z51.81 Encounter for therapeutic drug level monitoring; Z79.631 Long term (current) use of antimetabolite agent; Z87.891 Personal history of nicotine dependence | CPT/HCPCS: 99212 ==

== ENCOUNTER 2025-06-08 09:15 | Outpatient (REF) | payer MEDICARE, SELFPAY ==
[2025-06-08 10:59] LABS: Alanine Aminotransferase 71 U/L (0-40); Aspartate Amino Transferase 48 U/L (5-37)
== END 2025-06-08 09:16 | disposition home or self-care (01) ==
LOC: HO.HMGCLDS 09:15
PROVIDERS: PCP Physician Assistant Medical; Visit Provider Student in an Organized Health Care Education/Training Program
DX: Z79.899 Other long term (current) drug therapy (principal)
CPT/HCPCS: 36415; 84450; 84460

== ENCOUNTER 2025-06-18 14:15 | Outpatient (REF) | payer MEDICARE, SELFPAY ==
--- NOTE | ~2025-06-18 | CT_ITS ---
EXAMINATION: CT CHEST WITHOUT IV CONTRAST INDICATION: R91.8 - Other nonspecific abnormal finding of lung field COMPARISON: Correlation is made with an outside study from [facility] dated 01/21/2025. TECHNIQUE: Helical CT scan of the chest was performed without intravenous contrast. Coronal and sagittal reformatted images were generated and reviewed. This CT exam was performed with one or more of the following dose reduction techniques: automated exposure control, adjustment of the mA and/or kV according to patient size, use of iterative reconstruction technique. DLP: 170 mGy-cm CHEST: THYROID: The thyroid is unremarkable. LUNGS: There is mild emphysema. Again seen is an irregularly-shaped 7 x 5 mm nodule in the right lower lobe (series 5, image 86). This is not significantly changed in size. Scattered 1-2 mm nodules are again noted in the upper lobes. There are no focal airspace opacities. MEDIASTINUM: There is no mediastinal lymphadenopathy. DEENA: Evaluation of the hilar regions is limited by lack of intravenous contrast material. CARDIOVASCULATURE: The heart is normal in size. There is no pericardial effusion. The thoracic aorta is normal in caliber. DEGREE OF CORONARY CALCIFICATION: severe PLEURA: There is no pleural effusion. No pneumothorax. MAIN AIRWAYS: The mainstem bronchi and proximal branches are patent. AXILLA: There is no axillary lymphadenopathy. BONES AND SOFT TISSUES: There is degenerative disc disease of the spine. UPPER ABDOMEN: The visualized portions of the liver, spleen, and adrenals have an unremarkable unenhanced appearance. There is cholelithiasis. CT/CT chest wo IV con IMPRESSION: 1. Stable 7 x 5 mm irregularly-shaped right lower lobe nodule. Continued follow-up is recommended. 2. Mild emphysema. Because mild emphysema is an independent risk factor for lung cancer, consider entering the patient into a program of yearly lung cancer screening with low dose chest CT. 3. Severe coronary arterial calcification. Electronically signed by: Deven Patricia MD 06/18/2025 03:21 PM [facility]
--- OUTSIDE RECORDS SUMMARY | 2025-06-18 14:18 | XMS_ITS | Encounter Summary ---
Author Organization [facility] Address [address] [place] [address] Care Team Providers Care Customs Examiner Name Role Phone Jaylen Blood Primary Care Provider Mejia Palmer MD Primary Care Provider Encounter Details Date Type Department Care Team Description 06/25/2018 SCAN Medical Records [address] [place] [address] Abstract, Provider Social History Tobacco Use Types [...] on file documented as of this encounter Procedures Procedure Name Priority Date/Time Associated Diagnosis Comments OUTSIDE LAB Routine 06/24/2018 documented in this encounter Results * OUTSIDE LAB (06/24/2018) Provider Abstract LAB documented in this encounter Visit Diagnoses Not on filedocumented in this encounter Care Teams Customs Examiner Relationship Specialty Start Date End Date Jaylen Blood PCP - General Internal Medicine 11/06/17 11/27/22 Mejia Armas MD [address] [place] [address] PCP - General Internal Medicine 11/28/22 documented as of this encounter
--- OUTSIDE RECORDS SUMMARY | 2025-06-18 14:18 | XMS_ITS | Clinical Summary ---
Author Organization [facility] Address [address] [place] [address] Care Team Providers Care Shader And Toner Name Role Phone Trista Masters PA-C Primary Care Provider [phone] Allergies Active Allergy Reactions Criticality Noted Date [...] age to complete this topic Care Teams Shader And Toner Relationship Specialty Start Date End Date Trista Masters PA-C PCP - General Medical Services 04/10/24
--- OUTSIDE RECORDS SUMMARY | 2025-06-18 14:18 | XMS_ITS | Encounter Summary ---
Author Organization [facility] Address [address] [place] [address] Care Team Providers Care Linoleum Printer Name Role Phone Jaylen Blood Primary Care Provider Mejia Palmer MD Primary Care Provider Encounter Details Date Type Department Care Team Description 06/27/2018 SCAN Medical Records [address] [place] [address] Abstract, Provider Social History Tobacco Use Types [...] on filedocumented in this encounter Care Teams Linoleum Printer Relationship Specialty Start Date End Date Jaylen Blood PCP - General Internal Medicine 11/06/17 11/27/22 Mejia Armas MD [address] [place] [address] PCP - General Internal Medicine 11/28/22 documented as of this encounter
--- OUTSIDE RECORDS SUMMARY | 2025-06-18 14:18 | XMS_ITS | Encounter Summary ---
Author Organization [facility] Address [address] [place] [address] Care Team Providers Care Fleet Director Name Role Phone Rojas Preston MD Primary Care Provider Jaylen Kirby Primary Care Provider Mejia Palmer MD Primary Care Provider Encounter Details Date Type Department Care Team Description 08/19/2014 [facility] Medical Records [address] [place] [address] Anthony Moran MD Social History Tobacco Use Types Packs/Day Years [...] on filedocumented in this encounter Care Teams Fleet Director Relationship Specialty Start Date End Date Rojas Preston MD PCP - General 11/20/1995 11/05/17 Jaylen Blood PCP - General Internal Medicine 11/06/17 11/27/22 Mejia Armas MD [address] [place] [address] PCP - General Internal Medicine 11/28/22 documented as of this encounter
--- OUTSIDE RECORDS SUMMARY | 2025-06-18 14:18 | XMS_ITS | Encounter Summary ---
Author Organization [facility] Address [address] [place] [address] Care Team Providers Care Truck Driver Teamster Name Role Phone Jaylen Blood Primary Care Provider Mejia Palmer MD Primary Care Provider Encounter Details Date Type Department Care Team Description 12/26/2017 Release of Information Medical Records [address] [place] [address] Abstract, Provider Social History Tobacco Use Types [...] on filedocumented in this encounter Care Teams Truck Driver Teamster Relationship Specialty Start Date End Date Jaylen Blood PCP - General Internal Medicine 11/06/17 11/27/22 Mejia Armas MD [address] [place] [address] PCP - General Internal Medicine 11/28/22 documented as of this encounter
--- OUTSIDE RECORDS SUMMARY | 2025-06-18 14:18 | XMS_ITS | Clinical Summary ---
Author Organization [facility] Address [address] [place] [address] Phone Care Team Providers Care Glove Turner And Former Name Role Phone Trista Masters Primary Care Provider [phone] Allergies Active Allergy Reactions Criticality Noted Date [...] - 05/12/2025 11:59 PM EDT Hospital Encounter [facility] CT Scan [address] [place] [phone] Neoplasm of unspecified behavior of digestive system Discharge Disposition: Home or Self Care 03/23/2025 7:29 AM EDT - 03/23/2025 11:59 PM EDT Hospital Encounter [facility] PET Scan [address] [place] [phone] Other giant cell arteritis (CMS/HCC V24, CMS/HCC [...] Signed Date: 05/19/2025 11:58 ET Workstation ID: [id number] Transcribed By: Self Edit Transcribed Date: 05/19/2025 [...] was performed utilizing dose reduction techniques. Total [id number] COMPARISON: PET CT 03/23/2025 FINDINGS: No cervical [...] Signed Date: 05/19/2025 11:58 ET Workstation ID: [id number] Transcribed By: Self Edit Transcribed Date: 05/19/2025 [...] Signed Date: 03/24/2025 15:54 ET Workstation ID: [id number] Transcribed By: Self Edit Transcribed Date: 03/24/2025 [...] Signed Date: 03/24/2025 15:54 ET Workstation ID: [id number] Transcribed By: Self Edit Transcribed Date: 03/24/2025 15:48 ET Elle Solorzano MD [facility] PROCEDURES Final Result * (ABNORMAL) Comprehensive [...] mmol/L LAB CHEMISTRY METHOD 12/25/2024 12:52 PM [facility] Anion Gap 12(H) 3 - 11 LAB CHEMISTRY METHOD 12/25/2024 12:52 PM [facility] Glucose 123(H) 70 - 100 mg/dL LAB CHEMISTRY METHOD 12/25/2024 12:52 PM [facility] BUN 14 5 - 25 mg/dL LAB CHEMISTRY METHOD 12/25/2024 12:52 PM [facility] Creatinine 0.95 0.70 - 1.30 mg/dL LAB CHEMISTRY METHOD 12/25/2024 12:52 PM [facility] eGFR 83 >=60 mL/min/1. 73m2 LAB CHEMISTRY METHOD 12/25/2024 12:52 PM [facility] Comment:Calculation based on the Chronic Kidney Disease Epidemiology Collaboration (CKD-EPI) equation refit without adjustment for race. BUN/Creatinine Ratio 14.7 LAB CHEMISTRY METHOD 12/25/2024 12:52 PM [facility] Calcium 8.1(L) 8.5 - 10.5 mg/dL LAB CHEMISTRY METHOD 12/25/2024 12:52 PM [facility] AST (SGOT) 11 10 - 42 unit/L LAB CHEMISTRY METHOD 12/25/2024 12:52 PM [facility] ALT (SGPT) 13 10 - 60 unit/L LAB CHEMISTRY METHOD 12/25/2024 12:52 PM [facility] Alkaline Phosphatase 79 42 - 121 unit/L LAB CHEMISTRY METHOD 12/25/2024 12:52 PM [facility] Total Protein 6.9 6.0 - 8.0 g/dL LAB CHEMISTRY METHOD 12/25/2024 12:52 PM [facility] Albumin 2.6(L) [...] Rodrigez MD LAB BLOOD ORDERABLES Final Result [facility] [address] [place] [address], [place] [phone] * [place] ABDOMINAL AORTA REAL TIME SCREEN [...] Maintenance Insurance [employer] MEDIC[employer] Care Teams Glove Turner And Former Relationship Specialty Start Date End Date Trista Masters PA [address] [facility] [place] [address] PCP - General 04/10/24
== END 2025-06-18 14:16 | disposition home or self-care (01) ==
LOC: HO.CT 14:15
PROVIDERS: PCP Physician Assistant Medical; Visit Provider Nurse Practitioner Family
DX: R91.8 Other nonspecific abnormal finding of lung field (principal)
CPT/HCPCS: 71250

== ENCOUNTER → 2025-06-18 14:17 | Outpatient (BNV) | payer MEDICARE, SELFPAY | PROVIDERS: PCP Physician Assistant Medical; Visit Provider Radiology Diagnostic Radiology | DX: J43.9 Emphysema, unspecified (principal); I25.84 Coronary atherosclerosis due to calcified coronary lesion; R91.1 Solitary pulmonary nodule | CPT/HCPCS: 71250 ==

== ENCOUNTER 2025-07-20 08:46 | Outpatient (REF) | payer MEDICARE, SELFPAY ==
[2025-07-20 10:37] LABS: MANUAL DIFF FLAG NO
--- OUTSIDE RECORDS SUMMARY | 2025-07-20 10:39 | XMS_ITS | Clinical Summary ---
Author Organization [facility] Prior to 12/19/[address] [place] [address] Care Team Providers Care Jetting Machine Operator Name Role Phone Trista Masters PA-C Primary Care Provider [phone] Allergies Active Allergy Reactions Criticality Noted Date [...] age to complete this topic Care Teams Jetting Machine Operator Relationship Specialty Start Date End Date Trista Masters PA-C PCP - General Medical Services 04/10/24
--- OUTSIDE RECORDS SUMMARY | 2025-07-20 10:39 | XMS_ITS | Clinical Summary ---
Author Organization [facility] Address [address] [place] [address] Phone Care Team Providers Care Control Systems Designer Name Role Phone Trista Masters Primary Care Provider [phone] Allergies Active Allergy Reactions Criticality Noted Date [...] - 05/12/2025 11:59 PM EDT Hospital Encounter [facility] CT Scan [address] [place] [address] Neoplasm of unspecified behavior of digestive system Discharge Disposition: Home or Self Care from [...] on file Sexual Orientation Not on file Last Filed Vital Signs [...] Health Maintenance Due Date Last Done Comments Drug Screen 1950 Non-Opioid Controlled Substance Agreement 1950 Diabetes: Annual Foot Exam 1959 Diabetes: [...] Neoplasm of unspecified behavior of digestive system COMPREHENSIVE METABOLIC PANEL Routine 12/25/2024 8:31 AM [...] Signed Date: 05/19/2025 11:58 ET Workstation ID: [id number] Transcribed By: Self Edit Transcribed Date: 05/19/2025 [...] was performed utilizing dose reduction techniques. Total [id number] COMPARISON: PET CT 03/23/2025 FINDINGS: No cervical [...] Signed Date: 05/19/2025 11:58 ET Workstation ID: [id number] Transcribed By: Self Edit Transcribed Date: 05/19/2025 11:33 ET Gorge Rees MD IMG CT PROCEDURES Final Result * (ABNORMAL) Comprehensive metabolic panel (12/25/2024 8:31 AM EDT) Sodium 142 133 - 145 mmol/L LAB CHEMISTRY METHOD 12/25/2024 12:52 PM [facility] Potassium 3.6 3.5 - 5.5 mmol/L LAB CHEMISTRY METHOD 12/25/2024 12:52 PM [facility] Chloride 109 96 - 110 mmol/L LAB CHEMISTRY METHOD 12/25/2024 12:52 PM [facility] CO2 21 [...] PM [facility] Total Bilirubin 0.4 0.0 - 1.4 mg/dL LAB CHEMISTRY METHOD 12/25/2024 12:52 PM [facility] Blood Venous blood specimen / Unknown Venipuncture / Unknown 12/25/2024 8:31 AM EDT 12/25/2024 11:27 AM EDT Fritz Rodrigez MD LAB BLOOD ORDERABLES Final Result [facility] [address] [place] [address], * [place] ABDOMINAL AORTA REAL TIME SCREEN [...] CONCLUSIONS: No evidence of AAA. Danny YUAN US PROCEDURES Final R esult from Last 3 Months or Most Recently Relevant to Health Maintenance Insurance [facility] MEDICARE Care Teams Control Systems Designer Relationship Specialty Start Date End Date Trista Masters PA [address] [place] [address] PCP - General 04/10/24
[2025-07-20 10:46] LABS: Hematocrit 38.7 % (42.0-52.0); Hemoglobin 12.4 g/dl (14.0-18.0); Imm Gran Abs Auto 0.11 X10*3/uL (0.00-0.03); Imm Gran Pct Auto 0.7 % (0.0-0.4); Lymphocytes Absolute Auto 1.6 X10*3/uL (1.2-4.9); Mean Corpuscular HGB Conc 32.0 g/dl (31.0-36.0); Mean Corpuscular Hemoglobin 32.7 pg (27.0-33.0); Mean Corpuscular Volume 102.1 fL (80.0-98.0); NRBC Abs Auto 0.000 X10*3/uL (0.0-0.012); NRBC Pct Auto 0.0 /100WBC (0.0-0.2); Platelet Count 283 X10*3/uL (160-400); Red Blood Count 3.79 X10*6/uL (4.60-5.80); White Blood Count 14.9 X10*3/uL (4.8-10.8)
[2025-07-20 11:04] LABS: Alanine Aminotransferase 29 U/L (0-40); Albumin Level 3.9 g/dL (3.5-5.0); Alkaline Phosphatase 72 U/L (39-117); Anion Gap 12 (12-20); Aspartate Amino Transferase 24 U/L (5-37); Blood Urea Nitrogen 17 mg/dL (9-16); Calcium 9.1 mg/dL (8.4-10.2); Carbon Dioxide 23 mmol/L (22-29); Chloride 108 mmol/L (96-108); Estimated Glomerular Filt Rate 54; Potassium 4.8 mmol/L (3.3-5.1); Sodium 138 mmol/L (135-145); Total Protein 6.6 g/dL (6.5-8.0)
== END 2025-07-20 08:47 | disposition home or self-care (01) ==
LOC: HO.HMGCLDS 08:46
PROVIDERS: PCP Physician Assistant Medical; Visit Provider Student in an Organized Health Care Education/Training Program
DX: Z79.899 Other long term (current) drug therapy (principal)
CPT/HCPCS: 36415; 80053; 85025; 85652; 86140